=== PATIENT | male | born 1935 | race Caucasian/White ===

== ENCOUNTER → 2016-07-25 | Outpatient (CLI) | payer BC ==
[~2016-07-25] MED LIST: AMOX500C3 PO; ATOR-24 PO; CALC1TAB27 PO; CARV25TA2 PO; CLOP1TAB15 PO; COLE625T PO; DIGO0.122 PO; DILT180C9 PO; DOXA2TAB PO; ERGO50002 PO; FAMO20TA11 PO; FRS/40 PO; HYDR-4717 PO; IBUP600T44 PO; INSDGI SC; INSDGIPEN SC; ISOS60TA2 PO; LISI40TA PO; LORA-741 PO; NVLGI SC; NVLGI/PEN SC; OMEG10007 PO; POTA-327 PO; POTA10TA33 PO; SNG10 PO; TRAM-10 PO; WARF5TAB7 PO; XLTOPS OP
[2016-07-25 14:45] LABS: BASO % 0.3 %; BASO ABS # 0.02 K/uL (0-0.2); COMPLETE YES; EOS % 1.7 %; HEMATOCRIT 35.2 % (42-52); IG% 0.3 %; LYMPH % 21.9 %; MEAN CELL VOLUME 87.3 fL (80-100); MEAN CORPUSCULAR HEMOGLOBIN 29.3 pg (25-34); MEAN CORPUSCULAR HGB CONC 33.5 g/dl (32-36); MEAN PLATELET VOLUME 10.4 fL (7.4-10.4); MONO % 6.3 %; NEUT % 69.5 %; PLATELET COUNT 199 K/uL (130-400); RED BLOOD COUNT 4.03 M/uL (4.7-6.1); WHITE BLOOD COUNT 7.75 K/uL (4.8-10.8)
[2016-07-25 15:09] LABS: ESTIMATED AVERAGE GLUCOSE 243 mg/dl; HA1C FLAG Normal (Normal)
[2016-07-25 17:32] LABS: ALKALINE PHOSPHATASE 90 U/L (45-117); ALT/SGPT 25 U/L (12-78); BLOOD UREA NITROGEN 15 mg/dl (7-18); BUN/CREATININE RATIO 12.7 (10-20); CALCIUM 9.6 mg/dl (8.5-10.1); CARBON DIOXIDE 26 mmol/L (21-32); CHLORIDE 105 mmol/L (98-107); GLUCOSE 283 mg/dl (70-99); POTASSIUM 4.1 mmol/L (3.5-5.1); SODIUM 140 mmol/L (136-145)
[2016-07-25 17:38] LABS: AST/SGOT 9 U/L (15-37)
--- NOTE | 2016-07-29 11:34 | CODING QUERY MEDICAL NECESSITY ---
SUPPORTING DIAGNOSIS NEEDED A supporting diagnosis is required for the test/procedure performed on this patient in order for us to be reimbursed by the patient's insurance. Please provide a supporting diagnosis for the following test/procedure listed below next to the test name along with your signature. *If there is no additional diagnosis for this patient that would support the following test/procedure please document that below next to the test/procedure. Test(s)/Procedure(s) that require a supporting diagnosis: DOS 07/25 * Hba1c DIAGNOSIS: Provider Signature: Date: Thank you Felipa Barron Health Information Management Once completed, please kindly fax back to [phone] For questions please call [phone]
== END | disposition home or self-care (01) ==
LOC: C.LAB1850 13:44
PROVIDERS: ATTEND Internal Medicine
DX: D64.9 Anemia, unspecified (principal); L29.9 Pruritus, unspecified; E11.8 Type 2 diabetes mellitus with unspecified complications

== ENCOUNTER → 2016-08-10 | Outpatient (CLI) | payer BC ==
--- NOTE | 2016-08-10 15:04 | DIAGNOSTIC IMAGING REPORT ---
CHEST 2 VIEWS ROUTINE HISTORY: Chest pain. 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 FINDINGS: Lungs are clear. No pleural effusions. No pneumothorax. Left-sided pacemaker/defibrillator. The heart remains top normal in size. IMPRESSION: No significant change compared to the prior study. No acute process. Electronically signed by: Go Hall M.D. 08/10/2016 3:02 PM Dictated Date/Time: 08/10/2016 3:01 PM
[2016-08-16 12:19] LABS: ALBUMIN 3.6 G/DL (3.8-4.8); BEEF CLASS 0; BEEF IGE <0.10 KU/L; CASHEW CLASS 0; CASHEW IGE <0.10 KU/L; CHOCOLATE CLASS 0; CHOCOLATE IGE <0.10 KU/L; CLAM CLASS 0; CLAM IGE <0.10 KU/L; CORN CLASS 0; CORN IGE <0.10 KU/L; CRAB CLASS 0; CRAB IGE <0.10 KU/L; EGG MIX CLASS 0; EGG MIX IGE <0.10 KU/L; GAMMA GLOBULIN 0.7 G/DL (0.8-1.7); HAZELNUT CLASS 0; IMMUNOGLOBULIN E TC 24620E 46 KU/L (<115); LOBSTER CLASS 0; LOBSTER IGE <0.10 KU/L; PEANUT IGE <0.10 KU/L; PECAN NUT CLASS 0; PECAN NUT IGE <0.10 KU/L; PISTACHIO CLASS 0; PISTACHIO IGE <0.10 KU/L; PORK CLASS 0; PORK IGE <0.10 KU/L; RAST ALMOND CLASS 0; RAST ALMOND IGE <0.10 KU/L; RAST BRAZIL NUT CLASS 0; RAST BRAZIL NUT IGE <0.10 KU/L; RAST HAZELNUT IGE <0.10 KU/L; SHRIMP CLASS 0; SOY CLASS 0; SOY IGE <0.10 KU/L; TOTAL PROTEIN 6.2 G/DL (6.2-8.3); WALNUT CLASS 0; WHEAT CLASS 0; WHEAT IGE <0.10 KU/L
--- NOTE | 2016-08-17 10:53 | CODING QUERY MEDICAL NECESSITY ---
SUPPORTING DIAGNOSIS NEEDED Dr. Lamb, A supporting diagnosis is required for the test/procedure performed on this patient in order for us to be reimbursed by the patient's insurance. Please provide a supporting diagnosis for the following test/procedure listed below next to the test name along with your signature. *If there is no additional diagnosis for this patient that would support the following test/procedure please document that below next to the test/procedure. Test(s)/Procedure(s) that require a supporting diagnosis: * ([id number]) ALLERGY TESTING-IMMUNOGLOBULIN E DIAGNOSIS: DATE OF SERVICE: 08/10/16 Provider Signature: Date: Thank you Dimitri Ng [facility] Information Management Once completed, please kindly fax back to [phone] For questions please call [phone]
== END | disposition home or self-care (01) ==
LOC: C.RAD1850 14:34
PROVIDERS: ATTEND Internal Medicine
DX: I25.10 Atherosclerotic heart disease of native coronary artery without angina pectoris (principal); R05 Cough; L29.9 Pruritus, unspecified; D64.9 Anemia, unspecified

== ENCOUNTER → 2016-09-13 | Outpatient (CLI) | payer BC ==
--- NOTE | 2016-09-13 15:44 | DIAGNOSTIC IMAGING REPORT ---
LEFT FOOT MIN 3 VIEWS ROUTINE CLINICAL HISTORY: Left foot pain status post trauma COMPARISON: 03/16/2016 DISCUSSION: The bones are osteopenic. There is an acute fracture involving the base the proximal phalanx the great toe. There is no definite intra-articular extension. IMPRESSION: Acute nondisplaced fracture involving the proximal phalanx of the great toe. Electronically signed by: Jose Luis Grijalva M.D. 09/13/2016 3:42 PM Dictated Date/Time: 09/13/2016 3:41 PM
== END | disposition home or self-care (01) ==
LOC: C.RAD1850 15:18
PROVIDERS: ATTEND Internal Medicine
DX: S92.415A Nondisplaced fracture of proximal phalanx of left great toe, initial encounter for closed fracture (principal); X58.XXXA Exposure to other specified factors, initial encounter

== ENCOUNTER → 2016-12-22 | Outpatient (CLI) | payer BC ==
--- NOTE | 2016-12-22 16:34 | DIAGNOSTIC IMAGING REPORT ---
CHEST 2 VIEWS ROUTINE HISTORY: R06.02 SOBOE (shortness of breath on exertion)[id number] COMPARISON: Chest 08/10/2016. FINDINGS: Left-sided pacemaker/defibrillator. The heart remains top normal in size. The lungs are clear. No pleural effusions. No pneumothorax. IMPRESSION: No acute process. Electronically signed by: Go Hall M.D. 12/22/2016 4:33 PM Dictated Date/Time: 12/22/2016 4:31 PM
== END | disposition home or self-care (01) ==
LOC: C.RAD1850 16:21
PROVIDERS: ATTEND Internal Medicine
DX: R06.02 Shortness of breath (principal)

== ENCOUNTER → 2016-12-22 | Outpatient (CLI) | payer BC ==
[2016-12-22 17:19] LABS: BASO % 0.5 %; BASO ABS # 0.04 K/uL (0-0.2); COMPLETE YES; EOS % 2.8 %; HEMATOCRIT 39.4 % (42-52); LYMPH % 26.7 %; LYMPH ABS # 2.11 K/uL (1.2-3.4); MEAN CELL VOLUME 86.4 fL (80-100); MEAN CORPUSCULAR HEMOGLOBIN 26.5 pg (25-34); MEAN CORPUSCULAR HGB CONC 30.7 g/dl (32-36); MEAN PLATELET VOLUME 10.1 fL (7.4-10.4); PLATELET COUNT 284 K/uL (130-400); RED BLOOD COUNT 4.56 M/uL (4.7-6.1)
[2016-12-22 18:47] LABS: BLOOD UREA NITROGEN 20 mg/dl (7-18); BUN/CREATININE RATIO 18.1 (10-20); CALCIUM 9.8 mg/dl (8.5-10.1); CARBON DIOXIDE 25 mmol/L (21-32); CHLORIDE 108 mmol/L (98-107); CHOLESTEROL 115 mg/dl (0-200); GLUCOSE 158 mg/dl (70-99); POTASSIUM 4.1 mmol/L (3.5-5.1); SODIUM 140 mmol/L (136-145); TRIGLYCERIDES 142 mg/dl (0-150); VERY LOW DENSITY LIPOPROT CALC 28 mg/dl
[2016-12-22 18:51] LABS: FERRITIN 11.2 ng/ml (8.0-388.0); HDL CHOLESTEROL 38 mg/dl; LDL CHOLESTEROL CALCULATED 49 mg/dl
[2016-12-23 07:33] LABS: ESTIMATED AVERAGE GLUCOSE 209 mg/dl; HA1C FLAG Normal (Normal)
== END | disposition home or self-care (01) ==
LOC: C.LAB1850 16:06
PROVIDERS: ATTEND Internal Medicine
DX: E11.21 Type 2 diabetes mellitus with diabetic nephropathy (principal); D64.9 Anemia, unspecified; I25.10 Atherosclerotic heart disease of native coronary artery without angina pectoris; I48.92 Unspecified atrial flutter; R06.02 Shortness of breath; Z51.81 Encounter for therapeutic drug level monitoring; Z79.899 Other long term (current) drug therapy

== ENCOUNTER 2017-01-06 10:22 | Emergency (ER) | payer BC ==
[~2017-01-06] VITALS: Ht 167.6 cm; Wt 83.5 kg
[~2017-01-06 10:22] MED LIST changes: -INSDGIPEN SC; -NVLGI/PEN SC; -POTA10TA33 PO; -SNG10 PO
[2017-01-06 10:30] VITALS: Ht 167.6 cm; Wt 83.5 kg
--- NOTE | 2017-01-06 10:59 | EMERGENCY ROOM VISIT NOTE ---
History Report prepared by Josee: Gideon Cevallos Under the Supervision of: Dr. Joel Sheth M.D. First contact with patient: 10:39 Chief Complaint: SHORTNESS OF BREATH Stated Complaint: LOW BLOOD PRESSURE, VISUAL CHANGES, FAINT Nursing Triage Summary: Pt states he was having an nuclear stress test for SOB x 6 mos. Pt was given dye and everything got blurry, bp was 76/40. Pt reports visual disturbance since getting dye, increased sob. Denies swelling in throat. Isotope dye used, people use gloves when touching IV site. History of Present Illness The patient is a 81 year old male who presents to the Emergency Room with complaints of constant shortness of breath this morning and some blurry vision this morning after given Cardiolite during a nuclear stress test, though he states that this has resolved. He states that the shortness of breath has been there for 6 months, though today it got worse. The patient denies any speech change or weakness. The patient denies any abdominal pain. He states that he has a history of stroke. Source of History: patient Onset: this morning Position: other (global) Quality: other (shortness of breath and blurred vision) Timing: constant Associated Symptoms: No abdominal pain, No weakness Note: Associated vision: Blurred vision Review of Systems All systems have been listed, reviewed, and are negative other than those previously mentioned. Please see Additional Medical History Sheet. Past Medical & Surgical Medical Problems: (1) Atrial fibrillation (2) Diabetes (3) Heart disease (4) Hypercholesteremia (5) Hypertension (6) Intraabdominal mass (7) Ischemic cardiomyopathy Family History Diabetes mellitus FH: cancer FH: heart disease Hypertension Social History Smoking Status: Former Smoker Alcohol Use: none Drug Use: none Marital Status: Housing Status: lives with family Occupation Status: retired Current/Historical Medications Scheduled Amoxicillin (Amoxil), 20,000 MG PO PRN/UD Atorvastatin (Lipitor), 40 MG PO DAILY Flnoicw-Dycsflirv-Hvnk (Calcium Magnesium & Zinc), 1 TAB PO DAILY Carvedilol (Coreg), 25 MG PO BID Clopidogrel (Plavix), 75 MG PO DAILY Diltiazem Hcl (Tiazac), 180 MG PO BID Doxazosin Mesylate (Cardura), 1 MG PO HS Ergocalciferol (Drisdol), 50,000 UNITS PO WK Famotidine (Pepcid), 20 MG PO BID Fish Oil (Smoot-3), 1 CAP PO DAILY Furosemide (Lasix), 40 MG PO DAILY Hydralazine Hcl (Apresoline), 50 MG PO TID Insulin Aspart (Novolog Flexpen), 1 DOSE SC AC/UD Insulin Glargine (Lantus Solostar), 22 UNITS SC HS Isosorbide Mononitrate (Imdur Ext Rel), 60 MG PO QPM Isosorbide Mononitrate (Imdur Ext Rel), 90 MG PO QAM Latanoprost (Latanoprost), 1 DROP OP HS Lisinopril (Zestril), 40 MG PO DAILY Montelukast Sod (Montelukast Sodium), 1 TAB PO DAILY Potassium Chloride (Potassium Chloride Sr), 1 TAB PO BID Warfarin Sod (Jantoven), 7.5 MG PO DAILY Scheduled PRN Ibuprofen (Motrin), 600 MG PO TID PRN for Pain Lorazepam (Ativan), 0.5 MG PO Q6H PRN for Anxiety/Agitation Tramadol (Ultram), 50 MG PO Q8H PRN for Pain Allergies Coded Allergies: No Known Allergies (Verified , 01/06/17) Physical Exam Vital Signs Date Time Temp Pulse Resp B/P (MAP) Pulse Ox O2 Delivery O2 Flow Rate FiO2 01/06/17 14:33 36.5 62 14 142/71 96 01/06/17 14:11 60 14 144/75 97 01/06/17 13:52 62 01/06/17 12:45 71 20 01/06/17 12:15 62 15 01/06/17 11:45 60 13 01/06/17 11:15 17 01/06/17 11:13 131/87 01/06/17 11:12 131/72 01/06/17 11:11 60 134/67 97 60 131/72 62 131/87 01/06/17 11:11 134/67 01/06/17 11:10 60 01/06/17 11:06 97 Room Air 01/06/17 10:49 143/71 01/06/17 10:30 36.5 61 16 131/74 96 Room Air Physical Exam GENERAL: Patient awake, alert, and is in no distress. SKIN: No erythema, pallor, cyanosis or rash HEENT: Normal head, pupils equal, reactive to light and accommodation. Ears normal. Oral cavity and posterior pharynx appear normal. The patient is missing multiple teeth. Neck: Without adenopathy, no neck vein distention. LUNGS: Clear to auscultation. No wheezes, no rales, no rhonchi. HEART: 1/6 systolic murmur. No gallops. No rubs ABDOMEN: No masses, no rebound, no hepatomegaly or splenomegaly. EXTREMITIES: Braces on both lower legs for foot drop. No signs of trauma. No pedal or pretibial edema. No calf or thigh tenderness. NEUROLOGIC: Patient has slight dysarthria most likely old. No new deficits. Foot drop bilaterally which is most likely old. Cranial nerves II-XII within normal limits. Medical Decision & Procedures ER Provider Diagnostic Interpretation: Radiology results as stated below per my review and radiologist interpretation: CHEST ONE VIEW PORTABLE CLINICAL HISTORY: 81 years-old Male presenting with blurred vision. TECHNIQUE: Portable upright AP view of the chest was obtained. COMPARISON: 12/22/2016. FINDINGS: Left-sided implanted cardiac defibrillator with leads to the right atrium, coronary sinus, and right ventricular apex. Mildly enlarged cardiac silhouette as on prior exam. Suggestion of enlargement of the main pulmonary artery. Prominence of pulmonary vasculature slightly increased from prior. Lungs and pleural spaces clear. Osseous structures and upper abdomen normal. IMPRESSION: 1. Cardiomegaly with prominent pulmonary vasculature, which may suggest volume overload. No pulmonary edema or effusions. Electronically signed by: Jostin Arguelles M.D. 01/06/2017 11:13 AM Dictated Date/Time: 01/06/2017 11:11 AM HEAD WITHOUT CONTRAST (CT) CLINICAL HISTORY: 81 years-old Male presenting with blurred vision. TECHNIQUE: Multidetector CT imaging of the head was performed without the use of intravenous contrast. COMPARISON: 11/12/2013. 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 Possible old lacunar infarct in the left basal ganglia. Few vague areas of subcortical white matter hypoattenuation in the frontal lobes, nonspecific but likely chronic small vessel ischemic change. No mass effect or midline shift. No hemorrhage or acute territorial infarct. No hydrocephalus. No extra-axial fluid collection. Paranasal sinuses and mastoid air cells clear. Calvarium intact. IMPRESSION: 1. No acute intracranial pathology. No hemorrhage. 2. Possible old lacunar infarct in the left basal and chronic small vessel ischemic change in the subcortical white matter. Electronically signed by: Jostin Arguelles M.D. 01/06/2017 1:34 PM Dictated Date/Time: 01/06/2017 1:30 PM Laboratory Results 01/06/17 11:10 Red Blood Count 3.95, Mean Corpuscular Volume 87.3, Mean Corpuscular Hemoglobin 28.4, Mean Corpuscular Hemoglobin Concent 32.5, Mean Platelet Volume 10.2, Neutrophils (%) (Auto) 68.9, Lymphocytes (%) (Auto) 21.6, Monocytes (%) (Auto) 6.3, Eosinophils (%) (Auto) 2.4, Basophils (%) (Auto) 0.5, Neutrophils # (Auto) 4.59, Lymphocytes # (Auto) 1.44, Monocytes # (Auto) 0.42, Eosinophils # (Auto) 0.16, Basophils # (Auto) 0.03 01/06/17 11:10 Test 01/06/17 11:10 01/06/17 11:35 White Blood Count 6.66 K/uL (4.8-10.8) Red Blood Count 3.95 M/uL (4.7-6.1) Hemoglobin 11.2 g/dL (14.0-18.0) Hematocrit 34.5 % (42-52) Mean Corpuscular Volume 87.3 fL (80-100) Mean Corpuscular Hemoglobin 28.4 pg (25-34) Mean Corpuscular Hemoglobin Concent 32.5 g/dl (32-36) Platelet Count 226 K/uL (130-400) Mean Platelet Volume 10.2 fL (7.4-10.4) Neutrophils (%) (Auto) 68.9 % Lymphocytes (%) (Auto) 21.6 % Monocytes (%) (Auto) 6.3 % Eosinophils (%) (Auto) 2.4 % Basophils (%) (Auto) 0.5 % Neutrophils # (Auto) 4.59 K/uL (1.4-6.5) Lymphocytes # (Auto) 1.44 K/uL (1.2-3.4) Monocytes # (Auto) 0.42 K/uL (0.11-0.59) Eosinophils # (Auto) 0.16 K/uL (0-0.5) Basophils # (Auto) 0.03 K/uL (0-0.2) RDW Standard Deviation 46.8 fL (36.4-46.3) RDW Coefficient of Variation 14.5 % (11.5-14.5) Immature Granulocyte % (Auto) 0.3 % Immature Granulocyte # (Auto) 0.02 K/uL (0.00-0.02) Prothrombin Time 24.8 SECONDS (9.0-12.0) Prothromb Time International Ratio 2.2 (0.9-1.1) Activated Partial Thromboplast Time 33.1 SECONDS (21.0-31.0) Partial Thromboplastin Ratio 1.3 Anion Gap 9.0 mmol/L (3-11) Est Creatinine Clear Calc Drug Dose 59.7 ml/min Estimated GFR () 82.0 Estimated GFR (Non- 70.8 BUN/Creatinine Ratio 18.9 (10-20) Calcium Level 9.5 mg/dl (8.5-10.1) Total Bilirubin 0.6 mg/dl (0.2-1) Aspartate Amino Transf (AST/SGOT) 9 U/L (15-37) Alanine Aminotransferase (ALT/SGPT) 19 U/L (12-78) Alkaline Phosphatase 96 U/L (45-117) Troponin I < 0.015 ng/ml (0-0.045) Total Protein 6.6 gm/dl (6.4-8.2) Albumin 3.3 gm/dl (3.4-5.0) Globulin 3.3 gm/dl (2.5-4.0) Albumin/Globulin Ratio 1.0 (0.9-2) Urine Color DK YELLOW Urine Appearance CLEAR (CLEAR) Urine pH 5.5 (4.5-7.5) Urine Specific [place] 1.024 (1.000-1.030) Urine Protein 2+ (NEG) Urine Glucose (UA) TRACE (NEG) Urine Ketones TRACE (NEG) Urine Occult Blood NEG (NEG) Urine Nitrite NEG (NEG) Urine Bilirubin NEG (NEG) Urine Urobilinogen NEG (NEG) Urine Leukocyte Esterase NEG (NEG) Urine WBC (Auto) 1-5 /hpf (0-5) Urine RBC (Auto) 0-4 /hpf (0-4) Urine Hyaline Casts (Auto) 1-5 /lpf (0-5) Urine Epithelial Cells (Auto) 10-20 /lpf (0-5) Urine Bacteria (Auto) NEG (NEG) Laboratory results as stated above per my review. ECG Indication: SOB/dyspnea Rate (beats per minute): 60 Rhythm: other (AV dual paced) Findings: no acute ischemic change, no ectopy ED Course 1039: Past medical records reviewed. The patient was evaluated in room C10. A complete history and physical examination was performed. 1243: I reevaluated the patient, and he was doing well 1412: I reevaluated the patient, and he states that he has no more blurred vision. We called nuclear medicine, and it is too late for them to take the final picture today. The patient will be discharged home. Medical Decision Nurses notes reviewed. Medical history sheet reviewed. Differential diagnosis includes but is not limited to: medication reaction, hypotension, CVA, and TIA. Blood Pressure Screening: Patient was found to have a slightly elevated blood pressure due to circumstances. I do not believe that the patient requires hypertension monitoring. Medication Reconciliation: I attest that I have personally reviewed the patient' s current medication list. The patient was sent here from nuclear medicine where he was having a Cardiolite stress test done. He did not actually go through the stress test itself. The patient had blurred vision and low blood pressure. Those symptoms have since resolved. During his stay in the ED he had no blurred vision or hypotension. Multiple labs, EKG and imaging were performed. Please see above. The patient is not orthostatic. Labs were felt to be within normal range. He has no findings to suggest an acute stroke or TIA. I believe the patient is safe to return home. He will continue his current medications. Impression Primary Impression: Blurred vision Scribe Attestation The scribe's documentation has been prepared under my direction and personally reviewed by me in its entirety. I confirm that the note above accurately reflects all work, treatment, procedures, and medical decision making performed by me. Departure Information Dispostion Home / Self-Care Referrals Kyle Lamb M.D. (PCP) Forms HOME CARE DOCUMENTATION FORM, IMPORTANT VISIT INFORMATION Patient Instructions My [facility] Additional Instructions Continue all of your current medications as prescribed. Follow-up with your family physician.
[2017-01-06 11:06] VITALS: O2SAT 97
--- NOTE | 2017-01-06 11:14 | DIAGNOSTIC IMAGING REPORT ---
CHEST ONE VIEW PORTABLE CLINICAL HISTORY: 81 years-old Male presenting with blurred vision. TECHNIQUE: Portable upright AP view of the chest was obtained. COMPARISON: 12/22/2016. FINDINGS: Left-sided implanted cardiac defibrillator with leads to the right atrium, coronary sinus, and right ventricular apex. Mildly enlarged cardiac silhouette as on prior exam. Suggestion of enlargement of the main pulmonary artery. Prominence of pulmonary vasculature slightly increased from prior. Lungs and pleural spaces clear. Osseous structures and upper abdomen normal. IMPRESSION: 1. Cardiomegaly with prominent pulmonary vasculature, which may suggest volume overload. No pulmonary edema or effusions. Electronically signed by: Jostin Arguelles M.D. 01/06/2017 11:13 AM Dictated Date/Time: 01/06/2017 11:11 AM
[2017-01-06 11:35] LABS: BASO % 0.5 %; BASO ABS # 0.03 K/uL (0-0.2); COMPLETE YES; EOS % 2.4 %; HEMATOCRIT 34.5 % (42-52); IG% 0.3 %; LYMPH % 21.6 %; LYMPH ABS # 1.44 K/uL (1.2-3.4); MEAN CELL VOLUME 87.3 fL (80-100); MEAN CORPUSCULAR HEMOGLOBIN 28.4 pg (25-34); MEAN CORPUSCULAR HGB CONC 32.5 g/dl (32-36); MEAN PLATELET VOLUME 10.2 fL (7.4-10.4); MONO % 6.3 %; NEUT % 68.9 %; PLATELET COUNT 226 K/uL (130-400); RED BLOOD COUNT 3.95 M/uL (4.7-6.1); WHITE BLOOD COUNT 6.66 K/uL (4.8-10.8)
[2017-01-06 11:45] LABS: INR 2.2 (0.9-1.1); PARTIAL THROMBOPLASTIN RATIO 1.3; PROTHROMBIN TIME (PATIENT) 24.8 SECONDS (9.0-12.0)
[2017-01-06 11:46] LABS: URINE APPEARANCE CLEAR (CLEAR); URINE BILIRUBIN NEG (NEG); URINE COLOR DK YELLOW; URINE NITRITE NEG (NEG); URINE PH 5.5 (4.5-7.5); URINE SPECIFIC GRAVITY 1.024 (1.000-1.030); UROBILINOGEN NEG (NEG); ZZUR CULT IF INDIC CLEAN CATCH NO
[2017-01-06 11:47] LABS: MANUAL MICROSCOPIC REQUIRED? NO; REVIEW REQ? NO
[2017-01-06 11:53] LABS: ALT/SGPT 19 U/L (12-78); AST/SGOT 9 U/L (15-37); BLOOD UREA NITROGEN 19 mg/dl (7-18); BUN/CREATININE RATIO 18.9 (10-20); CALCIUM 9.5 mg/dl (8.5-10.1); CARBON DIOXIDE 24 mmol/L (21-32); CHLORIDE 108 mmol/L (98-107); GLUCOSE 177 mg/dl (70-99); POTASSIUM 3.9 mmol/L (3.5-5.1); SODIUM 141 mmol/L (136-145)
[2017-01-06 11:58] LABS: ALKALINE PHOSPHATASE 96 U/L (45-117)
--- NOTE | 2017-01-06 13:36 | DIAGNOSTIC IMAGING REPORT ---
HEAD WITHOUT CONTRAST (CT) CLINICAL HISTORY: 81 years-old Male presenting with blurred vision. TECHNIQUE: Multidetector CT imaging of the head was performed without the use of intravenous contrast. COMPARISON: 11/12/2013. 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 Possible old lacunar infarct in the left basal ganglia. Few vague areas of subcortical white matter hypoattenuation in the frontal lobes, nonspecific but likely chronic small vessel ischemic change. No mass effect or midline shift. No hemorrhage or acute territorial infarct. No hydrocephalus. No extra-axial fluid collection. Paranasal sinuses and mastoid air cells clear. Calvarium intact. IMPRESSION: 1. No acute intracranial pathology. No hemorrhage. 2. Possible old lacunar infarct in the left basal and chronic small vessel ischemic change in the subcortical white matter. Electronically signed by: Jostin Arguelles M.D. 01/06/2017 1:34 PM Dictated Date/Time: 01/06/2017 1:30 PM
[2017-01-06] MEDS ORDERED: SNG10 PO (13:45)
[2017-01-06] MEDS ORDERED: NVLGI/PEN SC (13:45)
[2017-01-06] MEDS ORDERED: POTA10TA33 PO (13:45)
[2017-01-06] MEDS ORDERED: INSDGIPEN SC (13:45)
[2017-01-06 14:33] VITALS: BP 142/71; PULSE 62; TEMP 36.5; O2SAT 96
== END 2017-01-06 14:35 | disposition home or self-care (01) ==
LOC: C.EDB 10:24 → C.EDC 14:35
DX: R06.02 Shortness of breath (principal); H53.8 Other visual disturbances; Z86.73 Personal history of transient ischemic attack (TIA), and cerebral infarction without residual deficits; I48.91 Unspecified atrial fibrillation; E11.9 Type 2 diabetes mellitus without complications; E78.00 Pure hypercholesterolemia, unspecified; I10 Essential (primary) hypertension; I25.5 Ischemic cardiomyopathy; Z83.3 Family history of diabetes mellitus; Z80.9 Family history of malignant neoplasm, unspecified; Z82.49 Family history of ischemic heart disease and other diseases of the circulatory system; Z87.891 Personal history of nicotine dependence; Z79.01 Long term (current) use of anticoagulants; Z79.899 Other long term (current) drug therapy; Z79.4 Long term (current) use of insulin

== ENCOUNTER → 2017-01-06 | Outpatient (CLI) | payer BC ==
--- NOTE | 2017-01-06 10:24 | Cardiology Follow-Up ---
Cardiology Follow-Up Date of Service Jan 06, 2017. Cardiology Follow-Up I was called by nuclear Medicine regarding hypotension and blurry vision. Following Cardiolite injection for resting images for outpatient stress test which was ordered by Dr. Hermosillo, Mr. Salgado complained of blurry vision. His heart rate was 60 bpm per nursing. His systolic blood pressure was in the 70s. They laid him flat and his systolic blood pressure was in the mid 100s mmHg. Despite improved blood pressure, blurry vision continued. I presented to the bedside. His systolic blood pressure was in the 120s and his heart rate was 60. He had no other neurologic complaints and no other symptoms that he complained about but still had blurry vision. He admitted that it had improved but was still present. This is not normal for him. Given the fact that his blood pressure has normalized and his symptoms continued, it was recommended that he be sent to the emergency department for prompt evaluation. Dr. Sheth, emergency department physician, was personally contacted via telephone and agreed to further evaluate Mr. Salgado. Resting images have not yet been done and these can be completed if no acute abnormalities found by the emergency department and he is felt to be safe to be discharged. The pharmacologic stress portion of today's study will be postponed.
== END | disposition home or self-care (01) ==
LOC: C.NUCL 08:54 → EDSTATUS 09:30
PROVIDERS: ATTEND Internal Medicine Cardiovascular Disease
DX: I25.10 Atherosclerotic heart disease of native coronary artery without angina pectoris (principal); R53.83 Other fatigue; R06.09 Other forms of dyspnea

== ENCOUNTER → 2017-01-27 | Outpatient (CLI) | payer BC ==
[~2017-01-27] MED LIST changes: -COLE625T PO; -DIGO0.122 PO; -INSDGI SC; +INSDGIPEN SC; -NVLGI SC; +NVLGI/PEN SC; -POTA-327 PO; +POTA10TA33 PO; +REGADENOSON 0.4 MG/5 ML SYR ONE; +SNG10 PO
--- NOTE | 2017-01-30 11:38 | MYOCARDIAL PERFUSION SCAN ---
ONE-DAY NUCLEAR MEDICINE TECHNETIUM-99M CARDIOLITE MYOCARDIAL PERFUSION SCAN CLINICAL HISTORY: The patient has known coronary artery disease and is experiencing exertional dyspnea. The patient also has a paced rhythm. COMPARISON: None. TECHNIQUE: For the stress portion of the study, 22.4 mCi of Technetium 99 m Cardiolite IV was injected at 1:50 pm on 01/27/2017. Thirty minutes following the injection, imaging of the heart was performed in multiple projection. For the rest portion of the study, 11.0 mCi of Technetium 99 m Cardiolite was injected IV at 9:30 am. One hour following the injection, imaging of the heart was performed in the same projections. For the stress portion of the study, 0.4 mg of Lexiscan was injected intravenously as per protocol. The patient did not experience chest discomfort. There were no EKG changes. FINDINGS: The short axis, vertical long axis, horizontal long axis images were reviewed in detail. There is no evidence of a prior myocardial infarction or stress induced myocardial ischemia. Left ventricular systolic function is reduced at 35%. There is global hypokinesis of the left ventricle. IMPRESSION: 1. No scintigraphic evidence of a prior myocardial infarction or stress induced myocardial ischemia. 2. No Lexiscan induced chest pain. 3. No EKG changes. 4. Globally hypokinetic left ventricle with an ejection fraction of 35%.
== END | disposition home or self-care (01) ==
LOC: C.NUCL 12:30
PROVIDERS: ATTEND Internal Medicine Cardiovascular Disease
DX: I25.10 Atherosclerotic heart disease of native coronary artery without angina pectoris (principal)

== ENCOUNTER → 2017-05-12 | Outpatient (CLI) | payer BC ==
[~2017-05-12] MED LIST changes: -REGADENOSON 0.4 MG/5 ML SYR ONE
[2017-05-12 18:10] LABS: THYROID STIMULATING HORMONE 1.75 uIu/ml (0.300-4.500)
== END | disposition home or self-care (01) ==
LOC: C.LAB1850 17:16
PROVIDERS: ATTEND Internal Medicine Cardiovascular Disease
DX: I48.0 Paroxysmal atrial fibrillation (principal); I10 Essential (primary) hypertension; R53.83 Other fatigue; I48.92 Unspecified atrial flutter; I25.5 Ischemic cardiomyopathy; R06.09 Other forms of dyspnea

== ENCOUNTER → 2017-06-05 | Outpatient (CLI) | payer BC ==
[2017-06-05 13:19] LABS: HEMATOCRIT 38.2 % (42-52); MEAN CELL VOLUME 89.5 fL (80-100); MEAN CORPUSCULAR HEMOGLOBIN 28.8 pg (25-34); MEAN CORPUSCULAR HGB CONC 32.2 g/dl (32-36); MEAN PLATELET VOLUME 10.3 fL (7.4-10.4); PLATELET COUNT 261 K/uL (130-400); RED BLOOD COUNT 4.27 M/uL (4.7-6.1)
[2017-06-05 13:46] LABS: ALT/SGPT 19 U/L (12-78); AST/SGOT 12 U/L (15-37); BLOOD UREA NITROGEN 25 mg/dl (7-18); BUN/CREATININE RATIO 20.2 (10-20); CALCIUM 9.7 mg/dl (8.5-10.1); CARBON DIOXIDE 28 mmol/L (21-32); CHLORIDE 104 mmol/L (98-107); CHOLESTEROL 132 mg/dl (0-200); CREATININE 1.26 mg/dl (0.60-1.40); GLUCOSE 208 mg/dl (70-99); POTASSIUM 4.2 mmol/L (3.5-5.1); SODIUM 137 mmol/L (136-145); TRIGLYCERIDES 141 mg/dl (0-150); VERY LOW DENSITY LIPOPROT CALC 28 mg/dl
[2017-06-05 13:48] LABS: CHOLESTEROL/HDL RATIO 3.4; HDL CHOLESTEROL 39 mg/dl; LDL CHOLESTEROL CALCULATED 65 mg/dl
[2017-06-05 14:06] LABS: CREATININE RANDOM URINE 54.2 mg/dl
[2017-06-05 14:17] LABS: RATIO 148.9 mcg/mg (0-30.0)
[2017-06-05 14:18] LABS: ESTIMATED AVERAGE GLUCOSE 212 mg/dl; HA1C FLAG Normal (Normal)
== END | disposition home or self-care (01) ==
LOC: C.LAB1850 12:19
PROVIDERS: ATTEND Internal Medicine
DX: E11.21 Type 2 diabetes mellitus with diabetic nephropathy (principal); I25.10 Atherosclerotic heart disease of native coronary artery without angina pectoris; D64.9 Anemia, unspecified

== ENCOUNTER 2018-01-22 12:42 | Emergency (ER) | payer BC ==
[~2018-01-22] VITALS: Ht 167.6 cm; Wt 91.8 kg
[~2018-01-22 12:42] MED LIST changes: +CHOL100027 PO; +DILT180C PO; -DILT180C9 PO; -DOXA2TAB PO; -ERGO50002 PO; -IBUP600T44 PO; +OXYC-737 PO; -TRAM-10 PO; +WARF-246 PO; -WARF5TAB7 PO; -XLTOPS OP
[2018-01-22 12:44] VITALS: TEMP 36.6; Ht 167.6 cm; Wt 91.8 kg
--- NOTE | 2018-01-22 13:43 | DIAGNOSTIC IMAGING REPORT ---
RIGHT THUMB 3 VIEWS CLINICAL HISTORY: Right thumb pain COMPARISON: None. DISCUSSION: On the AP view, there is a lucency through the base the proximal phalanx and first metacarpal. This is not confirmed on other projections is felt to represent artifact. There are no acute fractures. Degenerative changes are present the level the first carpal metacarpal joint, metacarpal phalangeal joint, and interphalangeal joint. No destructive lesions are visualized. IMPRESSION: 1. Mild osteophytic changes 2. No fractures or dislocations identified. Electronically signed by: Jose Luis Grijalva M.D. 01/22/2018 1:41 PM Dictated Date/Time: 01/22/2018 1:40 PM
--- NOTE | 2018-01-22 14:16 | EMERGENCY ROOM VISIT NOTE ---
ED Visit Note First contact with patient: 13:01 Staff note: I have reviewed the Patients chart and have discussed this case with my PA. I generally agree with the ED note and findings.
[2018-01-22 14:51] VITALS: BP 205/103; PULSE 64; O2SAT 93
--- NOTE | 2018-01-22 17:10 | EMERGENCY ROOM VISIT NOTE ---
History First contact with patient: 13:01 Chief Complaint: FINGER PAIN Stated Complaint: RT HAND THUMB PAIN History of Present Illness The patient is a 82 year old male who presents to the Emergency Room with complaints of an injury to the right thumb around midnight last night. The patient reports that he was twisting off the base of a humAnzubird feeder. He did not have any abrupt onset of pain or swelling at that time. He awoke at 4 AM with swelling, bruising and pain. The patient has not taken any Tylenol for the pain. He did apply some ice. The patient reports that he is on both Plavix and Coumadin. He checks his INR at home. He is due for another repeat this morning, and is refusing any lab work today. He currently rates his discomfort a 7 out of 10. Review of Systems 10 system review was performed and was negative except for pertinent positives and negatives as indicated in history of present illness Past Medical/Surgical History Medical Problems: (1) Atrial fibrillation (2) Diabetes (3) Heart disease (4) Hypercholesteremia (5) Hypertension (6) Intraabdominal mass (7) Ischemic cardiomyopathy Family History Diabetes mellitus FH: cancer FH: heart disease Hypertension Social History Smoking Status: Never Smoker Alcohol Use: none Drug Use: none Marital Status: Housing Status: lives with family Occupation Status: retired Current/Historical Medications Scheduled Amoxicillin (Amoxil), 20,000 MG PO PRN/UD Atorvastatin (Lipitor), 40 MG PO DAILY Cwmpfes-Afwvjkubw-Camo (Calcium Magnesium & Zinc), 1 TAB PO DAILY Carvedilol (Coreg), 25 MG PO BID Cholecalciferol (Vitamin D 1000 Unit), 1,000 INTER.UNIT PO DAILY Clopidogrel (Plavix), 75 MG PO DAILY Diltiazem Hcl Coated Beads (Diltiazem Hcl Er), 180 MG PO BID Famotidine (Pepcid), 20 MG PO BID Fish Oil ([place]itage-3), 1 CAP PO DAILY Furosemide (Lasix), 40 MG PO DAILY Hydralazine Hcl (Apresoline), 50 MG PO TID Insulin Aspart (Novolog Flexpen), 1 DOSE SC AC/UD Insulin Glargine (Lantus Solostar), 25 UNITS SC HS Isosorbide Mononitrate (Imdur Ext Rel), 60 MG PO QPM Isosorbide Mononitrate (Imdur Ext Rel), 90 MG PO QAM Lisinopril (Zestril), 40 MG PO DAILY Montelukast Sod (Montelukast Sodium), 1 TAB PO DAILY Potassium Chloride (Potassium Chloride Sr), 1 TAB PO BID Warfarin Sodium (Warfarin Sodium), 7.5 MG PO DAILY Scheduled PRN Lorazepam (Ativan), 0.5 MG PO Q6H PRN for Anxiety/Agitation Oxycodone Immediate Rel Tab (Roxicodone Ir), 1 TAB PO Q4H PRN for Severe Pain Physical Exam Vital Signs Date Time Temp Pulse Resp B/P (MAP) Pulse Ox O2 Delivery O2 Flow Rate FiO2 01/22/18 14:51 64 16 205/103 93 Room Air 01/22/18 12:44 36.6 66 18 207/117 95 Room Air Physical Exam CONSTITUTIONAL: Healthy and well nourished. Alert and oriented X 3 with positive affect. Patient does not appear in any acute distress. HEENT: Normocephalic, atraumatic. Pupils equal, round and reactive. NECK: Full active range of motion without discomfort. MUSCULOSKELETAL: Examination of the right hand shows edema and mild ecchymosis of the thenar eminence, with associated tenderness to palpation through the muscle. The patient otherwise does not have any focal tenderness of the collateral ligaments of the MCP or IP joints. Negative anatomic snuffbox tenderness. No other tenderness to palpation through the wrist. Capillary refill of the thumb is less than 2 seconds. INTEGUMENTARY: No rash or other significant dermatologic conditions noted. NEUROLOGIC: Right thumb is sensory intact. Medical Decision & Procedures ER Provider Diagnostic Interpretation: My interpretation of right thumb x-rays does not show any obvious fractures or dislocation. Radiologist report is as follows: RIGHT THUMB 3 VIEWS CLINICAL HISTORY: Right thumb pain COMPARISON: None. DISCUSSION: On the AP view, there is a lucency through the base the proximal phalanx and first metacarpal. This is not confirmed on other projections is felt to represent artifact. There are no acute fractures. Degenerative changes are present the level the first carpal metacarpal joint, metacarpal phalangeal joint, and interphalangeal joint. No destructive lesions are visualized. IMPRESSION: 1. Mild osteophytic changes 2. No fractures or dislocations identified. ED Course Patient history and physical exam were performed. Nurse's notes were reviewed. Vital signs were reviewed, showing an elevated blood pressure. Patient reports that he did not take his medicines this morning, including his Plavix and warfarin. The patient reports that he is due for a home INR checked this morning, and will call the Coumadin clinic with results. An Te wrap was applied to the hand. He was encouraged to intermittently apply ice and elevate the hand as needed for additional swelling and pain relief. He may also take Tylenol as needed. I did encourage the patient to follow-up with his PCP for recheck within the next 2-3 days, especially if his symptoms worsen or if he has worsening swelling. He may alternatively follow-up with [facility]. The patient was happy with plan of care, voiced understanding of all discharge instructions, refused any analgesics while in the emergency department, and rated his discomfort a 4 out of 10 at the conclusion of my exam. The patient was also seen and examined by Dr. Saez, ED attending physician, who agrees with workup and plan of care. Medical Decision I suspect a soft tissue injury. There are no acute findings noted on x-ray that would suggest fracture or dislocation. The patient is on Plavix and Coumadin, making him at risk for bleeding with soft tissue injury. Blood pressure is also elevated because he did not take his blood pressure medication this morning. Medication Reconcilliation Current Medication List: was personally reviewed by me Blood Pressure Screening Patient's blood pressure: Elevated blood pressure Blood pressure disposition: Elevated BP felt to be situational Impression Primary Impression: Strain of right thumb Additional Impression: Elevated blood pressure reading with diagnosis of hypertension Departure Information Referrals Pro,Kyle Munroe M.D. (PCP) Patient Instructions My [facility] Problem Qualifiers
== END 2018-01-22 15:17 | disposition home or self-care (01) ==
LOC: C.EDB 12:43 → C.EDD 15:17
DX: S66.911A Strain of unspecified muscle, fascia and tendon at wrist and hand level, right hand, initial encounter (principal); X50.9XXA Other and unspecified overexertion or strenuous movements or postures, initial encounter; E11.9 Type 2 diabetes mellitus without complications; I10 Essential (primary) hypertension; I48.91 Unspecified atrial fibrillation; I25.5 Ischemic cardiomyopathy; Z83.3 Family history of diabetes mellitus; Z82.49 Family history of ischemic heart disease and other diseases of the circulatory system; Z79.01 Long term (current) use of anticoagulants; Z79.4 Long term (current) use of insulin; Z79.899 Other long term (current) drug therapy

== ENCOUNTER 2019-02-06 08:48 | Observation (INO) ==
--- NOTE | 2019-02-06 09:31 | XRay Report ---
XR chest 1V portable CLINICAL HISTORY: Atypical chest pain COMPARISON STUDY: 07/15/2018 FINDINGS: The heart is mildly enlarged. There is a left subclavian pacer/defibrillator. There is subt le elevation of interstitium. An element of mild pulmonary vascular congestion cannot be excluded. Th ere is basilar interstitial thickening. There is no lobar consolidation. There are moderately advance d arthritic changes within the shoulders. No pleural effusions are visualized[ IMPRESSION: Cardiomegaly and equivocal mild pulmonary vascular congestion. Basilar interstitial thick ening. No evidence of lobar consolidation Electronically signed by: Jose Luis Grijalva M.D. 02/06/2019 9:30 AM
[2019-02-06 09:44] LABS: Basophils # (auto) 0.01 K/uL (0-0.2); Basophils % (auto) 0.1 %; Hematocrit (blood only) 32.7 % (42-52); Immature Granulocytes # (auto) 0.02 K/uL (0.00-0.02); Immature Granulocytes % (auto) 0.2 %; Lymphocytes # (auto) 1.25 K/uL (1.2-3.4); Lymphocytes % (auto) 14.6 %; Mean Corpuscular Hgb Conc 33.6 g/dL (32-36); Mean Platelet Volume 10.3 fL (7.4-10.4); Monocytes # (auto) 0.43 K/uL (0.11-0.59); Neutrophils # (auto) 6.86 K/uL (1.4-6.5); Neutrophils % (auto) 80.1 %; Platelet Count 269 K/uL (130-400); RDW Coefficient of Variation 15.4 % (11.5-14.5); RDW Standard Deviation 48.8 fL (36.4-46.3); Red Blood Count 3.76 M/uL (4.7-6.1); White Blood Count 8.57 K/uL (4.8-10.8)
[2019-02-06 09:56] LABS: INR 1.2 (0.9-1.1); Partial Thromboplastin Ratio 0.9; Partial Thromboplastin Time 23.6 Seconds (21.0-31.0); Prothrombin Time 11.7 Seconds (9.0-12.0)
[2019-02-06 09:57] LABS: Alanine Aminotransferase 19 U/L (12-78); Albumin Level 3.1 gm/dl (3.4-5.0); Aspartate Aminotransferase 9 U/L (15-37); BUN Creatinine Ratio 22.1 (10-20); Blood Urea Nitrogen 34 mg/dl (7-18); Calcium 9.6 mg/dl (8.5-10.1); Carbon Dioxide 27 mmol/L (21-32); Chloride 108 mmol/L (98-107); Est GFR (African American) 48.8; Est GFR (Non-African American) 42.1; Glucose 290 mg/dl (70-99); Potassium 4.7 mmol/L (3.5-5.1); Sodium 140 mmol/L (136-145)
[2019-02-06 10:02] LABS: Alkaline Phosphatase 120 U/L (45-117); Bilirubin,Total 0.5 mg/dl (0.2-1); Globulin 3.2 gm/dl (2.5-4.0); Total Protein 6.4 gm/dl (6.4-8.2); Troponin I < 0.015 ng/ml (0-0.045)
--- NOTE | 2019-02-06 12:19 | CT Scan Report ---
CT abd pelvis wo con CT DOSE: 955.88 mGycm HISTORY: Pain. Nausea. upper pain TECHNIQUE: Multiaxial CT images of the abdomen and pelvis were performed without contrast. A dose lo wering technique was utilized adhering to the principles of ALARA. COMPARISON STUDY: 08/07/2015 FINDINGS: Mild dependent basilar atelectasis. There is been interval cholecystectomy. General configu ration of liver spleen and pancreas appear unremarkable. Bilateral renal cysts are unchanged. There are nonobstructing renal calcifications bilaterally. There is a 5 mm nonobstructing calcificati on lower pole right kidney. No evidence for hydronephrosis. Bowel pattern is nonobstructive. There are findings of scattered components of chronic colonic divert iculosis. No evidence for acute diverticulitis. Several small mesenteric, retroperitoneal, and inguin al nodes are stable compared to the prior study There are findings of considerable degenerative and postoperative change of the mid to lower lumbar s pine. Considerable atherosclerotic change of the origin of the celiac axis and superior mesenteric ar santana. IMPRESSION: 1. No acute process in the abdomen or pelvis. 2. Interval cholecystectomy. 3. Stable bilateral renal cysts as well as multiple bilateral nonobstructing calcifications. 4. Scattered components of chronic colonic diverticulosis. 5. No evidence for acute diverticulitis. The above report was generated using voice recognition software. It may contain grammatical, syntax or spelling errors. Electronically signed by: Frank Sims M.D. 02/06/2019 12:18 PM
--- NOTE | 2019-02-06 14:32 | Emergency Department Note ---
Entered by Radha Benjamin acting as a scribe for Ismael Iqbal MD History of Present Illness General Chief complaint: Cardiac Assessment Stated complaint: IRREGULAR HEART BEAT/CHEST PAIN/HYPERTENSION Source: patient History of Present Illness Provider complaint: Chest pain Onset (ago): hour(s) (1 AM) Location: chest Pain Consistency: + constant Maximum Pain Intensity: 7 Quality: + sharp Associated symptoms: + chest pain (left) and + other (Positive: gas with belching. Negative: leg swelling, leg pain, urinary symptoms); no fever/chills and no nausea/vomiting The patient is an 83 year old male with past medical history of diabetes, heart disease who presents to the ED with complaints of constant sharp left chest pain that started at 1 AM. The patient reports gas last night with belching. He notes he felt better after passing gas. The patient reports he has history of heart attack. He notes he has been on Prednisone for his right knee for three weeks. He additionally states he has history of cholecystectomy. The patient denies fever, vomiting, leg swelling, leg pain, or urinary symptoms. He does have a prior history of MN but states he cannot remember what his symptoms are like at that time. Home Medications Home Medications Medication Instructions Recorded Confirmed Type zdubekr-fksygsrzp-mpbi 1 tab PO QAM 02/28/18 02/06/19 History atorvastatin 40 mg PO HS 06/05/18 02/06/19 History carvedilol 25 mg PO BIDM 06/05/18 02/06/19 History clopidogrel 75 mg PO QAM 06/05/18 02/06/19 History diltiazem HCl 180 mg PO BID 06/05/18 02/06/19 History famotidine 20 mg PO BID 06/05/18 02/06/19 History hydralazine 50 mg PO TID 06/05/18 02/06/19 History insulin aspart U-100 [Novolog 0 unit SUBCUT UD 06/05/18 02/06/19 History Flexpen U-100 Insulin] insulin glargine [Lantus Solostar 25 unit SUBCUT HS 06/05/18 02/06/19 History U-100 Insulin] isosorbide mononitrate 60 mg PO HS 06/05/18 02/06/19 History isosorbide mononitrate 90 mg PO QAM 06/05/18 02/06/19 History lorazepam 0.5 mg PO Q6H PRN 06/05/18 02/06/19 History montelukast [Singulair] 10 mg PO PM 06/05/18 02/06/19 History omega 2-wta-zzm-fish oil [Fish Oil] 1,000 mg PO QAM 06/05/18 02/06/19 History potassium chloride 10 meq PO BID 06/05/18 02/06/19 History furosemide 40 mg PO QAM 07/15/18 02/06/19 History lisinopril 40 mg tablet 40 mg PO QAM #90 tab 12/26/18 02/06/19 Rx apixaban [Eliquis] 5 mg PO BID 02/06/19 02/06/19 History duloxetine 30 mg PO DAILY 02/06/19 02/06/19 History hydrocodone-acetaminophen 1 tab PO Q6 PRN 02/06/19 02/06/19 History omeprazole 40 mg PO QAM 02/06/19 02/06/19 History Allergies Allergy/AdvReac Type Severity Reaction Status Date / Time No Known Allergies Allergy Verified 02/06/19 10:00 Past Med/Surg History Medical History Non-ST elevation MN (NSTEMI) (Acute 11/07/13) "PCI on 11/08/13; BMS in RCA" Diabetes (Chronic) Heart disease (Chronic) Hypertension (Chronic) Chest pain (Acute 11/06/13) Unstable angina (Acute) Accidental fall (Acute) Altered mental status (Acute 11/12/13) Altered mental status (Acute) Ataxia (Acute) Closed head injury (Acute) Contusion of left arm (Acute) Elevated blood pressure reading with diagnosis of hypertension (Acute) HTN (hypertension) (Acute) Hypercholesteremia (Chronic) Intraabdominal mass Low back strain (Acute) Subtherapeutic international normalized ratio (INR) (Acute) Cardiac defibrillator in place History of CVA (cerebrovascular accident) Family History Other No significant family history Social History Preferred Language: Tam[place] marital status: Current Living Situation: Spouse current occupational status: retired Feels Safe at Home: Yes Smoking Status: Never smoker Review of Systems See HPI for pertinent positives & negatives. and A total of 10 systems reviewed and were otherwise negative Physical Exam Vital Signs Vital Signs - 24 hr 02/06/19 08:51 02/06/19 09:09 02/06/19 09:46 Temperature 36.7 C Temperature Source Oral Sepsis Recent Fever Within 48 Hours No Sepsis New/Unexplained Change in Mental Status No Sepsis Action Taken by Nursing No Action Required Pulse Rate 92 H 80 Pulse Rate [Right Finger] 88 Pulse Rhythm Irregular Respiratory Rate 22 20 20 Respiratory Effort / Characteristics Non-Labored Respiratory Depth Normal Blood Pressure 131/73 Blood Pressure [Left Arm] 148/86 H Blood Pressure Mean 92 Blood Pressure Mean [Left Arm] 106 Blood Pressure Position Sitting Pulse Oximetry 92 91 92 Oxygen Delivery Method Room Air Room Air Room Air 02/06/19 10:05 02/06/19 10:54 02/06/19 12:31 Temperature Temperature Source Sepsis Recent Fever Within 48 Hours Sepsis New/Unexplained Change in Mental Status Sepsis Action Taken by Nursing Pulse Rate Pulse Rate [Right Finger] 94 H 86 78 Pulse Rhythm Respiratory Rate 16 16 20 Respiratory Effort / Characteristics Non-Labored Non-Labored Non-Labored Respiratory Depth Normal Normal Normal Blood Pressure Blood Pressure [Left Arm] 146/80 H 140/83 154/97 H Blood Pressure Mean Blood Pressure Mean [Left Arm] 102 102 116 Blood Pressure Position Pulse Oximetry 94 94 96 Oxygen Delivery Method Room Air Room Air Room Air 02/06/19 14:03 Temperature Temperature Source Sepsis Recent Fever Within 48 Hours Sepsis New/Unexplained Change in Mental Status Sepsis Action Taken by Nursing Pulse Rate Pulse Rate [Right Finger] 82 Pulse Rhythm Respiratory Rate 20 Respiratory Effort / Characteristics Respiratory Depth Blood Pressure Blood Pressure [Left Arm] 163/105 H Blood Pressure Mean Blood Pressure Mean [Left Arm] 124 Blood Pressure Position Pulse Oximetry 92 Oxygen Delivery Method Room Air Constitutional: Vital signs reviewed. Eyes: Pupils are equal round reactive to light. Conjunctiva are noninjected. ENT: Pharynx is clear without erythema or exudate. Mucous membranes are moist. Neck supple without meningeal signs. Respiratory: Clear to auscultation bilaterally. Breath sounds are equal bilaterally. Cardiovascular: Regular rate and rhythm. No rubs or gallops. GI: Soft, nondistended. Bowel sounds are present. RUQ and LUQ tenderness. No guarding. Musculoskeletal: No peripheral edema. No lower extremity tenderness. Integumentary: No cyanosis. Neurological: The patient is awake and alert. No focal deficits. Psychiatric: Normal affect. Course 0916: The patient was evaluated in room B2. A complete history and physical exam was performed. 1120: I checked on the patient. The patient does not have discomfort anymore. Awaiting for CT scan, 1225: I checked on the patient. 1225: I checked on the patient. Her heart rate now is in the 80's. No chest discomfort. I discussed the pateint's test results with him. 1229: I discussed the patient's case with Dr. Kellogg, [facility] Hospitalist. She will evaluate the patient for further management. Consultations Consultation #1: I discussed the patient's case with Dr. Kellogg, [facility] Hospitalist. She will evaluate the patient for further management. Time: 12:29 Administered Medications Medical Decision Making Differential Diagnosis Differential Diagnosis: GERD, cholecystolithiasis, gas, PUD, MN Medical Records Attestation: I reviewed the patient's medical records. (The patient had subluxation of the right shoulder in June) Home Medications Current Medication List: was personally reviewed by me Laboratory Data Attestation: I reviewed the patient's lab results. Result diagrams: 02/06/19 09:20 02/06/19 09:20 Lab Results 02/06/19 02/06/19 02/06/19 Range/Units 09:20 09:20 09:20 WBC 8.57 (4.8-10.8) K/uL RBC 3.76 L (4.7-6.1) M/uL Hgb 11.0 L (14.0-18.0) g/dL Hct 32.7 L (42-52) % MCV 87.0 (80-100) fL MCH 29.3 (25-34) pg MCHC 33.6 (32-36) g/dL RDW Std Deviation 48.8 H (36.4-46.3) fL RDW Coeff of [place] 15.4 H (11.5-14.5) % Plt Count 269 (130-400) K/uL MPV 10.3 (7.4-10.4) fL Immature Gran % (Auto) 0.2 % Neut % (Auto) 80.1 % Lymph % (Auto) 14.6 % [place] % (Auto) 5.0 % Eos % (Auto) 0.0 % Baso % (Auto) 0.1 % Immature Gran # (Auto) 0.02 (0.00-0.02) K/uL Neut # (Auto) 6.86 H (1.4-6.5) K/uL Lymph # (Auto) 1.25 (1.2-3.4) K/uL [place] # (Auto) 0.43 (0.11-0.59) K/uL Eos # (Auto) 0.00 (0-0.5) K/uL Baso # (Auto) 0.01 (0-0.2) K/uL PT 11.7 (9.0-12.0) Seconds INR 1.2 H (0.9-1.1) APTT 23.6 (21.0-31.0) Seconds PTT Ratio 0.9 Sodium 140 (136-145) mmol/L Potassium 4.7 (3.5-5.1) mmol/L Chloride 108 H (98-107) mmol/L Carbon Dioxide 27 (21-32) mmol/L Anion Gap 5.0 (3-11) BUN 34 H (7-18) mg/dl Creatinine 1.52 H (0.6-1.4) mg/dl Est Cr Clr Drug Dosing Not Reportable Est GFR ( Amer) 48.8 Est GFR (Non-Af Amer) 42.1 BUN/Creatinine Ratio 22.1 H (10-20) Glucose 290 H (70-99) mg/dl Calcium 9.6 (8.5-10.1) mg/dl Total Bilirubin 0.5 (0.2-1) mg/dl AST 9 L (15-37) U/L ALT 19 (12-78) U/L Alkaline Phosphatase 120 H (45-117) U/L Troponin I < 0.015 (0-0.045) ng/ml Total Protein 6.4 (6.4-8.2) gm/dl Albumin 3.1 L (3.4-5.0) gm/dl Globulin 3.2 (2.5-4.0) gm/dl Albumin/Globulin Ratio 1.0 (0.9-2) Lipase 109 (73-393) U/L Imaging Data Radiologist's Impression: Radiology results as stated below per my review and the radiologist's interpretation: XR chest 1V portable CLINICAL HISTORY: Atypical chest pain COMPARISON STUDY: 07/15/2018 FINDINGS: The heart is mildly enlarged. There is a left subclavian pacer/defibrillator. There is subtle elevation of interstitium. An element of mild pulmonary vascular congestion cannot be excluded. There is basilar interstitial thickening. There is no lobar consolidation. There are moderately advanced arthritic changes within the shoulders. No pleural effusions are visualized[ IMPRESSION: Cardiomegaly and equivocal mild pulmonary vascular congestion. Basilar interstitial thickening. No evidence of lobar consolidation Electronically signed by: Jose Luis Grijalva M.D. 02/06/2019 9:[address] abd pelvis wo con CT DOSE: 955.88 mGycm HISTORY: Pain. Nausea. upper pain TECHNIQUE: Multiaxial CT images of the abdomen and pelvis were performed without contrast. A dose lowering technique was utilized adhering to the principles of ALARA. COMPARISON STUDY: 08/07/2015 FINDINGS: Mild dependent basilar atelectasis. There is been interval cholecystectomy. General configuration of liver spleen and pancreas appear unremarkable. Bilateral renal cysts are unchanged. There are nonobstructing renal calcifications bilaterally. There is a 5 mm nonobstructing calcification lower pole right kidney. No evidence for hydronephrosis. Bowel pattern is nonobstructive. There are findings of scattered components of chronic colonic diverticulosis. No evidence for acute diverticulitis. Several small mesenteric, retroperitoneal, and inguinal nodes are stable compared to the prior study There are findings of considerable degenerative and postoperative change of the mid to lower lumbar spine. Considerable atherosclerotic change of the origin of the celiac axis and superior mesenteric artery. IMPRESSION: 1. No acute process in the abdomen or pelvis. 2. Interval cholecystectomy. 3. Stable bilateral renal cysts as well as multiple bilateral nonobstructing calcifications. 4. Scattered components of chronic colonic diverticulosis. 5. No evidence for acute diverticulitis. The above report was generated using voice recognition software. It may contain grammatical, syntax or spelling errors. Electronically signed by: Frank Sims M.D. 02/06/2019 12:18 PM ECG Data Attestation: I personally reviewed and interpreted this ECG as follows: Indication: chest pain Rate (beats per minute): 117 Rhythm: other (Partially paced rhythm) Findings: + other (QRS is 158 ms) and + LBBB Comparison ECG Date: from (06/05/2018) Change: no significant change Blood Pressure Blood Pressure Findings: Elevated blood pressure Blood Pressure Disposition: further management by hospitalist MDM Narrative I did evaluate the patient as noted above. The patient is presenting with left- sided chest pain and upper abdominal pain. It is currently resolved. He has some upper abdominal tenderness on exam. IV access was established. The patient was placed on a continuous ranch helper. I did order and personally review the patient's 12-lead EKG as described above. He does have a partially paced rhythm. He does have a prior history of atrial fibrillation and is on Eliquis. I suspect he has A. fib with RVR with aberrancy. I did order and personally reviewed the images of the patient's chest x-ray as described above. He has ca rdiomegaly and some mild pulmonary vascular congestion. I did order and review the patient's blood work as noted in the electronic medical record. BUN and creatinine are slightly elevated. I did not give him fluids as he has pulmonary vascular congestion on chest x-ray. I did order a CT of the abdomen and pelvis. I did review the images myself as well as the radiology report as described above. There is no evidence of acute intra-abdominal process. I did reassess patient. His heart rate is now to the 80s. He does appear to have flutter waves intermittently with paced beats. I did discuss the test results with the patient. I did recommend hospitalization for further evaluation. I did discuss the case with the hospitalist and bilingual patient support caseworker. Impression & Plan Left-sided chest pain, Atrial flutter with rapid ventricular response, Upper abdominal pain, Anemia, unspecified, Anticoagulated, Acute hyperglycemia Discharge Plan Visit Data Chief Complaint: Cardiac Assessment Stated Complaint: IRREGULAR HEART BEAT/CHEST PAIN/HYPERTENSION ED Provider: Ismael Iqbal Discharge Problem: Left-sided chest pain, Atrial flutter with rapid ventricular response, Upper abdominal pain, Anemia, unspecified, Anticoagulated, Acute hyperglycemia Patient Disposition: Being Evaluated by Hospitalist Forms Stand Alone Forms: My [facility] [employer] Prescriptions Prescriptions: No Action lisinopril 40 mg tablet 40 mg PO QAM Qty: 90 RF: 3 hydrocodone-acetaminophen 5-325 mg tablet 1 tab PO Q6 PRN (Reason: Pain) RF: 0 omeprazole 40 mg capsule,delayed release(DR/EC) 40 mg PO QAM RF: 0 duloxetine 30 mg capsule,delayed release(DR/EC) 30 mg PO DAILY RF: 0 Eliquis 5 mg tablet 5 mg PO BID RF: 0 yctnaha-vftyxrxti-nkbx Tablet 1 tab PO QAM RF: 0 atorvastatin 40 mg tablet 40 mg PO HS RF: 0 carvedilol 25 mg Tablet 25 mg PO BIDM RF: 0 diltiazem HCl 180 mg capsule,extended release 24hr 180 mg PO BID RF: 0 clopidogrel 75 mg tablet 75 mg PO QAM RF: 0 isosorbide mononitrate 60 mg tablet extended release 24 hr 90 mg PO QAM RF: 0 isosorbide mononitrate 60 mg tablet extended release 24 hr 60 mg PO HS RF: 0 famotidine 20 mg tablet 20 mg PO BID RF: 0 lorazepam 0.5 mg tablet 0.5 mg PO Q6H PRN (Reason: Anxiety) RF: 0 montelukast [Singulair] 10 mg Tablet 10 mg PO PM RF: 0 hydralazine 50 mg tablet 50 mg PO TID RF: 0 Novolog Flexpen U-100 Insulin 100 unit/mL insulin pen subcut UD RF: 0 potassium chloride 10 mEq tablet,ER particles/crystals 10 meq PO BID RF: 0 Lantus Solostar U-100 Insulin 100 unit/mL (3 mL) insulin pen 25 unit subcut HS RF: 0 omega 0-mqo-pkl-fish oil [Fish Oil] 1,000 mg (120 mg-180 mg) Capsule 1,000 mg PO QAM RF: 0 furosemide 40 mg Tablet 40 mg PO QAM RF: 0 Referrals Referrals: Kyle Lamb MD [Primary Care Provider] - Discharge Problem: Anemia, unspecified Qualifiers: Anemia type: unspecified type Qualified Code(s): D64.9 - Anemia, unspecified The scribe's documentation has been prepared under my direction and personally reviewed by me in its entirety. I confirm that the note above accurately reflects all work, treatment, procedures, and medical decision making performed by me.
[2019-02-06] MEDS ORDERED: HYDROCODONE/ACETAMOPHEN 5/325MG TAB PO PRN (19:54)
[2019-02-06] MEDS ORDERED: POLYETHYLENE (MIRALAX) 17 GM PACK PO PRN (19:54)
[2019-02-06] MEDS ORDERED: LORazepam 0.5 MG TAB PO PRN (19:54)
[2019-02-06] MEDS ORDERED: GLUCOSE 40% GEL 15 GM TUBE PO PRN (19:54)
[2019-02-06] MEDS ORDERED: ZOLPIDEM TARTRATE 5 MG TAB PO PRN (19:54)
[2019-02-06] MEDS ORDERED: GLUCOSE 10 TABS/TUBE PO PRN (19:54)
[2019-02-06] MEDS ORDERED: ACETAMINOPHEN 325 MG TAB PO PRN (19:54)
[2019-02-06] MEDS ORDERED: DEXTROSE 50% 50 ML SYRINGE IV PRN (19:54)
[2019-02-06] MEDS ORDERED: SODIUM CHLORIDE 0.9% 1000ML 1,000 ML IV SCH (19:54)
[2019-02-06] MEDS ORDERED: CARBOHYDRATES FOR HYPOGLYCEMIA PO PRN (19:54)
[2019-02-06] MEDS ORDERED: DC ALL PREVIOUSLY ORDERED DIABETES MEDS ONE (19:54)
[2019-02-06] MEDS ORDERED: NITROGLYCERIN SL 0.4 MG/TAB TAB SL PRN (19:54)
[2019-02-06] MEDS ORDERED: GLUCAGON FOR INJ 1 MG VIAL SQ PRN (19:54)
[2019-02-06] MEDS ORDERED: PHARMACY GLYCEMIC MGMT CONSULT PRN (20:21)
[2019-02-06] MEDS: APIXABAN 5 MG TABLET PO SCH (20:52)
[2019-02-06] MEDS: HydrALAZINE TAB 50 MG TAB PO SCH (20:53)
[2019-02-06] MEDS: CARVEDILOL 25 MG TAB PO SCH (20:53)
[2019-02-06] MEDS: dilTIAZem HCL 180 MG CAPCR PO SCH (20:54)
[2019-02-06] MEDS: ATORVASTATIN 40 MG TAB PO SCH (20:55)
[2019-02-06] MEDS: FAMOTIDINE 20 MG TAB PO SCH (20:55)
[2019-02-06] MEDS: MONTELUKAST SODIUM 10 MG TABLET PO SCH (20:56)
[2019-02-06] MEDS: POTASSIUM CHLORIDE 10 MEQ TABCR PO SCH (20:56)
[2019-02-06] MEDS ORDERED: INSULIN GLARGINE SOLOSTAR 100 UNITS/ML 3 ML PEN SQ SCH (21:00)
--- NOTE | 2019-02-06 21:10 | Pharmacy Report ---
Pharmacy Glycemic Short Note 2 - Date of Service February 06, 2019 - Glycemic Short BSG Results (Last 24 hours): 02/06/19 02/06/19 09:20 20:15 Glucose 290 H POC Glucose 260 H OUTPATIENT ANTIDIABETIC REGIMEN: * Lantus 25 units qHS/Insulin aspart UD ASSESSMENT: * 83yo presents to ED with complaints of constant sharp left side that started at 1am along with upper abdominal pain. Currently patient symptoms have resolved. Has been on Prednisone for Right knee for last 3 weeks, not currently ordered on admission. PLAN FOR INPATIENT GLYCEMIC CONTROL: * Basal insulin * Lantus 25 units SQ QHS * Even though patient is NPO continuing with home dose of Lantus due to elevated BS this evening. Last dose of Lantus was 02/05/19. * Bolus insulin * NovoLog per scale Q6hrs while NPO * Goal Range: Low 120 mg/dL - High 160 mg/dL * Correction Factor: 25 mg/dL/unit * Nutritional / Prandial insulin per carb ratio of 1 unit per 9 grams CHO consumed * Will do overnight (0200) check and cover as necessary.
[2019-02-06] MEDS: ISOSORBIDE MONO EXTENDED REL 60 MG TABCR PO SCH (21:44)
[2019-02-06] MEDS: INSULIN ASPART 100 UNITS/ML 3 ML PEN SQ SCH (21:44)
--- NOTE | 2019-02-06 22:47 | History & Physical Report ---
Date of Service February 06, 2019 Assessment & Plan (1) Left-sided chest pain: Admit to medicine for observation on telemetry Vital signs every 4 hours Troponin every 6 hours with EKGs Echocardiogram Patient already had aspirin [address] abdomen and pelvis for epigastric pain Monitor electrolytes CBC CMP BNP and replenish as needed strict I/O, daily weight DVT prophylaxis with apixaban [place] and SCDs Full code Present on Admission?: Yes (2) Atrial flutter with rapid ventricular response: Continue apixaban (3) Upper abdominal pain: CT abdomen pelvis w/o contrast pending Present on Admission?: Yes (4) Anemia, unspecified: Anemia of chronic disease with normal MCV MCH and MCHC. Monitor CBC daily Present on Admission?: Yes (5) Acute hyperglycemia: A1c pending Sliding scale insulin Glycemic control per pharmacy Present on Admission?: Yes (6) Sjlfo-bk-lethesv kidney injury: Monitor daily creatinine and GFR Avoid nephrotoxic agents Present on Admission?: Yes History of Present Illness Chief Complaint: Chest pain Primary Care Provider: Kyle Lamb MD Patient is a 84 years old male with past medical history of diabetes, heart disease, atrial flutter with RVR on anticoagulation, diabetes poorly controlled, hypertension, closed head injury, was brought by his to the emergency room with complaint of a constant sharp left chest pain that started last night around 8 PM. Patient thought that it is in digestion and tried to relieve it with 7 out of but his pain continues to be located in the left chest. Patient said that pain did not move anywhere and it was mostly epigastric. Patient said that he had alots of burping but that actually did not help with his pain. Patient said his sugar is poorly controlled and lots of time in 600s. Patient said that he has history of prior DC long time ago and he does not remember when and that he also had a placed stents. Patient also said that he had history of cholecystectomy. And that he has been on prednisone for the pain of his knee for 3 weeks. At this point of time patient said he does not have any pain and he did not take any medication to relieve his pain.'s were reviewed: Viable cell count 8.57, hemoglobin 11 hematocrit 32.7 platelets 269, PT 11.7, INR 1.2 APTT 23.6, sodium 140, potassium 4.7 chloride 108 BUN 34 creatinine 1.52 GFR 48.8 glucose 290 BUN/creatinine 22.1, AST 9 ALT 19 alkaline phosphatase [address] abdomen was done and shows no acute process in the abdomen or pelvis, interval cholecystectomy, bilateral renal cysts as well as multiple bilateral nonobstructive, calcification. Scattered chronic colonic diverticulosis. No evidence of acute diverticulitis. Chest x-ray show cardiomegaly and at we will call mild pulmonary vascular congestion basilar interstitial thickening no evidence of lobar consolidation. Patient was made to admit patient for observation to rule out acute coronary syndrome. Allergies Allergy/AdvReac Type Severity Reaction Status Date / Time No Known Allergies Allergy Verified 02/06/19 10:00 Home Medications Home Medications Medication Instructions Recorded Confirmed Type [id number] 1 tab PO QAM 02/28/18 02/06/19 History atorvastatin 40 mg PO HS 06/05/18 02/06/19 History carvedilol 25 mg PO BIDM 06/05/18 02/06/19 History clopidogrel 75 mg PO QAM 06/05/18 02/06/19 History diltiazem HCl 180 mg PO BID 06/05/18 02/06/19 History famotidine 20 mg PO BID 06/05/18 02/06/19 History hydralazine 50 mg PO TID 06/05/18 02/06/19 History insulin aspart U-100 [Novolog 0 unit SUBCUT UD 06/05/18 02/06/19 History Flexpen U-100 Insulin] insulin glargine [Lantus Solostar 25 unit SUBCUT HS 06/05/18 02/06/19 History U-100 Insulin] isosorbide mononitrate 60 mg PO HS 06/05/18 02/06/19 History isosorbide mononitrate 90 mg PO QAM 06/05/18 02/06/19 History lorazepam 0.5 mg PO Q6H PRN 06/05/18 02/06/19 History montelukast [Singulair] 10 mg PO PM 06/05/18 02/06/19 History omega 5-dvg-sqn-fish oil [Fish Oil] 1,000 mg PO QAM 06/05/18 02/06/19 History potassium chloride 10 meq PO BID 06/05/18 02/06/19 History furosemide 40 mg PO QAM 07/15/18 02/06/19 History lisinopril 40 mg tablet 40 mg PO QAM #90 tab 12/26/18 02/06/19 Rx apixaban [Eliquis] 5 mg PO BID 02/06/19 02/06/19 History duloxetine 30 mg PO DAILY 02/06/19 02/06/19 History hydrocodone-acetaminophen 1 tab PO Q6 PRN 02/06/19 02/06/19 History omeprazole 40 mg PO QAM 02/06/19 02/06/19 History Past Med/Surg History Medical History Non-ST elevation DC (NSTEMI) (Acute 11/07/13) "PCI on 11/08/13; BMS in RCA" Diabetes (Chronic) Heart disease (Chronic) Hypertension (Chronic) Chest pain (Acute 11/06/13) Unstable angina (Acute) Accidental fall (Acute) Altered mental status (Acute 11/12/13) Altered mental status (Acute) Ataxia (Acute) Closed head injury (Acute) Contusion of left arm (Acute) Elevated blood pressure reading with diagnosis of hypertension (Acute) HTN (hypertension) (Acute) Hypercholesteremia (Chronic) Intraabdominal mass Low back strain (Acute) Subtherapeutic international normalized ratio (INR) (Acute) Cardiac defibrillator in place History of CVA (cerebrovascular accident) Family History Other No significant family history Social History Preferred Language: Kiswahili Communication Ability: Effective Beliefs That Will Affect Care: None marital status: Current Living Situation: Spouse Current Living Situation Comment: [employer] [facility] [employer] current occupational status: retired Other Information That Helps Us Care for You: No Feels Safe at Home: Yes Smoking Status: Former smoker Hx Alcohol Use: No Hx Substance Use: No Review of Systems Review of Systems: All systems reviewed & are unremarkable except as noted in HPI & below Physical Exam Constitutional: WD/WN, vitals as above well developed and + obese Eyes: PERRL, conjunctivae normal, anicteric sclerae ENMT: external ear and nose normal, oropharynx normal Neck: trachea midline, no thyromegaly Respiratory: normal respiratory effort and + dullness to percussion Auscultation: lungs clear to auscultation bilaterally Cardiovascular: RRR, no murmur, no edema Rate/Rhythm: + irregularly irregular Chest (Breasts): normal inspection/palpation of breasts Gastrointestinal (Abdomen): Inspection/Auscultation: + hypoactive bowel sounds Percussion/Palpation: abdomen soft and + dullness to percussion Musculoskeletal: no cyanosis or clubbing, extremities motor strength 5/5 Skin: no rashes, warm and dry Neurologic: patellar DTR's 2+ bilat, sensation intact Psychiatric: A+Ox3, euthymic affect Genitourinary: no testicular masses, no penis abnormality Lymphatic: no cervical or axillary lymphadenopathy Results & Data Vital Signs (Past 12 Hours) Vital Signs Temp Pulse Pulse Resp BP BP Pulse Ox 02/06/19 19:50 36.4 C L 85 18 168/93 H 94 02/06/19 19:11 68 20 145/85 H 93 02/06/19 18:00 84 20 140/82 94 02/06/19 16:56 87 22 174/97 H 95 02/06/19 15:00 82 24 159/96 H 94 02/06/19 14:03 82 20 163/105 H 92 02/06/19 12:31 78 20 154/97 H 96 02/06/19 10:54 86 16 140/83 94 Code Status & VTE Plan Code Status Full code VTE Prophylaxis Plan VTE Prophylaxis will be ordered: Yes PG Care Time/CCT Total # of Minutes Spent Total Time Spent with Patient: Total time spent is greater than 50% in coordination of care (as documented) at patient's floor/unit and/or counseling patient: (1) Anemia, unspecified Anemia type: unspecified type Qualified Code(s): D64.9 - Anemia, unspecified
[2019-02-07] MEDS: INSULIN ASPART 100 UNITS/ML 3 ML PEN SQ SCH ×5 (01:43→20:57)
[2019-02-07 02:02] LABS: Basophils # (auto) 0.01 K/uL (0-0.2); Basophils % (auto) 0.1 %; Eosinophils # (auto) 0.02 K/uL (0-0.5); Eosinophils % (auto) 0.2 %; Hematocrit (blood only) 33.3 % (42-52); Hemoglobin 11.3 g/dL (14.0-18.0); Immature Granulocytes # (auto) 0.02 K/uL (0.00-0.02); Immature Granulocytes % (auto) 0.2 %; Lymphocytes # (auto) 2.21 K/uL (1.2-3.4); Lymphocytes % (auto) 25.5 %; Mean Corpuscular Hgb Conc 33.9 g/dL (32-36); Mean Corpuscular Volume 87.2 fL (80-100); Monocytes # (auto) 0.78 K/uL (0.11-0.59); Neutrophils # (auto) 5.63 K/uL (1.4-6.5); Platelet Count 248 K/uL (130-400); RDW Coefficient of Variation 15.6 % (11.5-14.5); RDW Standard Deviation 49.8 fL (36.4-46.3); Red Blood Count 3.82 M/uL (4.7-6.1); White Blood Count 8.67 K/uL (4.8-10.8)
[2019-02-07 02:28] LABS: Albumin Globulin Ratio 1.1 (0.9-2); BUN Creatinine Ratio 27.6 (10-20); Bilirubin,Total 0.6 mg/dl (0.2-1); Creatinine Clr Calc Pharmacy 53.2 ml/min; Est GFR (African American) 71.3; Est GFR (Non-African American) 61.5; Globulin 2.8 gm/dl (2.5-4.0); Potassium 3.8 mmol/L (3.5-5.1); Total Protein 5.8 gm/dl (6.4-8.2); Troponin I 0.04 ng/ml (0-0.045)
[2019-02-07 06:33] LABS: Estimated Average Glucose 275 mg/dl; Hemoglobin A1C 11.2 % (4.5-5.6)
[2019-02-07] MEDS: ISOSORBIDE MONO EXTENDED REL 30 MG TABCR PO SCH (08:24)
[2019-02-07] MEDS: FAMOTIDINE 20 MG TAB PO SCH ×2 (08:25→20:53)
[2019-02-07] MEDS: POTASSIUM CHLORIDE 10 MEQ TABCR PO SCH ×2 (08:25→20:53)
[2019-02-07] MEDS: DULOXETINE HCL 30 MG CAP PO SCH (08:25)
[2019-02-07] MEDS: CLOPIDOGREL BISULFATE 75 MG TAB PO SCH (08:25)
[2019-02-07] MEDS: OMEGA-3 (PURIFIED FISH OIL) 1 GM CAP PO SCH (08:26)
[2019-02-07] MEDS: APIXABAN 5 MG TABLET PO SCH ×2 (08:26→20:54)
[2019-02-07] MEDS: HydrALAZINE TAB 50 MG TAB PO SCH ×3 (08:26→20:55)
[2019-02-07] MEDS: FUROSEMIDE 40 MG TAB PO SCH (08:26)
[2019-02-07] MEDS: CARVEDILOL 25 MG TAB PO SCH ×2 (08:26→17:12)
[2019-02-07] MEDS: LISINOPRIL 40 MG TAB PO SCH (08:26)
[2019-02-07] MEDS: dilTIAZem HCL 180 MG CAPCR PO SCH ×2 (08:27→20:54)
[2019-02-07] MEDS ORDERED: NON-FORMULARY MEDICATION (Calcium-Magnesium-Zinc 1 TAB) PO SCH (09:00)
--- NOTE | 2019-02-07 11:05 | Cardiology Consultation ---
Date of Consultation February 07, 2019 Assessment & Plan (1) Left-sided chest pain: He presented with left upper quadrant abdominal pain which radiated into his left chest wall. The discomfort lasted for several hours and appeared to improve with belching. His cardiac enzymes are not elevated. He has been chest pain free since yesterday around noon. His presentation therefore does not appear consistent with an ACS. There is no indication for cardiac catheterization at this time. Continue to monitor. (2) Atrial flutter with rapid ventricular response: He appears to be in an underlying atrial flutter with RVR, but it is difficult to determine with ECG or with telemetry monitoring. Will interrogate his device in order to get a better idea of his underlying rhythm and decide further management from there. For now, continue beta maria isabel and calcium channel maria isabel at current dosing. Continue Eliquis for thromboembolic prophylaxis. (3) Hypertension: BP has been elevated at times during admission. No changes at this time until device interrogation is performed. (4) Hypercholesteremia: Continue high intensity statin therapy. (5) Biventricular ICD (implantable cardioverter-defibrillator) in place: Device interrogation will be performed today. (6) Cardiomyopathy: Continue PO diuretic therapy. Continue beta maria isabel and JT inhibitor. Low sodium diet, <2,000 mg daily. Monitor I's&O's. Daily weights. (7) CAD (coronary artery disease): His chest discomfort does not appear consistent with an ACS. No further evaluation recommended at this time. Continue to monitor for recurrent chest pain. Continue Plavix, high intensity statin, beta maria isabel, calcium channel maria isabel, and long acting nitrate. Patient discussed with Dr. Alcantara as well as Dr. Hay. Dr. Hay will be in to perform device interrogation today. Supervising Physician Co-Signing Physician Notes I saw and examined the patient and agree with the documentation by Etta Green PA-C. Briefly, the patient presented with symptoms of abdominal and chest discomfort. He also reports feeling not right for several weeks. He had some difficulty characterizing this statement. His symptoms of chest discomfort were prolonged in nature without elevation is cardiac biomarkers. I think this can be discounted as an acute coronary syndrome. His symptoms seem to have resolved this morning and otherwise is feeling well. Interrogation of his device did reveal atrial fibrillation. This episode began yesterday and initially appeared to be atrial flutter. There were some associated high ventricular rates for very brief periods of time. The patient appeared to have been aware of some of these palpitations. Interestingly, he has not had evidence of sustained atrial arrhythmias for some time. Whether his symptoms yesterday were related to the arrhythmia are unclear. I think this is less likely given the fact that is arrhythmia persists but is symptoms appear to have resolved. He has been on systemic anticoagulation. I suggested we performed a cardioversion tomorrow in order to prevent additional episodes of high ventricular rate and reduce his symptoms of palpitation. Given the absence of frequent atrial arrhythmias I think his chance of maintaining sinus rhythm for an extended period are quite good. I did describe the procedure and its risks to the patient today. Will plan on proceeding tomorrow. History of Present Illness Reason for Consultation: Chest pain Requesting Physician: Dr. Noriega History of Present Illness Mr. Salgado is an 83-year-old male with a past medical history significant for coronary artery disease s/p NSTEMI with PCI of RCA using BMS in 2013, cardiomyopathy s/p biventricular ICD implantation in 2006 with replacement in 2011, paroxysmal atrial fibrillation/flutter, hypertension, dyslipidemia, type 2 diabetes mellitus, GERD, vitamin D deficiency, and osteoarthritis who presented to the ED yesterday morning with complaints of chest pain and elevated heart rate. The patient states that Monday evening, he noted discomfort in the left upper quadrant of his abdomen, which he states felt like a "gas pain." He was able to go to sleep that evening, but early Monday morning around 5:30 am, he woke up with the same gas pain, which then radiated up to his left chest wall. He noted some mild shortness of breath with the discomfort, but no nausea, vomiting, or diaphoresis. He states that if he were to belch, it would improve the discomfort. He also noted that his heart rate was elevated up to the 140s at times when he would check his pulse. Given the chest pain and elevated heart rate, he decided to go to the ED for further evaluation. He reports that the chest discomfort resolved on its own around noon in the ED and has not recurred. He believes that he may have had a similar discomfort on one other occasion, but he cannot recall when. He cannot recall what his symptoms were with his prior NM. He denies orthopnea, PND, or edema. He denies palpitations, lightheadedness, syncope, or presyncope. He denies abnormal bleeding such as melena, hematochezia, or hematuria. He denies cerebrovascular symptoms. Allergies Allergy/AdvReac Type Severity Reaction Status Date / Time No Known Allergies Allergy Verified 02/06/19 10:00 Home Medications Home Medications Medication Instructions Recorded Confirmed Type [id number] 1 tab PO QAM 02/28/18 02/06/19 History atorvastatin 40 mg PO HS 06/05/18 02/06/19 History carvedilol 25 mg PO BIDM 06/05/18 02/06/19 History clopidogrel 75 mg PO QAM 06/05/18 02/06/19 History diltiazem HCl 180 mg PO BID 06/05/18 02/06/19 History famotidine 20 mg PO BID 06/05/18 02/06/19 History hydralazine 50 mg PO TID 06/05/18 02/06/19 History insulin aspart U-100 [Novolog 0 unit SUBCUT UD 06/05/18 02/06/19 History Flexpen U-100 Insulin] insulin glargine [Lantus Solostar 25 unit SUBCUT HS 06/05/18 02/06/19 History U-100 Insulin] isosorbide mononitrate 60 mg PO HS 06/05/18 02/06/19 History isosorbide mononitrate 90 mg PO QAM 06/05/18 02/06/19 History lorazepam 0.5 mg PO Q6H PRN 06/05/18 02/06/19 History montelukast [Singulair] 10 mg PO PM 06/05/18 02/06/19 History omega 7-lys-idg-fish oil [Fish Oil] 1,000 mg PO QAM 06/05/18 02/06/19 History potassium chloride 10 meq PO BID 06/05/18 02/06/19 History furosemide 40 mg PO QAM 07/15/18 02/06/19 History lisinopril 40 mg tablet 40 mg PO QAM #90 tab 12/26/18 02/06/19 Rx apixaban [Eliquis] 5 mg PO BID 02/06/19 02/06/19 History duloxetine 30 mg PO DAILY 02/06/19 02/06/19 History hydrocodone-acetaminophen 1 tab PO Q6 PRN 02/06/19 02/06/19 History omeprazole 40 mg PO QAM 02/06/19 02/06/19 History Patient History Medical History Non-ST elevation NM (NSTEMI) (Acute 11/07/13) "PCI on 11/08/13; BMS in RCA" Diabetes (Chronic) Heart disease (Chronic) Hypertension (Chronic) Chest pain (Acute 11/06/13) Unstable angina (Acute) Accidental fall (Acute) Altered mental status (Acute 11/12/13) Altered mental status (Acute) Ataxia (Acute) Closed head injury (Acute) Contusion of left arm (Acute) Elevated blood pressure reading with diagnosis of hypertension (Acute) HTN (hypertension) (Acute) Hypercholesteremia (Chronic) Intraabdominal mass Low back strain (Acute) Subtherapeutic international normalized ratio (INR) (Acute) Cardiac defibrillator in place History of CVA (cerebrovascular accident) Family History Other No significant family history Social History Preferred Language: Haitian Communication Ability: Effective Beliefs That Will Affect Care: None marital status: Current Living Situation: Spouse Current Living Situation Comment: [employer] [place] current occupational status: retired Other Information That Helps Us Care for You: No Feels Safe at Home: Yes Smoking Status: Former smoker Hx Alcohol Use: No Hx Substance Use: No Review of Systems Review of Systems: As noted in HPI. All other ROS are reviewed and otherwise negative at this time. Physical Exam Physical Exam: Constitutional: Alert, oriented, in no acute distress HEENT: Head is atraumatic and normocephalic. EOMs intact. Sclera non-icteric. Face is symmetric. No perioral cyanosis. Mucous membranes moist Neck: Supple, no JVD, no carotid bruits Pulmonary: Normal respiratory effort, faint bibasilar crackles but otherwise clear to auscultation throughout Cardiac: Regular rate and rhythm, normal S1 and S2, no gallops, no rubs, 2/6 basal systolic murmur Extremities: No edema. No clubbing or cyanosis. Pulses 2+ and symmetric Abdomen: Normal bowel sounds, soft, non-tender, no abdominal masses palpated Skin: Normal skin color, turgor, and pigmentation. No rash or skin lesions Neurological: Oriented to person, place, and time Results & Data Vital Signs (Past 12 Hours) Vital Signs Temp Pulse Pulse Resp BP Pulse Ox 02/07/19 07:00 98.2 F 99 H 18 165/89 H 92 02/07/19 04:05 98.2 F 93 H 19 153/90 H 91 02/07/19 00:17 91 H 02/06/19 23:24 98.1 F 88 19 157/79 H 93 Laboratory Results Laboratory Results WBC 8.67 K/uL (4.8-10.8) 02/07/19 01:52 RBC 3.82 M/uL (4.7-6.1) L 02/07/19 01:52 Hgb 11.3 g/dL (14.0-18.0) L 02/07/19 01:52 Hct 33.3 % (42-52) L 02/07/19 01:52 MCV 87.2 fL (80-100) 02/07/19 01:52 MCH 29.6 pg (25-34) 02/07/19 01:52 MCHC 33.9 g/dL (32-36) 02/07/19 01:52 RDW Std Deviation 49.8 fL (36.4-46.3) H 02/07/19 01:52 RDW Coeff of [place] 15.6 % (11.5-14.5) H 02/07/19 01:52 Plt Count 248 K/uL (130-400) 02/07/19 01:52 MPV 10.0 fL (7.4-10.4) 02/07/19 01:52 Immature Gran % (Auto) 0.2 % 02/07/19 01:52 Neut % (Auto) 65.0 % 02/07/19 01:52 Lymph % (Auto) 25.5 % 02/07/19 01:52 [place] % (Auto) 9.0 % 02/07/19 01:52 Eos % (Auto) 0.2 % 02/07/19 01:52 Baso % (Auto) 0.1 % 02/07/19 01:52 Immature Gran # (Auto) 0.02 K/uL (0.00-0.02) 02/07/19 01:52 Neut # (Auto) 5.63 K/uL (1.4-6.5) 02/07/19 01:52 Lymph # (Auto) 2.21 K/uL (1.2-3.4) 02/07/19 01:52 Pacific # (Auto) 0.78 K/uL (0.11-0.59) H 02/07/19 01:52 Eos # (Auto) 0.02 K/uL (0-0.5) 02/07/19 01:52 Baso # (Auto) 0.01 K/uL (0-0.2) 02/07/19 01:52 PT 11.7 Seconds (9.0-12.0) 02/06/19 09:20 INR 1.2 (0.9-1.1) H 02/06/19 09:20 APTT 23.6 Seconds (21.0-31.0) 02/06/19 09:20 PTT Ratio 0.9 02/06/19 09:20 Sodium 142 mmol/L (136-145) 02/07/19 01:52 Potassium 3.8 mmol/L (3.5-5.1) D 02/07/19 01:52 Chloride 110 mmol/L (98-107) H 02/07/19 01:52 Carbon Dioxide 27 mmol/L (21-32) 02/07/19 01:52 Anion Gap 5.0 (3-11) 02/07/19 01:52 BUN 31 mg/dl (7-18) H 02/07/19 01:52 Creatinine 1.11 mg/dl (0.6-1.4) D 02/07/19 01:52 Est Cr Clr Drug Dosing 53.2 ml/min 02/07/19 01:52 Est GFR ( Amer) 71.3 02/07/19 01:52 Est GFR (Non-Af Amer) 61.5 02/07/19 01:52 BUN/Creatinine Ratio 27.6 (10-20) H 02/07/19 01:52 Glucose 181 mg/dl (70-99) H 02/07/19 01:52 POC Glucose 212 (70-99) H 02/07/19 11:52 Estimat Average Glucose 275 mg/dl 08/14/19 09:20 Hemoglobin A1c 11.2 % (4.5-5.6) H 02/06/19 09:20 Calcium 9.0 mg/dl (8.5-10.1) 02/07/19 01:52 Total Bilirubin 0.6 mg/dl (0.2-1) 02/07/19 01:52 AST 6 U/L (15-37) L 02/07/19 01:52 ALT 18 U/L (12-78) 02/07/19 01:52 Alkaline Phosphatase 105 U/L (45-117) 02/07/19 01:52 Troponin I 0.040 ng/ml (0-0.045) 02/07/19 01:52 NT-Pro-B Natriuret Pep 9670 pg/ml (0-1800) H 02/07/19 01:52 Total Protein 5.8 gm/dl (6.4-8.2) L 02/07/19 01:52 Albumin 3.0 gm/dl (3.4-5.0) L 02/07/19 01:52 Globulin 2.8 gm/dl (2.5-4.0) 02/07/19 01:52 Albumin/Globulin Ratio 1.1 (0.9-2) 02/07/19 01:52 Triglycerides 131 mg/dl (0-150) 02/07/19 01:52 Cholesterol 112 mg/dl (0-200) 02/07/19 01:52 LDL Cholesterol, Calc 48 mg/dl 02/07/19 01:52 VLDL Cholesterol, Calc 26 mg/dl 02/07/19 01:52 HDL Cholesterol 38 mg/dl 02/07/19 01:52 Cholesterol/HDL Ratio 3 02/07/19 01:52 Lipase 109 U/L (73-393) 02/06/19 09:20 Diagnostic Findings CXR: Cardiomegaly and equivocal mild pulmonary vascular congestion. Basilar interstitial thickening. No evidence of lobar consolidation. ECG 02/06/19: Suspect atrial flutter with paced beats at times. LBBB. ECG 02/07/19: Ventricular paced rhythm. Telemetry: Suspect underlying atrial flutter with ventricular paced beats. PG Care Time/CCT Total # of Minutes Spent Total Time Spent with Patient: Total time spent is greater than 50% in coordination of care (as documented) at patient's floor/unit and/or counseling patient:
--- NOTE | 2019-02-07 15:32 | Pharmacy Report ---
Pharmacy Glycemic Short Note 2 - Date of Service February 07, 2019 - Glycemic Short BSG Results (Last 24 hours): 02/06/19 02/07/19 02/07/19 20:15 01:42 01:52 Glucose 181 H POC Glucose 260 H 190 H 02/07/19 02/07/19 02/07/19 06:10 11:52 12:38 Glucose POC Glucose 188 H 212 H 236 H OUTPATIENT ANTIDIABETIC REGIMEN: * Lantus 25 units qHS/Insulin aspart with meals (25-35 units/day) * Total daily dose = 50-60 units/day ASSESSMENT: * Pt has received 36 units of insulin over the past ~24hrs * 25 units of basal * 11 units of correctional * 0 units of prandial (NPO) * BSGs remain elevated despite current ordered and NPO status * A1c is 11.2% today indicating poor outpatient glycemic control - current outpatient insulin dosing is like insufficient * Will continue to titrate insulin dosing to maintain BSGs 140-180 mg/dl range PLAN FOR INPATIENT GLYCEMIC CONTROL: * Basal insulin * Increase slightly Lantus 30 units SQ QHS * OK to continue despite NPO, this is basal insulin needs * Bolus insulin * NovoLog per scale --> increase to Q4hrs * Goal Range: Low 120 mg/dL - High 160 mg/dL * Correction Factor: 20 mg/dL/unit * Nutritional / Prandial insulin per carb ratio of 1 unit per 7 grams CHO consumed
[2019-02-07] MEDS ORDERED: INSULIN GLARGINE SOLOSTAR 100 UNITS/ML 3 ML PEN SQ SCH ×2 (18:00→21:00)
[2019-02-07] MEDS: ATORVASTATIN 40 MG TAB PO SCH (20:53)
[2019-02-07] MEDS: MONTELUKAST SODIUM 10 MG TABLET PO SCH (20:54)
[2019-02-07] MEDS: ISOSORBIDE MONO EXTENDED REL 60 MG TABCR PO SCH (20:55)
--- NOTE | 2019-02-07 21:55 | Hospitalist Progress Note ---
Date of Service February 07, 2019 Assessment & Plan (1) Left-sided chest pain: Presented with atypical left-sided abdominal pain radiating to the left side of the chest that is now completely resolved. Serial troponins negative x3. ECG with abnormal rhythm as below but no definite ischemic changes. Echocardiogram without wall motion abnormalities CT of the abdomen and pelvis is negative Chest x-ray is negative -Appreciate cardiology consultation-no further ischemic evaluation is necessary (2) Atrial flutter with rapid ventricular response: With a history of atrial flutter/fibrillation Interrogation pacer by cardiology today reveals when he was having the onset of symptoms yesterday, he was in a rapid atrial flutter and is now in atrial fibrillation with rapid rates at times. He does seem to be symptomatic with this although not clear if it contributed to the chest pain he had yesterday. -Appreciate cardiology consultation-plan for cardioversion in the morning N.p.o. after midnight Is anticoagulated with Eliquis -Continue carvedilol 25 mg p.o. twice daily, diltiazem 180 mg p.o. twice daily for rate control -Continue monitoring on telemetry (3) Upper abdominal pain: CT abdomen pelvis w/o contrast negative Now resolved (4) Anemia, unspecified: Anemia of chronic disease with normal MCV MCH and MCHC. Monitor CBC daily, hemoglobin fairly stable and mildly decreased at 11.3 (5) Wlbgf-[id number] kidney injury: With CKD stage III Baseline creatinine around 1.2 Creatinine was 1.5 upon admission may be related to rapid atrial flutter and fibrillation he has been in -Improved today to 1.1 with gentle IV fluids which are now discontinued Avoid nephrotoxic agents -Follow BMP in the morning -Okay to continue lisinopril 40 mg p.o. daily and furosemide 40 mg p.o. daily (6) CAD (coronary artery disease): Status post bare-metal stent to the RCA in 2014 after NSTEMI Troponin serially negative as above -Continue Plavix, beta-maria isabel, statin, hydralazine and isosorbide (7) Biventricular ICD (implantable cardioverter-defibrillator) in place: Pacer interrogation as per cardiology as above (8) Hypertension: Blood pressures controlled -Continue carvedilol, diltiazem, hydralazine, isosorbide, lisinopril, Lasix (9) Diabetes: Severely uncontrolled. Hemoglobin A1c here is up significantly from previous at 11.2% -Continue basal bolus insulin regimen here -Pharmacy glycemic control consult was placed upon admission (10) Mitral regurgitation: Mild to moderate, seen on echocardiogram (11) Pericardial effusion: Small, noted on echocardiogram -To be followed by cardiology (12) DVT prophylaxis: Eliquis Disposition-remain on PCU, cardioversion tomorrow and likely discharge home after that Subjective Patient denies any further chest or abdominal pain since admission. He continues to feel some heart palpitations at times but not a rapid heartbeat like yesterday. He denies nausea or vomiting, denies lightheadedness. Denies leg swelling but his notes that he does get some in the evenings. He is very anxious to see the attending digital media designer today. Telemetry with paced rhythm and atrial fibrillation with rates in the 80s to 100s. I discussed the case with the digital media designer Review of Systems Review of Systems: All systems reviewed & are unremarkable except as noted in HPI & below Physical Exam Constitutional: WD/WN, vitals as above Eyes: + anicteric sclerae Neck: trachea midline, no thyromegaly Respiratory: normal respiratory effort, lungs clear to auscultation Cardiovascular: Rate/Rhythm: regular rate and + irregularly irregular Extremities: no calf tenderness and no edema Gastrointestinal (Abdomen): normal bowel sounds, soft, nontender, no hepatosplenomegaly Musculoskeletal: Extremities: extremities normal to inspection; no cyanosis and no clubbing Skin: no rashes, warm and dry Neurologic: moves all extremities and awake; no focal motor deficits Psychiatric: Orientation: alert and oriented x 3 Results & Data Vital Signs (Past 12 Hours) Vital Signs Temp Pulse Resp BP Pulse Ox 02/07/19 19:23 36.6 C 88 18 135/75 93 02/07/19 15:28 36.4 C L 88 18 152/77 H 94 02/07/19 11:48 36.4 C L 96 H 16 123/81 93 Laboratory Results 02/07/19 02/07/19 02/07/19 Range/Units 19:59 16:23 12:38 WBC (4.8-10.8) K/uL RBC (4.7-6.1) M/uL Hgb (14.0-18.0) g/dL Hct (42-52) % MCV (80-100) fL MCH (25-34) pg MCHC (32-36) g/dL RDW Std Deviation (36.4-46.3) fL RDW Coeff of [place] (11.5-14.5) % Plt Count (130-400) K/uL MPV (7.4-10.4) fL Immature Gran % (Auto) % Neut % (Auto) % Lymph % (Auto) % Anderson % (Auto) % Eos % (Auto) % Baso % (Auto) % Immature Gran # (Auto) (0.00-0.02) K/uL Neut # (Auto) (1.4-6.5) K/uL Lymph # (Auto) (1.2-3.4) K/uL Anderson # (Auto) (0.11-0.59) K/uL Eos # (Auto) (0-0.5) K/uL Baso # (Auto) (0-0.2) K/uL Sodium (136-145) mmol/L Potassium (3.5-5.1) mmol/L Chloride (98-107) mmol/L Carbon Dioxide (21-32) mmol/L Anion Gap (3-11) BUN (7-18) mg/dl Creatinine (0.6-1.4) mg/dl Est Cr Clr Drug Dosing ml/min Est GFR ( Amer) Est GFR (Non-Af Amer) BUN/Creatinine Ratio (10-20) Glucose (70-99) mg/dl POC Glucose 290 H 273 H 236 H (70-99) Estimat Average Glucose mg/dl Hemoglobin A1c (4.5-5.6) % Calcium (8.5-10.1) mg/dl Total Bilirubin (0.2-1) mg/dl AST (15-37) U/L ALT (12-78) U/L Alkaline Phosphatase (45-117) U/L Troponin I (0-0.045) ng/ml NT-Pro-B Natriuret Pep (0-1800) pg/ml Total Protein (6.4-8.2) gm/dl Albumin (3.4-5.0) gm/dl Globulin (2.5-4.0) gm/dl Albumin/Globulin Ratio (0.9-2) Triglycerides (0-150) mg/dl Cholesterol (0-200) mg/dl LDL Cholesterol, Calc mg/dl VLDL Cholesterol, Calc mg/dl HDL Cholesterol mg/dl Cholesterol/HDL Ratio 02/07/19 02/07/19 02/07/19 Range/Units 11:52 06:10 01:52 WBC 8.67 (4.8-10.8) K/uL RBC 3.82 L (4.7-6.1) M/uL Hgb 11.3 L (14.0-18.0) g/dL Hct 33.3 L (42-52) % MCV 87.2 (80-100) fL MCH 29.6 (25-34) pg MCHC 33.9 (32-36) g/dL RDW Std Deviation 49.8 H (36.4-46.3) fL RDW Coeff of [place] 15.6 H (11.5-14.5) % Plt Count 248 (130-400) K/uL MPV 10.0 (7.4-10.4) fL Immature Gran % (Auto) 0.2 % Neut % (Auto) 65.0 % Lymph % (Auto) 25.5 % Anderson % (Auto) 9.0 % Eos % (Auto) 0.2 % Baso % (Auto) 0.1 % Immature Gran # (Auto) 0.02 (0.00-0.02) K/uL Neut # (Auto) 5.63 (1.4-6.5) K/uL Lymph # (Auto) 2.21 (1.2-3.4) K/uL Anderson # (Auto) 0.78 H (0.11-0.59) K/uL Eos # (Auto) 0.02 (0-0.5) K/uL Baso # (Auto) 0.01 (0-0.2) K/uL Sodium (136-145) mmol/L Potassium (3.5-5.1) mmol/L Chloride (98-107) mmol/L Carbon Dioxide (21-32) mmol/L Anion Gap (3-11) BUN (7-18) mg/dl Creatinine (0.6-1.4) mg/dl Est Cr Clr Drug Dosing ml/min Est GFR ( Amer) Est GFR (Non-Af Amer) BUN/Creatinine Ratio (10-20) Glucose (70-99) mg/dl POC Glucose 212 H 188 H (70-99) Estimat Average Glucose mg/dl Hemoglobin A1c (4.5-5.6) % Calcium (8.5-10.1) mg/dl Total Bilirubin (0.2-1) mg/dl AST (15-37) U/L ALT (12-78) U/L Alkaline Phosphatase (45-117) U/L Troponin I (0-0.045) ng/ml NT-Pro-B Natriuret Pep (0-1800) pg/ml Total Protein (6.4-8.2) gm/dl Albumin (3.4-5.0) gm/dl Globulin (2.5-4.0) gm/dl Albumin/Globulin Ratio (0.9-2) Triglycerides (0-150) mg/dl Cholesterol (0-200) mg/dl LDL Cholesterol, Calc mg/dl VLDL Cholesterol, Calc mg/dl HDL Cholesterol mg/dl Cholesterol/HDL Ratio 02/07/19 02/07/19 02/06/19 Range/Units 01:52 01:42 09:20 WBC (4.8-10.8) K/uL RBC (4.7-6.1) M/uL Hgb (14.0-18.0) g/dL Hct (42-52) % MCV (80-100) fL MCH (25-34) pg MCHC (32-36) g/dL RDW Std Deviation (36.4-46.3) fL RDW Coeff of [place] (11.5-14.5) % Plt Count (130-400) K/uL MPV (7.4-10.4) fL Immature Gran % (Auto) % Neut % (Auto) % Lymph % (Auto) % Anderson % (Auto) % Eos % (Auto) % Baso % (Auto) % Immature Gran # (Auto) (0.00-0.02) K/uL Neut # (Auto) (1.4-6.5) K/uL Lymph # (Auto) (1.2-3.4) K/uL Anderson # (Auto) (0.11-0.59) K/uL Eos # (Auto) (0-0.5) K/uL Baso # (Auto) (0-0.2) K/uL Sodium 142 (136-145) mmol/L Potassium 3.8 D (3.5-5.1) mmol/L Chloride 110 H (98-107) mmol/L Carbon Dioxide 27 (21-32) mmol/L Anion Gap 5.0 (3-11) BUN 31 H (7-18) mg/dl Creatinine 1.11 D (0.6-1.4) mg/dl Est Cr Clr Drug Dosing 53.2 ml/min Est GFR ( Amer) 71.3 Est GFR (Non-Af Amer) 61.5 BUN/Creatinine Ratio 27.6 H (10-20) Glucose 181 H (70-99) mg/dl POC Glucose 190 H (70-99) Estimat Average Glucose 275 mg/dl Hemoglobin A1c 11.2 H (4.5-5.6) % Calcium 9.0 (8.5-10.1) mg/dl Total Bilirubin 0.6 (0.2-1) mg/dl AST 6 L (15-37) U/L ALT 18 (12-78) U/L Alkaline Phosphatase 105 (45-117) U/L Troponin I 0.040 (0-0.045) ng/ml NT-Pro-B Natriuret Pep 9670 H (0-1800) pg/ml Total Protein 5.8 L (6.4-8.2) gm/dl Albumin 3.0 L (3.4-5.0) gm/dl Globulin 2.8 (2.5-4.0) gm/dl Albumin/Globulin Ratio 1.1 (0.9-2) Triglycerides 131 (0-150) mg/dl Cholesterol 112 (0-200) mg/dl LDL Cholesterol, Calc 48 mg/dl VLDL Cholesterol, Calc 26 mg/dl HDL Cholesterol 38 mg/dl Cholesterol/HDL Ratio 3 Diagnostic Findings Echocardiogram with severe concentric LVH, preserved EF 60-65%, septal motion abnormality consistent with conduction delay, mild to moderate mitral regurgitation, small pericardial effusion PG Care Time/CCT Total # of Minutes Spent Total Time Spent with Patient: Total time spent is greater than 50% in coordination of care (as documented) at patient's floor/unit and/or counseling patient: (1) Anemia, unspecified Anemia type: unspecified type Qualified Code(s): D64.9 - Anemia, unspecified
[2019-02-08] MEDS: INSULIN ASPART 100 UNITS/ML 3 ML PEN SQ SCH ×3 (00:16→09:11)
[2019-02-08 05:46] LABS: Basophils # (auto) 0.01 K/uL (0-0.2); Basophils % (auto) 0.1 %; Eosinophils # (auto) 0.07 K/uL (0-0.5); Eosinophils % (auto) 0.9 %; Hematocrit (blood only) 35.8 % (42-52); Hemoglobin 11.9 g/dL (14.0-18.0); Immature Granulocytes # (auto) 0.02 K/uL (0.00-0.02); Immature Granulocytes % (auto) 0.3 %; Lymphocytes # (auto) 2.24 K/uL (1.2-3.4); Lymphocytes % (auto) 30.2 %; Mean Corpuscular Hgb Conc 33.2 g/dL (32-36); Mean Corpuscular Volume 87.3 fL (80-100); Mean Platelet Volume 10.6 fL (7.4-10.4); Monocytes # (auto) 0.73 K/uL (0.11-0.59); Monocytes % (auto) 9.9 %; Neutrophils # (auto) 4.34 K/uL (1.4-6.5); Neutrophils % (auto) 58.6 %; Platelet Count 255 K/uL (130-400); RDW Coefficient of Variation 15.4 % (11.5-14.5); RDW Standard Deviation 49.2 fL (36.4-46.3); White Blood Count 7.41 K/uL (4.8-10.8)
[2019-02-08 06:15] LABS: Albumin Level 2.9 gm/dl (3.4-5.0); Creatinine Clr Calc Pharmacy 64.1 ml/min; Est GFR (African American) 90.6; Est GFR (Non-African American) 78.2; Potassium 3.5 mmol/L (3.5-5.1)
[2019-02-08 06:18] LABS: Albumin Globulin Ratio 1.1 (0.9-2); Bilirubin,Total 0.7 mg/dl (0.2-1); Globulin 2.7 gm/dl (2.5-4.0); Total Protein 5.6 gm/dl (6.4-8.2)
[2019-02-08] MEDS ORDERED: PROPOFOL IV EMULSION 10 MG/ML 20 ML VIAL IV ONE (07:14)
[2019-02-08] MEDS ORDERED: ePHEDrine sulfate 50 MG/ML AMP ONE (07:14)
[2019-02-08] MEDS ORDERED: PHENYLEPHRINE HCL 10 MG/ML VIAL ONE (07:14)
[2019-02-08] MEDS ORDERED: LIDOCAINE HCL 2% 2 ML VIAL/AMP(20MG/ML) INFIL ONE (07:14)
--- NOTE | 2019-02-08 07:24 | Anesthesiology Consultation ---
Date of Service February 08, 2019 Assessment & Plan (1) Encounter for pre-operative examination: History Surgery Operation Date: 02/08/19 07:30 Proposed Procedures p Cardioversion Family Practice Medical Doctor w/Anesthesia - Arvind Hay MD Height/Weight Height: 5 ft 6 in Weight: 85.3 kg Allergies Allergy/AdvReac Type Severity Reaction Status Date / Time No Known Allergies Allergy Verified 02/06/19 10:00 Medications Home Medications Medication Instructions Recorded Confirmed Last Taken [id number] 1 tab PO QAM 02/28/18 02/06/19 02/05/19 atorvastatin 40 mg PO HS 06/05/18 02/06/19 02/05/19 carvedilol 25 mg PO BIDM 06/05/18 02/06/19 02/05/19 clopidogrel 75 mg PO QAM 06/05/18 02/06/19 02/05/19 diltiazem HCl 180 mg PO BID 06/05/18 02/06/19 02/05/19 famotidine 20 mg PO BID 06/05/18 02/06/19 02/05/19 hydralazine 50 mg PO TID 06/05/18 02/06/19 02/05/19 insulin aspart U-100 [Novolog 0 unit SUBCUT UD 06/05/18 02/06/19 02/05/19 Flexpen U-100 Insulin] insulin glargine [Lantus Solostar 25 unit SUBCUT 06/05/18 02/06/19 02/05/19 U-100 Insulin] isosorbide mononitrate 60 mg PO HS 06/05/18 02/06/19 02/05/19 isosorbide mononitrate 90 mg PO QAM 06/05/18 02/06/19 02/05/19 lorazepam 0.5 mg PO Q6H PRN 06/05/18 02/06/19 02/05/19 montelukast [Singulair] 10 mg PO PM 06/05/18 02/06/19 02/05/19 omega 8-[id number]-[id number]-fish oil [Fish Oil] 1,000 mg PO QAM 06/05/18 02/06/19 02/05/19 potassium chloride 10 meq PO BID 06/05/18 02/06/19 02/05/19 furosemide 40 mg PO QAM 07/15/18 02/06/19 02/05/19 lisinopril 40 mg tablet 40 mg PO QAM #90 tab 12/26/18 02/06/19 02/05/19 apixaban [Eliquis] 5 mg PO BID 02/06/19 02/06/19 02/05/19 duloxetine 30 mg PO DAILY 02/06/19 02/06/19 02/05/19 hydrocodone-acetaminophen 1 tab PO Q6 PRN 02/06/19 02/06/19 02/05/19 omeprazole 40 mg PO QAM 02/06/19 02/06/19 02/05/19 Active Medications Generic Name Dose Route Start Last Admin Trade Name Freq PRN Reason Stop Dose Admin Apixaban 5 mg 02/06/19 21:00 02/07/19 20:54 Eliquis PO 03/08/19 20:59 5 mg BID KEVIN Administration Atorvastatin Calcium 40 mg 02/06/19 21:00 02/07/19 20:53 Lipitor PO 03/08/19 20:59 40 mg HS KEVIN Administration Carvedilol 25 mg 02/06/19 19:54 02/07/19 17:12 Coreg PO 03/08/19 19:53 25 mg BIDM KEVIN Administration Clopidogrel Bisulfate 75 mg 02/07/19 09:00 02/07/19 08:25 Plavix PO 03/09/19 08:59 75 mg QAM KEVIN Administration Diltiazem HCl 180 mg 02/06/19 21:00 02/07/19 20:54 Cardizem Cd PO 03/08/19 20:59 180 mg BID KEVIN Administration Duloxetine HCl 30 mg 02/07/19 09:00 02/07/19 08:25 Cymbalta PO 03/09/19 08:59 30 mg DAILY KEVIN Administration Famotidine 20 mg 02/06/19 21:00 02/07/19 20:53 Pepcid PO 03/08/19 20:59 20 mg BID KEVIN Administration Fish Oil 1 gm 02/07/19 09:00 02/07/19 08:26 [place]-3 (Purified Fish Oil) PO 03/09/19 08:59 1 gm QAM KEVIN Administration Furosemide 40 mg 02/07/19 09:00 02/07/19 08:26 Lasix PO 03/09/19 08:59 40 mg QAM KEVIN Administration Hydralazine HCl 50 mg 02/06/19 21:00 02/07/19 20:55 Apresoline PO 03/08/19 20:59 50 mg TID KEVIN Administration Insulin Aspart 0 units 02/07/19 16:00 02/08/19 04:17 Novolog Flexpen SQ 03/09/19 15:59 Not Given Q4 KEVIN Insulin Glargine 30 units 02/07/19 18:00 02/07/19 17:14 Lantus Solostar Pen SQ 03/09/19 17:59 30 units HS KEVIN Administration Protocol Isosorbide Mononitrate 60 mg 02/06/19 21:00 02/07/19 20:55 Imdur Extended Rel PO 03/08/19 20:59 60 mg HS KEVIN Administration Isosorbide Mononitrate 90 mg 02/07/19 09:00 02/07/19 08:24 Imdur Extended Rel PO 03/09/19 08:59 90 mg QAM KEVIN Administration Lisinopril 40 mg 02/07/19 09:00 02/07/19 08:26 Zestril PO 03/09/19 08:59 40 mg QAM KEVIN Administration Montelukast Sodium 10 mg 02/06/19 21:00 02/07/19 20:54 Singulair PO 03/08/19 20:59 10 mg PM KEVIN Administration Potassium Chloride 10 meq 02/06/19 21:00 02/07/19 20:53 Klor-Con M10 PO 03/08/19 20:59 10 meq BID KEVIN Administration Past Medical History Medical History Non-ST elevation GA (NSTEMI) (Acute 11/07/13) "PCI on 11/08/13; BMS in RCA" Diabetes (Chronic) Heart disease (Chronic) Hypertension (Chronic) Chest pain (Acute 11/06/13) Unstable angina (Acute) Accidental fall (Acute) Altered mental status (Acute 11/12/13) Altered mental status (Acute) Ataxia (Acute) Closed head injury (Acute) Contusion of left arm (Acute) Elevated blood pressure reading with diagnosis of hypertension (Acute) HTN (hypertension) (Acute) Hypercholesteremia (Chronic) Intraabdominal mass Low back strain (Acute) Subtherapeutic international normalized ratio (INR) (Acute) Cardiac defibrillator in place History of CVA (cerebrovascular accident) Past Family History Family History Other No significant family history Social History Smoking Status: Former smoker Hx Alcohol Use: No Hx Substance Use: No Physical Exam Vital Signs Last Vital Signs Temp 36.7 C 02/08/19 03:47 Pulse 83 02/08/19 03:47 Resp 19 02/08/19 03:47 BP 129/71 02/08/19 03:47 Pulse Ox 93 02/08/19 03:47 Testing Laboratory Results 02/08/19 05:15 02/08/19 05:15 PT 11.7 Seconds (9.0-12.0) 02/06/19 09:20 INR 1.2 (0.9-1.1) H 02/06/19 09:20 APTT 23.6 Seconds (21.0-31.0) 02/06/19 09:20 Hemoglobin A1c 11.2 % (4.5-5.6) H 02/06/19 09:20 02/08/19 02/08/19 02/07/19 03:50 00:14 19:59 POC Glucose 79 103 H 290 H
--- NOTE | 2019-02-08 07:41 | Procedure Note ---
Procedure Note Date of Service February 08, 2019 Note Procedure performed: Cardioversion Indication: Atrial fibrillation Staff agency director: Kuldip Hay MD Procedure in detail: The patient was informed of the risks benefits and alternatives to the intended procedure. He understood such which proceed. He was taken to the cardiac catheterization suite holding area. A general anesthetic was administered by the Anesthesiology Service. Once appropriately anesthetized, the patient was cardioverted using 200 joules delivered in a biphasic fashion. This returned the patient to sinus rhythm. The patient tolerated procedure well, there were no immediate complications. Patient was neurologically intact subsequent to the procedure. Impression: Successful cardioversion from atrial fibrillation to normal sinus rhythm Coding
--- NOTE | 2019-02-08 07:51 | Anesthesiology Progress Note ---
Date of Service February 08, 2019 Anesthesia Post Procedure Vital Signs Vital Signs: Temp Pulse Resp BP Pulse Ox 02/08/19 03:47 36.7 C 83 19 129/71 93 02/07/19 22:36 36.7 C 83 18 124/85 96 02/07/19 19:23 36.6 C 88 18 135/75 93 02/07/19 15:28 36.4 C L 88 18 152/77 H 94 02/07/19 11:48 36.4 C L 96 H 16 123/81 93 Transfer of Care Handoff Completed per policy Notes Mental Status: alert / awake / arousable and participated in evaluation Patient Amnestic to Procedure: Yes Nausea / Vomiting: adequately controlled Pain: adequately controlled Airway Patency, RR, SpO2: stable & adequate BP & HR: stable & adequate Hydration State: stable & adequate Anesthetic Complications: no major complications apparent and Pt Satisfied with anesthetic care
[2019-02-08] MEDS: ISOSORBIDE MONO EXTENDED REL 30 MG TABCR PO SCH (09:09)
[2019-02-08] MEDS: HydrALAZINE TAB 50 MG TAB PO SCH (09:09)
[2019-02-08] MEDS: FUROSEMIDE 40 MG TAB PO SCH (09:09)
[2019-02-08] MEDS: CARVEDILOL 25 MG TAB PO SCH (09:09)
[2019-02-08] MEDS: LISINOPRIL 40 MG TAB PO SCH (09:10)
[2019-02-08] MEDS: FAMOTIDINE 20 MG TAB PO SCH (09:10)
[2019-02-08] MEDS: dilTIAZem HCL 180 MG CAPCR PO SCH (09:10)
[2019-02-08] MEDS: OMEGA-3 (PURIFIED FISH OIL) 1 GM CAP PO SCH (09:10)
[2019-02-08] MEDS: CLOPIDOGREL BISULFATE 75 MG TAB PO SCH (09:10)
[2019-02-08] MEDS: DULOXETINE HCL 30 MG CAP PO SCH (09:10)
[2019-02-08] MEDS: APIXABAN 5 MG TABLET PO SCH (09:10)
[2019-02-08] MEDS: POTASSIUM CHLORIDE 10 MEQ TABCR PO SCH (09:11)
--- NOTE | 2019-02-08 10:43 | Pharmacy Report ---
Pharmacy Glycemic Short Note 2 - Date of Service February 08, 2019 - Glycemic Short BSG Results (Last 24 hours): 02/07/19 02/07/19 02/07/19 11:52 12:38 16:23 Glucose POC Glucose 212 H 236 H 273 H 02/07/19 02/08/19 02/08/19 19:59 00:14 03:50 Glucose POC Glucose 290 H 103 H 79 02/08/19 02/08/19 05:15 07:24 Glucose 81 POC Glucose 87 OUTPATIENT ANTIDIABETIC REGIMEN: * Lantus 25 units qHS/Insulin aspart with meals (25-35 units/day) * Total daily dose = 50-60 units/day ASSESSMENT: 02/08 * Patient received total of 55 units of insulin yesterday, of which 30 were basal insulin. BSGs elevated despite being NPO for part of the day * Fasting BSG this AM 81 mg/dL, slightly lower than goal - patient NPO briefly this AM for cardioversion * Patient resumed diet this morning, however not eating at lunch due to dyspepsia - will provide a scale for Lantus dosing for tonight * Will continue same CF/CR 02/07 * Pt has received 36 units of insulin over the past ~24hrs * 25 units of basal * 11 units of correctional * 0 units of prandial (NPO) * BSGs remain elevated despite current ordered and NPO status * A1c is 11.2% today indicating poor outpatient glycemic control - current ou tpatient insulin dosing is like insufficient * Will continue to titrate insulin dosing to maintain BSGs 140-180 mg/dl range PLAN FOR INPATIENT GLYCEMIC CONTROL: * Basal insulin * Lantus HS per scale * for BSG < 140 - give 20 units * for BSG 140 or greater - give 25 units * Bolus insulin * NovoLog per scale * Goal Range: Low 120 mg/dL - High 160 mg/dL * Correction Factor: 20 mg/dL/unit * Nutritional / Prandial insulin per carb ratio of 1 unit per 7 grams CHO consumed
--- NOTE | 2019-02-08 11:17 | Discharge Summary ---
Date of Service February 08, 2019 Admission HPI Per Admitting Provider Patient is a 84 years old male with past medical history of diabetes, heart disease, atrial flutter with RVR on anticoagulation, diabetes poorly controlled, hypertension, closed head injury, was brought by his to the emergency room with complaint of a constant sharp left chest pain that started last night around 8 PM. Patient thought that it is in digestion and tried to relieve it with 7 out of but his pain continues to be located in the left chest. Patient said that pain did not move anywhere and it was mostly epigastric. Patient said that he had alots of burping but that actually did not help with his pain. Patient said his sugar is poorly controlled and lots of time in 600s. Patient said that he has history of prior AL long time ago and he does not remember when and that he also had a placed stents. Patient also said that he had history of cholecystectomy. And that he has been on prednisone for the pain of his knee for 3 weeks. At this point of time patient said he does not have any pain and he did not take any medication to relieve his pain.'s were reviewed: Viable cell count 8.57, hemoglobin 11 hematocrit 32.7 platelets 269, PT 11.7, INR 1.2 APTT 23.6, sodium 140, potassium 4.7 chloride 108 BUN 34 creatinine 1.52 GFR 48.8 glucose 290 BUN/creatinine 22.1, AST 9 ALT 19 alkaline phosphatase [address] abdomen was done and shows no acute process in the abdomen or pel vis, interval cholecystectomy, bilateral renal cysts as well as multiple bilateral nonobstructive, calcification. Scattered chronic colonic diverticulosis. No evidence of acute diverticulitis. Chest x-ray show cardiomegaly and at we will call mild pulmonary vascular congestion basilar interstitial thickening no evidence of lobar consolidation. Patient was made to admit patient for observation to rule out acute coronary syndrome. Principal Diagnosis Atypical Chest pain, rapid atrial fibrillation/flutter Discharge Exam Constitutional WD/WN, vitals as above Eyes + anicteric sclerae Neck trachea midline, no thyromegaly Respiratory normal respiratory effort, lungs clear to auscultation Cardiovascular RRR, no murmur, no edema Extremities: no calf tenderness and no edema Gastrointestinal (Abdomen) normal bowel sounds, soft, nontender, no hepatosplenomegaly Musculoskeletal Extremities: extremities normal to inspection; no cyanosis and no clubbing Skin no rashes, warm and dry Neurologic moves all extremities and awake; no focal motor deficits Psychiatric Orientation: alert and oriented x 3 Discharge Data Allergies Allergy/AdvReac Type Severity Reaction Status Date / Time No Known Allergies Allergy Verified 02/14/19 13:00 Consultations 02/06/19 12:36 ED Decision to Admit Stat 02/07/19 09:22 Consult Cardiology Routine Procedures Performed Operation Date: 02/08/19 07:30 Actual Procedures p Cardioversion - Arvind Hay MD Ordered Studies 02/06/19 11:02 CT abd pelvis wo con Stat CXR Hospital Course (1) Left-sided chest pain: Presented with atypical left-sided abdominal pain radiating to the left side of the chest that is now completely resolved. Serial troponins negative x3. ECG with abnormal rhythm as below but no definite ischemic changes. Echocardiogram without wall motion abnormalities CT of the abdomen and pelvis is negative Chest x-ray is negative -Appreciate cardiology consultation-no further ischemic evaluation is necessary Could be secondary to rapid atrial fib/flutter (2) Atrial flutter with rapid ventricular response: With a history of atrial flutter/fibrillation Interrogation pacer by cardiology today reveals when he was having the onset of symptoms on the day of admission, he was in a rapid atrial flutter and is now in atrial fibrillation with rapid rates at times. He does seem to be symptomatic with this although not clear if it contributed to the chest pain he had upon admission -Appreciate cardiology consultation-completed cardioversion on day of discharge and is stable for dc to home Is anticoagulated with Eliquis -Continue carvedilol 25 mg p.o. twice daily, diltiazem 180 mg p.o. twice daily for rate control -f/u as outpt with Cardiology (3) Upper abdominal pain: CT abdomen pelvis w/o contrast negative Now resolved (4) Anemia, unspecified: Anemia of chronic disease with normal MCV MCH and MCHC. Monitor CBC as outpt, hemoglobin fairly stable and mildly decreased at 11.9 (5) Mwzvf-zx-ullsrie kidney injury: With CKD stage III Baseline creatinine around 1.2 Creatinine was 1.5 upon admission may be related to rapid atrial flutter and fibrillation he has been in -Improved today to 0.9 with gentle IV fluids which are now discontinued Avoid nephrotoxic agents -Follow BMP in the morning -Okay to continue lisinopril 40 mg p.o. daily and furosemide 40 mg p.o. daily (6) CAD (coronary artery disease): Status post bare-metal stent to the RCA in 2014 after NSTEMI Troponin serially negative as above -Continue Plavix, beta-maria isabel, statin, hydralazine and isosorbide (7) Biventricular ICD (implantable cardioverter-defibrillator) in place: Pacer interrogation as per cardiology as above (8) Hypertension: Blood pressures controlled -Continue carvedilol, diltiazem, hydralazine, isosorbide, lisinopril, Lasix (9) Diabetes: Severely uncontrolled. Hemoglobin A1c here is up significantly from previous at 11.2% -Received basal bolus insulin regimen here -Pharmacy glycemic control consult was placed upon admission -continue insulin regimen from home upon discharge but increased to Lantus 27 units qhs -needs close f/u with PCP (10) Mitral regurgitation: Mild to moderate, seen on echocardiogram (11) Pericardial effusion: Small, noted on echocardiogram -To be followed by cardiology (12) DVT prophylaxis: Eliquis Disposition-stable for dc to home now s/p DCCV Total Time Total Time Spent Total Time Spent (In Minutes): >30 min Total Time Includes: Examination of the Patient, Discharge Planning, Medication Reconciliation and Communication With Other Providers (Cardiology) Discharge Plan Discharge Items Patient Disposition: Home - Self-Care Reason For Visit: CHEST PAIN Discharge Diagnosis: Chest pain, rapid atrial flutter/fibrillation Condition: Good Discharge Goals: Decrease discomfort, Diagnostic testing, Improve disease control, Learn about illness and Therapeutic intervention Activity: Resume your previous activity Bathing: No limitations Non-emergency contact: Primary Care Provider and Hair Worker Call non-emergency contact if: you have any medication questions and your symptoms worsen Follow-up/Referrals: Kyle Lamb MD [Primary Care Provider] - 02/14/19 1:00 pm (An appt. has been made for you with CARLA Francis on 02/14 at 1:00pm) Arvind Hay MD [Physician] - 02/15/19 3:00 pm (An appt. has been made for you with Etta Green PA-C on at 3pm.) Diet: Carb Consistent or DM2 and Heart Healthy Addtl Provider Instructions: You were admitted with chest pain and it was determined that you did not have a heart attack, however you did have a rapid irregular heartbeat called atrial flutter and fibrillation. The outsole caser saw you and performed a cardioversion to shock your heart back to a normal rhythm. Please discontinue the prednisone that you are previously prescribed. Your omeprazole will be switched to pantoprazole/Protonix as this is a better drug when used with your Plavix. Please follow-up with your PCP and outsole caser as scheduled for you. Prescriptions: New pantoprazole [Protonix] 40 mg tablet,delayed release (DR/EC) 40 mg PO DAILY Qty: 30 RF: 0 Continued lisinopril 40 mg tablet 40 mg PO QAM Qty: 90 RF: 3 hydrocodone-acetaminophen 5-325 mg tablet 1 tab PO Q6 PRN (Reason: Pain) RF: 0 duloxetine 30 mg capsule,delayed release(DR/EC) 30 mg PO DAILY RF: 0 Eliquis 5 mg tablet 5 mg PO BID RF: 0 [id number]-[id number]-[id number] Tablet 1 tab PO QAM RF: 0 atorvastatin 40 mg tablet 40 mg PO HS RF: 0 carvedilol 25 mg Tablet 25 mg PO BIDM RF: 0 diltiazem HCl 180 mg capsule,extended release 24hr 180 mg PO BID RF: 0 clopidogrel 75 mg tablet 75 mg PO QAM RF: 0 isosorbide mononitrate 60 mg tablet extended release 24 hr 90 mg PO QAM RF: 0 isosorbide mononitrate 60 mg tablet extended release 24 hr 60 mg PO HS RF: 0 famotidine 20 mg tablet 20 mg PO BID RF: 0 lorazepam 0.5 mg tablet 0.5 mg PO Q6H PRN (Reason: Anxiety) RF: 0 montelukast [Singulair] 10 mg Tablet 10 mg PO PM RF: 0 hydralazine 50 mg tablet 50 mg PO TID RF: 0 potassium chloride 10 mEq tablet,ER particles/crystals 10 meq PO BID RF: 0 omega [id number] oil [Fish Oil] 1,000 mg (120 mg-180 mg) Capsule 1,000 mg PO QAM RF: 0 furosemide 40 mg Tablet 40 mg PO QAM RF: 0 Changed insulin glargine 100 unit/mL (3 mL) insulin pen 27 unit subcut HS Qty: 0 RF: 0 Discontinued omeprazole 40 mg capsule,delayed release(DR/EC) 40 mg PO QAM RF: 0 No Action levocetirizine 5 mg tablet 5 mg PO QPM PRN (Reason: allergy symptoms) RF: 0 sucralfate [Carafate] 100 mg/mL suspension 10 ml PO UD RF: 0 OneTouch Ultra Blue Test Strip strip .ROUTE .MEDSUPPLY Qty: 10 RF: 0 pen needle, diabetic [BD Ultra-Fine Short Pen Needle] 31 gauge x 5/16" needle .ROUTE .MEDSUPPLY Qty: 30 RF: 0 insulin syringe-needle U-100 [BD Insulin Syringe Ultra-Fine] 0.5 mL 31 gauge x 5/16" syringe .ROUTE .MEDSUPPLY Qty: 10 RF: 0 diclofenac sodium [Voltaren] 1 % gel 4 gm TOP QID Qty: 100 RF: 0 insulin aspart U-100 100 unit/mL (3 mL) insulin pen See Patient Comments subcut .COMPLEX RF: 0 Stand-Alone Forms: [facility] Discharge Orders: Discharge Order (Routine); Ordered 02/08/19 Ordered By: Anastasiya Noriega Admission Data Admit Date/Time: 02/06/19 17:06 Attending Provider: Anastasiya Noriega Admit Provider: Marilee Kellogg Primary Care Provider: Kyle Lamb Other Providers: Sekou Palma ; Hoa Maravilla Service: Telemetry Other Interventions: Discharge Summary Assessment (RN) Last Done: 02/08/19 11:49 Pending Studies at Discharge: No DC Date/Time DO NOT enter until pt leaves facility: 02/08/19 15:00
[2019-02-08] MEDS ORDERED: INSULIN ASPART 100 UNITS/ML 3 ML PEN SQ SCH (11:30)
[2019-02-08] MEDS ORDERED: ONDANSETRON INJ 2 MG/ML 2 ML VIAL IV PRN (12:41)
[2019-02-08] MEDS ORDERED: ALUMINUM/MAGNESIUM SUSP 18 ML, LIDOCAINE HCL VISCOUS 2% 6 ML, BARCODE IDENTIFIER 1 EA PO ONE (13:00)
[2019-02-08] MEDS ORDERED: INSULIN GLARGINE SOLOSTAR 100 UNITS/ML 3 ML PEN SQ SCH ×2 (21:00)
== END 2019-02-08 15:00 | disposition home or self-care (01) ==
LOC: ED 08:48 → 2S 08:48 → SUATTDRO 17:06 → 2S 19:11
DX: N18.3 Chronic kidney disease, stage 3 (moderate); Z86.73 Personal history of transient ischemic attack (TIA), and cerebral infarction without residual deficits; R07.89 Other chest pain; Z79.899 Other long term (current) drug therapy; Z87.891 Personal history of nicotine dependence; I31.3 Pericardial effusion (noninflammatory); I25.2 Old myocardial infarction; I48.92 Unspecified atrial flutter; Z79.4 Long term (current) use of insulin; Z79.01 Long term (current) use of anticoagulants; N17.9 Acute kidney failure, unspecified; I34.0 Nonrheumatic mitral (valve) insufficiency; E78.00 Pure hypercholesterolemia, unspecified; I13.10 Hypertensive heart and chronic kidney disease without heart failure, with stage 1 through stage 4 chronic kidney disease, or unspecified chronic kidney disease; I25.10 Atherosclerotic heart disease of native coronary artery without angina pectoris; E11.65 Type 2 diabetes mellitus with hyperglycemia; Z95.810 Presence of automatic (implantable) cardiac defibrillator

== ENCOUNTER 2019-04-09 21:42 | Inpatient (IN) ==
[2019-04-09] MEDS ORDERED: dilTIAZem HCl 5 MG/ML 5 ML VIAL IV STA ×2 (22:04→22:37)
[2019-04-09 22:12] LABS: Basophils # (auto) 0.01 K/uL (0-0.2); Basophils % (auto) 0.1 %; Eosinophils # (auto) 0.01 K/uL (0-0.5); Eosinophils % (auto) 0.1 %; Hematocrit (blood only) 39.2 % (42-52); Hemoglobin 12.9 g/dL (14.0-18.0); Lymphocytes # (auto) 1.06 K/uL (1.2-3.4); Lymphocytes % (auto) 15.8 %; Mean Corpuscular Hemoglobin 29.9 pg (25-34); Mean Corpuscular Hgb Conc 32.9 g/dL (32-36); Mean Platelet Volume 10.7 fL (7.4-10.4); Monocytes # (auto) 0.07 K/uL (0.11-0.59); Neutrophils # (auto) 5.58 K/uL (1.4-6.5); Platelet Count 275 K/uL (130-400); RDW Coefficient of Variation 14.5 % (11.5-14.5); Red Blood Count 4.31 M/uL (4.7-6.1); White Blood Count 6.73 K/uL (4.8-10.8)
--- NOTE | 2019-04-09 22:15 | XRay Report ---
XR chest 1V portable HISTORY: 83 years-old Male Chest Pain acute atypical chest pain COMPARISON: Chest radiograph and CT abdomen and pelvis 02/06/2019 TECHNIQUE: Portable AP view the chest FINDINGS: Cardiac silhouette is enlarged, unchanged. Calcified plaque the thoracic aortic arch. Unchanged left subclavian pacer/AICD. Mild linear subsegmental bibasilar atelectasis. There is no pneumothorax, pleu ral effusion or overt pulmonary edema. Degenerative changes of the shoulders and spine. Left shoulder rotator cuff calcific tendinosis. IMPRESSION: 1. Cardiomegaly without acute process. 2. Subsegmental bibasilar atelectasis. The above report was generated using voice recognition software. It may contain grammatical, syntax o r spelling errors. Electronically signed by: Abraham Meraz M.D. 04/09/2019 10:14 PM
[2019-04-09] MEDS ORDERED: NovoLIN-R INSULIN PER UNIT CHARGE IV STA (22:19)
[2019-04-09 22:26] LABS: iSTAT Creatinine 1.1 mg/dl (0.6-1.3); iSTAT Hemoglobin 13.3 g/dl (14.0-18.0); iSTAT Ionized Calcium 1.29 mmol/l (1.12-1.32); iSTAT Potassium 4.1 mEq/L (3.3-5.0)
[2019-04-09] MEDS: MAGNESIUM SULFATE / D5W 1 GM/100 ML BAG IV SCH ×2 (22:29→23:35)
[2019-04-09 22:33] LABS: Alanine Aminotransferase 32 U/L (12-78); Albumin Level 3.8 gm/dl (3.4-5.0); Alkaline Phosphatase 152 U/L (45-117); Aspartate Aminotransferase 19 U/L (15-37); BUN Creatinine Ratio 18.8 (10-20); Bilirubin,Total 0.5 mg/dl (0.2-1); Blood Urea Nitrogen 23 mg/dl (7-18); Calcium 10.1 mg/dl (8.5-10.1); Carbon Dioxide 27 mmol/L (21-32); Chloride 101 mmol/L (98-107); Creatine Kinase 67 U/L (39-308); Creatine Kinase MB 1.8 ng/ml (0.5-3.6); Creatinine Clr Calc Pharmacy 47.7 ml/min; Est GFR (African American) 62.4; Est GFR (Non-African American) 53.8; Globulin 3.7 gm/dl (2.5-4.0); Glucose 470 mg/dl (70-99); Lipase 100 U/L (73-393); Potassium 4.1 mmol/L (3.5-5.1); Sodium 135 mmol/L (136-145); Total Protein 7.5 gm/dl (6.4-8.2); Troponin I < 0.015 ng/ml (0-0.045)
[2019-04-09] MEDS ORDERED: SODIUM CHLORIDE 0.9% 1000ML 500 ML IV ONE (22:37)
[2019-04-09 22:50] LABS: Beta-Hydroxybutyrate 1.86 mg/dl (0.2-2.81)
--- NOTE | 2019-04-09 23:57 | History & Physical Report ---
Date of Service April 09, 2019 Assessment & Plan (1) Atrial fibrillation with RVR: Atrial fibrillation with RVR/CAD/cardiomyopathy/biventricular ICD/chronic anticoagulation/hypertension- Patient was given Cardizem 31.9 mg IV and then 22.7 mg IV by the ED, along with magnesium sulfate IV and normal saline volume bolus of 500 cc. The patient will be admitted to telemetry for serial cardiac enzymes, serial EKG's, cardiac rhythm monitoring and a 2-D echocardiogram with Dopplers. He will be continued on carvedilol 25 mg p.o. twice daily, clopidogrel 75 mg p.o. every morning, diltiazem 180 mg p.o. twice daily, Eliquis 5 mg p.o. twice daily, hydralazine 50 mg p.o. 3 times daily, isosorbide mononitrate 60 mg p.o. twice daily, lisinopril 40 mg p.o. every morning, and potassium chloride 10 mEq p.o. twice daily. He follows with cardiology Dr. Hermosillo and Dr. Palma. We will optimize control of blood sugar, which should help his general cardiac status well. Present on Admission?: Yes (2) Mitral regurgitation: See above Present on Admission?: Yes (3) CAD (coronary artery disease): See above Present on Admission?: Yes (4) Cardiomyopathy: See above Present on Admission?: Yes (5) Biventricular ICD (implantable cardioverter-defibrillator) in place: See above Present on Admission?: Yes (6) Anticoagulated: See above Present on Admission?: Yes (7) Hypertension: See above Present on Admission?: Yes (8) Diabetes: Blood sugar upon arrival was 470. His blood sugar upon awakening this morning was 280, for which he gave himself 6 units of NovoLog. He did receive bilateral shoulder injections with steroids by orthopedics at around 3:30 this afternoon, and then had a nice piece of his 's pie for supper. He did receive 10 units of regular insulin IV x2 while in the ED. He will be slowly rehydrated with IV fluids, and will continue regular insulin IV pushes and continue his Lantus insulin at 27 units subcu at bedtime, with dosing tonight. Present on Admission?: Yes (9) Hypercholesteremia: Continue atorvastatin 40 mg at bedtime Present on Admission?: Yes (10) Depression: Continue duloxetine 30 mg p.o. daily Present on Admission?: Yes (11) GERD (gastroesophageal reflux disease): Continue famotidine 20 mg p.o. twice daily and change omeprazole to pantoprazole 40 mg p.o. daily Present on Admission?: Yes (12) Allergic rhinitis: Continue Xyzal 5 mg p.o. every evening and montelukast 10 mg p.o. every evening Present on Admission?: Yes (13) Anxiety: Continue Lorazepam 0.5 mg p.o. every 6 hours as needed Present on Admission?: Yes History of Present Illness Chief Complaint: The patient presents to the emergency department with complaint of a sudden increase in heart rate that began about 3 hours prior to arrival while he was walking home. Primary Care Provider: Kyle Lamb MD the patient was found to be inThe patient is an 83-year-old male with a past medical history including CAD, cardiomyopathy, history of CVA, history of NSTEMI, mitral regurgitation, pericardial effusion, hypertension, biventricular ICD on chronic anticoagulation who presents to the emergency department with acute onset of rapid heart rate while walking. He reports that his blood sugar was 281 this morning when he woke up, gave himself 6 units of NovoLog, had steroid injections into both shoulders at around 3:30 PM this afternoon. He reports that he was feeling somewhat lethargic and did not have much of an appetite around suppertime, but was able to eat homemade pie from his . Upon arrival in the emergency department, the patient was found to be in atrial fibrillation with RVR with a peak heart rate of 136-140. He was also found to have an elevated blood sugar of 474 which he received 10 units of regular insulin IV x2 by the ED. Allergies Allergy/AdvReac Type Severity Reaction Status Date / Time pravastatin [From Pravachol] AdvReac Unknown Verified 04/09/19 23:15 rosuvastatin [From Crestor] AdvReac Unknown Verified 04/09/19 23:15 Home Medications Home Medications Medication Instructions Recorded Confirmed Type [id number] 1 tab PO QAM 02/28/18 04/09/19 History atorvastatin 40 mg PO HS 06/05/18 04/09/19 History carvedilol 25 mg PO BIDM 06/05/18 04/09/19 History diltiazem HCl 180 mg PO BID 06/05/18 04/09/19 History famotidine 20 mg PO BID 06/05/18 04/09/19 History hydralazine 50 mg PO TID 06/05/18 04/09/19 History lorazepam 0.5 mg PO Q6H PRN 06/05/18 04/09/19 History furosemide 40 mg PO QAM 07/15/18 04/09/19 History lisinopril 40 mg tablet 40 mg PO QAM #90 tab 12/26/18 04/09/19 Rx Eliquis 5 mg PO BID 02/06/19 04/09/19 History duloxetine 30 mg PO DAILY 02/06/19 04/09/19 History insulin glargine 27 unit SUBCUT HS #0 ml 02/08/19 04/09/19 Rx levocetirizine 5 mg tablet 5 mg PO QPM 02/09/19 04/09/19 History omeprazole 40 mg capsule,delayed 40 mg PO DAILY #30 cap 02/18/19 04/09/19 Rx release potassium chloride ER 10 mEq 10 meq PO BID #180 tab 02/18/19 04/09/19 History tablet,extended release clopidogrel 75 mg tablet 75 mg PO QAM #90 tab 02/27/19 04/09/19 Rx insulin aspart (U-100) 100 unit/mL See Rx Instructions SUBCUT UD ml 03/13/19 04/09/19 History (3 mL) subcutaneous pen isosorbide mononitrate ER 60 mg See Rx Instructions PO BID tab 03/13/19 04/09/19 History tablet,extended release 24 hr lidocaine 4 % topical patch 1 patch TOPICAL DAILY PRN ea 03/13/19 04/09/19 History montelukast 10 mg tablet 10 mg PO QPM tab 03/13/19 04/09/19 History omega 1-grw-uxm-fish oil 1,000 mg 1 cap PO QAM cap 03/13/19 04/09/19 History (120 mg-180 mg) capsule diclofenac sodium [Voltaren] 4 gm TOP QID PRN 04/09/19 04/09/19 History Past Med/Surg History Medical History Diabetes (Chronic) Heart disease (Chronic) Hypertension (Chronic) HTN (hypertension) (Acute) Hypercholesteremia (Chronic) Accidental fall Ataxia Cardiac defibrillator in place Closed head injury History of CVA (cerebrovascular accident) Intraabdominal mass Low back strain Non-ST elevation [place] (NSTEMI) (11/07/13) "PCI on 11/08/13; BMS in RCA" Surgical History S/P appendectomy S/P cholecystectomy S/P hernia repair Family History Mother Breast cancer Other No significant family history Social History Preferred Language: Belarusian Communication Ability: Effective Systems Lead Required: No Beliefs That Will Affect Care: None marital status: Current Living Situation: Spouse Current Living Situation Comment: [facility] [place] current occupational status: retired Other Information That Helps Us Care for You: No Feels Safe at Home: Yes Safety Concerns: Feels Safe At This Time Smoking Status: Former smoker Do You Dip or Chew Tobacco: No ; Second Hand Exposure: No ; Tobacco Cessation Education Requested by Patient: No Hx Alcohol Use: No Hx Substance Use: No Seatbelt Use: always Review of Systems Review of Systems: The patient at this time denies chest pain, palpitations, shortness of breath, dyspnea on exertion, cough, lower extremity swelling, sore throat, fevers, chills, sweats, weight change, fatigue, nausea, vomiting, diarrhea , constipation, abdominal pain, pelvic pain, blood in urine or stool, dysuria, urinary frequency or urgency, lightheadedness, dizziness, headache, loss of consciousness, imbalance, focal or generalized weakness, numbness or tingling in arms, or night sweats. The review of systems is otherwise negative other than for that already noted above, and at least 10 systems have been reviewed. Physical Exam Physical Exam: The patient is awake, alert and oriented 3, normocephalic and atraumatic, lying in bed and in no acute distress. HEENT--PERRL, EOMI, mucous membranes and oropharynx dry. Neck--supple. No JVD. No bruits. Thyroid normal, trachea midline, no adenopathy . Heart--normal S1 and S2. No murmurs, rubs or gallops. Lungs--clear bilaterally, no respiratory distress, no accessory muscle use. Abdomen--normal bowel sounds and soft. Nontender. Nondistended. Mildly obese Extremities--no cyanosis or clubbing. No edema. There are good distal pulses b/l. Dermatologic--a few scattered ecchymoses and healing skin tears secondary to accidental dog scratches. Neurologic--cranial nerves II through XII grossly intact. Rheumatologic--normal range of motion. Psychiatric--normal affect. Results & Data Vital Signs (Past 12 Hours) Vital Signs Temp Pulse Resp BP Pulse Ox 04/09/19 23:45 68 20 149/93 H 95 04/09/19 23:30 71 26 H 157/92 H 94 04/09/19 23:15 77 21 140/82 94 04/09/19 23:10 93 H 20 91 04/09/19 23:00 90 20 116/87 92 04/09/19 22:50 111 H 20 90 04/09/19 22:45 105 H 12 136/88 92 04/09/19 22:41 120 H 21 92 04/09/19 22:39 117 H 21 132/99 92 04/09/19 22:31 92 04/09/19 22:30 135 H 20 93 04/09/19 22:20 136 H 21 92 04/09/19 22:18 122 H 27 H 93 04/09/19 22:07 136 H 18 156/105 H 93 04/09/19 21:46 97.9 F 126 H 21 150/114 H 94 Laboratory Results Laboratory Results WBC 6.73 K/uL (4.8-10.8) 04/09/19 21:50 RBC 4.31 M/uL (4.7-6.1) L 04/09/19 21:50 Hgb 12.9 g/dL (14.0-18.0) L 04/09/19 21:50 POC Hgb 13.3 g/dl (14.0-18.0) L 04/09/19 22:12 Hct 39.2 % (42-52) L 04/09/19 21:50 POC Hct 39 % (42-52) L 04/09/19 22:12 MCV 91.0 fL (80-100) 04/09/19 21:50 MCH 29.9 pg (25-34) 04/09/19 21:50 MCHC 32.9 g/dL (32-36) 04/09/19 21:50 RDW Std Deviation 49.0 fL (36.4-46.3) H 04/09/19 21:50 RDW Coeff of [place] 14.5 % (11.5-14.5) 04/09/19 21:50 Plt Count 275 K/uL (130-400) 04/09/19 21:50 MPV 10.7 fL (7.4-10.4) H 04/09/19 21:50 Immature Gran % (Auto) 0.0 % 04/09/19 21:50 Neut % (Auto) 83.0 % 04/09/19 21:50 Lymph % (Auto) 15.8 % 04/09/19 21:50 [place] % (Auto) 1.0 % 04/09/19 21:50 Eos % (Auto) 0.1 % 04/09/19 21:50 Baso % (Auto) 0.1 % 04/09/19 21:50 Immature Gran # (Auto) 0.00 K/uL (0.00-0.02) 04/09/19 21:50 Neut # (Auto) 5.58 K/uL (1.4-6.5) 04/09/19 21:50 Lymph # (Auto) 1.06 K/uL (1.2-3.4) L 04/09/19 21:50 [place] # (Auto) 0.07 K/uL (0.11-0.59) L 04/09/19 21:50 Eos # (Auto) 0.01 K/uL (0-0.5) 04/09/19 21:50 Baso # (Auto) 0.01 K/uL (0-0.2) 04/09/19 21:50 POC Sodium 137 mEq/L (135-144) 04/09/19 22:12 Sodium 135 mmol/L (136-145) L 04/09/19 21:50 POC Potassium 4.1 mEq/L (3.3-5.0) 04/09/19 22:12 Potassium 4.1 mmol/L (3.5-5.1) 04/09/19 21:50 POC Chloride 99 mEq/L (101-112) L 10/15/19 22:12 Chloride 101 mmol/L (98-107) 04/09/19 21:50 Carbon Dioxide 27 mmol/L (21-32) 04/09/19 21:50 POC Total CO2 27 mEq/l (24-31) 04/09/19 22:12 Anion Gap 7.0 (3-11) 04/09/19 21:50 POC Anion Gap 15.0 mmol/L (16-25) L 04/09/19 22:12 POC BUN 23 mg/dl (7-18) H 04/09/19 22:12 BUN 23 mg/dl (7-18) H 04/09/19 21:50 Creatinine 1.24 mg/dl (0.6-1.4) 04/09/19 21:50 POC Creatinine 1.1 mg/dl (0.6-1.3) 04/09/19 22:12 Est Cr Clr Drug Dosing 47.7 ml/min 04/09/19 21:50 Est GFR ( Amer) 62.4 04/09/19 21:50 Est GFR (Non-Af Amer) 53.8 04/09/19 21:50 BUN/Creatinine Ratio 18.8 (10-20) 04/09/19 21:50 Glucose 470 mg/dl (70-99) H* 04/09/19 21:50 POC Glucose 364 (70-99) H* 04/10/19 04:21 POC Glucose (other) 479 mg/dl (70-99) H* 04/09/19 22:12 Calcium 10.1 mg/dl (8.5-10.1) 04/09/19 21:50 POC Ioniz Calcium Frank 1.29 mmol/l (1.12-1.32) 04/09/19 22:12 Magnesium 2.0 mg/dl (1.8-2.4) 04/09/19 21:50 Total Bilirubin 0.5 mg/dl (0.2-1) 04/09/19 21:50 AST 19 U/L (15-37) 04/09/19 21:50 ALT 32 U/L (12-78) 04/09/19 21:50 Alkaline Phosphatase 152 U/L (45-117) H 04/09/19 21:50 Total Creatine Kinase 67 U/L (39-308) 04/09/19 21:50 CK-MB (CK-2) 1.8 ng/ml (0.5-3.6) 04/09/19 21:50 CK/CKMB % Calc 2.7 (0-3.0) 04/09/19 21:50 Troponin I < 0.015 ng/ml (0-0.045) 04/09/19 21:50 Total Protein 7.5 gm/dl (6.4-8.2) 04/09/19 21:50 Albumin 3.8 gm/dl (3.4-5.0) 04/09/19 21:50 Globulin 3.7 gm/dl (2.5-4.0) 04/09/19 21:50 Albumin/Globulin Ratio 1.0 (0.9-2) 04/09/19 21:50 Lipase 100 U/L (73-393) 04/09/19 21:50 Beta-Hydroxybutyric Acd 1.86 mg/dl (0.2-2.81) 04/09/19 21:50 Diagnostic Findings [place], [place] [phone] XRay Report Patient: MARTELL LOPEZ JRAdmit Date: 04/09/19 MR#: [id number]: 140 [facility] Acct ID:[id number]: Date: 1935[facility] Zip: [place] [address] Age: 83Location: ED Sex: M Room/Bed: Att Phy:Diagnosis: TACHYCARDIA Marlee Phy: Kyle Lamb MDService Date: 04/09/19 Fam Phy:Interpreting Phy: Kevon Meraz Admit Phy: Ordering Phy: Ronald Soliman MD cc: ~ XR chest 1V portable HISTORY: 83 years-old Male Chest Pain acute atypical chest pain COMPARISON: Chest radiograph and CT abdomen and pelvis 02/06/2019 TECHNIQUE: Portable AP view the chest FINDINGS: Cardiac silhouette is enlarged, unchanged. Calcified plaque the thoracic aortic arch. Unchanged left subclavian pacer/AICD. Mild linear subsegmental bibasilar atelectasis. There is no pneumothorax, pleural effusion or overt pulmonary edema. Degenerative changes of the shoulders and spine. Left shoulder rotator cuff calcific tendinosis. IMPRESSION: 1. Cardiomegaly without acute process. 2. Subsegmental bibasilar atelectasis. The above report was generated using voice recognition software. It may contain grammatical, syntax or spelling errors. Electronically signed by: Abraham Meraz M.D. 04/09/2019 10:14 PM Dictated: 04/09/19 221 Transcribed: 04/09/192212 Code Status & VTE Plan Code Status Full code VTE Prophylaxis Plan VTE Prophylaxis will be ordered: Yes PG Care Time/CCT Total # of Minutes Spent Total Time Spent with Patient: Total time spent is greater than 50% in coordination of care (as documented) at patient's floor/unit and/or counseling patient:
--- NOTE | 2019-04-10 00:17 | Emergency Department Note ---
Entered by Monica Banks acting as a scribe for Ronald Soliman MD History of Present Illness General Chief complaint: Tachycardia Stated complaint: TACHYCARDIA Time Seen by Provider: 04/09/19 21:58 Source: patient History of Present Illness Location: head (Tachycardia) Severity: similar to prior episodes Pain Consistency: + other (sudden) Quality: + other (tachycardia) Associated symptoms: + other (Feeling sluggish, heart racing, shoulder pain); no shortness of breath Treatments prior to arrival: none The patient is a 83 year old male presenting to the Emergency Department complaining of sudden tachycardia starting 3 hours ago. The patient reports that he was walking in his home and felt his heart begin to race. He explains that he had been feeling sluggish before this event. He states that he experienced these same symptoms 4 weeks ago and ended up having to go to the OR for a pacemaker malfunction. He notes that he follows with Dr. [facility] Techn[facility]. He adds that he sometimes experiences pain between his shoulder blades. The patient denies being short of breath. Home Medications Home Medications Medication Instructions Recorded Confirmed Type [id number] 1 tab PO QAM 02/28/18 04/12/19 History atorvastatin 40 mg PO HS 06/05/18 04/12/19 History carvedilol 25 mg PO BIDM 06/05/18 04/12/19 History diltiazem HCl 180 mg PO BID 06/05/18 04/12/19 History famotidine 20 mg PO BID 06/05/18 04/12/19 History hydralazine 50 mg PO TID 06/05/18 04/12/19 History lorazepam 0.5 mg PO Q6H PRN 06/05/18 04/12/19 History furosemide 40 mg PO QAM 07/15/18 04/12/19 History lisinopril 40 mg tablet 40 mg PO QAM #90 tab 12/26/18 04/12/19 Rx Eliquis 5 mg PO BID 02/06/19 04/12/19 History duloxetine 30 mg PO DAILY 02/06/19 04/12/19 History insulin glargine 27 unit SUBCUT HS #0 ml 02/08/19 04/12/19 Rx levocetirizine 5 mg tablet 5 mg PO QPM 02/09/19 04/12/19 History omeprazole 40 mg capsule,delayed 40 mg PO DAILY #30 cap 02/18/19 04/12/19 Rx release potassium chloride ER 10 mEq 10 meq PO BID #180 tab 02/18/19 04/12/19 History tablet,extended release clopidogrel 75 mg tablet 75 mg PO QAM #90 tab 02/27/19 04/12/19 Rx insulin aspart (U-100) 100 unit/mL See Rx Instructions SUBCUT UD ml 03/13/19 History (3 mL) subcutaneous pen isosorbide mononitrate ER 60 mg See Rx Instructions PO BID tab 03/13/19 04/12/19 History tablet,extended release 24 hr lidocaine 4 % topical patch 1 patch TOPICAL DAILY PRN ea 03/13/19 04/12/19 History montelukast 10 mg tablet 10 mg PO QPM tab 03/13/19 04/12/19 History omega 3-yji-xcl-fish oil 1,000 mg 1 cap PO QAM cap 03/13/19 04/12/19 History (120 mg-180 mg) capsule diclofenac sodium [Voltaren] 4 gm TOP QID PRN 04/09/19 04/12/19 History amiodarone 200 mg PO QAM 30 Days #30 tab 04/11/19 04/12/19 Rx cyanocobalamin (vitamin B-12) 1,000 mcg PO QAM 30 Days #60 tab 04/11/19 04/12/19 Rx Allergies Allergy/AdvReac Type Severity Reaction Status Date / Time pravastatin [From Pravachol] AdvReac Unknown Verified 04/09/19 23:15 rosuvastatin [From Crestor] AdvReac Unknown Verified 04/09/19 23:15 Past Med/Surg History Medical History Diabetes (Chronic) Heart disease (Chronic) Hypertension (Chronic) HTN (hypertension) (Acute) Hypercholesteremia (Chronic) Accidental fall Ataxia Cardiac defibrillator in place Closed head injury History of CVA (cerebrovascular accident) Intraabdominal mass Low back strain Non-ST elevation [place] (NSTEMI) (11/07/13) "PCI on 11/08/13; BMS in RCA" Surgical History S/P appendectomy S/P cholecystectomy S/P hernia repair Family History Mother Breast cancer Other No significant family history Social History Preferred Language: Zambian Communication Ability: Effective Deckhand Engineer Required: No Beliefs That Will Affect Care: None marital status: Current Living Situation: Spouse Current Living Situation Comment: [facility] current occupational status: retired Feels Safe at Home: Yes Smoking Status: Former smoker Second Hand Exposure: No ; Hx Alcohol Use: No Hx Substance Use: No Seatbelt Use: always Review of Systems See HPI for pertinent positives & negatives. and A total of 10 systems reviewed and were otherwise negative Physical Exam Vital Signs Vital Signs - 24 hr 04/09/19 21:46 04/09/19 22:07 04/09/19 22:18 Temperature 36.6 C Temperature Source Oral Sepsis Recent Fever Within 48 Hours No Sepsis New/Unexplained Change in Mental Status No Sepsis Action Taken by Nursing No Action Required Pulse Rate 126 H 136 H 122 H Pulse Rate from SpO2 Sensor 135 H 124 H Respiratory Rate 21 18 27 H Respiratory Effort / Characteristics Non-Labored Spontaneous Respiratory Depth Normal Respiratory Pattern Regular Blood Pressure 150/114 H 156/105 H Blood Pressure Mean 126 122 Blood Pressure Position Lying Pulse Oximetry 94 93 93 Oxygen Delivery Method Room Air 04/09/19 22:20 04/09/19 22:30 04/09/19 22:31 Temperature Temperature Source Sepsis Recent Fever Within 48 Hours Sepsis New/Unexplained Change in Mental Status Sepsis Action Taken by Nursing Pulse Rate 136 H 135 H Pulse Rate from SpO2 Sensor 134 H 136 H Respiratory Rate 21 20 Respiratory Effort / Characteristics Respiratory Depth Respiratory Pattern Blood Pressure Blood Pressure Mean Blood Pressure Position Pulse Oximetry 92 93 92 Oxygen Delivery Method Room Air 04/09/19 22:39 04/09/19 22:41 04/09/19 22:45 Temperature Temperature Source Sepsis Recent Fever Within 48 Hours Sepsis New/Unexplained Change in Mental Status Sepsis Action Taken by Nursing Pulse Rate 117 H 120 H 105 H Pulse Rate from SpO2 Sensor 107 H 111 H 113 H Respiratory Rate 21 21 12 Respiratory Effort / Characteristics Respiratory Depth Respiratory Pattern Blood Pressure 132/99 136/88 Blood Pressure Mean 110 104 Blood Pressure Position Pulse Oximetry 92 92 92 Oxygen Delivery Method 04/09/19 22:50 04/09/19 23:00 04/09/19 23:10 Temperature Temperature Source Sepsis Recent Fever Within 48 Hours Sepsis New/Unexplained Change in Mental Status Sepsis Action Taken by Nursing Pulse Rate 111 H 90 93 H Pulse Rate from SpO2 Sensor 105 H 104 H 98 H Respiratory Rate 20 20 20 Respiratory Effort / Characteristics Respiratory Depth Respiratory Pattern Blood Pressure 116/87 Blood Pressure Mean 96 Blood Pressure Position Pulse Oximetry 90 92 91 Oxygen Delivery Method 04/09/19 23:15 04/09/19 23:30 04/09/19 23:45 Temperature Temperature Source Sepsis Recent Fever Within 48 Hours Sepsis New/Unexplained Change in Mental Status Sepsis Action Taken by Nursing Pulse Rate 77 71 68 Pulse Rate from SpO2 Sensor 83 79 87 Respiratory Rate 21 26 H 20 Respiratory Effort / Characteristics Respiratory Depth Respiratory Pattern Blood Pressure 140/82 157/92 H 149/93 H Blood Pressure Mean 101 113 111 Blood Pressure Position Pulse Oximetry 94 94 95 Oxygen Delivery Method Room Air Room Air GENERAL: Awake, alert, well-appearing, in no acute distress HENT: Normocephalic, atraumatic. Oropharynx unremarkable. EYES: Normal conjunctiva. Sclera non-icteric. NECK: Supple. No nuchal rigidity. FROM. No JVD. RESPIRATORY: Clear to auscultation. CARDIAC: Regular rate, normal rhythm. Extremities warm and well perfused. Pulses equal. ABDOMEN: Soft, non-distended. No tenderness to palpation. No rebound or guarding. No masses. RECTAL: Deferred. MUSCULOSKELETAL: Chest examination reveals no tenderness. The back is symmetrical on inspection without obvious abnormality. There is no CVA tenderness to palpation. No joint edema. LOWER EXTREMITIES: Calves are equal size bilaterally and non-tender. No edema. No discoloration. NEURO: Normal sensorium. No sensory or motor deficits noted. SKIN: No rash or jaundice noted. Course 2200: The patient was evaluated in room C10, and a complete history and physical examination were performed. 2247: I discussed the patient's case with Dr. Hugo Bustamante [facility] hospitalist. He will evaluate the patient for further management. 2300: I updated the patient at this time. Administered Medications Discontinued Medications Amiodarone HCl (Cordarone) 200 mg PO QAM [facility] Stop: 05/10/19 09:29 Last Admin: 04/11/19 08:50 Dose: 200 mg Documented by: [id number] Admin: 04/10/19 11:12 Dose: 200 mg Documented by: [id number] Apixaban (Eliquis) 5 mg PO BID [facility] Stop: 05/10/19 00:56 Last Admin: 04/11/19 08:52 Dose: 5 mg Documented by: [id number] Admin: 04/10/19 20:19 Dose: 5 mg Documented by: [id number] Admin: 04/10/19 08:31 Dose: 5 mg Documented by: [id number] Admin: 04/10/19 02:19 Dose: 5 mg Documented by: [id number] Atorvastatin Calcium (Lipitor) 40 mg PO HS [facility] Stop: 05/10/19 20:59 Last Admin: 04/10/19 20:20 Dose: 40 mg Documented by: [id number] Carvedilol (Coreg) 25 mg PO BIDM [facility] Stop: 05/10/19 07:59 Last Admin: 04/11/19 08:52 Dose: 25 mg Documented by: [id number] Admin: 04/10/19 17:21 Dose: 25 mg Documented by: [id number] Admin: 04/10/19 08:29 Dose: 25 mg Documented by: [id number] Cl[facility]idogrel [facility] ([facility]avix) [facility] [place] [facility] [place]: 05/10/19 08:59 Last Admin: 04/11/19 08:52 Dose: 75 mg Documented by: [id number] Admin: 04/10/19 08:30 Dose: 75 mg Documented by: [id number] Cyanocobalamin (Vitamin B-12) 1,000 mcg [facility] [place] [facility] [place] Stop: 05/10/19 08:59 Last Admin: 04/11/19 08:52 Dose: 1,000 mcg Documented by: [id number] Admin: 04/10/19 09:14 Dose: 1,000 mcg Documented by: [id number] Diltiazem HCl (Cardizem) 22.75 mg IV NOW STA Stop: 04/09/19 22:05 Last Admin: 04/09/19 22:28 Dose: 22.75 mg Documented by: [id number] Cosigned by: [id number] Diltiazem HCl (Cardizem) 31.9 mg IV NOW STA Stop: 04/09/19 22:38 Last Admin: 04/09/19 23:05 Dose: 31.9 mg Documented by: [id number] Cosigned by: [id number] Diltiazem HCl (Cardizem Cd) 180 mg PO BID [facility] Stop: 05/10/19 00:56 Last Admin: 04/11/19 08:51 Dose: 180 mg Documented by: [id number] Admin: 04/10/19 20:20 Dose: 180 mg Documented by: [id number] Admin: 04/10/19 08:30 Dose: 180 mg Documented by: [id number] Admin: 04/10/19 02:12 Dose: Not Given Documented by: [id number] Duloxetine HCl (Cymbalta) 30 mg PO DAILY [facility] Stop: 05/10/19 08:59 Last Admin: 04/11/19 08:52 Dose: 30 mg Documented by: [id number] Admin: 04/10/19 08:30 Dose: 30 mg Documented by: [id number] Famotidine (Pepcid) 20 mg PO BID [facility] Stop: 05/10/19 00:56 Last Admin: 04/11/19 08:50 Dose: 20 mg Documented by: [id number] Admin: 04/10/19 20:20 Dose: 20 mg Documented by: [id number] Admin: 04/10/19 08:30 Dose: 20 mg Documented by: [id number] Admin: 04/10/19 02:20 Dose: 20 mg Documented by: [id number] Fish Oil (Smilax-3 (Purified Fish Oil)) 1 gm PO QAM [facility] Stop: 05/10/19 08:59 Last Admin: 04/11/19 08:50 Dose: 1 gm Documented by: [id number] Admin: 04/10/19 08:31 Dose: 1 gm Documented by: [id number] Furosemide (Lasix) 40 mg PO QAM [facility] Stop: 05/10/19 08:59 Last Admin: 04/11/19 08:51 Dose: 40 mg Documented by: [id number] Admin: 04/10/19 08:29 Dose: 40 mg Documented by: [id number] Hydralazine HCl (Apresoline) 50 mg PO TID [facility] Stop: 05/10/19 08:59 Last Admin: 04/11/19 08:51 Dose: 50 mg Documented by: [id number] Admin: 04/10/19 20:20 Dose: 50 mg Documented by: [id number] Admin: 04/10/19 13:33 Dose: 50 mg Documented by: [id number] Admin: 04/10/19 08:31 Dose: 50 mg Documented by: [id number] Hydralazine HCl (Apresoline) 50 mg PO ONCE ONE Stop: 04/10/19 02:01 Last Admin: 04/10/19 02:22 Dose: 50 mg Documented by: [id number] Magnesium Sulfate/Dextrose (Magnesium Sulfate / D5w) 1 gm in 100 mls @ 100 mls/hr IV Q1H [facility] Stop: 04/10/19 02:14 Last Admin: 04/10/19 02:12 Dose: Not Given Documented by: [id number] Infusion: 04/10/19 01:28 Dose: 100 mls/hr Documented by: [id number] Infusion: 04/10/19 01:08 Dose: 100 mls/hr Documented by: [id number] Admin: 04/10/19 00:28 Dose: 100 mls/hr Documented by: [id number] Infusion: 04/10/19 00:27 Dose: 0 mls/hr Documented by: [id number] Admin: 04/09/19 23:35 Dose: 100 mls/hr Documented by: [id number] Infusion: 04/09/19 23:35 Dose: 0 mls/hr Documented by: [id number] Admin: 04/09/19 22:29 Dose: 100 mls/hr Documented by: [id number] Sodium Chloride (Nss 1000ml) 500 mls @ 999 mls/hr IV .Q31M ONE Stop: 04/09/19 23:07 Last Infusion: 04/09/19 23:36 Dose: 0 mls/hr Documented by: [id number] Admin: 04/09/19 23:06 Dose: 999 mls/hr Documented by: [id number] Insulin Human Regular 10 units (/ Syringe) 10 mls @ 30 mls/min IV NOW ONE Stop: 04/10/19 02:01 Last Admin: 04/10/19 02:22 Dose: 30 mls/min Documented by: [id number] Cosigned by: [id number] Insulin Aspart (Novolog Flexpen) 10 units SC ONE ONE Stop: 04/10/19 04:46 Last Admin: 04/10/19 04:52 Dose: 10 units Documented by: [id number] Cosigned by: [id number] Insulin Aspart (Novolog Flexpen) 0 units SC ACHS [facility] Stop: 05/10/19 07:29 Last Admin: 04/11/19 08:49 Dose: 5 units Documented by: [id number] Cosigned by: [id number] Admin: 04/10/19 20:28 Dose: 17 units Documented by: [id number] Cosigned by: [id number] Admin: 04/10/19 17:19 Dose: 23 units Documented by: [id number] Cosigned by: [id number] Admin: 04/10/19 11:57 Dose: 9 units Documented by: [id number] Cosigned by: [id number] Admin: 04/10/19 08:28 Dose: 10 units Documented by: [id number] Cosigned by: [id number] Insulin Aspart (Novolog Flexpen) 0 units SC ONE ONE; Protocol Stop: 04/10/19 11:49 Last Admin: 04/10/19 11:55 Dose: Not Given Documented by: [id number] Insulin Aspart (Novolog Flexpen) 10 units SC ONE ONE; Protocol Stop: 04/10/19 11:49 Last Admin: 04/10/19 11:56 Dose: 10 units Documented by: [id number] Cosigned by: [id number] Insulin Aspart (Novolog Flexpen) 0 units SC 0000 ONE Stop: 04/11/19 00:01 Last Admin: 04/10/19 23:54 Dose: 8 units Documented by: [id number] Cosigned by: [id number] Insulin Glargine (Lantus Solostar Pen) 27 units SQ HS [facility] Stop: 05/10/19 01:29 Last Admin: 04/10/19 02:21 Dose: 27 units Documented by: [id number] Cosigned by: [id number] Insulin Glargine (Lantus Solostar Pen) 10 units SC ONE ONE Stop: 04/10/19 11:50 Last Admin: 04/10/19 11:56 Dose: 10 units Documented by: [id number] Cosigned by: [id number] Insulin Glargine (Lantus Solostar Pen) 35 units SQ HS [facility] Stop: 05/10/19 20:59 Last Admin: 04/10/19 20:27 Dose: 35 units Documented by: [id number] Cosigned by: [id number] Insulin Human Regular (Novolin R U-100 Per Unit) 10 units IV NOW STA Stop: 04/09/19 22:20 Last Admin: 04/09/19 22:27 Dose: 10 units Documented by: [id number] Cosigned by: [id number] Isosorbide Mononitrate (Imdur Extended Rel) 60 mg PO QPM [facility] Stop: 05/10/19 00:56 Last Admin: 04/10/19 20:20 Dose: 60 mg Documented by: [id number] Admin: 04/10/19 02:19 Dose: 60 mg Documented by: [id number] Isosorbide Mononitrate (Imdur Extended Rel) 90 mg PO QAM [facility] Stop: 05/10/19 08:59 Last Admin: 04/11/19 08:51 Dose: 90 mg Documented by: [id number] Admin: 04/10/19 08:30 Dose: 90 mg Documented by: [id number] Lisinopril (Zestril) 40 mg PO QAM [facility] Stop: 05/10/19 08:59 Last Admin: 04/11/19 08:50 Dose: 40 mg Documented by: [id number] Admin: 04/10/19 08:31 Dose: 40 mg Documented by: [id number] Miscellaneous (Order Awaiting Action) 1 ea N/A QS [facility] Stop: 05/10/19 07:59 Last Admin: 04/11/19 08:53 Dose: Not Given Documented by: [id number] Admin: 04/10/19 21:18 Dose: Not Given Documented by: [id number] Admin: 04/10/19 15:36 Dose: Not Given Documented by: [id number] Admin: 04/10/19 08:29 Dose: Not Given Documented by: [id number] Montelukast Sodium (Singulair) 10 mg PO QPM [facility] Stop: 05/10/19 20:59 Last Admin: 04/10/19 20:20 Dose: 10 mg Documented by: [id number] Multivitamins/Minerals (Caltrate Plus) 1 [facility] [place] [facility] [place]: 05/10/19 08:59 Last Admin: 04/11/19 08:52 Dose: 1 tab Documented by: [id number] Admin: 04/10/19 08:31 Dose: 1 tab Documented by: [id number] Pantoprazole Sodium (Protonix) 40 mg PO DAILY [facility] Stop: 05/10/19 08:59 Last Admin: 04/11/19 08:52 Dose: 40 mg Documented by: [id number] Admin: 04/10/19 08:31 Dose: 40 mg Documented by: [id number] Potassium Chloride (Klor-Con M10) 10 meq PO BID [facility] Stop: 05/10/19 00:56 Last Admin: 04/11/19 08:50 Dose: 10 meq Documented by: [id number] Admin: 04/10/19 20:20 Dose: 10 meq Documented by: [id number] Admin: 04/10/19 08:30 Dose: 10 meq Documented by: [id number] Admin: 04/10/19 02:20 Dose: 10 meq Documented by: [id number] Medical Decision Making Differential Diagnosis Differential diagnosis: Etiologies such as cardiac ischemia, aortic dissection, pulmonary embolism, pneumonia, pneumothorax, musculoskeletal, infections, pericarditis, myocarditis, esophageal rupture, gastrointestinal, as well as others were entertained. Medical Records Attestation: I reviewed the patient's medical records. Home Medications Current Medication List: was personally reviewed by me Laboratory Data Attestation: I reviewed the patient's lab results. Result diagrams: 04/09/19 21:50 04/11/19 05:41 Lab Results 04/09/19 04/09/19 04/09/19 Range/Units 21:50 21:50 22:12 WBC 6.73 (4.8-10.8) K/uL RBC 4.31 L (4.7-6.1) M/uL Hgb 12.9 L (14.0-18.0) g/dL POC Hgb 13.3 L (14.0-18.0) g/dl Hct 39.2 L (42-52) % POC Hct 39 L (42-52) % MCV 91.0 (80-100) fL MCH 29.9 (25-34) pg MCHC 32.9 (32-36) g/dL RDW Std Deviation 49.0 H (36.4-46.3) fL RDW Coeff of [place] 14.5 (11.5-14.5) % Plt Count 275 (130-400) K/uL MPV 10.7 H (7.4-10.4) fL Immature Gran % (Auto) 0.0 % Neut % (Auto) 83.0 % Lymph % (Auto) 15.8 % [place] % (Auto) 1.0 % Eos % (Auto) 0.1 % Baso % (Auto) 0.1 % Immature Gran # (Auto) 0.00 (0.00-0.02) K/uL Neut # (Auto) 5.58 (1.4-6.5) K/uL Lymph # (Auto) 1.06 L (1.2-3.4) K/uL [place] # (Auto) 0.07 L (0.11-0.59) K/uL Eos # (Auto) 0.01 (0-0.5) K/uL Baso # (Auto) 0.01 (0-0.2) K/uL POC Sodium 137 (135-144) mEq/L Sodium 135 L (136-145) mmol/L POC Potassium 4.1 (3.3-5.0) mEq/L Potassium 4.1 (3.5-5.1) mmol/L POC Chloride 99 L (101-112) mEq/L Chloride 101 (98-107) mmol/L Carbon Dioxide 27 (21-32) mmol/L POC Total CO2 27 (24-31) mEq/l Anion Gap 7.0 (3-11) POC Anion Gap 15.0 L (16-25) mmol/L POC BUN 23 H (7-18) mg/dl BUN 23 H (7-18) mg/dl Creatinine 1.24 (0.6-1.4) mg/dl POC Creatinine 1.1 (0.6-1.3) mg/dl Est Cr Clr Drug Dosing 47.7 ml/min Est GFR ( Amer) 62.4 Est GFR (Non-Af Amer) 53.8 BUN/Creatinine Ratio 18.8 (10-20) Glucose 470 H* (70-99) mg/dl POC Glucose (70-99) POC Glucose (other) 479 H* (70-99) mg/dl Calcium 10.1 (8.5-10.1) mg/dl POC Ioniz Calcium Frank 1.29 (1.12-1.32) mmol/l Magnesium 2.0 (1.8-2.4) mg/dl Total Bilirubin 0.5 (0.2-1) mg/dl AST 19 (15-37) U/L ALT 32 (12-78) U/L Alkaline Phosphatase 152 H (45-117) U/L Total Creatine Kinase 67 (39-308) U/L CK-MB (CK-2) 1.8 (0.5-3.6) ng/ml CK/CKMB % Calc 2.7 (0-3.0) Troponin I < 0.015 (0-0.045) ng/ml Total Protein 7.5 (6.4-8.2) gm/dl Albumin 3.8 (3.4-5.0) gm/dl Globulin 3.7 (2.5-4.0) gm/dl Albumin/Globulin Ratio 1.0 (0.9-2) Lipase 100 (73-393) U/L Beta-Hydroxybutyric Acd 1.86 (0.2-2.81) mg/dl 04/09/19 Range/Units 23:08 WBC (4.8-10.8) K/uL RBC (4.7-6.1) M/uL Hgb (14.0-18.0) g/dL POC Hgb (14.0-18.0) g/dl Hct (42-52) % POC Hct (42-52) % MCV (80-100) fL MCH (25-34) pg MCHC (32-36) g/dL RDW Std Deviation (36.4-46.3) fL RDW Coeff of [place] (11.5-14.5) % Plt Count (130-400) K/uL MPV (7.4-10.4) fL Immature Gran % (Auto) % Neut % (Auto) % Lymph % (Auto) % [place] % (Auto) % Eos % (Auto) % Baso % (Auto) % Immature Gran # (Auto) (0.00-0.02) K/uL Neut # (Auto) (1.4-6.5) K/uL Lymph # (Auto) (1.2-3.4) K/uL [place] # (Auto) (0.11-0.59) K/uL Eos # (Auto) (0-0.5) K/uL Baso # (Auto) (0-0.2) K/uL POC Sodium (135-144) mEq/L Sodium (136-145) mmol/L POC Potassium (3.3-5.0) mEq/L Potassium (3.5-5.1) mmol/L POC Chloride (101-112) mEq/L Chloride (98-107) mmol/L Carbon Dioxide (21-32) mmol/L POC Total CO2 (24-31) mEq/l Anion Gap (3-11) POC Anion Gap (16-25) mmol/L POC BUN (7-18) mg/dl BUN (7-18) mg/dl Creatinine (0.6-1.4) mg/dl POC Creatinine (0.6-1.3) mg/dl Est Cr Clr Drug Dosing ml/min Est GFR ( Amer) Est GFR (Non-Af Amer) BUN/Creatinine Ratio (10-20) Glucose (70-99) mg/dl POC Glucose 440 H* (70-99) POC Glucose (other) (70-99) mg/dl Calcium (8.5-10.1) mg/dl POC Ioniz Calcium Frank (1.12-1.32) mmol/l Magnesium (1.8-2.4) mg/dl Total Bilirubin (0.2-1) mg/dl AST (15-37) U/L ALT (12-78) U/L Alkaline Phosphatase (45-117) U/L Total Creatine Kinase (39-308) U/L CK-MB (CK-2) (0.5-3.6) ng/ml CK/CKMB % Calc (0-3.0) Troponin I (0-0.045) ng/ml Total Protein (6.4-8.2) gm/dl Albumin (3.4-5.0) gm/dl Globulin (2.5-4.0) gm/dl Albumin/Globulin Ratio (0.9-2) Lipase (73-393) U/L Beta-Hydroxybutyric Acd (0.2-2.81) mg/dl Imaging Data Radiologist's Impression: Radiology results as stated below per my review and the radiologist's interpretation: XR chest 1V portable HISTORY: 83 years-old Male Chest Pain acute atypical chest pain COMPARISON: Chest radiograph and CT abdomen and pelvis 02/06/2019 TECHNIQUE: Portable AP view the chest FINDINGS: Cardiac silhouette is enlarged, unchanged. Calcified plaque the thoracic aortic arch. Unchanged left subclavian pacer/AICD. Mild linear subsegmental bibasilar atelectasis. There is no pneumothorax, pleural effusion or overt pulmonary edema. Degenerative changes of the shoulders and spine. Left shoulder rotator cuff calcific tendinosis. IMPRESSION: 1. Cardiomegaly without acute process. 2. Subsegmental bibasilar atelectasis. The above report was generated using voice recognition software. It may contain grammatical, syntax or spelling errors. Electronically signed by: Abraham Meraz M.D. 04/09/2019 10:14 PM ECG Data Attestation: I personally reviewed and interpreted this ECG as follows: Indication: tachycardia Rate (beats per minute): 127 Rhythm: atrial fibrillation (ith RVR) Findings: + other (QTc 598.) and + left axis deviation; no ST depression and no ST elevation Blood Pressure Blood Pressure Findings: Elevated blood pressure Blood Pressure Disposition: further management by hospitalist MDM Narrative This is an 83-year-old male who presents to the emergency department with A. fib with RVR. Patient was given 4 g of magnesium here in the emergency department and given multiple doses of Cardizem. He is feeling better and his heart rate has come down significantly. I did discuss his case with the hospitalist service who agreed to admit the patient. His troponin is not elevated the patient does not have an elevation in his white blood cell count however his sugar was found to be elevated. Patient was in agreement with the treatment plan. Impression & Plan Atrial fibrillation with RVR, Diabetes, HTN (hypertension), Biventricular ICD (implantable cardioverter-defibrillator) in place Critical Care Time I have personally spent greater than 30 minutes of critical care time in the direct management of this patient. This includes bedside care, interpretation of diagnostic studies, and testing, discussion with consultants, patient, and family members, and other required patient management activities. This 30 minutes is in excess of all separately billable procedures. Discharge Plan Visit Data *Final* Discharge Date/Time: 04/10/19 00:39 Chief Complaint: Tachycardia Stated Complaint: TACHYCARDIA ED Provider: Ronald Soliman Discharge Problem: Atrial fibrillation with RVR, Diabetes, HTN (hypertension), Biventricular ICD (implantable cardioverter-defibrillator) in place Patient Disposition: Admitted As Inpatient Discharge Instructions Interventions: ED Discharge Assessment Last Done: 04/10/19 00:39 The scribe's documentation has been prepared under my direction and personally reviewed by me in its entirety. I confirm that the note above accurately reflects all work, treatment, procedures, and medical decision making performed by me.
[2019-04-10] MEDS: MAGNESIUM SULFATE / D5W 1 GM/100 ML BAG IV SCH ×2 (00:28→02:12)
[2019-04-10] MEDS ORDERED: MAGNESIUM HYDROXIDE SUSP 30 ML UDC PO PRN (00:57)
[2019-04-10] MEDS ORDERED: ONDANSETRON INJ 2 MG/ML 2 ML VIAL IV PRN (00:57)
[2019-04-10] MEDS ORDERED: ACETAMINOPHEN 325 MG TAB PO PRN (00:57)
[2019-04-10] MEDS ORDERED: LORazepam 0.5 MG TAB PO PRN (00:57)
[2019-04-10] MEDS ORDERED: ALUMINUM/MAGNESIUM SUSP 30 ML UDC PO PRN (00:57)
[2019-04-10] MEDS ORDERED: INSULIN GLARGINE SOLOSTAR 100 UNITS/ML 3 ML PEN SQ SCH ×2 (01:30→21:00)
[2019-04-10] MEDS ORDERED: CARBOHYDRATES FOR HYPOGLYCEMIA PO PRN (01:45)
[2019-04-10] MEDS ORDERED: DEXTROSE 50% 50 ML SYRINGE IV PRN (01:45)
[2019-04-10] MEDS ORDERED: GLUCOSE 10 TABS/TUBE PO PRN (01:45)
[2019-04-10] MEDS ORDERED: GLUCOSE 40% GEL 15 GM TUBE PO PRN (01:45)
[2019-04-10] MEDS ORDERED: GLUCAGON FOR INJ 1 MG VIAL SQ PRN (01:45)
[2019-04-10] MEDS ORDERED: NovoLIN-R INSULIN PER UNIT CHARGE IV STA (01:51)
[2019-04-10] MEDS ORDERED: INSULIN GLARGINE SOLOSTAR 100 UNITS/ML 3 ML PEN SC SCH (02:00)
[2019-04-10] MEDS ORDERED: INSULIN HUMAN REGULAR PER UNIT 10 UNITS in SYRINGE 9.9 ML IV ONE (02:00)
[2019-04-10] MEDS ORDERED: HydrALAZINE TAB 50 MG TAB PO ONE (02:00)
[2019-04-10] MEDS: dilTIAZem HCL 180 MG CAPCR PO SCH ×3 (02:12→20:20)
[2019-04-10] MEDS: ISOSORBIDE MONO EXTENDED REL 60 MG TABCR PO SCH ×2 (02:19→20:20)
[2019-04-10] MEDS: APIXABAN 5 MG TABLET PO SCH ×3 (02:19→20:19)
[2019-04-10] MEDS: FAMOTIDINE 20 MG TAB PO SCH ×3 (02:20→20:20)
[2019-04-10] MEDS: POTASSIUM CHLORIDE 10 MEQ TABCR PO SCH ×3 (02:20→20:20)
[2019-04-10] MEDS ORDERED: INSULIN ASPART 100 UNITS/ML 3 ML PEN SC ONE ×3 (04:45→11:48)
[2019-04-10] MEDS ORDERED: INSULIN ASPART 100 UNITS/ML 3 ML PEN SQ SCH (07:30)
[2019-04-10] MEDS: INSULIN ASPART 100 UNITS/ML 3 ML PEN SC SCH ×4 (08:28→20:28)
[2019-04-10] MEDS: FUROSEMIDE 40 MG TAB PO SCH (08:29)
[2019-04-10] MEDS: carvediloL 25 MG TAB PO SCH ×2 (08:29→17:21)
[2019-04-10] MEDS: CLOPIDOGREL BISULFATE 75 MG TAB PO SCH (08:30)
[2019-04-10] MEDS: DULOXETINE HCL 30 MG CAP PO SCH (08:30)
[2019-04-10] MEDS: ISOSORBIDE MONO EXTENDED REL 30 MG TABCR PO SCH (08:30)
[2019-04-10] MEDS: PANTOprazole 40 MG TAB PO SCH (08:31)
[2019-04-10] MEDS: HydrALAZINE TAB 50 MG TAB PO SCH ×3 (08:31→20:20)
[2019-04-10] MEDS: OMEGA-3 (PURIFIED FISH OIL) 1 GM CAP PO SCH (08:31)
[2019-04-10] MEDS: CALCIUM 600MG + VIT D 400 IU TAB PO SCH (08:31)
[2019-04-10] MEDS: lisinopriL 40 MG TAB PO SCH (08:31)
[2019-04-10] MEDS: CYANOCOBALAMIN 500 MCG TABLET (VITAMIN B-12) PO SCH (09:14)
[2019-04-10 09:48] LABS: BUN Creatinine Ratio 20.6 (10-20); Calcium 9.9 mg/dl (8.5-10.1); Creatinine Clr Calc Pharmacy 47.6 ml/min; Est GFR (African American) 62.4; Est GFR (Non-African American) 53.8; Potassium 3.9 mmol/L (3.5-5.1)
--- NOTE | 2019-04-10 09:54 | Cardiology Consultation ---
Date of Consultation April 10, 2019 Assessment & Plan (1) Atrial fibrillation with RVR: 2. Coronary artery disease-- post RCA BMS 3. History of cardiomyopathy--normal LVEF on recent echo 4. Biventricular ICD 5. Hypertension 6. Dyslipidemia 7. Type 2 DM Patient with history of paroxysmal atrial fibrillation admitted yesterday with symptomatic afib with RVR. He also had an admission in January with afib with RVR requiring cardioversion. Episode yesterday appears to have lasted about 6 hours with rates up to 130s. Recent echo with normal LV function. Currently in sinus rhythm and feeling well. Discussed options of attempted further rate control, initiation of antiarrhythmic therapy or AV ivet ablation given the presence of his biventricular ICD. At this point feel antiarrhythmic therapy is the best option. Recommend starting amiodarone 200 mg daily. Possible toxicities discussed, monitor thyroid function and liver enzymes. Continue current doses of diltiazem and carvedilol. Continue anticoagulation for stroke risk reduction. No further cardiac testing/intervention necessary at this time. From cardiac standpoint patient is OK to discharge with followup in our office. He is already scheduled to see Dr. Hermosillo in April. Supervising Physician Co-Signing Physician Notes Agree with above. Patient seen and examined with Anastasiia and reviewed with her. History of Present Illness Reason for Consultation: Atrial fibrillation Attending Physician: Oc Hayward MD History of Present Illness Mr. Salgado is an 83 year old male with a history significant for coronary artery disease status post NSTEMI with PCI of RCA with BMS in 2013, history of cardiomyopathy, paroxysmal atrial fibrillation/flutter, biventricular ICD, hypertension, dyslipidemia and type 2 diabetes. He was admitted yesterday with atrial fibrillation with RVR. Yesterday he went to Dr. Stoddard's office and received injections in his shoulders. Throughout the day his legs felt somewhat weak. In the evening around 6 pm he was walking back from the restroom and suddenly his heart started racing. He checked his pulse and it was near 140. His called 911 and he was taken to [facility] ED. His initial EKG showed atrial fibrillation with RVR at 127 bpm. He was given IV cardizem. Eventually he converted to sinus rhythm, afib lasted for a total of around 6 hours. No recurrence since. Troponin is negative. He is currently feeling well. No palpitations, chest pain, shortness of breath, lightheadedness, near syncope or syncope. Remains anticoagulated with Eliquis without abnormal bleeding. Glucose has been elevated during admission. Of note he had a recent admission in January 2019 with afib with RVR requiring cardioversion. Echo at that time showed normal LV function. Rate control medications include carvedilol 25 mg bid and diltiazem 180 mg bid. Allergies Allergy/AdvReac Type Severity Reaction Status Date / Time pravastatin [From Pravachol] AdvReac Unknown Verified 04/22/19 11:14 rosuvastatin [From Crestor] AdvReac Unknown Verified 04/22/19 11:14 Home Medications Home Medications Medication Instructions Recorded Confirmed Type rzfitly-ewdfqpbme-lokc 1 tab PO QAM 02/28/18 04/22/19 History atorvastatin 40 mg PO HS 06/05/18 04/22/19 History diltiazem HCl 180 mg PO BID 06/05/18 04/22/19 History famotidine 20 mg PO BID 06/05/18 04/22/19 History hydralazine 50 mg PO TID 06/05/18 04/22/19 History lorazepam 0.5 mg PO Q6H PRN 06/05/18 04/22/19 History furosemide 40 mg PO QAM 07/15/18 04/22/19 History lisinopril 40 mg tablet 40 mg PO QAM #90 tab 12/26/18 04/22/19 Rx Eliquis 5 mg PO BID 02/06/19 04/22/19 History duloxetine 30 mg PO DAILY 02/06/19 04/22/19 History insulin glargine 27 unit SUBCUT HS #0 ml 02/08/19 04/22/19 Rx levocetirizine 5 mg tablet 5 mg PO QPM 02/09/19 04/22/19 History omeprazole 40 mg capsule,delayed 40 mg PO DAILY #30 cap 02/18/19 04/22/19 Rx release clopidogrel 75 mg tablet 75 mg PO QAM #90 tab 02/27/19 04/22/19 Rx insulin aspart (U-100) 100 unit/mL See Rx Instructions SUBCUT UD ml 03/13/19 04/22/19 History (3 mL) subcutaneous pen isosorbide mononitrate ER 60 mg See Rx Instructions PO BID tab 03/13/19 04/22/19 History tablet,extended release 24 hr lidocaine 4 % topical patch 1 patch TOPICAL DAILY PRN ea 03/13/19 04/22/19 H istory montelukast 10 mg tablet 10 mg PO QPM tab 03/13/19 04/22/19 History omega 9-ahi-jgu-fish oil 1,000 mg 1 cap PO QAM cap 03/13/19 04/22/19 History (120 mg-180 mg) capsule diclofenac sodium [Voltaren] 4 gm TOP QID PRN 04/09/19 04/22/19 History amiodarone 200 mg PO QAM 30 Days #30 tab 04/11/19 04/22/19 Rx cyanocobalamin (vitamin B-12) 1,000 mcg PO QAM 30 Days #60 tab 04/11/19 04/22/19 Rx carvedilol 25 mg tablet 25 mg PO BID #180 tab 04/15/19 04/22/19 Rx potassium chloride ER 10 mEq 10 meq PO BID #180 tab 04/15/19 04/22/19 Rx tablet,extended release Patient History Medical History Diabetes (Chronic) Heart disease (Chronic) Hypertension (Chronic) HTN (hypertension) (Acute) Hypercholesteremia (Chronic) Accidental fall Ataxia Cardiac defibrillator in place Closed head injury History of CVA (cerebrovascular accident) Intraabdominal mass Low back strain Non-ST elevation MD (NSTEMI) (11/07/13) "PCI on 11/08/13; BMS in RCA" Surgical History S/P appendectomy S/P cholecystectomy S/P hernia repair Family History Mother Breast cancer Other No significant family history Social History Preferred Language: Tajik Communication Ability: Effective 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 HEENT: Head is normal. PERRLA. EOMI. Sclerae anicteric. Ears, nose and throat unremarkable. Mucous membranes moist. Neck: Normal carotid upstrokes, no bruits. No appreciable JVD. Lungs: Clear to auscultation bilaterally without rales, rhonchi or wheezes. Cardiac: Regular rate and rhythm. S1-S2 normal. No appreciable murmur, gallop or rub. Abdomen: Soft and nontender. Bowel sounds normal. No mass or organomegaly. No abdominal bruit. Extremities/vascular: Well perfused. No peripheral edema. Radial, DP and PT pulses 2+ bilaterally Skin: No rash or abnormal lesions. Normal turgor. Neurologic: Nonfocal Psychiatric: Affect appropriate. Alert and oriented. Results & Data Vital Signs (Past 12 Hours) Vital Signs Temp Pulse Pulse Resp BP BP BP 04/10/19 07:28 74 04/10/19 07:11 36.3 C L 71 20 144/69 H 04/10/19 04:00 36.7 C 81 20 125/63 04/10/19 00:45 36.6 C 76 20 181/84 H 04/10/19 00:15 79 19 130/86 04/10/19 00:00 79 19 153/81 H 04/09/19 23:45 68 20 149/93 H 04/09/19 23:30 71 26 H 157/92 H 04/09/19 23:15 77 21 140/82 04/09/19 23:10 93 H 20 04/09/19 23:00 90 20 116/87 04/09/19 22:50 111 H 20 04/09/19 22:45 105 H 12 136/88 04/09/19 22:41 120 H 21 04/09/19 22:39 117 H 21 132/99 04/09/19 22:31 04/09/19 22:30 135 H 20 04/09/19 22:20 136 H 21 04/09/19 22:18 122 H 27 H 04/09/19 22:07 136 H 18 156/105 H 04/09/19 21:46 36.6 C 126 H 21 150/114 H Pulse Ox 04/10/19 07:28 04/10/19 07:11 91 04/10/19 04:00 91 04/10/19 00:45 94 04/10/19 00:15 92 04/10/19 00:00 93 04/09/19 23:45 95 04/09/19 23:30 94 04/09/19 23:15 94 04/09/19 23:10 91 04/09/19 23:00 92 04/09/19 22:50 90 04/09/19 22:45 92 04/09/19 22:41 92 04/09/19 22:39 92 04/09/19 22:31 92 04/09/19 22:30 93 04/09/19 22:20 92 04/09/19 22:18 93 04/09/19 22:07 93 04/09/19 21:46 94 Laboratory Results Laboratory Results - last 24 hr 04/09/19 04/09/19 04/09/19 21:50 21:50 22:12 WBC 6.73 RBC 4.31 L Hgb 12.9 L POC Hgb 13.3 L Hct 39.2 L POC Hct 39 L MCV 91.0 MCH 29.9 MCHC 32.9 RDW Std Deviation 49.0 H RDW Coeff of [place] 14.5 Plt Count 275 MPV 10.7 H Immature Gran % (Auto) 0.0 Neut % (Auto) 83.0 Lymph % (Auto) 15.8 [place] % (Auto) 1.0 Eos % (Auto) 0.1 Baso % (Auto) 0.1 Immature Gran # (Auto) 0.00 Neut # (Auto) 5.58 Lymph # (Auto) 1.06 L [place] # (Auto) 0.07 L Eos # (Auto) 0.01 Baso # (Auto) 0.01 POC Sodium 137 Sodium 135 L POC Potassium 4.1 Potassium 4.1 POC Chloride 99 L Chloride 101 Carbon Dioxide 27 POC Total CO2 27 Anion Gap 7.0 POC Anion Gap 15.0 L POC BUN 23 H BUN 23 H Creatinine 1.24 POC Creatinine 1.1 Est Cr Clr Drug Dosing 47.7 Est GFR ( Amer) 62.4 Est GFR (Non-Af Amer) 53.8 BUN/Creatinine Ratio 18.8 Glucose 470 H* POC Glucose POC Glucose (other) 479 H* Estimat Average Glucose Hemoglobin A1c Calcium 10.1 POC Ioniz Calcium Frank 1.29 Magnesium 2.0 Total Bilirubin 0.5 AST 19 ALT 32 Alkaline Phosphatase 152 H Total Creatine Kinase 67 CK-MB (CK-2) 1.8 CK/CKMB % Calc 2.7 Troponin I < 0.015 Total Protein 7.5 Albumin 3.8 Globulin 3.7 Albumin/Globulin Ratio 1.0 Lipase 100 Beta-Hydroxybutyric Acd 1.86 TSH 04/09/19 04/10/19 04/10/19 23:08 00:49 04:21 WBC RBC Hgb POC Hgb Hct POC Hct MCV MCH MCHC RDW Std Deviation RDW Coeff of [place] Plt Count MPV Immature Gran % (Auto) Neut % (Auto) Lymph % (Auto) [place] % (Auto) Eos % (Auto) Baso % (Auto) Immature Gran # (Auto) Neut # (Auto) Lymph # (Auto) [place] # (Auto) Eos # (Auto) Baso # (Auto) POC Sodium Sodium POC Potassium Potassium POC Chloride Chloride Carbon Dioxide POC Total CO2 Anion Gap POC Anion Gap POC BUN BUN Creatinine POC Creatinine Est Cr Clr Drug Dosing Est GFR ( Amer) Est GFR (Non-Af Amer) BUN/Creatinine Ratio Glucose POC Glucose 440 H* 500 H* 364 H* POC Glucose (other) Estimat Average Glucose Hemoglobin A1c Calcium POC Ioniz Calcium Frank Magnesium Total Bilirubin AST ALT Alkaline Phosphatase Total Creatine Kinase CK-MB (CK-2) CK/CKMB % Calc Troponin I Total Protein Albumin Globulin Albumin/Globulin Ratio Lipase Beta-Hydroxybutyric Acd TSH 04/10/19 04/10/19 04/10/19 06:38 07:35 08:39 WBC RBC Hgb POC Hgb Hct POC Hct MCV MCH MCHC RDW Std Deviation RDW Coeff of [place] Plt Count MPV Immature Gran % (Auto) Neut % (Auto) Lymph % (Auto) [place] % (Auto) Eos % (Auto) Baso % (Auto) Immature Gran # (Auto) Neut # (Auto) Lymph # (Auto) [place] # (Auto) Eos # (Auto) Baso # (Auto) POC Sodium Sodium 136 POC Potassium Potassium 3.9 POC Chloride Chloride 103 Carbon Dioxide 24 POC Total CO2 Anion Gap 9.0 POC Anion Gap POC BUN BUN 26 H Creatinine 1.24 POC Creatinine Est Cr Clr Drug Dosing 47.6 Est GFR ( Amer) 62.4 Est GFR (Non-Af Amer) 53.8 BUN/Creatinine Ratio 20.6 H Glucose 318 H* POC Glucose 312 H* 319 H* POC Glucose (other) Estimat Average Glucose Hemoglobin A1c Calcium 9.9 POC Ioniz Calcium Frank Magnesium Total Bilirubin AST ALT Alkaline Phosphatase Total Creatine Kinase CK-MB (CK-2) CK/CKMB % Calc Troponin I Total Protein Albumin Globulin Albumin/Globulin Ratio Lipase Beta-Hydroxybutyric Acd 1.05 TSH 0.875 04/10/19 04/10/19 08:39 08:39 WBC RBC Hgb POC Hgb Hct POC Hct MCV MCH MCHC RDW Std Deviation RDW Coeff of [place] Plt Count MPV Immature Gran % (Auto) Neut % (Auto) Lymph % (Auto) [place] % (Auto) Eos % (Auto) Baso % (Auto) Immature Gran # (Auto) Neut # (Auto) Lymph # (Auto) [place] # (Auto) Eos # (Auto) Baso # (Auto) POC Sodium Sodium POC Potassium Potassium POC Chloride Chloride Carbon Dioxide POC Total CO2 Anion Gap POC Anion Gap POC BUN BUN Creatinine POC Creatinine Est Cr Clr Drug Dosing Est GFR ( Amer) Est GFR (Non-Af Amer) BUN/Creatinine Ratio Glucose POC Glucose POC Glucose (other) Estimat Average Glucose Pending Hemoglobin A1c Pending Calcium POC Ioniz Calcium Frank Magnesium Total Bilirubin AST ALT Alkaline Phosphatase Total Creatine Kinase CK-MB (CK-2) CK/CKMB % Calc Troponin I Total Protein Albumin Globulin Albumin/Globulin Ratio Lipase Beta-Hydroxybutyric Acd TSH Cancelled ECG Additional Comments: EKGs reviewed-- initial EKG atrial fibrillation with RVR. Subsequent EKG ventricularlly paced Tele reviewed--patient converted from afib around 12:30 am PG Care Time/CCT Total # of Minutes Spent Total Time Spent with Patient: Total time spent is greater than 50% in coordination of care (as documented) at patient's floor/unit and/or counseling patient:
[2019-04-10 10:06] LABS: Beta-Hydroxybutyrate 1.05 mg/dl (0.2-2.81); Thyroid Stimulating Hormone 0.875 uIu/ml (0.300-4.500)
[2019-04-10 10:13] LABS: Estimated Average Glucose 217 mg/dl; Hemoglobin A1C 9.2 % (4.5-5.6)
[2019-04-10] MEDS: AMIODARONE 200 MG TAB PO SCH (11:12)
[2019-04-10] MEDS ORDERED: INSULIN GLARGINE SOLOSTAR 100 UNITS/ML 3 ML PEN SC ONE (11:49)
--- NOTE | 2019-04-10 20:13 | Hospitalist Progress Note ---
Date of Service April 10, 2019 Assessment & Plan (1) Atrial fibrillation with RVR: Atrial fibrillation with RVR/CAD/cardiomyopathy/biventricular ICD/chronic anticoagulation/hypertension Now back in atrial paced rhythm. Amiodarone started by cardiology. Will observe overnight for stability or rhythm on this and plan for discharge tomorrow. TSH 0.875, no alcohol use. Suspect exacerbation from steroid injection and subsequent hyperglycemia. Anticoagulation with Eliquis as previously prescribed. (2) Mitral regurgitation: See above (3) CAD (coronary artery disease): See above (4) Cardiomyopathy: See above (5) Biventricular ICD (implantable cardioverter-defibrillator) in place: See above (6) Anticoagulated: due to paroxysmal atrial fibrillation (7) Hypertension: Continue routine home meds (8) Diabetes: Blood sugar upon arrival was 470. Suspect exacerbation due to steroid injection and late lantus use (given at 2am this morning). Will tighten novolog control with extra correction dose at midnight and increase give extra lantus 10 units today. Suspect he can go back to his usual insulin regimen after discharge. (9) Hypercholesteremia: Continue atorvastatin 40 mg at bedtime (10) Depression: Continue duloxetine 30 mg p.o. daily (11) GERD (gastroesophageal reflux disease): Continue famotidine 20 mg p.o. twice daily and change omeprazole to pantoprazole 40 mg p.o. daily due to formulary (12) Allergic rhinitis: Continue Xyzal 5 mg p.o. every evening and montelukast 10 mg p.o. every evening (13) Anxiety: Continue Lorazepam 0.5 mg p.o. every 6 hours as needed (14) DVT prophylaxis: Continue apixaban Suspect can be discharged home tomorrow once glucose and rhythm control established. Subjective Patient feels much improved and back to his baseline after converting to atrial sensed, ventricular paced rhythm. Started on amiodarone by cardiology. This is not a new diagnosis and required cardioversion previously. He lives with his who does not drive in the dark. He denies any current shortness of breath, chest pain, orthopnea, PND or palpitations. Reports hyperglycemia previously with shoulder steroid injections. Review of Systems Review of Systems: All systems reviewed & are unremarkable except as noted in HPI & below Physical Exam Constitutional: well developed and + obese Eyes: + anicteric sclerae; normal pupil size ENMT: external ear and nose normal, oropharynx normal Neck: trachea midline Respiratory: normal respiratory effort, lungs clear to auscultation Cardiovascular: Rate/Rhythm: regular rate and regular rhythm Heart Sounds: normal S1 and normal S2; no murmur Vessels: no JVD Extremities: normal capillary refill; no edema Results & Data Vital Signs (Past 12 Hours) Vital Signs Temp Pulse Pulse Resp BP Pulse Ox 04/10/19 19:23 97.7 F 64 20 148/70 H 91 04/10/19 16:00 74 04/10/19 15:30 97.7 F 62 18 139/65 90 04/10/19 11:00 97.3 F L 80 20 147/73 H 92 PG Care Time/CCT Total # of Minutes Spent Total Time Spent with Patient: Total time spent is greater than 50% in co ordination of care (as documented) at patient's floor/unit and/or counseling patient: (1) Diabetes Diabetes mellitus mcfp insulin use: with termite control service representative use Diabetes mellitus type: type 2 (2) CAD (coronary artery disease) Associated angina: without angina Coronary Disease-Associated Artery/Lesion type: unspecified vessel or lesion type [place] vs. transplanted heart: [place] heart Qualified Code(s): I25.10 - Atherosclerotic heart disease of [place] coronary artery without angina pectoris (3) Mitral regurgitation Cardiac valve disease etiology: nonrheumatic Qualified Code(s): I34.0 - Nonrheumatic mitral (valve) insufficiency (4) Hypertension Hypertension type: essential hypertension Qualified Code(s): I10 - Essential (primary) hypertension (5) Cardiomyopathy Cardiomyopathy type: unspecified Qualified Code(s): I42.9 - Cardiomyopathy, unspecified
[2019-04-10] MEDS ORDERED: MONTELUKAST SODIUM 10 MG TABLET PO SCH (21:00)
[2019-04-10] MEDS ORDERED: ATORVASTATIN 40 MG TAB PO SCH (21:00)
[2019-04-10] MEDS ORDERED: ISOSORBIDE MONO EXTENDED REL 30 MG TABCR PO SCH (21:00)
[2019-04-11] MEDS ORDERED: INSULIN ASPART 100 UNITS/ML 3 ML PEN SC ONE
[2019-04-11 06:57] LABS: BUN Creatinine Ratio 30.5 (10-20); Blood Urea Nitrogen 37 mg/dl (7-18); Calcium 9.2 mg/dl (8.5-10.1); Carbon Dioxide 26 mmol/L (21-32); Chloride 105 mmol/L (98-107); Creatinine Clr Calc Pharmacy 48.1 ml/min; Est GFR (Non-African American) 54.3; Glucose 145 mg/dl (70-99); Magnesium 2.6 mg/dl (1.8-2.4); Potassium 3.9 mmol/L (3.5-5.1); Sodium 137 mmol/L (136-145)
[2019-04-11 07:03] LABS: Troponin I < 0.015 ng/ml (0-0.045)
[2019-04-11] MEDS: INSULIN ASPART 100 UNITS/ML 3 ML PEN SC SCH (08:49)
[2019-04-11] MEDS: OMEGA-3 (PURIFIED FISH OIL) 1 GM CAP PO SCH (08:50)
[2019-04-11] MEDS: FAMOTIDINE 20 MG TAB PO SCH (08:50)
[2019-04-11] MEDS: AMIODARONE 200 MG TAB PO SCH (08:50)
[2019-04-11] MEDS: POTASSIUM CHLORIDE 10 MEQ TABCR PO SCH (08:50)
[2019-04-11] MEDS: lisinopriL 40 MG TAB PO SCH (08:50)
[2019-04-11] MEDS: HydrALAZINE TAB 50 MG TAB PO SCH (08:51)
[2019-04-11] MEDS: ISOSORBIDE MONO EXTENDED REL 30 MG TABCR PO SCH (08:51)
[2019-04-11] MEDS: dilTIAZem HCL 180 MG CAPCR PO SCH (08:51)
[2019-04-11] MEDS: FUROSEMIDE 40 MG TAB PO SCH (08:51)
[2019-04-11] MEDS: CLOPIDOGREL BISULFATE 75 MG TAB PO SCH (08:52)
[2019-04-11] MEDS: CALCIUM 600MG + VIT D 400 IU TAB PO SCH (08:52)
[2019-04-11] MEDS: APIXABAN 5 MG TABLET PO SCH (08:52)
[2019-04-11] MEDS: DULOXETINE HCL 30 MG CAP PO SCH (08:52)
[2019-04-11] MEDS: PANTOprazole 40 MG TAB PO SCH (08:52)
[2019-04-11] MEDS: carvediloL 25 MG TAB PO SCH (08:52)
[2019-04-11] MEDS: CYANOCOBALAMIN 500 MCG TABLET (VITAMIN B-12) PO SCH (08:52)
--- NOTE | 2019-04-11 10:15 | Discharge Summary ---
Date of Service April 11, 2019 Admission HPI Per Admitting Provider the patient was found to be inThe patient is an 83-year-old male with a past medical history including CAD, cardiomyopathy, history of CVA, history of NSTEMI, mitral regurgitation, pericardial effusion, hypertension, biventricular ICD on chronic anticoagulation who presents to the emergency department with acute onset of rapid heart rate while walking. He reports that his blood sugar was 281 this morning when he woke up, gave himself 6 units of NovoLog, had steroid injections into both shoulders at around 3:30 PM this afternoon. He reports that he was feeling somewhat lethargic and did not have much of an a ppetite around suppertime, but was able to eat homemade pie from his . Upon arrival in the emergency department, the patient was found to be in atrial fibrillation with RVR with a peak heart rate of 136-140. He was also found to have an elevated blood sugar of 474 which he received 10 units of regular insulin IV x2 by the ED. Principal Diagnosis Atrial fibrillation with rapid ventricular rate Hyperglycemia secondary to steroid injection Discharge Exam Constitutional well developed and + obese Eyes + anicteric sclerae; normal pupil size ENMT external ear and nose normal, oropharynx normal Neck trachea midline Respiratory normal respiratory effort, lungs clear to auscultation Cardiovascular Rate/Rhythm: regular rate and regular rhythm Heart Sounds: normal S1 and normal S2; no murmur Vessels: no JVD Extremities: no edema Psychiatric A+Ox3, euthymic affect Discharge Data Allergies Allergy/AdvReac Type Severity Reaction Status Date / Time pravastatin [From Pravachol] AdvReac Unknown Verified 04/22/19 11:14 rosuvastatin [From Crestor] AdvReac Unknown Verified 04/22/19 11:14 Consultations 04/09/19 22:39 ED Decision to Admit Stat 04/10/19 00:57 Consult Cardiology Routine Consult Case Management - Discharge Planning Routine Hospital Course (1) Atrial fibrillation with RVR: 83-year-old male admission with known paroxysmal atrial fibrillation. Presents with shortness of breath and palpitations. Diagnosed with atrial for ablation with RVR. Converted to atrial sensed ventricular paced rhythm overnight. Cardiology were consulted and recommended starting amiodarone for rhythm control. No recurrence of atrial fibrillation after starting this medication while admitted. He is already anticoagulated with Eliquis. (2) Diabetes: Hyperglycemia on admission 470. Required increased insulin coverage due to steroid injection. Will be discharged on same dose of insulin. (3) Hyperglycemia: see above (4) Biventricular ICD (implantable cardioverter-defibrillator) in place: Total Time Total Time Spent Total Time Spent (In Minutes): 35 Total Time Includes: Examination of the Patient, Discharge Planning, Medication Reconciliation and Communication With Other Providers Discharge Plan Discharge Items Patient Disposition: Home - Self-Care Reason For Visit: ATRIAL FIB WITH RVR Discharge Diagnosis: Atrial fibrillation with rapid ventricular rate Hyperglycemia Vitamin B12 deficiency Activity: Resume your previous activity Non-emergency contact: Primary Care Provider Call non-emergency contact if: you have any medication questions and your symptoms worsen Follow-up/Referrals: Kyle Lamb MD [Primary Care Provider] - 04/16/19 11:00 am (Please, follow up at Dr. Lamb's office with his associate, Lynn AGUIRRE, on MondayApril 16 at 11:00 am. *If you need to change this appointment, call the office at [phone].) Vinod Hermosillo Jr, MD, [facility] [Physician] - 05/15/19 2:15 pm (Please, follow up at [facility] Office with Dr. Hermosillo on MondayApril 14 at 2:15 pm. *If you need to change this appointment, call the office at [phone].) Diet: Carb Consistent or DM2 and Heart Healthy Addtl Attending Provider Instructions: You were diagnosed with atrial fibrillation with a rapid rate. This was treated with rate controlling and switched to rhythm controlling medication called amiodarone - please continue to take this as prescribed. You will follow up with cardiology as above. With regards to your hyperglycemia (high blood glucose level), this was likely due to your steroid injection and now appears much better controlled. Recommend resuming your usual dosing on discharge and following up with your primary care provider. Suggest discussing extra coverage if you are to have steroid injections in the future. Pending Studies at Discharge: No Stand-Alone Forms: [facility] Medications and DC Order Prescriptions: New cyanocobalamin (vitamin B-12) 500 mcg Tablet 1,000 mcg PO QAM 30 Days Qty: 60 RF: 0 amiodarone 200 mg tablet 200 mg PO QAM 30 Days Qty: 30 RF: 0 Continued lisinopril 40 mg tablet 40 mg PO QAM Qty: 90 RF: 3 omeprazole 40 mg capsule,delayed release(DR/EC) 40 mg PO DAILY Qty: 30 RF: 2 clopidogrel 75 mg tablet 75 mg PO QAM Qty: 90 RF: 3 lidocaine 4 % adhesive patch,medicated 1 patch topical DAILY PRN (Reason: Pain) RF: 0 levocetirizine 5 mg tablet 5 mg PO QPM RF: 0 duloxetine 30 mg capsule,delayed release(DR/EC) 30 mg PO DAILY RF: 0 Eliquis 5 mg tablet 5 mg PO BID RF: 0 insulin glargine 100 unit/mL (3 mL) insulin pen 27 unit subcut HS Qty: 0 RF: 0 diclofenac sodium [Voltaren] 1 % gel 4 gm TOP QID PRN (Reason: Pain) RF: 0 auaxogq-juhycmsnw-eoyo Tablet 1 tab PO QAM RF: 0 atorvastatin 40 mg tablet 40 mg PO HS RF: 0 diltiazem HCl 180 mg capsule,extended release 24hr 180 mg PO BID RF: 0 famotidine 20 mg tablet 20 mg PO BID RF: 0 lorazepam 0.5 mg tablet 0.5 mg PO Q6H PRN (Reason: Anxiety) RF: 0 hydralazine 50 mg tablet 50 mg PO TID RF: 0 isosorbide mononitrate 60 mg tablet extended release 24 hr See Patient Comments PO BID RF: 0 montelukast [Singulair] 10 mg tablet 10 mg PO QPM RF: 0 insulin aspart U-100 100 unit/mL (3 mL) insulin pen See Patient Comments subcut UD RF: 0 omega 2-xuq-lbo-fish oil [Fish Oil] 1,000 mg (120 mg-180 mg) capsule 1 cap PO QAM RF: 0 furosemide 40 mg Tablet 40 mg PO QAM RF: 0 No Action carvedilol 25 mg tablet 25 mg PO BID Qty: 180 RF: 1 potassium chloride 10 mEq tablet extended release 10 meq PO BID Qty: 180 RF: 1 Discharge Orders: Discharge Order (Routine); Ordered 04/11/19 Ordered By: Oc Barbosa/Other Patient Handouts: Amiodarone Hydrochloride Oral tablet, Hyperglycemia Admission Data Admit Date/Time: 04/09/19 23:56 Attending Provider: Oc Hayward Admit Provider: John Arias Primary Care Provider: Kyle Lamb Other Providers: Sekou Palma Other Interventions: Discharge Summary Assessment (RN) Last Done: 04/11/19 10:54 DC Date/Time DO NOT enter until pt leaves facility: 04/11/19 13:07
== END 2019-04-11 13:07 | disposition home or self-care (01) | DRG 310 ==
LOC: ED 21:42 → 2S 23:56 → SUATTDRO 23:56 → 2S 04-10 00:39

== ENCOUNTER 2020-02-01 19:33 | Inpatient (IN) ==
[2020-02-01] MEDS ORDERED: ONDANSETRON INJ 2 MG/ML 2 ML VIAL IV STA (19:40)
[2020-02-01] MEDS ORDERED: fentaNYL citrate 100 MCG/2 ML VIAL IV PRN ×2 (19:40→20:43)
--- NOTE | 2020-02-01 19:46 | Emergency Department Note ---
Impression & Plan Fracture of tibia and fibula, shaft, Fall ED Provider Note NAME: MARTELL LOPEZ JR AGE: 84 SEX: M : 1935 ARRIVES VIA: Ambulance INFORMANT: Patient, ED PROVIDER(S): Kyle Stephen DO CHIEF COMPLAINT: Fall HPI: The patient is an 84-year-old male who presented to the emergency department by ambulance via BLS for an evaluation of right ankle pain. The patient was getting into a vehicle when he slipped landing on his right lower extremity. He was unable to bear weight. He did not strike his head. He has no loss of consciousness or headache. He has no other injury. He states the pain is moderate to severe and worsens with any movement of his right leg. He was unable to bear weight so his family members called 911 and the patient arrived at the emergency department via BLS. He denies having any chest pain or difficulty breathing. He has no numbness or tingling in the foot. He does take blood thinners for chronic cardiac conditions. ROS: See above HPI for pertinent positives & negatives. A total of 10 systems reviewed and were otherwise negative. PAST MEDICAL HISTORY: See Below PAST SURGICAL HISTORY: See Below FAMILY HISTORY: See Below SOCIAL HISTORY: See Below HOME MEDICATIONS: See Below ALLERGIES: See Below VITALS: See Below PHYSICAL EXAMINATION: GENERAL: The patient is awake and alert. He is in significant pain and appears be uncomfortable. EYES: The conjunctivae are clear. The pupils are round and reactive. EARS, NOSE, MOUTH AND THROAT: The nose is without any evidence of any deformity. Mucous membranes are moist. Tongue is midline. NECK: The neck is nontender and supple. RESPIRATORY: Normal respiratory effort is noted there is no evidence of wheezing rhonchi or rales CARDIOVASCULAR: Regular rate and rhythm noted there no murmurs rubs or gallops normal S1 normal S2. GASTROINTESTINAL: The abdomen is soft. Abdomen is nontender. BACK: No midline tenderness or or step-off noted range of motion in flexion extension as well as rotation no signs of muscle spasm noted MUSCULOSKELETAL/EXTREMITIES: There is significant swelling and deformity of the right ankle. There is no tenderness over the right knee. The proximal fibular head is nontender. The foot is nontender. Pulses are symmetric in both feet. SKIN: There is no obvious evidence of any rash. Pedal edema was noted bilaterally. NEUROLOGIC: Patient is awake alert and oriented x3. MEDICAL DECISION MAKING: The patient is an 84-year-old male who presented to the emergency department for an evaluation of right leg pain. The patient fell while getting in a vehicle. The patient sustained a distal tib-fib fracture with angulation and comminution. This was treated with IV pain medication as well as splinting in the emergency department. Repeat x-ray showed significant improvement in the alignment. I discussed the patient's laboratory and radiographic studies with him. He was feeling somewhat improved on reevaluation but he was having significant hypoxia because of the IV pain medication. Given the patient's living conditions and the fracture and his baseline ambulatory status I did feel it would be prudent to treat this initially as an inpatient until further surgical intervention could be determined. I discussed his case with the on-call orthopedic physician as well as the on-call [facility] hospitalist group. They have agreed to evaluate the patient in the emergency department for further management and disposition. Triage Nursing notes reviewed. Prior medical records reviewed Vital Signs: reviewed and remarkable for hypoxia. Differential diagnosis: Fracture, subluxation, dislocation, contusion, ligamentous injury, neuro vascular, compartment syndrome, rhabdomyolysis, as well as other pathologies. ER treatment provided: See below Diagnostics interpreted by me: ECG: none Cardiac Monitoring: An order was placed for continuous cardiac monitoring. The monitor shows a rate of 88 with atrial fibrillation rhythm. Laboratory studies: As stated above and show below. Imaging studies: See below Consultation(s): 2100: I discussed this case with Dr. Mcguire who is on-call for orthopedics. 2109: I discussed this case with the resident, Jostin. He will evaluate the patient in the emergency department for the [facility] group. 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 Closed head injury Diabetes (Inactive) Diabetes mellitus with diabetic polyneuropathy (Acute) Heart disease (Inactive) Hip pain, bilateral History of CVA (cerebrovascular accident) HTN (hypertension) (Inactive) Hypercholesteremia (Inactive) Hypertension (Chronic) Intraabdominal mass Low back strain Myocardial infarction Non-ST elevation [place] (NSTEMI) (11/07/13) "PCI on 11/08/13; BMS in RCA" Paroxysmal atrial fibrillation Pericardial effusion (Inactive) 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 Shoulder pain, bilateral Surgical History History of back surgery S/P appendectomy S/P cholecystectomy S/P hernia repair Family History Mother Breast cancer Cancer Father Hearing loss Other No significant family history Denies family history of Ovarian cancer Prostate cancer Myocardial infarction Colorectal cancer Social History Smoking Status: Former smoker Tobacco Type: Cigarettes Second Hand Exposure: No; Do You Dip or Chew Tobacco: No; Hx Alcohol Use: No Hx Substance Use: No Preferred Language: Ivorian Communication Ability: Effective Transportation Services Representative Required: No Beliefs That Will Affect Care: None marital status: Current Living Situation: Spouse Current Living Situation Comment: [facility] current occupational status: retired Feels Safe at Home: Yes Safety Concerns: Feels Safe At This Time Seatbelt Use: always Allergies Allergies Allergy/AdvReac Type Severity Reaction Status Date / Time pravastatin [From Pravachol] AdvReac Unknown Unknown Verified 02/01/20 22:24 rosuvastatin [From Crestor] AdvReac Unknown Unknown Verified 02/01/20 22:24 Home Meds Home Medications Medication Instructions Recorded Confirmed omega 0-zcc-hpy-fish oil 1,000 mg 1 cap PO QAM cap 03/13/19 02/01/20 (120 mg-180 mg) capsule hjcozbn-[id number]-oepb 1 tab PO DAILY 12/26/19 02/01/20 carvedilol 25 mg PO BID 12/26/19 02/01/20 insulin aspart U-100 [Novolog 25 - 35 unit SUBCUT DIRECTED 12/26/19 02/01/20 Flexpen U-100 Insulin] MDD 35 UNITS/DAILY lorazepam 0.5 mg PO Q12H PRN 12/26/19 02/01/20 montelukast 10 mg PO QPM 12/26/19 02/01/20 amiodarone 200 mg PO Q2D 02/01/20 02/01/20 insulin glargine [Lantus Solostar 27 unit SUBCUT HS 02/01/20 02/01/20 U-100 Insulin] nortriptyline 20 mg PO HS 02/01/20 02/01/20 Previous Rx's Medication Instructions Recorded clopidogrel 75 mg tablet 75 mg PO QAM #90 tab 02/27/19 atorvastatin 40 mg tablet 40 mg PO HS #90 tab 06/03/19 diltiazem HCl 180 mg 180 mg PO BID #180 cap 07/09/19 capsule,extended release 24 hr hydralazine 50 mg tablet 50 mg PO TID #270 tab 07/09/19 famotidine 40 mg tablet 40 mg PO DAILY #90 tab 07/29/19 levocetirizine 5 mg tablet 5 mg PO QPM #90 tab 09/30/19 furosemide 40 mg tablet 40 mg PO DAILY #90 tab 10/09/19 potassium chloride 10 mEq 10 meq PO BID #180 tab 10/10/19 tablet,extended release sertraline 25 mg tablet 25 mg PO DAILY #90 tab 11/20/19 isosorbide mononitrate 60 mg See Rx Instructions PO BID #225 tab 12/04/19 tablet,extended release 24 hr apixaban 5 mg tablet 5 mg PO BID #180 tab 01/08/20 lisinopril 40 mg tablet 40 mg PO QAM #90 tab 01/16/20 Results & Data (ED) Vital Signs Vital Signs - 24 hr 02/01/20 19:40 02/01/20 19:44 02/01/20 20:24 Temperature 36.7 C Temperature Source Oral Pulse Rate 67 Pulse Rate [Apical] 60 Respiratory Rate 18 18 Blood Pressure 147/66 H Blood Pressure [Right Arm] 143/71 H Blood Pressure Mean 93 Blood Pressure Mean [Right Arm] 95 Pulse Oximetry 92 92 90 Oxygen Delivery Method Room Air Room Air Nasal Cannula Oxygen Flow Rate 3 Sepsis Recent Fever Within 48 Hours No Sepsis New/Unexplained Change in Mental Status No Sepsis Action Taken by Nursing No Action Required 02/01/20 20:36 02/01/20 20:42 02/01/20 21:46 Temperature Temperature Source Pulse Rate Pulse Rate [Apical] 60 60 Respiratory Rate 15 14 Blood Pressure Blood Pressure [Right Arm] 130/83 155/77 H Blood Pressure Mean Blood Pressure Mean [Right Arm] 98 103 Pulse Oximetry 92 91 99 Oxygen Delivery Method Room Air Nasal Cannula Nasal Cannula Oxygen Flow Rate 3 3 Sepsis Recent Fever Within 48 Hours Sepsis New/Unexplained Change in Mental Status Sepsis Action Taken by Residential Medications Current Medication List: was personally reviewed by me Laboratory Data Attestation: I reviewed the patient's lab results. Result diagrams: 02/01/20 20:14 02/01/20 20:14 Lab Results 02/01/20 02/01/20 02/01/20 Range/Units 20:14 20:14 20:14 WBC 10.25 (4.8-10.8) K/uL RBC 3.68 L (4.7-6.1) M/uL Hgb 10.8 L (14.0-18.0) g/dL Hct 33.0 L (42-52) % MCV 89.7 (80-100) fL MCH 29.3 (25-34) pg MCHC 32.7 (32-36) g/dL RDW Std Deviation 47.8 H (36.4-46.3) fL RDW Coeff of Apolonia 14.6 H (11.5-14.5) % Plt Count 319 (130-400) K/uL MPV 9.8 (7.4-10.4) fL Immature Gran % (Auto) 0.4 % Neut % (Auto) 77.9 % Lymph % (Auto) 13.4 % Upton % (Auto) 7.4 % Eos % (Auto) 0.9 % Baso % (Auto) 0.0 % Neut # (Auto) 7.99 H (1.4-6.5) K/uL Lymph # (Auto) 1.37 (1.2-3.4) K/uL Upton # (Auto) 0.76 H (0.11-0.59) K/uL Eos # (Auto) 0.09 (0-0.5) K/uL Baso # (Auto) 0.00 (0-0.2) K/uL Immature Gran # (Auto) 0.04 H (0.00-0.02) K/uL Absolute Nucleated RBC 0.09 H (0-0) K/uL Nucleated RBC % (auto) 0.9 % Acanthocytes (Spur) 1+ PT Cancelled INR Cancelled APTT Cancelled PTT Ratio Cancelled Sodium 137 (136-145) mmol/L Potassium 4.5 (3.5-5.1) mmol/L Chloride 104 (98-107) mmol/L Carbon Dioxide 29 (21-32) mmol/L Anion Gap 4.0 (3-11) BUN 25 H (7-18) mg/dl Creatinine 1.07 (0.6-1.4) mg/dl Est Cr Clr Drug Dosing 47.2 ml/min Est GFR ( Amer) 74.0 Est GFR (Non-Af Amer) 63.9 BUN/Creatinine Ratio 23.0 H (10-20) Glucose 289 H (70-99) mg/dl Calcium 9.2 (8.5-10.1) mg/dl Total Bilirubin 0.4 (0.2-1) mg/dl AST 15 (15-37) U/L ALT 24 (12-78) U/L Alkaline Phosphatase 156 H (45-117) U/L Total Protein 6.8 (6.4-8.2) gm/dl Albumin 3.0 L (3.4-5.0) gm/dl Globulin 3.8 (2.5-4.0) gm/dl Albumin/Globulin Ratio 0.8 L (0.9-2) Lipase 111 (73-393) U/L Specimen Hemolysis 02/01/20 Range/Units 20:50 WBC (4.8-10.8) K/uL RBC (4.7-6.1) M/uL Hgb (14.0-18.0) g/dL Hct (42-52) % MCV (80-100) fL MCH (25-34) pg MCHC (32-36) g/dL RDW Std Deviation (36.4-46.3) fL RDW Coeff of Apolonia (11.5-14.5) % Plt Count (130-400) K/uL MPV (7.4-10.4) fL Immature Gran % (Auto) % Neut % (Auto) % Lymph % (Auto) % Upton % (Auto) % Eos % (Auto) % Baso % (Auto) % Neut # (Auto) (1.4-6.5) K/uL Lymph # (Auto) (1.2-3.4) K/uL Upton # (Auto) (0.11-0.59) K/uL Eos # (Auto) (0-0.5) K/uL Baso # (Auto) (0-0.2) K/uL Immature Gran # (Auto) (0.00-0.02) K/uL Absolute Nucleated RBC (0-0) K/uL Nucleated RBC % (auto) % Acanthocytes (Spur) PT 12.4 H INR 1.2 H APTT 24.1 PTT Ratio 0.9 Sodium (136-145) mmol/L Potassium (3.5-5.1) mmol/L Chloride (98-107) mmol/L Carbon Dioxide (21-32) mmol/L Anion Gap (3-11) BUN (7-18) mg/dl Creatinine (0.6-1.4) mg/dl Est Cr Clr Drug Dosing ml/min Est GFR ( Amer) Est GFR (Non-Af Amer) BUN/Creatinine Ratio (10-20) Glucose (70-99) mg/dl Calcium (8.5-10.1) mg/dl Total Bilirubin (0.2-1) mg/dl AST (15-37) U/L ALT (12-78) U/L Alkaline Phosphatase (45-117) U/L Total Protein (6.4-8.2) gm/dl Albumin (3.4-5.0) gm/dl Globulin (2.5-4.0) gm/dl Albumin/Globulin Ratio (0.9-2) Lipase (73-393) U/L Specimen Hemolysis Administered Medications Discontinued Medications Fentanyl Citrate (Fentanyl Citrate) 50 mcg IV Q15M PRN PRN Reason: Pain Stop: 02/15/20 19:39 Last Admin: 02/01/20 20:19 Dose: 50 mcg Documented by: [id number] Fentanyl Citrate (Fentanyl Citrate) 25 mcg IV Q15M PRN PRN Reason: Pain Stop: 02/15/20 20:42 Last Admin: 02/01/20 20:53 Dose: 25 mcg Documented by: [id number] Ondansetron HCl (Zofran) 4 mg IV NOW STA Stop: 02/01/20 19:41 Last Admin: 02/01/20 20:19 Dose: 4 mg Documented by: [id number] Imaging Data Attestation: I personally reviewed and interpreted this imaging study as follows: My Impression: AP and lateral x-ray of the right ankle were obtained in the emergency department. AP and lateral x-ray of the right tib-fib were obtained in the emergency department. My interpretation is comminuted distal tib-fib fracture. The ankle mortise is spared. There is lateral angulation noted. AP and lateral of the tib-fib x-ray was obtained after application of splint. There was significant improvement of the previously described distal tib-fib fracture. Prescription Drug Monitoring [place] Drug Monitoring Program reviewed and no issues identified Prescription Drug Findings: The patient does receive outpatient chronic pain medication. These were reviewed. Blood Pressure Blood Pressure Findings: Normal blood pressure Discharge Plan Visit Data *Final* Discharge Date/Time: 02/01/20 22:33 Chief Complaint: Fall Stated Complaint: FALL, R LEG & ANKLE INJURY ED Provider: Kyle Stephen Discharge Problem: Fracture of tibia and fibula, shaft, Fall Patient Disposition: Admitted As Inpatient Condition: Good Discharge Instructions Interventions: ED Discharge Assessment Last Done: 02/01/20 22:33 Discharge Problem: Fracture of tibia and fibula, shaft Qualifiers: Encounter type: initial encounter Fracture type: closed Laterality: right Qualified Code(s): S82.201A - Unspecified fracture of shaft of right tibia, initial encounter for closed fracture Fall Qualifiers: Encounter type: initial encounter Qualified Code(s): W19.XXXA - Unspecified fall, initial encounter
[2020-02-01 20:22] LABS: Mean Corpuscular Hgb Conc 32.7 g/dL (32-36); Mean Platelet Volume 9.8 fL (7.4-10.4); Nucleated RBC # (auto) 0.09 K/uL (0-0); Nucleated RBC % (auto) 0.9 %; Platelet Count 319 K/uL (130-400)
[2020-02-01 20:40] LABS: Calcium 9.2 mg/dl (8.5-10.1); Creatinine Clr Calc Pharmacy 47.2 ml/min; Est GFR (Non-African American) 63.9; Potassium 4.5 mmol/L (3.5-5.1)
[2020-02-01 20:43] LABS: Albumin Globulin Ratio 0.8 (0.9-2); Bilirubin,Total 0.4 mg/dl (0.2-1); Globulin 3.8 gm/dl (2.5-4.0); Total Protein 6.8 gm/dl (6.4-8.2)
[2020-02-01 20:45] LABS: Acanthocytes 1+; Eosinophils # (auto) 0.09 K/uL (0-0.5); Eosinophils % (auto) 0.9 %; Hemoglobin 10.8 g/dL (14.0-18.0); Immature Granulocytes # (auto) 0.04 K/uL (0.00-0.02); Immature Granulocytes % (auto) 0.4 %; Lymphocytes # (auto) 1.37 K/uL (1.2-3.4); Lymphocytes % (auto) 13.4 %; Mean Corpuscular Hemoglobin 29.3 pg (25-34); Mean Corpuscular Volume 89.7 fL (80-100); Monocytes # (auto) 0.76 K/uL (0.11-0.59); Monocytes % (auto) 7.4 %; Neutrophils # (auto) 7.99 K/uL (1.4-6.5); Neutrophils % (auto) 77.9 %; RDW Coefficient of Variation 14.6 % (11.5-14.5); RDW Standard Deviation 47.8 fL (36.4-46.3); Red Blood Count 3.68 M/uL (4.7-6.1); White Blood Count 10.25 K/uL (4.8-10.8)
--- NOTE | 2020-02-01 21:27 | History & Physical Report ---
Date of Service February 01, 2020 Assessment & Plan (1) Fracture of tibia and fibula, shaft: Marquis Salgado is an 84-year-old male with a past medical history of atrial fibrillation, biventricular cardiac pacer, type 2 diabetes with neuropathy, ischemic CAD with history of SD,GERD, depression, mitral regurg, and hypertension who presented by ambulance following a mechanical fall to his right lower extremity with severe right ankle pain and inability to bear weight. Comminuted and angulated right distal tib/fib fracture 2/2 mechanical fall Orthopedics consulted, case discussed with Dr. Mcguire by emergency provider Received fentanyl 25 mcg / 50 mcg in ED with improvement of pain, but concern for narcotization with hypoxia requiring nasal cannula O2 Splinted in ED, AP x-ray shows alignment improvement Continue calcium plus vitamin D daily - Hydromorphone 0.25mg IV Q4H PRN, hold for hypoxia Atrial fibrillation Hold apixaban in anticipation of surgery Continue amiodarone 200 mg daily Continue diltiazem 180 mg p.o. twice daily Ischemic CAD with history of SD and biventricular cardiac pacer Calcium channel maria isabel as above Continue atorvastatin 40 mg nightly Continue carvedilol 25 mg p.o. twice daily Hold Lasix 40 mg Continue isosorbide mononitrate 90 mg twice daily Hypertension Continue home hydralazine 50 mg 3 times daily Lisinopril 40 mg held in anticipation of surgery Type 2 diabetes mellitus with neuropathy Home dose of glargine 27 units nightly, 25-35 units sliding scale aspart Glargine 15units BID, SSI CF 30, Ratio 10 GERD Famotidine 20 mg twice daily as needed Depression NOT on Duloxetine 30 mg daily per chart review and pt med list. He simply stopped, and do not continue. 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 Voltaren gel 4 g topically 4 times daily as needed DVT prophylaxis: Held pending surgical intervention Diet: NPO at 0000, NSS 80cc/hr at 0000 Disposition: CODE STATUS: (2) Fall: (3) Effusion, right knee: (4) Asymmetrical hearing loss of right ear: (5) Pacemaker: (6) Sensorineural hearing loss (SNHL) of right ear with restricted hearing of left ear: (7) Abnormal gait: (8) Arteriosclerotic cardiovascular disease: (9) Atrial fibrillation: (10) Chronic anticoagulation: (11) Diabetic hypoglycemia: (12) Diabetic nephropathy: (13) Diabetic peripheral neuropathy: (14) Type 2 diabetes mellitus: (15) PRITCHARD (dyspnea on exertion): (16) Paroxysmal atrial fibrillation: (17) Atrial fibrillation with RVR: (18) CAD (coronary artery disease): (19) Anemia, unspecified: History of Present Illness Chief Complaint: Right ankle pain Primary Care Provider: Kyle Lamb MD Marquis Salgado is an 84-year-old male with a past medical history of atrial fibrillation, biventricular cardiac pacer, type 2 diabetes with neuropathy, ischemic CAD with history of SD,GERD, depression, mitral regurg, and hypertension who presented by ambulance following a mechanical fall to his right lower extremity with severe right ankle pain and inability to bear weight. Mr. Salgado reports that his fall was mechanical, he was attempting to get into the car when his foot hit the door and he rolled to the side causing his foot to become trapped as he fell. He had immediate pain in his right ankle and was unable to bear weight. He was not having any chest pain or shortness of breath, and did not have any lightheadedness or dizziness that led to his fall. He does endorse multiple falls in the previous 6 months, at least 4 or 5. He has foot drop at baseline and wears braces on both feet which make it difficult for him to ambulate. At time of assessment he reports his pain is tolerable, but still a 7-8. Improved with fentanyl, but is aware his oxygen levels dropped and the goal is to make his pain tolerable but not go away as any treatment with narcotics will have an effect on his breathing. He understands this and reports he is doing "okay "at time of assessment. Feels better since his fracture was reduced and wrapped in a splint. Medical History: Reviewed. Medications: Reviewed. Last took his medications at about 1:00 in the afternoon, has not taken any evening medications. Surgical History: Reviewed Allergies: Reviewed Social History: Lives at home with his who is currently in a back brace due to a fractured vertebrae. Denies alcohol use. Remote sporadic cigar use, denies consistent tobacco use. No recreational drug use. Code Status: Full code, would not want to intubation for more than 10 days Allergies Allergy/AdvReac Type Severity Reaction Status Date / Time pravastatin [From Pravachol] AdvReac Unknown Unknown Verified 02/01/20 22:24 rosuvastatin [From Crestor] AdvReac Unknown Unknown Verified 02/01/20 22:24 Home Medications Home Medications Medication Instructions Recorded Confirmed Type clopidogrel 75 mg tablet 75 mg PO QAM #90 tab 02/27/19 02/01/20 Rx omega 4-cee-wzg-fish oil 1,000 mg 1 cap PO QAM cap 03/13/19 02/01/20 History (120 mg-180 mg) capsule atorvastatin 40 mg tablet 40 mg PO HS #90 tab 06/03/19 02/01/20 Rx diltiazem HCl 180 mg 180 mg PO BID #180 cap 07/09/19 02/01/20 Rx capsule,extended release 24 hr hydralazine 50 mg tablet 50 mg PO TID #270 tab 07/09/19 02/01/20 Rx famotidine 40 mg tablet 40 mg PO DAILY #90 tab 07/29/19 02/01/20 Rx levocetirizine 5 mg tablet 5 mg PO QPM #90 tab 09/30/19 02/01/20 Rx furosemide 40 mg tablet 40 mg PO DAILY #90 tab 10/09/19 02/01/20 Rx potassium chloride 10 mEq 10 meq PO BID #180 tab 10/10/19 02/01/20 Rx tablet,extended release sertraline 25 mg tablet 25 mg PO DAILY #90 tab 11/20/19 02/01/20 Rx isosorbide mononitrate 60 mg See Rx Instructions PO BID #225 tab 12/04/19 02/01/20 Rx tablet,extended release 24 hr nljmtha-hhooplanv-rfsi 1 tab PO DAILY 12/26/19 02/01/20 History carvedilol 25 mg PO BID 12/26/19 02/01/20 History insulin aspart U-100 [Novolog 25 - 35 unit SUBCUT DIRECTED 12/26/19 02/01/20 History Flexpen U-100 Insulin] MDD 35 UNITS/DAILY lorazepam 0.5 mg PO Q12H PRN 12/26/19 02/01/20 History montelukast 10 mg PO QPM 12/26/19 02/01/20 History apixaban 5 mg tablet 5 mg PO BID #180 tab 01/08/20 02/01/20 Rx lisinopril 40 mg tablet 40 mg PO QAM #90 tab 01/16/20 02/01/20 Rx amiodarone 200 mg PO Q2D 02/01/20 02/01/20 History insulin glargine [Lantus Solostar 27 unit SUBCUT HS 02/01/20 02/01/20 History U-100 Insulin] nortriptyline 20 mg PO HS 02/01/20 02/01/20 History Past Med/Surg History Medical History Accidental fall Acquired bilateral foot drop (Acute) Ataxia Cardiac defibrillator in place Closed head injury Diabetes (Inactive) Diabetes mellitus with diabetic polyneuropathy (Acute) Heart disease (Inactive) Hip pain, bilateral History of CVA (cerebrovascular accident) HTN (hypertension) (Inactive) Hypercholesteremia (Inactive) Hypertension (Chronic) Intraabdominal mass Low back strain Myocardial infarction Non-ST elevation SD (NSTEMI) (11/07/13) "PCI on 11/08/13; BMS in RCA" Paroxysmal atrial fibrillation Pericardial effusion (Inactive) 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 Shoulder pain, bilateral Surgical History History of back surgery S/P appendectomy S/P cholecystectomy S/P hernia repair Family History Mother Breast cancer Cancer Father Hearing loss Other No significant family history Denies family history of Ovarian cancer Prostate cancer Myocardial infarction Colorectal cancer Social History Smoking Status: Former smoker Tobacco Type: Cigarettes Second Hand Exposure: No; Do You Dip or Chew Tobacco: No; Hx Alcohol Use: No Hx Substance Use: No Preferred Language: [place]rugu[place] Communication Ability: Effective 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 Beliefs That Will Affect Care: None marital status: Current Living Situation: Spouse Current Living Situation Comment: Cottage at [facility] current occupational status: retired Feels Safe at Home: Yes Safety Concerns: Feels Safe At This Time Seatbelt Use: always Review of Systems Review of Systems: Constitutional: Denies fever, chills, malaise, Eyes: Denies double vision, vision change, eye pain ENT: Denies ear pain, sore throat, sinus pain Cardiovascular: Denies Chest pain, chest pressure, palpitations Respiratory: See HPI Gastrointestinal: Denies abdominal pain, nausea, vomiting, constipation, diarrhea Genitourinary: Denies pain with urination Musculoskeletal: See HPI Integumentary:Denies rash, lesions, bruising Neurological: Denies headache. Endorses foot drop chronically. Physical Exam Physical Exam: General: A&Ox3. NAD. Cooperative. HEENT: Atraumatic, normocephalic. Pulm: CTAB A&P. -wheezes, -rales, -rhonchi. Symmetrical chest rise. No increased work of breathing. No respiratory distress. On nasal cannula 3 L O2. Cardiac: RRR, systolic murmur present. Radial pulses intact and symmetrical. Abdominal: Nontender, nondistended, soft. BS present. Extremities: Right lower extremity wrapped in splint. Cap refill less than 2 seconds in right hallux, sensation to soft touch and pinprick intact in right hallux and symmetrical with left. Left lower extremity with mild pitting edema to the ankle. Results & Data Results & Data ([facility]) Vital Signs (Past 12 Hours) Vital Signs Temp Pulse Pulse Resp BP BP Pulse Ox 02/01/20 20:42 91 02/01/20 20:36 60 15 130/83 92 02/01/20 20:24 60 18 143/71 H 90 02/01/20 19:44 92 02/01/20 19:40 36.7 C 67 18 147/66 H 92 Supervising Physician Co-Signing Physician Notes Attending addendum: I have physically seen this patient, have supervised the medical residents activities, and agree with the H&P unless as otherwise noted. Assessment and Plan: Comminuted and angulated right distal left tib-fib fracture- Status post splint in ED Dilaudid 0.25 mg IV every 4 hours as needed severe pain N.p.o. after midnight Consulting orthopedic surgery Dr. Mcguire, contacted by emergency department. Atrial fibrillation/ischemic CAD/history of SD/biventricular pacer/hypertension- Hold apixaban. Continue amiodarone, diltiazem CD, carvedilol, hydralazine and isosorbide mononitrate. Hold furosemide and lisinopril Diabetes mellitus- Reduce glargine dosing as noted. Placed on Accu-Cheks before meals and at bedtime/every 4 hours, with NovoLog coverage for scale Remaining orders and notations as noted Resident Activity Tracking Resident Involvement: Resident Care Provided Care Provided: Adult [facility] Medicine (1) CAD (coronary artery disease) Associated angina: without angina Coronary Disease-Associated Artery/Lesion type: unspecified vessel or lesion type [place] vs. transplanted heart: [place] heart Qualified Code(s): I25.10 - Atherosclerotic heart disease of [place] coronary artery without angina pectoris (2) Anemia, unspecified Anemia type: unspecified type Qualified Code(s): D64.9 - Anemia, unspecified (3) Fracture of tibia and fibula, shaft Encounter type: initial encounter Fracture type: closed Laterality: right Qualified Code(s): S82.201A - Unspecified fracture of shaft of right tibia, initial encounter for closed fracture; S82.401A - Unspecified fracture of shaft of right fibula, initial encounter for closed fracture (4) Fall Encounter type: initial encounter Qualified Code(s): W19.XXXA - Unspecified fall, initial encounter
[2020-02-01 21:44] LABS: INR 1.2 (0.9-1.1); Partial Thromboplastin Ratio 0.9; Partial Thromboplastin Time 24.1 Seconds (21.0-31.0); Prothrombin Time 12.4 Seconds (9.0-12.0)
[2020-02-01] MEDS ORDERED: GLUCAGON FOR INJ 1 MG VIAL SQ PRN (23:16)
[2020-02-01] MEDS ORDERED: ACETAMINOPHEN 325 MG TAB PO PRN (23:16)
[2020-02-01] MEDS ORDERED: GLUCOSE 10 TABS/TUBE PO PRN (23:16)
[2020-02-01] MEDS ORDERED: DEXTROSE 50% 50 ML SYRINGE IV PRN (23:16)
[2020-02-01] MEDS ORDERED: CARBOHYDRATES FOR HYPOGLYCEMIA PO PRN (23:16)
[2020-02-01] MEDS ORDERED: GLUCOSE 40% GEL 15 GM TUBE PO PRN (23:16)
[2020-02-02] MEDS: SODIUM CHLORIDE 0.9% 1000ML 1,000 ML IV SCH ×2 (00:14→15:55)
[2020-02-02] MEDS: HYDROmorphone INJ 0.5 MG/0.5 ML SYR IV PRN ×4 (00:15→20:37)
[2020-02-02] MEDS ORDERED: HYDROmorphone INJ 0.5 MG/0.5 ML SYR IV STA (01:37)
[2020-02-02] MEDS: INSULIN ASPART 100 UNITS/ML 3 ML PEN SC SCH ×5 (01:40→20:34)
[2020-02-02] MEDS ORDERED: METOPROLOL TARTRATE 1 MG/ML VIAL IV STA (01:50)
--- NOTE | 2020-02-02 06:03 | XRay Report ---
XR ankle RT 2V CLINICAL HISTORY: fall trauma. Pain. COMPARISON: None. DISCUSSION: Oblique fracture distal tibia. Oblique fracture distal fibula. Ankle mortise does not emelina ear to be disrupted. Generalized soft tissue edema. Fracture is comminuted. IMPRESSION: Comminuted oblique fracture distal tibia as well as fibula shafts. ACT 112: Negative or not required by law. The above report was generated using voice recognition software. It may contain grammatical, syntax or spelling errors. Electronically signed by: Frank Sims M.D. 02/02/2020 6:02 AM
--- NOTE | 2020-02-02 06:04 | XRay Report ---
XR tibia fibula RT 2V CLINICAL HISTORY: fall trauma. Pain. COMPARISON: None. DISCUSSION: Oblique comminuted fractures of the mid to distal tibial as well as fibular shafts. Angul ation of the ankle mortise is aligned anatomically. Soft tissue vascular calcifications. There is no evidence for soft tissue swelling. IMPRESSION: 1. Oblique angled fracture distal fibular shaft. 2. Oblique displaced fracture distal fibula. 3. Moderate angulation. ACT 112: Negative or not required by law. The above report was generated using voice recognition software. It may contain grammatical, syntax or spelling errors. Electronically signed by: Frank Sims M.D. 02/02/2020 6:03 AM
--- NOTE | 2020-02-02 06:12 | XRay Report ---
XR tibia fibula RT 2V CLINICAL HISTORY: post splint postreduction COMPARISON: None. DISCUSSION: Improved alignment post closed reduction and casting. It continues be mild distraction of the oblique fractures the distal tibia as well as fibula. Ankle mortise remains aligned anatomically . There is no evidence for soft tissue swelling. IMPRESSION: Improved alignment post closed reduction. ACT 112: Negative or not required by law. The above report was generated using voice recognition software. It may contain grammatical, syntax or spelling errors. Electronically signed by: Frank Sims M.D. 02/02/2020 6:10 AM
--- NOTE | 2020-02-02 06:29 | CT Scan Report ---
CT tib/fib RT wo con CT DOSE: 384.18 mGy.cm HISTORY: Trauma. Pain. fall TECHNIQUE: Multiaxial CT images of the right lower leg were performed and reformatted in the sagittal and coronal plane without the use of contrast. A dose lowering technique was utilized adhering to t he principles of ALARA. COMPARISON: None. FINDINGS: Slightly depressed fracture posterior aspect lateral right tibial plateau. Comminuted obliq ue fracture distal tibial shaft. This extends to the articular surface. The ankle mortise does not ap pear disrupted. Comminuted fracture distal fibula. IMPRESSION: 1. Slightly depressed fracture posterior aspect lateral tibial plateau 2. Comminuted oblique fractures of the distal tibia as well as fibula 3. The distal tibial fracture extends to the articular surface of the ankle. ACT 112: Negative or not required by law. The above report was generated using voice recognition software. It may contain grammatical, syntax or spelling errors. Electronically signed by: Frank Sims M.D. 02/02/2020 6:27 AM
[2020-02-02 08:15] LABS: Basophils # (auto) 0.01 K/uL (0-0.2); Basophils % (auto) 0.1 %; Eosinophils # (auto) 0.09 K/uL (0-0.5); Eosinophils % (auto) 0.9 %; Hematocrit (blood only) 32.8 % (42-52); Hemoglobin 10.4 g/dL (14.0-18.0); Immature Granulocytes # (auto) 0.03 K/uL (0.00-0.02); Immature Granulocytes % (auto) 0.3 %; Lymphocytes # (auto) 1.71 K/uL (1.2-3.4); Lymphocytes % (auto) 17.3 %; Mean Corpuscular Hgb Conc 31.7 g/dL (32-36); Mean Corpuscular Volume 91.4 fL (80-100); Mean Platelet Volume 9.4 fL (7.4-10.4); Monocytes # (auto) 1.02 K/uL (0.11-0.59); Monocytes % (auto) 10.3 %; Neutrophils # (auto) 7.03 K/uL (1.4-6.5); Neutrophils % (auto) 71.1 %; Platelet Count 293 K/uL (130-400); RDW Coefficient of Variation 14.7 % (11.5-14.5); RDW Standard Deviation 49.7 fL (36.4-46.3); Red Blood Count 3.59 M/uL (4.7-6.1); White Blood Count 9.89 K/uL (4.8-10.8)
--- NOTE | 2020-02-02 08:32 | History & Physical Bridge Note ---
Date of Service February 02, 2020 History & Physical Bridge Note I have examined the patient, reviewed the History & Physical and in the interval since the performance of the History & Physical I have noted the following changes of clinical significance: no changes noted
--- NOTE | 2020-02-02 08:32 | Orthopedic Consultation ---
Date of Consultation February 02, 2020 Assessment & Plan (1) Fracture of tibia and fibula, shaft: We will proceed with an open reduction internal fixation of the right fibula and tibia. He understands the risks, benefits, and alternatives procedure is elected to proceed. Questions were answered at bedside and consents were signed. He does have a history of a foot drop on the right side due to a stroke he had several years ago. He also has diabetic neuropathy in his right lower extremity and is hyperglycemic upon admission. He says his hyperglycemia is due to a recent cortisone injection he had in the shoulder. He understands his increased risk for the procedure, however, it is necessary that this fracture is better aligned or it will likely fall into valgus. He understands that he will be nonweightbearing for close to 3 months after the procedure. Present on Admission?: Yes History of Present Illness Reason for Consultation: Right distal tibia and fibular fracture Attending Physician: Vince Guevara, DO History of Present Illness Marquis is a pleasant 84-year-old male who lives at the [place]. He was getting into his car yesterday when he twisted his right leg. He felt a snap. He came to the emergency room and radiographs demonstrated a comminuted, displaced, left distal tibia and fibula fracture. He was placed in a splint and admitted to the hospitalist service. Orthopedics was consulted to evaluate and treat. Allergies Allergy/AdvReac Type Severity Reaction Status Date / Time pravastatin [From Pravachol] AdvReac Unknown Unknown Verified 02/01/20 22:24 rosuvastatin [From Crestor] AdvReac Unknown Unknown Verified 02/01/20 22:24 Home Medications Home Medications Medication Instructions Recorded Confirmed Type clopidogrel 75 mg tablet 75 mg PO QAM #90 tab 02/27/19 02/01/20 Rx omega 1-wgf-zad-fish oil 1,000 mg 1 cap PO QAM cap 03/13/19 02/01/20 History (120 mg-180 mg) capsule atorvastatin 40 mg tablet 40 mg PO HS #90 tab 06/03/19 02/01/20 Rx diltiazem HCl 180 mg 180 mg PO BID #180 cap 07/09/19 02/01/20 Rx capsule,extended release 24 hr hydralazine 50 mg tablet 50 mg PO TID #270 tab 07/09/19 02/01/20 Rx famotidine 40 mg tablet 40 mg PO DAILY #90 tab 07/29/19 02/01/20 Rx levocetirizine 5 mg tablet 5 mg PO QPM #90 tab 09/30/19 02/01/20 Rx furosemide 40 mg tablet 40 mg PO DAILY #90 tab 10/09/19 02/01/20 Rx potassium chloride 10 mEq 10 meq PO BID #180 tab 10/10/19 02/01/20 Rx tablet,extended release sertraline 25 mg tablet 25 mg PO DAILY #90 tab 11/20/19 02/01/20 Rx isosorbide mononitrate 60 mg See Rx Instructions PO BID #225 tab 12/04/19 02/01/20 Rx tablet,extended release 24 hr tylwwtl-zgqelpzif-clue 1 tab PO DAILY 12/26/19 02/01/20 History carvedilol 25 mg PO BID 12/26/19 02/01/20 History insulin aspart U-100 [Novolog 25 - 35 unit SUBCUT DIRECTED 12/26/19 02/01/20 History Flexpen U-100 Insulin] MDD 35 UNITS/DAILY lorazepam 0.5 mg PO Q12H PRN 12/26/19 02/01/20 History montelukast 10 mg PO QPM 12/26/19 02/01/20 History apixaban 5 mg tablet 5 mg PO BID #180 tab 01/08/20 02/01/20 Rx lisinopril 40 mg tablet 40 mg PO QAM #90 tab 01/16/20 02/01/20 Rx amiodarone 200 mg PO Q2D 02/01/20 02/01/20 History insulin glargine [Lantus Solostar 27 unit SUBCUT HS 02/01/20 02/01/20 History U-100 Insulin] nortriptyline 20 mg PO HS 02/01/20 02/01/20 History Patient History Medical History Accidental fall Acquired bilateral foot drop (Acute) Ataxia Cardiac defibrillator in place Closed head injury Diabetes (Inactive) Diabetes mellitus with diabetic polyneuropathy (Acute) Heart disease (Inactive) Hip pain, bilateral History of CVA (cerebrovascular accident) HTN (hypertension) (Inactive) Hypercholesteremia (Inactive) Hypertension (Chronic) Intraabdominal mass Low back strain Myocardial infarction Non-ST elevation IN (NSTEMI) (11/07/13) "PCI on 11/08/13; BMS in RCA" Paroxysmal atrial fibrillation Pericardial effusion (Inactive) 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 Shoulder pain, bilateral Surgical History History of back surgery S/P appendectomy S/P cholecystectomy S/P hernia repair Family History Mother Breast cancer Cancer Father Hearing loss Other No significant family history Denies family history of Ovarian cancer Prostate cancer Myocardial infarction Colorectal cancer Social History Smoking Status: Former smoker Tobacco Type: Cigarettes Second Hand Exposure: No; Do You Dip or Chew Tobacco: No; Hx Alcohol Use: No Hx Substance Use: No Preferred Language: Chinese Communication Ability: 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 Beliefs That Will Affect Care: None marital status: Current Living Situation: Spouse Current Living Situation Comment: [place] [facility] current occupational status: retired Feels Safe at Home: Yes Safety Concerns: Feels Safe At This Time Seatbelt Use: always Review of Systems Review of Systems: All systems reviewed & are unremarkable except as noted in HPI & below Physical Exam Constitutional: WD/WN, vitals as above Eyes: PERRL, conjunctivae normal, anicteric sclerae ENMT: external ear and nose normal, oropharynx normal Neck: trachea midline, no thyromegaly Respiratory: normal respiratory effort Cardiovascular: RRR, no murmur, no edema Gastrointestinal (Abdomen): normal bowel sounds, soft, nontender, no hepatosplenomegaly Musculoskeletal: On physical examination of the right ankle, a trauma splint is in place. His right ankle is elevated with a pillow. He has active motion of all of his toes. He does have an acquired foot drop from a stroke he had several years ago. He also has diabetic neuropathy of his lower extremity. Psychiatric: A+Ox3, euthymic affect Results & Data ([facility]) Vital Signs (Past 12 Hours) Vital Signs Temp Pulse Pulse Pulse Resp BP BP 02/02/20 07:29 65 02/02/20 07:15 36.6 C 60 18 150/81 H 02/02/20 03:05 36.5 C 60 20 131/74 02/02/20 01:35 36.6 C 60 18 150/73 H 02/02/20 00:30 60 02/01/20 23:20 36.7 C 61 18 177/87 H 02/01/20 22:26 60 17 134/80 02/01/20 21:46 60 14 155/77 H 02/01/20 20:42 02/01/20 20:36 60 15 130/83 Pulse Ox 02/02/20 07:29 02/02/20 07:15 90 02/02/20 03:05 95 02/02/20 01:35 90 02/02/20 00:30 02/01/20 23:20 100 02/01/20 22:26 99 02/01/20 21:46 99 02/01/20 20:42 91 02/01/20 20:36 92 Diagnostic Findings X-rays and CT scan of the right ankle do show a comminuted displaced right distal tibia and fibular fracture. There is very minimal intra-articular comminution on the anterior lateral aspect. There is a very large posterior medial butterfly fragment. There is a comminuted fracture of the distal fibula. PG Care Time/CCT Total # of Minutes Spent Total Time Spent with Patient: Total time spent is greater than 50% in coordination of care (as documented) at patient's floor/unit and/or counseling patient: Coding Level of Care Code 37589 Initial Inpt Care Lvl 3 Diagnoses Fracture of tibia and fibula, shaft S82.201A; S82.401A Encounter type: initial encounter Fracture type: closed Laterality: right (1) Fracture of tibia and fibula, shaft Encounter type: initial encounter Fracture type: closed Laterality: right Qualified Code(s): S82.201A - Unspecified fracture of shaft of right tibia, initial encounter for closed fracture; S82.401A - Unspecified fracture of shaft of right fibula, initial encounter for closed fracture
[2020-02-02 08:34] LABS: BUN Creatinine Ratio 20.2 (10-20); Calcium 9.3 mg/dl (8.5-10.1); Creatinine Clr Calc Pharmacy 59.9 ml/min; Est GFR (African American) 77.5; Est GFR (Non-African American) 66.9; Potassium 3.9 mmol/L (3.5-5.1)
[2020-02-02] MEDS ORDERED: INSULIN GLARGINE SOLOSTAR 100 UNITS/ML 3 ML PEN SC SCH ×2 (09:00→21:00)
[2020-02-02] MEDS ORDERED: LIDOCAINE HCL 2% 2 ML VIAL/AMP(20MG/ML) INFIL ONE (09:48)
[2020-02-02] MEDS ORDERED: ONDANSETRON INJ 2 MG/ML 2 ML VIAL ONE (09:48)
[2020-02-02] MEDS ORDERED: ROCURONIUM BROMIDE 10 MG/ML 5 ML VIAL IV ONE (09:48)
[2020-02-02] MEDS ORDERED: PROPOFOL IV EMULSION 10 MG/ML 20 ML VIAL IV ONE (09:48)
[2020-02-02] MEDS ORDERED: fentaNYL citrate 100 MCG/2 ML VIAL ONE ×2 (09:49→12:37)
[2020-02-02] MEDS ORDERED: BACITRACIN INJ 50,000 UNIT VIAL ONE (11:08)
[2020-02-02] MEDS ORDERED: EPINEPHrine INJ 1 MG/ML AMP ONE (11:08)
[2020-02-02] MEDS ORDERED: BUPIVACAINE 0.5 % 5 MG/1 ML MPF 30ML VIAL ONE (11:08)
--- NOTE | 2020-02-02 11:34 | Anesthesiology Consultation ---
Date of Service February 02, 2020 Assessment & Plan Chart Review Chart Review: Acceptable Risk for Surgery Consults Requested none History Surgery Operation Date: 02/01/20 09:00 Proposed Procedures p Open Reduction Internal Fixation Audelia - Benjamín Mcguire DO Operation Date: 02/02/20 09:00 Proposed Procedures p Open Reduction Internal Fixation Ankle Robby Mcguire DO Height/Weight Height: 5 ft 6 in Weight: 99.1 kg Allergies Allergy/AdvReac Type Severity Reaction Status Date / Time pravastatin [From Pravachol] AdvReac Unknown Unknown Verified 02/01/20 22:24 rosuvastatin [From Crestor] AdvReac Unknown Unknown Verified 02/01/20 22:24 Medications Home Medications Medication Instructions Recorded Confirmed Last Taken clopidogrel 75 mg tablet 75 mg PO QAM #90 tab 02/27/19 02/01/20 12/26/19 omega 5-rpa-hkn-fish oil 1,000 mg 1 cap PO QAM cap 03/13/19 02/01/20 12/26/19 (120 mg-180 mg) capsule atorvastatin 40 mg tablet 40 mg PO HS #90 tab 06/03/19 02/01/20 12/25/19 diltiazem HCl 180 mg 180 mg PO BID #180 cap 07/09/19 02/01/20 12/26/19 08:00 capsule,extended release 24 hr hydralazine 50 mg tablet 50 mg PO TID #270 tab 07/09/19 02/01/20 12/26/19 08:00 famotidine 40 mg tablet 40 mg PO DAILY #90 tab 07/29/19 02/01/20 12/26/19 levocetirizine 5 mg tablet 5 mg PO QPM #90 tab 09/30/19 02/01/20 12/25/19 furosemide 40 mg tablet 40 mg PO DAILY #90 tab 10/09/19 02/01/20 12/26/19 potassium chloride 10 mEq 10 meq PO BID #180 tab 10/10/19 02/01/20 12/26/19 08:00 tablet,extended release sertraline 25 mg tablet 25 mg PO DAILY #90 tab 11/20/19 02/01/20 12/26/19 isosorbide mononitrate 60 mg See Rx Instructions PO BID #225 tab 12/04/19 02/01/20 12/25/19 08:00 tablet,extended release 24 hr zcdyfar-[id number] 1 tab PO DAILY 12/26/19 02/01/20 12/26/19 carvedilol 25 mg PO BID 12/26/19 02/01/20 12/26/19 08:00 insulin aspart U-100 [Novolog 25 - 35 unit SUBCUT DIRECTED 12/26/19 02/01/20 12/26/19 Flexpen U-100 Insulin] MDD 35 UNITS/DAILY lorazepam 0.5 mg PO Q12H PRN 12/26/19 02/01/20 Unknown montelukast 10 mg PO QPM 12/26/19 02/01/20 12/25/19 apixaban 5 mg tablet 5 mg PO BID #180 tab 01/08/20 02/01/20 Unknown lisinopril 40 mg tablet 40 mg PO QAM #90 tab 01/16/20 02/01/20 Unknown amiodarone 200 mg PO Q2D 02/01/20 02/01/20 Unknown insulin glargine [Lantus Solostar 27 unit SUBCUT HS 02/01/20 02/01/20 Unknown U-100 Insulin] nortriptyline 20 mg PO HS 02/01/20 02/01/20 Unknown Active Medications Generic Name Dose Route Start Last Admin Trade Name Freq PRN Reason Stop Dose Admin Hydromorphone HCl 0.25 mg 02/01/20 23:16 02/02/20 09:46 Dilaudid IV 02/15/20 23:15 0.25 mg Q4H PRN Administration Pain Sodium Chloride 1,000 mls @ 80 mls/hr 02/01/20 23:16 02/02/20 00:14 Nss 1000ml IV 03/02/20 23:15 80 mls/hr .[id number] KEVIN Administration Insulin Aspart 0 units 02/02/20 00:00 02/02/20 05:55 Novolog Flexpen SC 03/03/20 00:00 2 units Q6 KEVIN Administration Insulin Glargine 15 units 02/02/20 09:00 02/02/20 08:28 Lantus Solostar Pen SC 03/03/20 08:59 15 units BID KEVIN Administration Past Medical History Medical History Accidental fall Acquired bilateral foot drop (Acute) Ataxia Cardiac defibrillator in place Closed head injury Diabetes (Inactive) Diabetes mellitus with diabetic polyneuropathy (Acute) Heart disease (Inactive) Hip pain, bilateral History of CVA (cerebrovascular accident) HTN (hypertension) (Inactive) Hypercholesteremia (Inactive) Hypertension (Chronic) Intraabdominal mass Low back strain Myocardial infarction Non-ST elevation [place] (NSTEMI) (11/07/13) "PCI on 11/08/13; BMS in RCA" Paroxysmal atrial fibrillation Pericardial effusion (Inactive) 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 Shoulder pain, bilateral Past Family History Family History Mother Breast cancer Cancer Father Hearing loss Other No significant family history Denies family history of Ovarian cancer Prostate cancer Myocardial infarction Colorectal cancer Past Surgical History Surgical History History of back surgery S/P appendectomy S/P cholecystectomy S/P hernia repair Social History Smoking Status: Former smoker Do You Dip or Chew Tobacco: No Hx Alcohol Use: No Hx Substance Use: No Physical Exam Vital Signs Last Vital Signs Temp 37 C 02/02/20 11:20 Pulse 61 02/02/20 11:20 Resp 18 02/02/20 11:20 BP 158/69 H 02/02/20 11:20 Pulse Ox 91 02/02/20 11:20 Testing Laboratory Results 02/02/20 08:03 02/02/20 08:03 PT 12.4 Seconds (9.0-12.0) H 02/01/20 20:50 INR 1.2 (0.9-1.1) H 02/01/20 20:50 APTT 24.1 Seconds (21.0-31.0) 02/01/20 20:50 02/02/20 02/02/20 02/02/20 07:22 05:53 01:32 POC Glucose 164 H 196 H 297 H
[2020-02-02] MEDS ORDERED: PROMETHAZINE HCL 12.5 MG in SODIUM CHLORIDE 0.9% 50 ML IV PRN (11:36)
[2020-02-02] MEDS ORDERED: ATROPINE SULFATE 0.1 MG/ML 10ML SYR IV PRN (11:36)
[2020-02-02] MEDS ORDERED: fentaNYL citrate 100 MCG/2 ML VIAL IV PRN (11:36)
[2020-02-02] MEDS ORDERED: ONDANSETRON INJ 2 MG/ML 2 ML VIAL IV PRN (11:36)
[2020-02-02] MEDS ORDERED: ePHEDrine sulfate 50 MG/ML AMP IV PRN (11:36)
[2020-02-02] MEDS ORDERED: METOCLOPRAMIDE HCL INJ 5 MG/ML 2 ML VIAL IV PRN (11:36)
[2020-02-02] MEDS ORDERED: HYDROmorphone INJ 2 MG/ML SYR/VIAL IV PRN (11:36)
[2020-02-02] MEDS ORDERED: BUPIVACAINE/EPINEPHRINE 0.25% 1:200,000 30 ML VIAL ONE (11:44)
[2020-02-02] MEDS ORDERED: NEOSTIGMINE METHYLSULFATE 5 MG/5 ML SYR ONE (13:40)
[2020-02-02] MEDS ORDERED: GLYCOPYRROLATE 0.2 MG/ML VIAL ONE (13:40)
[2020-02-02] MEDS ORDERED: CEFAZOLIN 2000MG 2,000 MG/15 ML SYR IV ONE (13:50)
--- NOTE | 2020-02-02 14:32 | Operative Report ---
[facility] Post Operative Report Pre & Post Diagnosis Operation Date: 02/01/20 09:00 <No data on this case meets the specified criteria> Operation Date: 02/02/20 09:00 Pre-Op Diagnosis: comminuted displaced right distal tibia and fibular fractures Post-Op Diagnosis: comminuted displaced right distal tibia and fibular fractures I identified the patient and participated in the time-out.: Yes Procedure Operation Date: 02/01/20 09:00 <No data on this case meets the specified criteria> Operation Date: 02/02/20 09:00 Actual Procedures p Open Reduction Internal Fixation Right Tibia and open reduction internal fixation of the right fibula as a distinct and separate procedure (modifier 59) (Right) - Benjamín Mcguire DO Surgeon Benjamín Mcguire DO Head Esthetician Jona Lipscomb PA-C Estimated Blood Loss 30 Findings Consistent with Post-Op Diagnosis Specimens None Complications none Disposition Disposition: Recovery Room Indications Marquis is a pleasant 84-year-old male who twisted his leg yesterday while gettin g into a car. He felt a crack. He came to the [facility] emergency room where radiographs demonstrated a displaced distal tib-fib fracture. He was admitted to the hospital. After discussions at bedside, he elected to proceed with an open reduction internal fixation of the right tib-fib. Description of Procedure Implants used: I used a Synthes medial distal tibial locking plate and a MIPO technique on the tibial side. I used a Synthes one third tubular plate on the fibula. On February 02, 2020 Marquis was brought down from his hospital room to the preoperative holding area. The operative extremity identified and signed. He was given a preoperative antibiotic. He was taken back to the operating room and laid on the table in the supine position. He was put under general anesthesia. The right leg was prepped and draped in sterile fashion. A timeout was done. The patient and the operative extremity was properly identified. Decision was made to fix the fibula first. A longitudinal incision was made directly over the fibular fracture. Dissection was taken down to the bone with care not to disrupt the intermediate branch of the peroneal nerve. The fracture was exposed. It was a comminuted fracture. Multiple clamps were used to align the fracture anatomically. A Synthes 10 hole one third tubular plate was then contoured and applied to the lateral fibula. Fluoroscopy was used to ensure anatomic alignment of the fracture and appropriate placement of the plate. Locking screws were placed both proximally and distally. This gave nice fixation of the fibular fragment. Attention was then turned to the tibia. A curvilinear incision was made over the distal anterior medial aspect of the tibia. Dissection was taken down to the tibia. A 12 hole Synthes medial contoured distal tibial locking plate was then slid up subperiosteally directly onto the anterior medial tibia. Fluoroscopy was used to ensure anatomic al ignment of the plate and the fracture. 4 locking screws were placed proximally through percutaneous technique and 5 locking screws were placed distally. I was able to get good overall fixation with minimal disruption of the fracture fragments. Multiple fluoroscopic pictures were taken and I was happy with the overall alignment. The wounds were then irrigated. The lateral side was closed with #0 Vicryl suture, 2-0 Vicryl suture and jamilah. The medial side was closed with 2-0 Vicryl suture and jamilah. He was then placed in a trauma splint. He was then extubated and transferred to a [facility]. He was taken to the postanesthesia care unit in stable condition. He tolerated the procedure well. Jona Lipscomb PA-C, was present for the entire procedure. He was critical for patient positioning, prepping, draping, retraction exposure, wound closure and application of sterile dressing. I attest to the content of the Intraoperative Record and any orders documented therein. Any exceptions are noted below.
--- NOTE | 2020-02-02 15:21 | Anesthesiology Progress Note ---
Date of Service February 02, 2020 Anesthesia Post Procedure Vital Signs Vital Signs: Temp Pulse Pulse Pulse Resp BP BP 02/02/20 15:15 37.0 C 61 18 02/02/20 15:05 61 12 02/02/20 14:55 61 14 02/02/20 14:45 36.5 C 62 15 02/02/20 11:20 37 C 61 18 158/69 H 02/02/20 07:29 65 02/02/20 07:15 36.6 C 60 18 02/02/20 03:05 36.5 C 60 20 02/02/20 01:35 36.6 C 60 18 150/73 H 02/02/20 00:30 60 02/01/20 23:20 36.7 C 61 18 177/87 H 02/01/20 22:26 60 17 02/01/20 21:46 60 14 02/01/20 20:42 02/01/20 20:36 60 15 02/01/20 20:24 60 18 02/01/20 19:44 02/01/20 19:40 36.7 C 67 18 147/66 H BP Pulse Ox 02/02/20 15:15 132/90 94 02/02/20 15:05 132/90 96 02/02/20 14:55 146/70 H 96 02/02/20 14:45 146/58 H 93 02/02/20 11:20 91 02/02/20 07:29 02/02/20 07:15 150/81 H 90 02/02/20 03:05 131/74 95 02/02/20 01:35 90 02/02/20 00:30 02/01/20 23:20 100 02/01/20 22:26 134/80 99 02/01/20 21:46 155/77 H 99 02/01/20 20:42 91 02/01/20 20:36 130/83 92 02/01/20 20:24 143/71 H 90 02/01/20 19:44 92 02/01/20 19:40 92 Pain Intensity Right Ankle: Pain Intensity: 9 Transfer of Care Handoff Completed per policy Notes Mental Status: alert / awake / arousable and participated in evaluation Patient Amnestic to Procedure: Yes Nausea / Vomiting: adequately controlled Pain: adequately controlled Airway Patency, RR, SpO2: stable & adequate BP & HR: stable & adequate Hydration State: stable & adequate Anesthetic Complications: no major complications apparent
[2020-02-02] MEDS ORDERED: MAGNESIUM HYDROXIDE SUSP 30 ML UDC PO PRN (15:47)
[2020-02-02] MEDS ORDERED: INSULIN ASPART 100 UNITS/ML 3 ML PEN SQ SCH (15:47)
[2020-02-02] MEDS ORDERED: TRAMADOL HCL 50 MG TABLET PO PRN (15:47)
[2020-02-02] MEDS ORDERED: NALOXONE HCL 0.4 MG/1 ML VIAL/CARP IV PRN (15:47)
[2020-02-02] MEDS ORDERED: bisacodyL 10 MG SUPP PR PRN (15:47)
[2020-02-02] MEDS ORDERED: LORazepam 0.5 MG TAB PO PRN (15:47)
[2020-02-02] MEDS ORDERED: Nursing to Pharmacy Communication SCH (16:30)
--- NOTE | 2020-02-02 16:33 | XRay Report ---
RIGHT TIBIA AND FIBULA 2 VIEWS CLINICAL HISTORY: Postoperative examination. FINDINGS: AP and crosstable lateral views of the right tibia and fibula are compared to radiographs a nd CT dated 02/01/2020. The examination is performed through a splint, obscuring fine bony detail. The skeletal structures are osteopenic. There is postoperative change from buttress plate fixation of com minuted distal tibial and fibular fractures with significantly improved alignment. The orthopedic elvia dware appears intact. There is approximately 5 mm of persistent dorsal displacement of the largest di stal tibial fragment. Near-anatomic alignment is restored the ankle joint. Soft tissue edema is prese nt in the right leg. Subcutaneous gas is an expected postoperative finding. Advanced atherosclerotic calcification is noted in the regional arteries. IMPRESSION: Postoperative images from open reduction and internal fixation of distal tibial and fibul ar fractures as above. Electronically signed by: Andrade Moralez M.D. 02/02/2020 4:32 PM
--- NOTE | 2020-02-02 16:37 | Fluoroscopy Report ---
INTRAOPERATIVE RADIOGRAPHS CLINICAL HISTORY: Open reduction and internal fixation of the right ankle. Fluoroscopy time: 75 seconds. FINDINGS: 9 spot fluoroscopic views of the right ankle are correlated with radiographs performed 2019. Again seen are comminuted fractures of the distal tibia and fibula. Buttress plates are placed along the distal tibial and fibular shafts with significant improvement in alignment. Numerous cortic al lag screws transfix the buttress plates. The orthopedic hardware appears intact. Soft tissue edema is noted in the right lower extremity. IMPRESSION: Intraoperative images from open reduction and internal fixation of distal tibial and fibu lar fractures as above. Electronically signed by: Andrade Moralez M.D. 02/02/2020 4:36 PM
[2020-02-02] MEDS: carvediloL 25 MG TAB PO SCH (16:47)
[2020-02-02] MEDS: dilTIAZem HCL 180 MG CAPCR PO SCH (16:48)
[2020-02-02] MEDS: CEFAZOLIN 2000MG 2,000 MG/15 ML SYR IV SCH (20:26)
[2020-02-02] MEDS: HydrALAZINE TAB 50 MG TAB PO SCH (20:27)
[2020-02-02] MEDS: DOCUSATE SODIUM 100 MG CAP PO SCH (20:29)
[2020-02-02] MEDS: ISOSORBIDE MONO EXTENDED REL 60 MG TABCR PO SCH (20:32)
[2020-02-02] MEDS: POTASSIUM CHLORIDE 10 MEQ TABCR PO SCH (20:32)
[2020-02-02] MEDS: ATORVASTATIN 40 MG TAB PO SCH (20:34)
[2020-02-02] MEDS: NORTRIPTYLINE HCL 10 MG CAP PO SCH (20:36)
[2020-02-02] MEDS: SENNA 8.6 MG TAB PO SCH (20:36)
[2020-02-02] MEDS: MONTELUKAST SODIUM 10 MG TABLET PO SCH (20:36)
[2020-02-02] MEDS ORDERED: INSULIN GLARGINE SOLOSTAR 100 UNITS/ML 3 ML PEN SQ SCH (21:00)
[2020-02-02] MEDS ORDERED: dilTIAZem HCL 180 MG CAPCR PO SCH (21:00)
[2020-02-02] MEDS: APIXABAN 5 MG TABLET PO SCH (21:35)
[2020-02-02] MEDS: CETIRIZINE HCL 10 MG TABLET PO SCH (21:36)
[2020-02-02] MEDS: ACETAMINOPHEN 500 MG TAB PO SCH (21:36)
--- NOTE | 2020-02-02 21:46 | Hospitalist Progress Note ---
Date of Service February 02, 2020 Assessment & Plan (1) Fracture of tibia and fibula, shaft: Comminuted and angulated right distal tib/fib fracture 2/2 mechanical fall s/p ORIF of the tibia and fibula with Dr. Mcguire on 02/02/20 tolerated well, minimal pain, vitals stable some mild hypoxia post up due to atelectasis, encourage HOB 30 degrees and incentive spirometer several times an hour while awake check BMP and CBC in the morning activity per ortho, PT/OT consults Atrial fibrillation Hold apixaban in anticipation of surgery, resume when okay with ortho Continue amiodarone 200 mg daily Continue diltiazem 180 mg p.o. twice daily and Coreg 25mg BID currently paced at 60 Ischemic CAD with history of ID and biventricular cardiac pacer Calcium channel maria isabel as above Continue atorvastatin 40 mg nightly Continue carvedilol 25 mg p.o. twice daily Hold Lasix 40 mg today, monitor daily for need to resume Continue isosorbide mononitrate 90 mg twice daily Hypertension Continue home hydralazine 50 mg 3 times daily Lisinopril 40 mg held in anticipation of surgery Coreg and Diltiazem ordered Type 2 diabetes mellitus with neuropathy patient received 15 units this morning, now he will be eating give Lantus 10 units this evening, can then resume Lantus 27 units HS on 02/02 which is normal dosing Novolog SS monitor for hypoglycemia GERD Famotidine 20 mg twice daily as needed Depression NOT on Duloxetine 30 mg daily per chart review and pt med list. He simply st opped, and do not continue. 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 Voltaren gel 4 g topically 4 times daily as needed (2) Fall: (3) Effusion, right knee: (4) Pacemaker: (5) Arteriosclerotic cardiovascular disease: (6) Atrial fibrillation: (7) Chronic anticoagulation: (8) Diabetes mellitus with complication: (9) Diabetic nephropathy: (10) Dyslipidemia: (11) Ischemic cardiomyopathy: (12) GERD (gastroesophageal reflux disease): (13) Anxiety: (14) Depression: (15) Anemia, unspecified: (16) Hypertension: Admission and Anticipated Discharge Date Admission Date: February 01, 2020 Subjective patient seen in his room after coming back from the OR he had ORIF of both the fibula and tibia on the right breathing stable, no distress, requiring supplemental oxygen but titrating down no chest pain or pressure, no fever, no nausea no pain in right distal leg BP elevated, d/w RN, he did not get any of his normal medications this morning for blood pressure, although he did get Lantus 15 units patient requesting food as he is very hungry, no food since 1pm yesterday reviewed chart reviewed labs this morning, WBC 9k, Hb 10.4, plts 293 Cr and electrolytes stable family updated at the bedside Review of Systems Review of Systems: All systems reviewed & are unremarkable except as noted in Subjective Physical Exam Constitutional: WD/WN, vitals as above Eyes: PERRL, conjunctivae normal, anicteric sclerae ENMT: external ear and nose normal, oropharynx normal Neck: trachea midline, no thyromegaly Respiratory: normal respiratory effort; no respiratory distress Auscultation: lungs clear to auscultation bilaterally and + diminished lung sounds (bases); no crackles, no rales and no wheezes Cardiovascular: Rate/Rhythm: regular rate (paced at 60) and regular rhythm Heart Sounds: normal S1 and normal S2; no murmur Vessels: no JVD Extremities: normal capillary refill; no edema Gastrointestinal (Abdomen): normal bowel sounds, soft, nontender, no hepatosplenomegaly Musculoskeletal: Head/Neck/Chest: normocephalic and head atraumatic; + neck not supple Extremities: strength 5/5 throughout and + lower extremity abnormal to inspection (immobilized, cast) Right; no cyanosis, no clubbing and no petechiae Skin: no rashes, warm and dry Neurologic: patellar DTR's 2+ bilat, sensation intact and PERRL, EOMI, accommodation nl, no face palsy, no dysarthria Psychiatric: A+Ox3, euthymic affect Lymphatic: no cervical or axillary lymphadenopathy Results & Data Results & Data ([facility]) Vital Signs (Past 12 Hours) Vital Signs Temp Pulse Pulse Pulse Pulse Resp BP 02/02/20 18:17 36.6 C 67 18 179/75 H 02/02/20 17:39 02/02/20 16:50 02/02/20 16:28 64 02/02/20 16:24 36.5 C 61 18 167/79 H 02/02/20 16:06 36.5 C 63 18 176/68 H 02/02/20 16:05 02/02/20 15:45 02/02/20 15:15 37.0 C 61 18 02/02/20 15:05 61 12 02/02/20 14:55 61 14 02/02/20 14:45 36.5 C 62 15 02/02/20 11:20 37 C 61 18 158/69 H BP Pulse Ox Pulse Ox 02/02/20 18:17 94 02/02/20 17:39 95 02/02/20 16:50 95 02/02/20 16:28 02/02/20 16:24 90 02/02/20 16:06 93 02/02/20 16:05 97 02/02/20 15:45 97 02/02/20 15:15 132/90 94 02/02/20 15:05 132/90 96 02/02/20 14:55 146/70 H 96 02/02/20 14:45 146/58 H 93 02/02/20 11:20 91 Laboratory Results Laboratory Results - last 24 hr 02/01/20 02/02/20 02/02/20 22:50 01:32 05:53 WBC RBC Hgb Hct MCV MCH MCHC RDW Std Deviation RDW Coeff of [place] Plt Count MPV Immature Gran % (Auto) Neut % (Auto) Lymph % (Auto) [place] % (Auto) Eos % (Auto) Baso % (Auto) Neut # (Auto) Lymph # (Auto) [place] # (Auto) Eos # (Auto) Baso # (Auto) Immature Gran # (Auto) Sodium Potassium Chloride Carbon Dioxide Anion Gap BUN Creatinine Est Cr Clr Drug Dosing Est GFR ( Amer) Est GFR (Non-Af Amer) BUN/Creatinine Ratio Glucose POC Glucose 259 H 297 H 196 H Estimat Average Glucose Hemoglobin A1c Calcium COVID-19 Eval Order COVID-19 PCR 02/02/20 02/02/20 02/02/20 07:22 07:50 07:50 WBC RBC Hgb Hct MCV MCH MCHC RDW Std Deviation RDW Coeff of [place] Plt Count MPV Immature Gran % (Auto) Neut % (Auto) Lymph % (Auto) [place] % (Auto) Eos % (Auto) Baso % (Auto) Neut # (Auto) Lymph # (Auto) [place] # (Auto) Eos # (Auto) Baso # (Auto) Immature Gran # (Auto) Sodium Potassium Chloride Carbon Dioxide Anion Gap BUN Creatinine Est Cr Clr Drug Dosing Est GFR ( Amer) Est GFR (Non-Af Amer) BUN/Creatinine Ratio Glucose POC Glucose 164 H Estimat Average Glucose Hemoglobin A1c Calcium COVID-19 Eval Order Covid19 Done at [facility] COVID-19 PCR NEGATIVE 02/02/20 02/02/20 02/02/20 08:03 08:03 08:03 WBC 9.89 RBC 3.59 L Hgb 10.4 L Hct 32.8 L MCV 91.4 MCH 29.0 MCHC 31.7 L RDW Std Deviation 49.7 H RDW Coeff of [place] 14.7 H Plt Count 293 MPV 9.4 Immature Gran % (Auto) 0.3 Neut % (Auto) 71.1 Lymph % (Auto) 17.3 [place] % (Auto) 10.3 Eos % (Auto) 0.9 Baso % (Auto) 0.1 Neut # (Auto) 7.03 H Lymph # (Auto) 1.71 [place] # (Auto) 1.02 H Eos # (Auto) 0.09 Baso # (Auto) 0.01 Immature Gran # (Auto) 0.03 H Sodium 139 Potassium 3.9 Chloride 105 Carbon Dioxide 34 H Anion Gap 0 L BUN 21 H Creatinine 1.03 Est Cr Clr Drug Dosing 59.9 Est GFR ( Amer) 77.5 Est GFR (Non-Af Amer) 66.9 BUN/Creatinine Ratio 20.2 H Glucose 153 H POC Glucose Estimat Average Glucose Pending Hemoglobin A1c Pending Calcium 9.3 COVID-19 Eval Order COVID-19 PCR 02/02/20 02/02/20 02/02/20 14:59 16:45 20:26 WBC RBC Hgb Hct MCV MCH MCHC RDW Std Deviation RDW Coeff of [place] Plt Count MPV Immature Gran % (Auto) Neut % (Auto) Lymph % (Auto) [place] % (Auto) Eos % (Auto) Baso % (Auto) Neut # (Auto) Lymph # (Auto) [place] # (Auto) Eos # (Auto) Baso # (Auto) Immature Gran # (Auto) Sodium Potassium Chloride Carbon Dioxide Anion Gap BUN Creatinine Est Cr Clr Drug Dosing Est GFR ( Amer) Est GFR (Non-Af Amer) BUN/Creatinine Ratio Glucose POC Glucose 144 H 168 H 174 H Estimat Average Glucose Hemoglobin A1c Calcium COVID-19 Eval Order COVID-19 PCR Medications Administered Current Inpatient Medications Acetaminophen (Tylenol) 650 mg PO Q4H PRN PRN Reason: Pain or Fever Stop: 03/02/20 23:15 Acetaminophen (Tylenol) 1,000 mg PO Q8 KEVIN Stop: 03/03/20 21:59 Last Admin: 02/02/20 21:36 Dose: 1,000 mg Documented by: Amiodarone HCl (Cordarone) 200 mg PO Q2D [facility] Stop: 03/04/20 08:59 Apixaban (Eliquis) 5 mg PO BID [facility] Stop: 03/03/20 20:59 Last Admin: 02/02/20 21:35 Dose: 5 mg Documented by: Atorvastatin Calcium (Lipitor) 40 mg PO HS [facility] Stop: 03/03/20 20:59 Last Admin: 02/02/20 20:34 Dose: 40 mg Documented by: Bisacodyl (Dulcolax) 10 mg AK DAILY PRN PRN Reason: Constipation Stop: 03/03/20 15:46 Carvedilol (Coreg) 25 mg PO BIDM [facility] Stop: 03/03/20 16:59 Last Admin: 02/02/20 16:47 Dose: 25 mg Documented by: Cetirizine HCl (Zyrtec) 10 mg PO QPM [facility] Stop: 03/03/20 20:59 Last Admin: 02/02/20 21:36 Dose: 10 mg Documented by: Clopidogrel Bisulfate (Plavix) 75 mg PO QAM [facility] Stop: 03/04/20 08:59 Dextrose (Dextrose 50%) 25 - 50 ml IV UD PRN; Protocol PRN Reason: Hypoglycemia Protocol Stop: 03/02/20 23:15 Diltiazem HCl (Cardizem Cd) 180 mg PO BID [facility] Stop: 03/03/20 16:29 Last Admin: 02/02/20 16:48 Dose: 180 mg Documented by: Docusate Sodium (Colace) 100 mg PO BID [facility] Stop: 03/03/20 20:59 Last Admin: 02/02/20 20:29 Dose: 100 mg Documented by: Famotidine (Pepcid) 40 mg PO DAILY [facility] Stop: 03/04/20 08:59 Fish Oil (Story-3 (Purified Fish Oil)) 1 gm PO QAM KEVIN Stop: 03/04/20 08:59 Furosemide (Lasix) 40 mg PO DAILY KEVIN Stop: 03/04/20 08:59 Glucagon (Glucagen) 1 mg SQ UD PRN; Protocol PRN Reason: Hypoglycemia Protocol Stop: 03/02/20 23:15 Glucose (Dex4 Glucose) 4 - 8 tabs PO UD PRN; Protocol PRN Reason: Hypoglycemia Protocol Stop: 03/02/20 23:15 Glucose (Glucose 40%) 15 - 30 gm PO UD PRN; Protocol PRN Reason: Hypoglycemia Protocol Stop: 03/02/20 23:15 Hydralazine HCl (Apresoline) 50 mg PO TID [facility] Stop: 03/03/20 20:59 Last Admin: 02/02/20 20:27 Dose: 50 mg Documented by: Hydromorphone HCl (Dilaudid) 0.25 mg IV Q4H PRN PRN Reason: Pain Stop: 02/15/20 23:15 Last Admin: 02/02/20 20:37 Dose: 0.25 mg Documented by: Sodium Chloride (Nss 1000ml) 1,000 mls @ 80 mls/hr IV .[id number] [facility] Stop: 03/02/20 23:15 Last Admin: 02/02/20 15:55 Dose: 80 mls/hr Documented by: Cefazolin Sodium (Ancef 2000mg) 2,000 mg in 15 mls @ 3.75 mls/min IV Q8H [facility]; Protocol Stop: 02/03/20 04:03 Last Admin: 02/02/20 20:26 Dose: 3.75 mls/min Documented by: Insulin Aspart (Novolog Flexpen) 0 units SC ACHS [facility] Stop: 03/03/20 16:29 Last Admin: 02/02/20 20:34 Dose: Not Given Documented by: Insulin Glargine (Lantus Solostar Pen) 27 units SC HS [facility] Stop: 03/04/20 20:59 Isosorbide Mononitrate (Imdur Extended Rel) 90 mg PO DAILY [facility] Stop: 03/04/20 08:59 Isosorbide Mononitrate (Imdur Extended Rel) 60 mg PO [facility] Stop: 03/03/20 20:59 Last Admin: 02/02/20 20:32 Dose: 60 mg Documented by: Lisinopril (Zestril) 40 mg PO QAM [facility] Stop: 03/04/20 08:59 Lorazepam (Ativan) 0.5 mg PO Q12H PRN PRN Reason: Anxiety Stop: 03/03/20 15:46 Magnesium Hydroxide (Milk Of Magnesia) 30 ml PO Q6H PRN PRN Reason: Constipation Stop: 03/03/20 15:46 Miscellaneous (Carbohydrates For Hypoglycemia) 15 - 30 gm PO UD PRN PRN Reason: Hypoglycemia Protocol Stop: 03/02/20 23:15 Montelukast Sodium (Singulair) 10 mg PO QPM [facility] Stop: 03/03/20 20:59 Last Admin: 02/02/20 20:36 Dose: 10 mg Documented by: [facility]it[facility]amin Tab) [facility] Stop: 03/04/20 08:59 Naloxone HCl (Narcan) 0.1 mg IV Q5M PRN PRN Reason: Oversedation/Resp Depression Stop: 03/03/20 15:46 Nortriptyline HCl (Pamelor) 20 mg PO [facility] Stop: 03/03/20 20:59 Last Admin: 02/02/20 20:36 Dose: 20 mg Documented by: Potassium Chloride (Klor-Con M10) 10 meq PO BID [facility] Stop: 03/03/20 20:59 Last Admin: 02/02/20 20:32 Dose: 10 meq Documented by: Sennosides (Senokot) 17.2 mg PO [facility] Stop: 03/03/20 20:59 Last Admin: 02/02/20 20:36 Dose: 17.2 mg Documented by: Sertraline HCl (Zoloft) 25 mg PO DAILY [facility] Stop: 03/04/20 08:59 Tramadol HCl (Ultram) 50 - 100 mg PO Q4H PRN PRN Reason: Pain & Pre PT Stop: 03/03/20 15:46 Last Admin: 02/02/20 17:22 Dose: 100 mg Documented by: PG Care Time/CCT Total # of Minutes Spent Total Time Spent with Patient: Total time spent is greater than 50% in coordination of care (as documented) at patient's floor/unit and/or counseling patient: Coding Level of Care Code 91357 Subseq Hosp Care Lvl 3 Diagnoses Fracture of tibia and fibula, shaft S82.201A; S82.401A Encounter type: initial encounter Fracture type: closed Laterality: right Fall W19.XXXA Encounter type: initial encounter Effusion, right knee M25.461 Pacemaker Z95.0 Arteriosclerotic cardiovascular disease I25.10 Atrial fibrillation I48.91 Chronic anticoagulation Z79.01 Diabetes mellitus with complication E11.8 Diabetic nephropathy E11.21 Dyslipidemia E78.5 Ischemic cardiomyopathy I25.5 GERD (gastroesophageal reflux disease) K21.9 Anxiety F41.9 Depression F32.9 Anemia, unspecified D64.9 Anemia type: unspecified type Hypertension I10 Hypertension type: essential hypertension (1) Fracture of tibia and fibula, shaft Encounter type: initial encounter Fracture type: closed Laterality: right Qualified Code(s): S82.201A - Unspecified fracture of shaft of right tibia, initial encounter for closed fracture; S82.401A - Unspecified fracture of shaft of right fibula, initial encounter for closed fracture (2) Fall Encounter type: initial encounter Qualified Code(s): W19.XXXA - Unspecified fall, initial encounter (3) Anemia, unspecified Anemia type: unspecified type Qualified Code(s): D64.9 - Anemia, unspecified (4) Hypertension Hypertension type: essential hypertension Qualified Code(s): I10 - Essential (primary) hypertension
[2020-02-03] MEDS: HYDROmorphone INJ 0.5 MG/0.5 ML SYR IV PRN ×2 (01:03→16:36)
--- NOTE | 2020-02-03 01:36 | Billing Data ---
Date of Service February 03, 2020 Coding Level of Care Code 42171 Initial Inpt Care Lvl 3
[2020-02-03] MEDS: SODIUM CHLORIDE 0.9% 1000ML 1,000 ML IV SCH ×2 (03:55→16:22)
[2020-02-03] MEDS: CEFAZOLIN 2000MG 2,000 MG/15 ML SYR IV SCH (04:04)
[2020-02-03] MEDS: ACETAMINOPHEN 500 MG TAB PO SCH ×3 (05:35→21:00)
[2020-02-03 06:06] LABS: Hematocrit (blood only) 30.3 % (42-52); Hemoglobin 9.7 g/dL (14.0-18.0); Mean Corpuscular Hemoglobin 29.1 pg (25-34); Mean Platelet Volume 9.5 fL (7.4-10.4); Platelet Count 283 K/uL (130-400); RDW Coefficient of Variation 14.8 % (11.5-14.5); RDW Standard Deviation 49.6 fL (36.4-46.3); Red Blood Count 3.33 M/uL (4.7-6.1); White Blood Count 12.33 K/uL (4.8-10.8)
[2020-02-03 06:42] LABS: BUN Creatinine Ratio 15.8 (10-20); Calcium 9.3 mg/dl (8.5-10.1); Creatinine Clr Calc Pharmacy 61.1 ml/min; Est GFR (African American) 79.4; Est GFR (Non-African American) 68.5; Magnesium 2.3 mg/dl (1.8-2.4)
[2020-02-03 07:09] LABS: Estimated Average Glucose 220 mg/dl; Hemoglobin A1C 9.3 % (4.5-5.6)
[2020-02-03] MEDS: FUROSEMIDE 40 MG TAB PO SCH (08:11)
[2020-02-03] MEDS: FAMOTIDINE 40 MG TABLET PO SCH (08:11)
[2020-02-03] MEDS: APIXABAN 5 MG TABLET PO SCH ×2 (08:11→20:57)
[2020-02-03] MEDS: AMIODARONE 200 MG TAB PO SCH (08:12)
[2020-02-03] MEDS: SERTRALINE HCL 50 MG TABLET PO SCH (08:12)
[2020-02-03] MEDS: carvediloL 25 MG TAB PO SCH ×2 (08:13→16:44)
[2020-02-03] MEDS: OMEGA-3 (PURIFIED FISH OIL) 1 GM CAP PO SCH (08:13)
[2020-02-03] MEDS: dilTIAZem HCL 180 MG CAPCR PO SCH (08:13)
[2020-02-03] MEDS: MULTIVITAMIN TAB PO SCH (08:14)
[2020-02-03] MEDS: ISOSORBIDE MONO EXTENDED REL 30 MG TABCR PO SCH (08:14)
[2020-02-03] MEDS: POTASSIUM CHLORIDE 10 MEQ TABCR PO SCH (08:14)
[2020-02-03] MEDS: CLOPIDOGREL BISULFATE 75 MG TAB PO SCH (08:14)
--- NOTE | 2020-02-03 08:14 | Anesthesiology Progress Note ---
Date of Service February 03, 2020 Anesthesia Post Procedure Vital Signs Vital Signs: Temp Pulse Pulse Pulse Pulse Resp BP 02/03/20 06:57 37.1 C 68 20 02/03/20 03:26 37.1 C 64 20 02/02/20 23:50 60 02/02/20 23:37 37.0 C 62 20 02/02/20 18:17 36.6 C 67 18 179/75 H 02/02/20 17:39 02/02/20 16:50 02/02/20 16:28 64 02/02/20 16:24 36.5 C 61 18 167/79 H 02/02/20 16:06 36.5 C 63 18 176/68 H 02/02/20 16:05 02/02/20 15:45 02/02/20 15:15 37.0 C 61 18 02/02/20 15:05 61 12 02/02/20 14:55 61 14 02/02/20 14:45 36.5 C 62 15 02/02/20 11:20 37 C 61 18 158/69 H BP Pulse Ox Pulse Ox 02/03/20 06:57 162/81 H 93 02/03/20 03:26 170/74 H 94 02/02/20 23:50 02/02/20 23:37 161/75 H 93 02/02/20 18:17 94 02/02/20 17:39 95 02/02/20 16:50 95 02/02/20 16:28 02/02/20 16:24 90 02/02/20 16:06 93 02/02/20 16:05 97 02/02/20 15:45 97 02/02/20 15:15 132/90 94 02/02/20 15:05 132/90 96 02/02/20 14:55 146/70 H 96 02/02/20 14:45 146/58 H 93 02/02/20 11:20 91 Pain Intensity Right Ankle: Pain Intensity: 9 Notes Mental Status: alert / awake / arousable and participated in evaluation Patient Amnestic to Procedure: Yes Nausea / Vomiting: adequately controlled Pain: adequately controlled Airway Patency, RR, SpO2: stable & adequate BP & HR: stable & adequate Hydration State: stable & adequate Anesthetic Complications: no major complications apparent and Pt Satisfied with anesthetic care
[2020-02-03] MEDS: DOCUSATE SODIUM 100 MG CAP PO SCH ×2 (08:15→20:59)
[2020-02-03] MEDS: HydrALAZINE TAB 50 MG TAB PO SCH (08:15)
[2020-02-03] MEDS: INSULIN ASPART 100 UNITS/ML 3 ML PEN SC SCH ×5 (08:18→20:53)
[2020-02-03] MEDS ORDERED: NON-FORMULARY MEDICATION (Calcium-Magnesium-Zinc 1 TAB) PO SCH (09:00)
[2020-02-03] MEDS ORDERED: lisinopriL 40 MG TAB PO SCH (09:00)
[2020-02-03] MEDS ORDERED: SODIUM CHLORIDE 0.9% 1000ML 1,000 ML IV SCH (13:15)
--- NOTE | 2020-02-03 13:27 | Hospitalist Progress Note ---
Date of Service February 03, 2020 Assessment & Plan (1) Fracture of tibia and fibula, shaft: Comminuted and angulated right distal tib/fib fracture 2/2 mechanical fall s/p ORIF of the tibia and fibula with Dr. Mcguire on 02/02/20 tolerated well, minimal pain, vitals stable Continues with some mild hypoxia post up due to atelectasis most likely, encourage HOB 30 degrees and incentive spirometer several times an hour while awake-discontinued IV fluids Follow CBC in the morning activity per ortho-recommends nonweightbearing for at least 3 months but stable for discharge from an orthopedic standpoint; PT/OT consults appreciated Atrial fibrillation-in a paced rhythm on telemetry restarted apixaban as per Ortho Continue amiodarone 200 mg daily hold home diltiazem 180 mg p.o. twice daily for hypotension -continue Coreg 25mg BID currently paced at 60 Ischemic CAD with history of [place] and biventricular cardiac pacer Continue atorvastatin 40 mg nightly Continue carvedilol 25 mg p.o. twice daily restarted Lasix 40 mg today but will now hold due to hypotension,dc IVFs Continue isosorbide mononitrate 90/60 mg twice daily Hypertension-with hypotension today with sitting up. COuld be from blood loss, opioid pain meds. Hgb slight drop to 9.7 -repeat BP while I was at bedside was 101/55 while lying down up from 87 systolic earlier. hold home hydralazine 50 mg 3 times daily hold Lisinopril 40 mg daily and hold diltiazem Coreg and Imdur ok to continue for now Type 2 diabetes mellitus with neuropathy-hemoglobin A1c uncontrolled at 9.6% Continue Lantus 27 units HS Novolog SS GERD Famotidine 40 mg p.o. daily Depression NOT on Duloxetine 30 mg daily per chart review and pt med list. He simply stopped, and do not continue. 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 Voltaren gel 4 g topically 4 times daily as needed DVT prophylaxis-Eliquis Disposition-continued stay for hypotension and now awaiting rehab placement (2) Fall: (3) Effusion, right knee: (4) Asymmetrical hearing loss of right ear: (5) Pacemaker: (6) Sensorineural hearing loss (SNHL) of right ear with restricted hearing of left ear: (7) Abnormal gait: (8) Arteriosclerotic cardiovascular disease: (9) Atrial fibrillation: (10) Chronic anticoagulation: (11) Diabetic hypoglycemia: (12) Diabetic nephropathy: (13) Diabetic peripheral neuropathy: (14) Type 2 diabetes mellitus: (15) PRITCHARD (dyspnea on exertion): (16) Paroxysmal atrial fibrillation: (17) Atrial fibrillation with RVR: (18) CAD (coronary artery disease): (19) Anemia, unspecified: (20) Hypotension: Admission and Anticipated Discharge Date Admission Date: February 01, 2020 Subjective Patient reports having some pain in the ankle and foot, but otherwise doing okay. His blood pressure is a little low this afternoon and his blood pressure medications were held. He remains on oxygen but denies shortness of breath. Denies chest pains. No nausea or vomiting. He is tolerating p.o. Telemetry with paced rhythm with rates in the 60s Review of Systems Review of Systems: All systems reviewed & are unremarkable except as noted in HPI & below Physical Exam Constitutional: WD/WN, vitals as above Eyes: + anicteric sclerae Neck: trachea midline, no thyromegaly Respiratory: normal respiratory effort, lungs clear to auscultation Cardiovascular: RRR, no murmur, no edema Chest (Breasts): Chest: normal inspection of chest Gastrointestinal (Abdomen): normal bowel sounds, soft, nontender, no hepatosplenomegaly Musculoskeletal: Extremities: + extremities abnormal to inspection (Right leg and foot in splint with Te wrap, gross sensation intact to the right toes), no cyanosis and no clubbing Skin: no rashes, warm and dry Neurologic: moves all extremities and awake; no focal motor deficits Psychiatric: A+Ox3, euthymic affect Lymphatic: no lymphedema Results & Data Results & Data ([facility]) Vital Signs (Past 12 Hours) Vital Signs Temp Pulse Resp BP BP Pulse Ox 02/03/20 11:00 36.5 C 61 20 86/48 L 87/47 L 95 02/03/20 06:57 37.1 C 68 20 162/81 H 93 02/03/20 03:26 37.1 C 64 20 170/74 H 94 Laboratory Results 0802/03/20 02/03/20 Range/Units 16:46 11:32 07:33 WBC (4.8-10.8) K/uL RBC (4.7-6.1) M/uL Hgb (14.0-18.0) g/dL Hct (42-52) % MCV (80-100) fL MCH (25-34) pg MCHC (32-36) g/dL RDW Std Deviation (36.4-46.3) fL RDW Coeff of [place] (11.5-14.5) % Plt Count (130-400) K/uL MPV (7.4-10.4) fL Sodium (136-145) mmol/L Potassium (3.5-5.1) mmol/L Chloride (98-107) mmol/L Carbon Dioxide (21-32) mmol/L Anion Gap (3-11) BUN (7-18) mg/dl Creatinine (0.6-1.4) mg/dl Est Cr Clr Drug Dosing ml/min Est GFR ( Amer) Est GFR (Non-Af Amer) BUN/Creatinine Ratio (10-20) Glucose (70-99) mg/dl POC Glucose 235 H 192 H 117 H (70-99) mg/dl Estimat Average Glucose mg/dl Hemoglobin A1c (4.5-5.6) % Calcium (8.5-10.1) mg/dl Magnesium (1.8-2.4) mg/dl 02/03/20 02/03/20 02/02/20 Range/Units 05:27 05:27 20:26 WBC 12.33 H (4.8-10.8) K/uL RBC 3.33 L (4.7-6.1) M/uL Hgb 9.7 L (14.0-18.0) g/dL Hct 30.3 L (42-52) % MCV 91.0 (80-100) fL MCH 29.1 (25-34) pg MCHC 32.0 (32-36) g/dL RDW Std Deviation 49.6 H (36.4-46.3) fL RDW Coeff of [place] 14.8 H (11.5-14.5) % Plt Count 283 (130-400) K/uL MPV 9.5 (7.4-10.4) fL Sodium 140 (136-145) mmol/L Potassium 4.0 (3.5-5.1) mmol/L Chloride 105 (98-107) mmol/L Carbon Dioxide 32 (21-32) mmol/L Anion Gap 3.0 (3-11) BUN 16 (7-18) mg/dl Creatinine 1.01 (0.6-1.4) mg/dl Est Cr Clr Drug Dosing 61.1 ml/min Est GFR ( Amer) 79.4 Est GFR (Non-Af Amer) 68.5 BUN/Creatinine Ratio 15.8 (10-20) Glucose 104 H (70-99) mg/dl POC Glucose 174 H (70-99) mg/dl Estimat Average Glucose mg/dl Hemoglobin A1c (4.5-5.6) % Calcium 9.3 (8.5-10.1) mg/dl Magnesium 2.3 (1.8-2.4) mg/dl 02/02/20 Range/Units 08:03 WBC (4.8-10.8) K/uL RBC (4.7-6.1) M/uL Hgb (14.0-18.0) g/dL Hct (42-52) % MCV (80-100) fL MCH (25-34) pg MCHC (32-36) g/dL RDW Std Deviation (36.4-46.3) fL RDW Coeff of [place] (11.5-14.5) % Plt Count (130-400) K/uL MPV (7.4-10.4) fL Sodium (136-145) mmol/L Potassium (3.5-5.1) mmol/L Chloride (98-107) mmol/L Carbon Dioxide (21-32) mmol/L Anion Gap (3-11) BUN (7-18) mg/dl Creatinine (0.6-1.4) mg/dl Est Cr Clr Drug Dosing ml/min Est GFR ( Amer) Est GFR (Non-Af Amer) BUN/Creatinine Ratio (10-20) Glucose (70-99) mg/dl POC Glucose (70-99) mg/dl Estimat Average Glucose 220 mg/dl Hemoglobin A1c 9.3 H (4.5-5.6) % Calcium (8.5-10.1) mg/dl Magnesium (1.8-2.4) mg/dl PG Care Time/CCT Total # of Minutes Spent Total Time Spent with Patient: Total time spent is greater than 50% in coordination of care (as documented) at patient's floor/unit and/or counseling patient: Coding Level of Care Code 65745 Subseq Hosp Care Lvl 3 Diagnoses Fracture of tibia and fibula, shaft S82.201A; S82.401A Encounter type: initial encounter Fracture type: closed Laterality: right Fall W19.XXXA Encounter type: initial encounter Effusion, right knee M25.461 Asymmetrical hearing loss of right ear H91.8X1 Pacemaker Z95.0 Sensorineural hearing loss (SNHL) of right ear with restricted hearing of left ear H90.A21 Abnormal gait R26.9 Arteriosclerotic cardiovascular disease I25.10 Atrial fibrillation I48.91 Chronic anticoagulation Z79.01 Diabetic hypoglycemia E11.649 Diabetic nephropathy E11.21 Diabetic peripheral neuropathy E11.42 Type 2 diabetes mellitus E11.9 PRITCHARD (dyspnea on exertion) R06.09 Paroxysmal atrial fibrillation I48.0 Atrial fibrillation with RVR I48.91 CAD (coronary artery disease) I25.10 Associated angina: without angina Coronary Disease-Associated Artery/Lesion type: unspecified vessel or lesion type [place] vs. transplanted heart: [place] heart Anemia, unspecified D64.9 Anemia type: unspecified type Hypotension I95.9 (1) CAD (coronary artery disease) Associated angina: without angina Coronary Disease-Associated Artery/Lesion type: unspecified vessel or lesion type [place] vs. transplanted heart: [place] heart Qualified Code(s): I25.10 - Atherosclerotic heart disease of [place] coronary artery without angina pectoris (2) Anemia, unspecified Anemia type: unspecified type Qualified Code(s): D64.9 - Anemia, unspecified (3) Fracture of tibia and fibula, shaft Encounter type: initial encounter Fracture type: closed Laterality: right Qualified Code(s): S82.201A - Unspecified fracture of shaft of right tibia, initial encounter for closed fracture; S82.401A - Unspecified fracture of shaft of right fibula, initial encounter for closed fracture (4) Fall Encounter type: initial encounter Qualified Code(s): W19.XXXA - Unspecified fall, initial encounter
--- NOTE | 2020-02-03 15:14 | Orthopedic Progress Note ---
Date of Service February 03, 2020 Assessment & Plan (1) Fracture of tibia and fibula, shaft: Overall he is doing fairly well. I did loosen up the trauma splint form. He will be nonweightbearing on his right leg for close to 3 months. He is on Eliquis for DVT prophylaxis. He will likely need discharge to a rehab facility. He is orthopedically stable for discharge when medically ready. He can follow- up with orthopedics in 2 weeks. Full discharge instructions were placed in the discharge summary. Present on Admission?: Yes Vicente Cho was seen and examined at bedside. Overall he is doing fairly well. He is having a little bit of soreness in his right leg but is not too bad. He complains of his right leg feeling cold. He was able to get some sleep last night. His family is with him at bedside. He has no other complaints. Physical Exam Musculoskeletal: On physical examination of the right ankle, the trauma splint is clean and dry. His right ankle is elevated on a pillow. He has good capillary refill in his toes and his toes feel warm. Results & Data ([facility]) Vital Signs (Past 12 Hours) Vital Signs Temp Pulse Resp BP BP Pulse Ox 02/03/20 13:44 60 101/55 L 02/03/20 11:00 36.5 C 61 20 86/48 L 87/47 L 95 02/03/20 06:57 37.1 C 68 20 162/81 H 93 02/03/20 03:26 37.1 C 64 20 170/74 H 94 Diagnostic Findings Postoperative x-rays of the right ankle show the hardware to be in anatomic alignment without any evidence of complication. PG Care Time/CCT Total # of Minutes Spent Total Time Spent with Patient: Total time spent is greater than 50% in coordination of care (as documented) at patient's floor/unit and/or counseling patient: Coding Level of Care Code None Diagnoses Fracture of tibia and fibula, shaft S82.201A; S82.401A Encounter type: initial encounter Fracture type: closed Laterality: right (1) Fracture of tibia and fibula, shaft Encounter type: initial encounter Fracture type: closed Laterality: right Qualified Code(s): S82.201A - Unspecified fracture of shaft of right tibia, initial encounter for closed fracture; S82.401A - Unspecified fracture of shaft of right fibula, initial encounter for closed fracture
[2020-02-03] MEDS: INSULIN GLARGINE SOLOSTAR 100 UNITS/ML 3 ML PEN SC SCH (20:56)
[2020-02-03] MEDS: NORTRIPTYLINE HCL 10 MG CAP PO SCH (20:56)
[2020-02-03] MEDS: SENNA 8.6 MG TAB PO SCH (20:57)
[2020-02-03] MEDS: MONTELUKAST SODIUM 10 MG TABLET PO SCH (20:57)
[2020-02-03] MEDS: CETIRIZINE HCL 10 MG TABLET PO SCH (20:57)
[2020-02-03] MEDS: ATORVASTATIN 40 MG TAB PO SCH (20:57)
[2020-02-03] MEDS: ISOSORBIDE MONO EXTENDED REL 60 MG TABCR PO SCH (20:59)
[2020-02-03] MEDS ORDERED: ONDANSETRON INJ 2 MG/ML 2 ML VIAL IV PRN (22:30)
[2020-02-04] MEDS: ACETAMINOPHEN 500 MG TAB PO SCH ×3 (05:44→20:37)
--- NOTE | 2020-02-04 06:29 | Orthopedic Progress Note ---
Date of Service February 04, 2020 Assessment & Plan (1) Fracture of tibia and fibula, shaft: Overall he is doing well. He is not having too much pain. He will be nonweightbearing on that right leg for up to 3 months. He is on Eliquis for DVT prophylaxis. He is orthopedically stable for discharge when medically ready. He will follow-up in my office in 2 weeks. Full discharge instructions were placed in the discharge summary. If you have any further questions regarding his care please feel free to contact me personally on my cell phone at [phone] Present on Admission?: Yes Subjective Marquis was seen and examined at bedside this morning. Overall he is doing fairly well. He has less pain in his ankle than when I saw him yesterday. The cold sensation is gone. He has no complaints. Physical Exam Musculoskeletal: On physical examination of the right ankle, the trauma splint is intact. He has good capillary refill of his toes. Results & Data ([facility]) Vital Signs (Past 12 Hours) Vital Signs Temp Pulse Pulse Resp BP BP Pulse Ox 02/04/20 04:00 36.7 C 64 20 110/72 93 02/03/20 23:25 65 02/03/20 23:17 37.2 C 60 20 137/66 95 02/03/20 19:21 36.7 C 78 20 123/55 L 94 PG Care Time/CCT Total # of Minutes Spent Total Time Spent with Patient: Total time spent is greater than 50% in co ordination of care (as documented) at patient's floor/unit and/or counseling patient: Coding Level of Care Code None Diagnoses Fracture of tibia and fibula, shaft S82.201A; S82.401A Encounter type: initial encounter Fracture type: closed Laterality: right (1) Fracture of tibia and fibula, shaft Encounter type: initial encounter Fracture type: closed Laterality: right Qualified Code(s): S82.201A - Unspecified fracture of shaft of right tibia, initial encounter for closed fracture; S82.401A - Unspecified fracture of shaft of right fibula, initial encounter for closed fracture
[2020-02-04 06:54] LABS: Hematocrit (blood only) 26.5 % (42-52); Hemoglobin 8.4 g/dL (14.0-18.0); Mean Corpuscular Hemoglobin 28.8 pg (25-34); Mean Corpuscular Hgb Conc 31.7 g/dL (32-36); Mean Corpuscular Volume 90.8 fL (80-100); Mean Platelet Volume 9.4 fL (7.4-10.4); Platelet Count 237 K/uL (130-400); RDW Coefficient of Variation 14.7 % (11.5-14.5); Red Blood Count 2.92 M/uL (4.7-6.1); White Blood Count 10.39 K/uL (4.8-10.8)
[2020-02-04 07:22] LABS: BUN Creatinine Ratio 17.3 (10-20); Calcium 8.7 mg/dl (8.5-10.1); Creatinine Clr Calc Pharmacy 56.6 ml/min; Est GFR (African American) 72.4; Est GFR (Non-African American) 62.4
[2020-02-04] MEDS: carvediloL 25 MG TAB PO SCH ×2 (08:47→16:50)
[2020-02-04] MEDS: DOCUSATE SODIUM 100 MG CAP PO SCH ×2 (08:47→20:39)
[2020-02-04] MEDS: SERTRALINE HCL 50 MG TABLET PO SCH (08:48)
[2020-02-04] MEDS: OMEGA-3 (PURIFIED FISH OIL) 1 GM CAP PO SCH (08:48)
[2020-02-04] MEDS: FAMOTIDINE 40 MG TABLET PO SCH (08:48)
[2020-02-04] MEDS: MULTIVITAMIN TAB PO SCH (08:48)
[2020-02-04] MEDS: APIXABAN 5 MG TABLET PO SCH ×2 (08:49→20:37)
[2020-02-04] MEDS: CLOPIDOGREL BISULFATE 75 MG TAB PO SCH (08:49)
[2020-02-04] MEDS: INSULIN ASPART 100 UNITS/ML 3 ML PEN SC SCH ×4 (09:27→20:41)
[2020-02-04] MEDS: ISOSORBIDE MONO EXTENDED REL 30 MG TABCR PO SCH (12:14)
[2020-02-04] MEDS ORDERED: FUROSEMIDE 40 MG TAB PO ONE (14:20)
--- NOTE | 2020-02-04 14:21 | Hospitalist Progress Note ---
Date of Service February 04, 2020 Assessment & Plan (1) Fracture of tibia and fibula, shaft: Comminuted and angulated right distal tib/fib fracture 2/2 mechanical fall s/p ORIF of the tibia and fibula with Dr. Mcguire on 02/02/20 tolerated well, minimal pain, vitals stable Continues with some mild hypoxia post up due to atelectasis most likely, but is improving--> encourage HOB 30 degrees and incentive spirometer several times an hour while awake-discontinued IV fluids and will restart lasix today Follow CBC in the morning activity per ortho-recommends nonweightbearing for at least 3 months but stable for discharge from an orthopedic standpoint; PT/OT consults appreciated Atrial fibrillation-in a paced rhythm on telemetry with a 7 beat run of VT overnight continue apixaban Continue amiodarone 200 mg every other day restart home diltiazem 180 mg p.o. twice daily now that BPs are improved -continue Coreg 25mg BID Ischemic CAD with history of [place] and biventricular cardiac pacer. Weight is up, remains on O2. BPs improved today--> restart lasix Continue atorvastatin 40 mg nightly Continue carvedilol 25 mg p.o. twice daily restarted Lasix 40 mg today Continue isosorbide mononitrate 90/60 mg twice daily Hypertension-with hypotension on 02/02 now resolved. COuld be from blood loss, opioid pain meds. 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 Voltaren gel 4 g topically 4 times daily as needed DVT prophylaxis-Eliquis Disposition-medically stable for discharge, awaiting insurance auth (2) Fall: (3) Effusion, right knee: (4) Asymmetrical hearing loss of right ear: (5) Pacemaker: (6) Sensorineural hearing loss (SNHL) of right ear with restricted hearing of left ear: (7) Abnormal gait: (8) Arteriosclerotic cardiovascular disease: (9) Atrial fibrillation: (10) Chronic anticoagulation: (11) Diabetic hypoglycemia: (12) Diabetic nephropathy: (13) Diabetic peripheral neuropathy: (14) Type 2 diabetes mellitus: (15) PRITCHARD (dyspnea on exertion): (16) Paroxysmal atrial fibrillation: (17) Atrial fibrillation with RVR: (18) CAD (coronary artery disease): (19) Anemia, unspecified: (20) Hypotension: Admission and Anticipated Discharge Date Admission Date: February 01, 2020 Subjective Pt feeling better. Has some pain in the right leg/ankle. Denies CP, only has a slight SOB when he takes off the O2. I spot checked him in the room and he was 90-91% on RA. No lightheadedness, no N/V, is eating but appetite lower than usual. Had a small BM today and yesterday. Is making urine Tele with paced rhythm, PVCs, and a 7 beat run of VT Review of Systems Review of Systems: All systems reviewed & are unremarkable except as noted in HPI & below Physical Exam Constitutional: WD/WN, vitals as above Eyes: + anicteric sclerae Neck: trachea midline, no thyromegaly Respiratory: normal respiratory effort, lungs clear to auscultation Cardiovascular: RRR, no murmur, no edema Chest (Breasts): Chest: normal inspection of chest Gastrointestinal (Abdomen): normal bowel sounds, soft, nontender, no hepatosplenomegaly Musculoskeletal: Extremities: + extremities abnormal to inspection (Right leg and foot in splint with Te wrap, gross sensation intact to the right toes), no cyanosis and no clubbing Skin: no rashes, warm and dry Neurologic: moves all extremities and awake; no focal motor deficits Psychiatric: A+Ox3, euthymic affect Lymphatic: no lymphedema Results & Data Results & Data ([facility]) Vital Signs (Past 12 Hours) Vital Signs Temp Pulse Resp BP BP Pulse Ox 02/04/20 11:31 36.8 C 66 20 158/64 H 92 02/04/20 07:32 36.9 C 66 20 147/57 H 94 02/04/20 04:00 36.7 C 64 20 110/72 93 Laboratory Results 02/04/20 02/04/20 02/04/20 Range/Units 11:27 07:11 06:32 WBC (4.8-10.8) K/uL RBC (4.7-6.1) M/uL Hgb (14.0-18.0) g/dL Hct (42-52) % MCV (80-100) fL MCH (25-34) pg MCHC (32-36) g/dL RDW Std Deviation (36.4-46.3) fL RDW Coeff of [place] (11.5-14.5) % Plt Count (130-400) K/uL MPV (7.4-10.4) fL Sodium 139 (136-145) mmol/L Potassium 4.0 (3.5-5.1) mmol/L Chloride 107 (98-107) mmol/L Carbon Dioxide 30 (21-32) mmol/L Anion Gap 2.0 L (3-11) BUN 19 H (7-18) mg/dl Creatinine 1.09 (0.6-1.4) mg/dl Est Cr Clr Drug Dosing 56.6 ml/min Est GFR ( Amer) 72.4 Est GFR (Non-Af Amer) 62.4 BUN/Creatinine Ratio 17.3 (10-20) Glucose 168 H (70-99) mg/dl POC Glucose 183 H 188 H (70-99) mg/dl Calcium 8.7 (8.5-10.1) mg/dl 02/04/20 02/03/20 02/03/20 Range/Units 06:32 20:11 16:46 WBC 10.39 (4.8-10.8) K/uL RBC 2.92 L (4.7-6.1) M/uL Hgb 8.4 L (14.0-18.0) g/dL Hct 26.5 L (42-52) % MCV 90.8 (80-100) fL MCH 28.8 (25-34) pg MCHC 31.7 L (32-36) g/dL RDW Std Deviation 49.0 H (36.4-46.3) fL RDW Coeff of [place] 14.7 H (11.5-14.5) % Plt Count 237 (130-400) K/uL MPV 9.4 (7.4-10.4) fL Sodium (136-145) mmol/L Potassium (3.5-5.1) mmol/L Chloride (98-107) mmol/L Carbon Dioxide (21-32) mmol/L Anion Gap (3-11) BUN (7-18) mg/dl Creatinine (0.6-1.4) mg/dl Est Cr Clr Drug Dosing ml/min Est GFR ( Amer) Est GFR (Non-Af Amer) BUN/Creatinine Ratio (10-20) Glucose (70-99) mg/dl POC Glucose 214 H 235 H (70-99) mg/dl Calcium (8.5-10.1) mg/dl PG Care Time/CCT Total # of Minutes Spent Total Time Spent with Patient: Total time spent is greater than 50% in coordination of care (as documented) at patient's floor/unit and/or counseling patient: Coding Level of Care Code 35828 Subseq Hosp Care Lvl 3 Diagnoses Fracture of tibia and fibula, shaft S82.201A; S82.401A Encounter type: initial encounter Fracture type: closed Laterality: right Fall W19.XXXA Encounter type: initial encounter Effusion, right knee M25.461 Asymmetrical hearing loss of right ear H91.8X1 Pacemaker Z95.0 Sensorineural hearing loss (SNHL) of right ear with restricted hearing of left ear H90.A21 Abnormal gait R26.9 Arteriosclerotic cardiovascular disease I25.10 Atrial fibrillation I48.91 Chronic anticoagulation Z79.01 Diabetic hypoglycemia E11.649 Diabetic nephropathy E11.21 Diabetic peripheral neuropathy E11.42 Type 2 diabetes mellitus E11.9 PRITCHARD (dyspnea on exertion) R06.09 Paroxysmal atrial fibrillation I48.0 Atrial fibrillation with RVR I48.91 CAD (coronary artery disease) I25.10 Associated angina: without angina Coronary Disease-Associated Artery/Lesion type: unspecified vessel or lesion type [place] vs. transplanted heart: [place] heart Anemia, unspecified D64.9 Anemia type: unspecified type Hypotension I95.9 (1) CAD (coronary artery disease) Associated angina: without angina Coronary Disease-Associated Artery/Lesion type: unspecified vessel or lesion type [place] vs. transplanted heart: [place] heart Qualified Code(s): I25.10 - Atherosclerotic heart disease of [place] coronary artery without angina pectoris (2) Anemia, unspecified Anemia type: unspecified type Qualified Code(s): D64.9 - Anemia, unspecified (3) Fracture of tibia and fibula, shaft Encounter type: initial encounter Fracture type: closed Laterality: right Qualified Code(s): S82.201A - Unspecified fracture of shaft of right tibia, initial encounter for closed fracture; S82.401A - Unspecified fracture of shaft of right fibula, initial encounter for closed fracture (4) Fall Encounter type: initial encounter Qualified Code(s): W19.XXXA - Unspecified fall, initial encounter
[2020-02-04] MEDS: NORTRIPTYLINE HCL 10 MG CAP PO SCH (20:36)
[2020-02-04] MEDS: CETIRIZINE HCL 10 MG TABLET PO SCH (20:36)
[2020-02-04] MEDS: ISOSORBIDE MONO EXTENDED REL 60 MG TABCR PO SCH (20:38)
[2020-02-04] MEDS: ATORVASTATIN 40 MG TAB PO SCH (20:38)
[2020-02-04] MEDS: SENNA 8.6 MG TAB PO SCH (20:39)
[2020-02-04] MEDS: MONTELUKAST SODIUM 10 MG TABLET PO SCH (20:39)
[2020-02-04] MEDS: INSULIN GLARGINE SOLOSTAR 100 UNITS/ML 3 ML PEN SC SCH (20:40)
[2020-02-04] MEDS: dilTIAZem HCL 180 MG CAPCR PO SCH (22:04)
[2020-02-05] MEDS: ACETAMINOPHEN 500 MG TAB PO SCH ×2 (05:40→13:14)
[2020-02-05 06:41] LABS: Eosinophils % (auto) 1.1 %; Hematocrit (blood only) 26.4 % (42-52); Hemoglobin 8.6 g/dL (14.0-18.0); Immature Granulocytes # (auto) 0.02 K/uL (0.00-0.02); Immature Granulocytes % (auto) 0.2 %; Lymphocytes # (auto) 1.51 K/uL (1.2-3.4); Lymphocytes % (auto) 16.1 %; Mean Corpuscular Hemoglobin 29.3 pg (25-34); Mean Corpuscular Hgb Conc 32.6 g/dL (32-36); Mean Corpuscular Volume 89.8 fL (80-100); Mean Platelet Volume 9.3 fL (7.4-10.4); Monocytes # (auto) 0.86 K/uL (0.11-0.59); Monocytes % (auto) 9.1 %; Neutrophils # (auto) 6.91 K/uL (1.4-6.5); Neutrophils % (auto) 73.5 %; Platelet Count 254 K/uL (130-400); RDW Coefficient of Variation 14.5 % (11.5-14.5); RDW Standard Deviation 47.5 fL (36.4-46.3); Red Blood Count 2.94 M/uL (4.7-6.1)
[2020-02-05 07:15] LABS: BUN Creatinine Ratio 15.1 (10-20); Calcium 9.3 mg/dl (8.5-10.1); Creatinine Clr Calc Pharmacy 60.5 ml/min; Est GFR (African American) 78.4; Est GFR (Non-African American) 67.7; Magnesium 2.2 mg/dl (1.8-2.4); Potassium 3.4 mmol/L (3.5-5.1)
[2020-02-05] MEDS: OMEGA-3 (PURIFIED FISH OIL) 1 GM CAP PO SCH (09:23)
[2020-02-05] MEDS: SERTRALINE HCL 50 MG TABLET PO SCH (09:23)
[2020-02-05] MEDS: AMIODARONE 200 MG TAB PO SCH (09:23)
[2020-02-05] MEDS: MULTIVITAMIN TAB PO SCH (09:23)
[2020-02-05] MEDS: DOCUSATE SODIUM 100 MG CAP PO SCH (09:24)
[2020-02-05] MEDS: dilTIAZem HCL 180 MG CAPCR PO SCH (09:24)
[2020-02-05] MEDS: carvediloL 25 MG TAB PO SCH (09:25)
[2020-02-05] MEDS: APIXABAN 5 MG TABLET PO SCH (09:25)
[2020-02-05] MEDS: CLOPIDOGREL BISULFATE 75 MG TAB PO SCH (09:25)
[2020-02-05] MEDS: ISOSORBIDE MONO EXTENDED REL 30 MG TABCR PO SCH (09:25)
[2020-02-05] MEDS: FAMOTIDINE 40 MG TABLET PO SCH (09:25)
[2020-02-05] MEDS: INSULIN ASPART 100 UNITS/ML 3 ML PEN SC SCH ×2 (09:29→13:14)
[2020-02-05 11:17] VITALS: TEMP 99.3; O2SAT 91
[2020-02-05] MEDS: FUROSEMIDE 40 MG TAB PO SCH (11:56)
--- NOTE | 2020-02-05 13:38 | Discharge Summary ---
Date of Service February 05, 2020 Admission HPI Per Admitting Provider Marquis Salgado is an 84-year-old male with a past medical history of atrial fibrillation, biventricular cardiac pacer, type 2 diabetes with neuropathy, ischemic CAD with history of MA,GERD, depression, mitral regurg, and hypertension who presented by ambulance following a mechanical fall to his right lower extremity with severe right ankle pain and inability to bear weight. Mr. Salgado reports that his fall was mechanical, he was attempting to get into the car when his foot hit the door and he rolled to the side causing his foot to become trapped as he fell. He had immediate pain in his right ankle and was unable to bear weight. He was not having any chest pain or shortness of breath, and did not have any lightheadedness or dizziness that led to his fall. He does endorse multiple falls in the previous 6 months, at least 4 or 5. He has foot drop at baseline and wears braces on both feet which make it difficult for him to ambulate. At time of assessment he reports his pain is tolerable, but still a 7-8. Improved with fentanyl, but is aware his oxygen levels dropped and the goal is to make his pain tolerable but not go away as any treatment with narcotics will have an effect on his breathing. He understands this and reports he is doing "okay "at time of assessment. Feels better since his fracture was reduced and wrapped in a splint. Medical History: Reviewed. Medications: Reviewed. Last took his medications at about 1:00 in the afternoon, has not taken any evening medications. Surgical History: Reviewed Allergies: Reviewed Social History: Lives at home with his who is currently in a back brace due to a fractured vertebrae. Denies alcohol use. Remote sporadic cigar use, denies consistent tobacco use. No recreational drug use. Code Status: Full code, would not want to intubation for more than 10 days Principal Diagnosis Fall, Right tibia-fibula fracture Discharge Exam Constitutional WD/WN, vitals as above Eyes + anicteric sclerae Neck trachea midline, no thyromegaly Respiratory normal respiratory effort, lungs clear to auscultation Cardiovascular RRR, no murmur, no edema Chest (Breasts) Chest: normal inspection of chest Gastrointestinal (Abdomen) normal bowel sounds, soft, nontender, no hepatosplenomegaly Musculoskeletal Extremities: + extremities abnormal to inspection (Right leg and foot in splint with Te wrap, gross sensation intact to the right toes), no cyanosis and no clubbing Skin no rashes, warm and dry Neurologic moves all extremities and awake; no focal motor deficits Psychiatric A+Ox3, euthymic affect Lymphatic no lymphedema Discharge Data Allergies Allergy/AdvReac Type Severity Reaction Status Date / Time pravastatin [From Pravachol] AdvReac Unknown Unknown Verified 02/01/20 22:24 rosuvastatin [From Crestor] AdvReac Unknown Unknown Verified 02/01/20 22:24 Consultations 02/01/20 21:05 Consult Orthopedic Surgery Stat 02/01/20 21:06 ED Decision to Admit Stat 02/02/20 15:47 Consult Case Management - Discharge Planning Routine Procedures Performed Operation Date: 02/01/20 09:00 <No data on this case meets the specified criteria> Operation Date: 02/02/20 09:00 Actual Procedures p Open Reduction Internal Fixation Right Tibia & Fibula(Right) - Benjamín Mcguire, Ordered Studies 02/01/20 21:59 CT tib/fib RT wo con Stat 02/02/20 07:00 FL ankle RT min 3V RTN Routine FL fluoroscopy <1hr Routine Diabetes Follow up Diabetes Follow-up Needed for HgbA1c >9% Hospital Course (1) Fracture of tibia and fibula, shaft: Comminuted and angulated right distal tib/fib fracture 2/2 mechanical fall s/p ORIF of the tibia and fibula with Dr. Mcguire on 02/02/20 tolerated well, minimal pain, vitals stable Continues with some mild hypoxia post up due to atelectasis most likely, but is now much improved--> encourage HOB 30 degrees and incentive spirometer several times an hour while awake, restarted lasix hgb post-op is stable at 8.6 activity per ortho-recommends nonweightbearing for at least 3 months but stable for discharge from an orthopedic standpoint; PT/OT consults appreciated Atrial fibrillation-in a paced rhythm on telemetry continue apixaban Continue amiodarone 200 mg every other day continue home diltiazem 180 mg p.o. twice daily now that BPs are improved -continue Coreg 25mg BID Ischemic CAD with history of MA and biventricular cardiac pacer. Euvolemic Continue atorvastatin 40 mg nightly Continue carvedilol 25 mg p.o. twice daily continue Lasix 40 mg today Continue isosorbide mononitrate 90/60 mg twice daily Hypertension-with hypotension on 02/02 now resolved. COuld have been from blood loss, opioid pain meds. 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 Voltaren gel 4 g topically 4 times daily as needed Constipation-no substantial BM in many days -add on Bisacodyl suppos PA daily prn -continue senna/docusate and daily Miralax -consider Mag citrate at [facility] DVT prophylaxis-Eliquis Disposition-medically stable for discharge,to [facility] (2) Fall: (3) Effusion, right knee: (4) Asymmetrical hearing loss of right ear: (5) Pacemaker: (6) Sensorineural hearing loss (SNHL) of right ear with restricted hearing of left ear: (7) Abnormal gait: (8) Arteriosclerotic cardiovascular disease: (9) Atrial fibrillation: (10) Chronic anticoagulation: (11) Diabetic hypoglycemia: (12) Diabetic nephropathy: (13) Diabetic peripheral neuropathy: (14) Type 2 diabetes mellitus: (15) PRITCHARD (dyspnea on exertion): (16) Paroxysmal atrial fibrillation: (17) Atrial fibrillation with RVR: (18) CAD (coronary artery disease): (19) Anemia, unspecified: (20) Hypotension: Total Time Total Time Spent Total Time Spent (In Minutes): >30 min Total Time Includes: Examination of the Patient, Discharge Planning and Medication Reconciliation Discharge Plan Discharge Items Patient Disposition: Transfer Senior Living Fac Reason For Visit: FALL, R ANKLE FXR Discharge Diagnosis: Fall, Right tibia-fibula fracture Condition on Discharge: Good Activity: As commented below Non-emergency contact: Primary Care Provider Call non-emergency contact if: you have any medication questions, your symptoms worsen, your pain is not controlled, your pain is worsening, your pain is unusual for you and your pain is concerning for you Follow-up/Referrals: Pro,Kyle Munroe MD [Primary Care Provider] - Benjamín Mcguire DO [Physician] - Diet: Carb Consistent or DM2 and Heart Healthy Addtl Attending Provider Instructions: ORTHOPEDIC INSTRUCTIONS Activity Recommendations: Nonweightbearing on the right leg for up to 3 months. Medications: Continue your Eliquis for DVT prophylaxis. Dressing Care: Leave the trauma splint clean and dry. Do not remove the splint. Showering: Do not get the trauma splint wet. Things To Watch For: 1. Drainage from the incision site that occurs more than one week after your surgery. 2. Increased redness at the incision site. 3. Fever above 102 degrees Fahrenheit. 4. Unusual chest pain or shortness of breath. 5. Call [facility] at with any of the above problems Follow-Up Visit: Follow-up with Dr. Mcguire's PA (Benjamín Padgett) 2-3 weeks after your day of surgery. He will remove your jamilah and answer any questions. If you have any additional questions or concerns, Dr Mcguire is usually in the office at the same time and will be available An appointment was probably scheduled when you signed-up for surgery in the office. If you have any questions call Pending Studies at Discharge: No Stand-Alone Forms: My [facility] Skilled Items Patient informed of condition?: Yes DNR: No Discharge Level of Care: Skilled Communicable Disease: No Discharge Prognosis: Improving Lines: None Urinary Catheter: No Medications and DC Order Prescriptions: New acetaminophen 500 mg Tablet 1,000 mg PO Q8 Qty: 42 RF: 0 bisacodyl 10 mg Suppository 10 mg PA DAILY PRN (Reason: constipation) Qty: 1 RF: 0 multivitamin [Daily-Darryl] Tablet 1 tab PO QAM Qty: 30 RF: 0 sennosides [Senokot] 8.6 mg Tablet 17.2 mg PO HS Qty: 60 RF: 0 docusate sodium 100 mg Capsule 100 mg PO BID Qty: 60 RF: 0 Continued clopidogrel 75 mg tablet 75 mg PO QAM Qty: 90 RF: 3 atorvastatin 40 mg tablet 40 mg PO HS Qty: 90 RF: 3 diltiazem HCl 180 mg capsule,extended release 24hr 180 mg PO BID Qty: 180 RF: 3 hydralazine 50 mg tablet 50 mg PO TID Qty: 270 RF: 3 famotidine 40 mg tablet 40 mg PO DAILY Qty: 90 RF: 3 levocetirizine 5 mg tablet 5 mg PO QPM Qty: 90 RF: 3 furosemide 40 mg tablet 40 mg PO DAILY Qty: 90 RF: 3 potassium chloride 10 mEq tablet extended release 10 meq PO BID Qty: 180 RF: 1 sertraline 25 mg tablet 25 mg PO DAILY Qty: 90 RF: 1 Eliquis 5 mg tablet 5 mg PO BID Qty: 180 RF: 1 lisinopril 40 mg tablet 40 mg PO QAM Qty: 90 RF: 3 isosorbide mononitrate 60 mg tablet extended release 24 hr See Rx Instructions PO BID Qty: 225 RF: 1 omega 0-wpy-lby-fish oil [Fish Oil] 1,000 mg (120 mg-180 mg) capsule 1 cap PO QAM RF: 0 insulin aspart U-100 [Novolog Flexpen U-100 Insulin] 100 unit/mL (3 mL) insulin pen 25 - 35 unit SUBCUT DIRECTED MDD 35 UNITS/DAILY RF: 0 qamfzhm-afwmlcadj-cuoz 333-133-5 mg Tablet 1 tab PO DAILY RF: 0 carvedilol 25 mg tablet 25 mg PO BID RF: 0 montelukast 10 mg tablet 10 mg PO QPM RF: 0 nortriptyline 10 mg capsule 20 mg PO HS RF: 0 Lantus Solostar U-100 Insulin 100 unit/mL (3 mL) insulin pen 27 unit SUBCUT HS RF: 0 amiodarone 200 mg tablet 200 mg PO Q2D RF: 0 lorazepam 0.5 mg tablet 0.5 mg PO Q12H PRN (Reason: Anxiety) Qty: 5 RF: 0 Discharge Orders: Discharge Order (Routine); Ordered 02/05/20 Ordered By: Anastasiya Noriega Admission Data Admit Date/Time: 02/01/20 22:21 Attending Provider: Anastasiya Noriega Admit Provider: Jostin Naqvi Primary Care Provider: Kyle Lamb Other Providers: Benjamín Mcguire ; John Arias ; Maddison Payan [place] Coding Level of Care Code D/C Day Management >30 mins Diagnoses Fracture of tibia and fibula, shaft S82.201A; S82.401A Encounter type: initial encounter Fracture type: closed Laterality: right Fall W19.XXXA Encounter type: initial encounter Effusion, right knee M25.461 Asymmetrical hearing loss of right ear H91.8X1 Pacemaker Z95.0 Sensorineural hearing loss (SNHL) of right ear with restricted hearing of left ear H90.A21 Abnormal gait R26.9 Arteriosclerotic cardiovascular disease I25.10 Atrial fibrillation I48.91 Chronic anticoagulation Z79.01 Diabetic hypoglycemia E11.649 Diabetic nephropathy E11.21 Diabetic peripheral neuropathy E11.42 Type 2 diabetes mellitus E11.9 PRITCHARD (dyspnea on exertion) R06.09 Paroxysmal atrial fibrillation I48.0 Atrial fibrillation with RVR I48.91 CAD (coronary artery disease) I25.10 Coronary Disease-Associated Artery/Lesion type: unspecified vessel or lesion type [place] vs. transplanted heart: [place] heart Associated angina: without angina Anemia, unspecified D64.9 Anemia type: unspecified type Hypotension I95.9
[2020-02-05 13:44] VITALS: BP 160/67; PULSE 83
== END 2020-02-05 14:22 | DRG 493 ==
LOC: ED 19:33 → SUATTDRO 22:21 → 2N 22:21

== ENCOUNTER 2020-11-28 22:26 | Observation (INO) ==
[2020-11-28 22:48] LABS: Basophils # (auto) 0.01 K/uL (0-0.2); Basophils % (auto) 0.2 %; Eosinophils # (auto) 0.05 K/uL (0-0.5); Eosinophils % (auto) 0.8 %; Hematocrit (blood only) 34.4 % (42-52); Hemoglobin 11.3 g/dL (14.0-18.0); Immature Granulocytes # (auto) 0.02 K/uL (0.00-0.02); Immature Granulocytes % (auto) 0.3 %; Lymphocytes # (auto) 1.66 K/uL (1.2-3.4); Mean Corpuscular Hemoglobin 29.8 pg (25-34); Mean Corpuscular Hgb Conc 32.8 g/dL (32-36); Mean Corpuscular Volume 90.8 fL (80-100); Mean Platelet Volume 9.7 fL (7.4-10.4); Neutrophils # (auto) 4.51 K/uL (1.4-6.5); Neutrophils % (auto) 67.7 %; Platelet Count 260 K/uL (130-400); RDW Coefficient of Variation 15.8 % (11.5-14.5); RDW Standard Deviation 52.6 fL (36.4-46.3); Red Blood Count 3.79 M/uL (4.7-6.1); White Blood Count 6.65 K/uL (4.8-10.8)
[2020-11-28 22:58] LABS: Partial Thromboplastin Ratio 0.9; Partial Thromboplastin Time 22.7 Seconds (21.0-31.0); Prothrombin Time 10.5 Seconds (9.0-12.0)
[2020-11-28 23:18] LABS: Alanine Aminotransferase 33 U/L (12-78); Albumin Globulin Ratio 1.1 (0.9-2); Albumin Level 3.4 gm/dl (3.4-5.0); Alkaline Phosphatase 90 U/L (45-117); BUN Creatinine Ratio 19.9 (10-20); Bilirubin,Total 0.4 mg/dl (0.2-1); Blood Urea Nitrogen 29 mg/dl (7-18); Calcium 9.6 mg/dl (8.5-10.1); Carbon Dioxide 32 mmol/L (21-32); Chloride 99 mmol/L (98-107); Est GFR (African American) 50.5 ml/min; Est GFR (Non-African American) 43.5 ml/min; Globulin 3.2 gm/dl (2.5-4.0); Glucose 391 mg/dl (70-99); Sodium 137 mmol/L (136-145); Total Protein 6.6 gm/dl (6.4-8.2)
[2020-11-28] MEDS ORDERED: NovoLIN-R INSULIN PER UNIT CHARGE IV STA (23:23)
[2020-11-28 23:34] LABS: Aspartate Aminotransferase 13 U/L (15-37)
[2020-11-28 23:35] LABS: Potassium 3.8 mmol/L (3.5-5.1)
[2020-11-29] MEDS ORDERED: INSULIN GLARGINE SOLOSTAR 100 UNITS/ML 3 ML PEN SC STA ×2 (00:21→00:50)
[2020-11-29] MEDS ORDERED: ISOSORBIDE MONO EXTENDED REL 60 MG TABCR PO STA (00:21)
[2020-11-29] MEDS ORDERED: APIXABAN 5 MG TABLET PO STA (00:21)
[2020-11-29] MEDS ORDERED: hydrALAZINE TAB 50 MG TAB PO STA (00:21)
[2020-11-29] MEDS ORDERED: ATORVASTATIN 40 MG TAB PO STA (00:21)
--- NOTE | 2020-11-29 00:35 | History & Physical Report ---
Date of Service November 29, 2020 Assessment & Plan (1) Chest pain: 85yo C male with history of CAD s/p ND, ICM with Biventricular AICD in place, HTN, HLP, DM, PAF presenting with acute onset left sided chest pain with radiation down bilateral arms to to back between shoulder pains. Pain relieved with ASA and Nitro x 4 - now with only dull left arm discomfort. EKG is A- sensed, V-paced. Troponin is detectable at 0.02. Concern for ACS Patient has chronic longstanding pain in bilateral shoulders for which he follows with Ortho -Admit to PCU, continuous cardiac monitoring -Trend troponin q 8 hours x 3 sets -Check BNP -Nitro -Morphine PRN -Oxygen PRN -Continue home medications - Atorvastatin, Carvedilol, Plavix, Lisinopril -Cardiology consultation appreciated -Will keep patient NPO for now Present on Admission?: Yes (2) Ischemic cardiomyopathy: Patient appears largely euvolemic - has chronic LE edema, faint bibasilar crackles. He does not endorse dyspnea/orthopnea/weight gain or worsening edema. Patient follows with Heart Failure clinic. Notes chronic LE edema thought to have component of venous insufficiency, stable weight of 190-193# -Continue Bumex 3mg po BID -Continue Carvedilol, Lisinopril, Isosorbide and Hydralazine -Monitor volume status Present on Admission?: Yes (3) Diabetes mellitus with complication: Elevated blood sugar, no anion gap or BHB. Patient administered IV insulin in ER -Lantus 12u now -Resume home regimen -Continue to monitor Present on Admission?: Yes (4) Anemia of chronic disease: Near baseline. No active bleeding -Continue to monitor Present on Admission?: Yes (5) CAD (coronary artery disease): As above, known CAD presenting with chest pain. Concern for ACS -Continue Plavix, Atorvastatin, Carvedilol, Lisinopril Present on Admission?: Yes (6) Dyslipidemia: Chronic -Continue Atorvastatin Present on Admission?: Yes (7) Anxiety: Chronic -Continue Sertraline -Trazodone qHS for insomnia Present on Admission?: Yes (8) GERD (gastroesophageal reflux disease): Chronic. Well controlled -Continue Pepcid 40mg daily Present on Admission?: Yes (9) Hypertension: Hypertensive in ER. Patient has not received his home medications -Continue home medications -Administer PM dose now Present on Admission?: Yes (10) Paroxysmal atrial fibrillation: Rate controlled -Continue Amiodarone -Continue Carvedilol -Continue Diltiazem -Continue Apixaban F/E/N - Continue home diuretics, monitor electrolytes and replete as needed, NPO for now Ppx - On Apixaban Code - Full per discussion with patient Dispo - Observation to PCU Present on Admission?: Yes History of Present Illness Chief Complaint: chest pain Primary Care Provider: Kyle Lamb MD Marquis Salgado is an 85yo C male with complicated past medical history, most notably CAD s/p ND with ischemic cardiomyopathy s/p biventricular AICD in place, PAF on Eliquis anticoagulation, HTN/HLP and DM. Patient was in his usual state of health today until appx 20:00 - he was eating dinner (steak sandwiches and potato salad) when he developed acute onset of left sided chest pain - 810 in severity - radiation across chest, down bilateral arms and to back between shoulder blades. He had some mild shortness of breath associated with the pain but no nausea/diaphoresis/lightheadedness or palpitations. He took Nitro x 2 at home with no improvement so he called EMS. EMS administered ASA x 324mg and Nitro x 2 - pain began to improve. Patient now with some dull aching pain in left shoulder. No additional complaints. Patient was admitted for respiratory failure secondarty to acute exacerbation of CHF requiring intubation from 06/22 - 06/29. He reports ongoing weakness and difficulty with ambulation since this admission. Patient follows with Dr. Hermosillo as well as Dr. Stanton. Recent generator replacement performed on 10/13/20 followed by bleeding at surgical site. Last echo performed on 08/08/20 with normal LV size, EF of 45-50%, global hypokinesis. Seen by Cardiology on 10/19/20 for routine followup. No medication changes. Allergies Allergy/AdvReac Type Severity Reaction Status Date / Time pravastatin [From Pravachol] AdvReac Unknown Unknown Verified 11/29/20 00:04 rosuvastatin [From Crestor] AdvReac Unknown Unknown Verified 11/29/20 00:04 Home Medications Medication Instructions Recorded Confirmed Type omega 6-ysl-obs-fish oil 1,000 mg 1 cap PO QAM cap 03/13/19 11/29/20 History (120 mg-180 mg) capsule [id number] 1 tab PO QAM 12/26/19 11/28/20 History insulin aspart U-100 [Novolog 0 unit SUBCUT DIRECTED MDD 35 12/26/19 11/28/20 History Flexpen U-100 Insulin] UNITS/DAILY multivitamin [Daily-Darryl] 1 tab PO QAM #30 tab 02/05/20 11/29/20 Rx nitroglycerin 0.4 mg sublingual 0.4 mg SUBLINGUAL Q5M PRN #30 tab 04/06/20 11/29/20 Rx tablet atorvastatin 40 mg tablet 40 mg PO HS #90 tab 04/22/20 11/28/20 Rx trazodone 50 mg tablet 50 mg PO HS #30 tab 08/04/20 11/29/20 Rx famotidine 40 mg PO QAM 08/07/20 11/28/20 History fluticasone propionate [Flonase 1 spray INTRANASAL DAILY PRN 08/07/20 11/28/20 History Allergy Relief] hydralazine 50 mg tablet 50 mg PO QID 30 Days #120 tab 08/24/20 11/28/20 Rx apixaban 5 mg tablet 5 mg PO BID #180 tab 09/02/20 11/28/20 Rx clopidogrel 75 mg tablet 75 mg PO DAILY #90 tab 09/02/20 11/28/20 Rx potassium chloride 10 mEq 20 meq PO BID #180 tab 09/15/20 11/29/20 Rx tablet,extended release bumetanide 2 mg tablet 3 mg PO BID #90 tab 10/12/20 11/28/20 Rx carvedilol 25 mg tablet 37.5 mg PO BID #270 tab 10/23/20 11/28/20 Rx diltiazem HCl 90 mg 90 mg PO BID #180 cap 10/23/20 11/28/20 Rx capsule,extended release 12 hr insulin glargine 100 unit/mL (3 27 unit SUBCUT HS #15 syr 10/23/20 11/29/20 Rx mL) subcutaneous pen isosorbide mononitrate 60 mg 60 mg PO HS #90 tab 10/23/20 11/29/20 Rx tablet,extended release 24 hr lisinopril 40 mg tablet 40 mg PO QAM #90 tab 10/23/20 11/29/20 Rx montelukast 10 mg tablet 10 mg PO HS #90 tab 10/23/20 11/29/20 Rx sertraline 25 mg tablet 25 mg PO QAM #90 tab 10/23/20 11/29/20 Rx amiodarone 200 mg tablet 200 mg PO Q2D #45 tab 10/27/20 11/28/20 Rx levocetirizine 5 mg tablet 5 mg PO HS #90 tab 11/06/20 11/29/20 Rx latanoprost 1 drp OPL HS 11/29/20 11/29/20 History Past Med/Surg History Medical History Accidental fall Acquired bilateral foot drop Ataxia Biventricular ICD (implantable cardioverter-defibrillator) in place CAD (coronary artery disease) Cardiac defibrillator in place Chronic diastolic CHF (congestive heart failure) Closed head injury Diabetes mellitus with diabetic polyneuropathy Heart disease Hip pain, bilateral History of CVA (cerebrovascular accident) Hypercholesteremia Hypertension ICD (implantable cardioverter-defibrillator) battery depletion Intraabdominal mass Ischemic cardiomyopathy Non-ST elevation ND (NSTEMI) (11/07/13) "PCI on 11/08/13; BMS in RCA" Paroxysmal atrial fibrillation Pericardial effusion Sensorineural hearing loss (SNHL) of right ear with restricted hearing of left ear Shoulder pain, bilateral SOB (shortness of breath) Surgical History History of back surgery S/P appendectomy S/P cholecystectomy S/P hernia repair Status post open reduction with internal fixation (ORIF) of fracture of ankle Family History Mother Breast cancer Cancer Father Hearing loss Other No significant family history Denies family history of Ovarian cancer Prostate cancer Myocardial infarction Colorectal cancer Social History Smoking Status: Unknown if ever smoked Tobacco Type: Cigarettes Second Hand Exposure: No; Hx Alcohol Use: No Hx Substance Use: No Preferred Language: Mexican Communication Ability: Effective Visual Impairment: No 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 Required: No Beliefs That Will Affect Care: None marital status: Current Living Situation: Spouse Current Living Situation Comment: [facility] current occupational status: retired Feels Safe at Home: Yes Seatbelt Use: always Assistive Devices: Cane Review of Systems Review of Systems: All systems reviewed & are unremarkable except as noted in HPI & below Physical Exam Physical Exam: General: patient resting comfortably, NAD, non-toxic in appearance, AA&O x 4 Skin: warm, dry, intact, no rashes or lesions HEENT: NC/AT, PERRL, EOMI, anicteric sclera, conjunctiva without injection, external ear normal to inspection and nontender, nares patent, moist mucus membranes, dentition intact, no oropharyngeal lesions, neck supple, trachea midline, no LAD, no thyromegaly, no JVD Heart: +S1/S2, regular, 2/6 NICHOLE murmur LSB, no rubs/gallops, device left chest wall, nontender Lungs: equal air entry bilaterally, faint crackles in bilateral bases Abd: +BS, soft, NT/ND, no masses/organomegaly/ascites Ext: warm, 2+ pulses in UE/LE bilaterally, no clubbing/cyanosis, 1+ pitting edema of bilateral LE equal Neuro: nonfocal, patient AA&O x 4, speech intact, no facial droop, moving all extremities on command with equal strength 5/5 Results & Data Results & Data ([facility]) Vital Signs (Past 12 Hours) Vital Signs Temp Pulse Pulse Resp BP BP Pulse Ox 11/28/20 23:25 82 20 192/99 H 95 11/28/20 22:53 37.2 C 84 19 154/95 H 93 11/28/20 22:45 81 20 92 Laboratory Results Laboratory Results WBC 6.65 K/uL (4.8-10.8) 11/28/20 22:34 RBC 3.79 M/uL (4.7-6.1) L 11/28/20 22:34 Hgb 11.3 g/dL (14.0-18.0) L 11/28/20 22:34 Hct 34.4 % (42-52) L 11/28/20 22:34 MCV 90.8 fL (80-100) 11/28/20 22:34 MCH 29.8 pg (25-34) 11/28/20 22:34 MCHC 32.8 g/dL (32-36) 11/28/20 22:34 RDW Std Deviation 52.6 fL (36.4-46.3) H 11/28/20 22:34 RDW Coeff of [place]ol[place] 15.8 % (11.5-14.5) H 11/28/20 22:34 Plt Count 260 K/uL (130-400) 11/28/20 22:34 MPV 9.7 fL (7.4-10.4) 11/28/20 22:34 Immature Gran % (Auto) 0.3 % 11/28/20 22:34 Neut % (Auto) 67.7 % 11/28/20 22:34 Lymph % (Auto) 25.0 % 11/28/20 22:34 Duc[place]ne % (Auto) 6.0 % 11/28/20 22:34 Eos % (Auto) 0.8 % 11/28/20 22:34 Baso % (Auto) 0.2 % 11/28/20 22:34 Neut # (Auto) 4.51 K/uL (1.4-6.5) 11/28/20 22:34 Lymph # (Auto) 1.66 K/uL (1.2-3.4) 11/28/20 22:34 Duc[place]ne # (Auto) 0.40 K/uL (0.11-0.59) 11/28/20 22:34 Eos # (Auto) 0.05 K/uL (0-0.5) 11/28/20 22:34 Baso # (Auto) 0.01 K/uL (0-0.2) 11/28/20 22:34 Immature Gran # (Auto) 0.02 K/uL (0.00-0.02) 11/28/20 22:34 PT 10.5 Seconds (9.0-12.0) 11/28/20 22:34 INR 1.0 (0.9-1.1) 11/28/20:34 APTT 22.7 Seconds (21.0-31.0) 11/28/20 22:34 PTT Ratio 0.9 11/28/20 22:34 Sodium 137 mmol/L (136-145) 11/28/20 22:34 Potassium 3.8 mmol/L (3.5-5.1) 11/28/20 22:34 Chloride 99 mmol/L (98-107) 11/28/20 22:34 Carbon Dioxide 32 mmol/L (21-32) 11/28/20 22:34 Anion Gap 6.0 (3-11) 11/28/20 22:34 BUN 29 mg/dl (7-18) H 11/28/20 22:34 Creatinine 1.46 mg/dl (0.6-1.4) H 11/28/20 22:34 Est Cr Clr Drug Dosing Not Reportable 11/28/20 22:34 Est GFR ( Amer) 50.5 ml/min 11/28/20 22:34 Est GFR (Non-Af Amer) 43.5 ml/min 11/28/20 22:34 BUN/Creatinine Ratio 19.9 (10-20) 11/28/20 22:34 Glucose 391 mg/dl (70-99) H* 11/28/20 22:34 Calcium 9.6 mg/dl (8.5-10.1) 11/28/20 22:34 Total Bilirubin 0.4 mg/dl (0.2-1) 11/28/20 22:34 AST 13 U/L (15-37) L 11/28/20 22:34 ALT 33 U/L (12-78) 11/28/20 22:34 Alkaline Phosphatase 90 U/L (45-117) 11/28/20 22:34 Troponin I 0.020 ng/ml (0-0.045) 11/28/20 22:34 Total Protein 6.6 gm/dl (6.4-8.2) 11/28/20 22:34 Albumin 3.4 gm/dl (3.4-5.0) 11/28/20 22:34 Globulin 3.2 gm/dl (2.5-4.0) 11/28/20 22:34 Albumin/Globulin Ratio 1.1 (0.9-2) 11/28/20 22:34 Beta-Hydroxybutyric Acd 1.10 mg/dl (0.2-2.81) 11/28/20 22:34 COVID-19 Eval Order Covid19 at [facility] 11/29/20 00:17 ECG Additional Comments: Atrial sensed, ventricular paced rhythm at 86 PG Care Time/CCT Total # of Minutes Spent Total Time Spent with Patient: Total time spent is greater than 50% in coordination of care (as documented) at patient's floor/unit and/or counseling patient: Coding Level of Care Code 82488 OBS Care - Level 3 Diagnoses Chest pain R07.9 Chest pain type: unspecified Ischemic cardiomyopathy I25.5 Diabetes mellitus with complication E11.8 Anemia of chronic disease D63.8 CAD (coronary artery disease) I25.10 Coronary Disease-Associated Artery/Lesion type: [place] artery [place] vs. transplanted heart: [place] heart Associated angina: angina presence unspecified Dyslipidemia E78.5 Anxiety F41.9 GERD (gastroesophageal reflux disease) K21.9 Esophagitis presence: esophagitis presence not specified Hypertension I10 Hypertension type: essential hypertension Paroxysmal atrial fibrillation I48.0 (1) CAD (coronary artery disease) Coronary Disease-Associated Artery/Lesion type: [place] artery [place] vs. transplanted heart: [place] heart Associated angina: angina presence unspecified Qualified Code(s): I25.10 - Atherosclerotic heart disease of [place] coronary artery without angina pectoris (2) GERD (gastroesophageal reflux disease) Esophagitis presence: esophagitis presence not specified Qualified Code(s): K21.9 - Gastro-esophageal reflux disease without esophagitis (3) Hypertension Hypertension type: essential hypertension Qualified Code(s): I10 - Essential (primary) hypertension (4) Chest pain Chest pain type: unspecified Qualified Code(s): R07.9 - Chest pain, unspecified
[2020-11-29] MEDS ORDERED: BUMETANIDE 1 MG TAB PO STA (00:43)
[2020-11-29] MEDS ORDERED: carvediloL 12.5 MG TAB PO STA (00:44)
[2020-11-29] MEDS ORDERED: traZODone HCL 50 MG TAB PO STA (00:44)
--- NOTE | 2020-11-29 00:52 | Emergency Department Note ---
History of Present Illness General Chief Complaint: Chest Pain Stated Complaint: chest pain Time Seen by Provider: 11/28/20 22:52 History of Present Illness This 85-year-old presents to the ER complaining of chest pain Location: Chest Quality: Pressure Severity: Moderate Duration: Tonight Timing: Started after dinner Context: Patient was concerned and came in Modifying factors: better with nitroglycerin; worse with nothing Patient started with back pain then moved to his chest and became sweaty and nauseous with it. He said prior heart disease. He falls with cardiology. He has a pacemaker and a defibrillator. Patient feels much better after taking nitroglycerin. EMS gave nitro and aspirin. Patient states he is currently pain- free. Patient denies abdominal pain, dyspnea, flulike illness. He has received his Covid vaccine. Home Medications Medication Instructions Recorded Confirmed Type omega 7-pqu-jxb-fish oil 1,000 mg 1 cap PO QAM cap 03/13/19 11/29/20 History (120 mg-180 mg) capsule dmtozot-[id number] 1 tab PO QAM 12/26/19 11/28/20 History insulin aspart U-100 [Novolog 0 unit SUBCUT DIRECTED MDD 35 12/26/19 11/28/20 History Flexpen U-100 Insulin] UNITS/DAILY multivitamin [Daily-Darryl] 1 tab PO QAM #30 tab 02/05/20 11/29/20 Rx nitroglycerin 0.4 mg sublingual 0.4 mg SUBLINGUAL Q5M PRN #30 tab 04/06/20 11/29/20 Rx tablet atorvastatin 40 mg tablet 40 mg PO HS #90 tab 04/22/20 11/28/20 Rx trazodone 50 mg tablet 50 mg PO HS #30 tab 08/04/20 11/29/20 Rx famotidine 40 mg PO QAM 08/07/20 11/28/20 History fluticasone propionate [Flonase 1 spray INTRANASAL DAILY PRN 08/07/20 11/28/20 History Allergy Relief] hydralazine 50 mg tablet 50 mg PO QID 30 Days #120 tab 08/24/20 11/28/20 Rx apixaban 5 mg tablet 5 mg PO BID #180 tab 09/02/20 11/28/20 Rx clopidogrel 75 mg tablet 75 mg PO DAILY #90 tab 09/02/20 11/28/20 Rx potassium chloride 10 mEq 20 meq PO BID #180 tab 09/15/20 11/29/20 Rx tablet,extended release bumetanide 2 mg tablet 3 mg PO BID #90 tab 10/12/20 11/28/20 Rx carvedilol 25 mg tablet 37.5 mg PO BID #270 tab 10/23/20 11/28/20 Rx diltiazem HCl 90 mg 90 mg PO BID #180 cap 10/23/20 11/28/20 Rx capsule,extended release 12 hr insulin glargine 100 unit/mL (3 27 unit SUBCUT HS #15 syr 10/23/20 11/29/20 Rx mL) subcutaneous pen isosorbide mononitrate 60 mg 60 mg PO HS #90 tab 10/23/20 11/29/20 Rx tablet,extended release 24 hr lisinopril 40 mg tablet 40 mg PO QAM #90 tab 10/23/20 11/29/20 Rx montelukast 10 mg tablet 10 mg PO HS #90 tab 10/23/20 11/29/20 Rx sertraline 25 mg tablet 25 mg PO QAM #90 tab 10/23/20 11/29/20 Rx amiodarone 200 mg tablet 200 mg PO Q2D #45 tab 10/27/20 11/28/20 Rx levocetirizine 5 mg tablet 5 mg PO HS #90 tab 11/06/20 11/29/20 Rx latanoprost 1 drp OPL HS 11/29/20 11/29/20 History Allergies Allergy/AdvReac Type Severity Reaction Status Date / Time pravastatin [From Pravachol] AdvReac Unknown Unknown Verified 11/29/20 00:04 rosuvastatin [From Crestor] AdvReac Unknown Unknown Verified 11/29/20 00:04 Past Med/Surg History Medical History Accidental fall Acquired bilateral foot drop Ataxia Biventricular ICD (implantable cardioverter-defibrillator) in place CAD (coronary artery disease) Cardiac defibrillator in place Chronic diastolic CHF (congestive heart failure) Closed head injury Diabetes mellitus with diabetic polyneuropathy Heart disease Hip pain, bilateral History of CVA (cerebrovascular accident) Hypercholesteremia Hypertension ICD (implantable cardioverter-defibrillator) battery depletion Intraabdominal mass Ischemic cardiomyopathy Non-ST elevation UT (NSTEMI) (11/07/13) "PCI on 11/08/13; BMS in RCA" Paroxysmal atrial fibrillation Pericardial effusion Sensorineural hearing loss (SNHL) of right ear with restricted hearing of left ear Shoulder pain, bilateral SOB (shortness of breath) Surgical History History of back surgery S/P appendectomy S/P cholecystectomy S/P hernia repair Status post open reduction with internal fixation (ORIF) of fracture of ankle Family History Mother Breast cancer Cancer Father Hearing loss Other No significant family history Denies family history of Ovarian cancer Prostate cancer Myocardial infarction Colorectal cancer Social History Smoking Status: Former smoker Tobacco Type: Cigarettes Second Hand Exposure: No; Hx Alcohol Use: No Hx Substance Use: No Preferred Language: Tamazight Communication Ability: Effective Visual Impairment: No Limitations Resistor Coater Required: No Beliefs That Will Affect Care: None marital status: Current Living Situation: Spouse Current Living Situation Comment: lives at [facility] current occupational status: retired How many Children do You have: 2 Feels Safe at Home: Yes Seatbelt Use: always Assistive Devices: Denture - Upper, Glasses and Walker Review of Systems A total of 10 systems reviewed and were otherwise negative Physical Exam Vital Signs Vital Signs - 24 hr 11/28/20 22:45 11/28/20 22:53 11/28/20 23:25 Temperature 37.2 C Temperature Source Oral Pulse Rate 81 84 Pulse Rate [Bilateral Apical] 82 Pulse Rate from SpO2 Sensor 81 Respiratory Rate 20 19 20 Respiratory Effort / Characteristics Non-Labored Spontaneous Respiratory Depth Normal Blood Pressure 154/95 H Blood Pressure [Left Arm] 192/99 H Blood Pressure Mean 114 Blood Pressure Mean [Left Arm] 130 Pulse Oximetry 92 93 95 Oxygen Delivery Method Room Air Room Air Room Air Sepsis New/Unexplained Change in Mental Status N/A Sepsis Action Taken by Nursing No Action Required 11/29/20 00:53 11/29/20 01:19 Temperature Temperature Source Pulse Rate Pulse Rate [Bilateral Apical] 85 83 Pulse Rate from SpO2 Sensor Respiratory Rate 20 20 Respiratory Effort / Characteristics Respiratory Depth Blood Pressure Blood Pressure [Left Arm] 141/95 H 190/97 H Blood Pressure Mean Blood Pressure Mean [Left Arm] 110 128 Pulse Oximetry 95 98 Oxygen Delivery Method Sepsis New/Unexplained Change in Mental Status Sepsis Action Taken by Nursing VITALS: Vitals are noted on the nurse's note and reviewed by myself. Vital signs stable. GENERAL: Pleasant male, in no acute distress, nondiaphoretic, well-developed well-nourished. SKIN: Capillary reflex less than 2 seconds. HEENT: Normocephalic. PERRLA. EOMI. Nares patent. Mucous membranes moist. Neck is supple without nuchal rigidity. HEART: Regular rate and rhythm LUNGS: Clear to auscultation bilaterally without wheezes, rales or rhonchi. No retractions or accessory muscle use. ABDOMEN: Positive bowel sounds x 4. Normal tympanic percussion. Soft, nontender, without masses or organomegaly. Fisher sign negative. No guarding or rebound tenderness. MUSCULOSKELETAL: No gross musculoskeletal defects. NEURO: Patient was alert and oriented to person place and time. No focal neurological deficits. Course Administered Medications Amiodarone HCl (Amiodarone 200 Mg Tab) 200 mg PO Q2D KEVIN Stop: 12/29/20 08:59 Last Admin: 11/29/20 08:20 Dose: 200 mg Documented by: [id number] Apixaban (Apixaban 5 Mg Tablet) 5 mg PO BID KEVIN Stop: 12/29/20 08:59 Last Admin: 11/29/20 20:35 Dose: 5 mg Documented by: [id number] Admin: 11/29/20 08:21 Dose: 5 mg Documented by: [id number] Atorvastatin Calcium (Atorvastatin 40 Mg Tab) 40 mg PO HS KEVIN Stop: 12/29/20 20:59 Last Admin: 11/29/20 20:35 Dose: 40 mg Documented by: [id number] Bumetanide (Bumetanide 1 Mg Tab) 3 mg PO BID KEVIN Stop: 12/29/20 08:59 Last Admin: 11/29/20 20:36 Dose: 3 mg Documented by: [id number] Admin: 11/29/20 08:21 Dose: 3 mg Documented by: [id number] Carvedilol (Carvedilol 12.5 Mg Tab) 37.5 mg PO BID KEVIN Stop: 12/29/20 08:59 Last Admin: 11/29/20 20:36 Dose: 37.5 mg Documented by: [id number] Admin: 11/29/20 08:23 Dose: 37.5 mg Documented by: [id number] Clopidogrel Bisulfate (Clopidogrel Bisulfate 75 Mg Tab) 75 mg PO DAILY [facility] Stop: 12/29/20 08:59 Last Admin: 11/29/20 08:21 Dose: 75 mg Documented by: [id number] Diltiazem HCl (Diltiazem Hcl 60 Mg Tab) 60 mg PO TID [facility] Stop: 12/29/20 20:59 Last Admin: 11/29/20 20:36 Dose: 60 mg Documented by: [id number] Famotidine (Famotidine 40 Mg Tablet) 40 mg PO QAM [facility] Stop: 12/29/20 08:59 Last Admin: 11/29/20 08:23 Dose: 40 mg Documented by: [id number] Hydralazine HCl (Hydralazine Tab 50 Mg Tab) 50 mg PO QID [facility] Stop: 12/29/20 08:59 Last Admin: 11/29/20 20:35 Dose: 50 mg Documented by: [id number] Admin: 11/29/20 17:07 Dose: 50 mg Documented by: [id number] Admin: 11/29/20 12:10 Dose: 50 mg Documented by: [id number] Admin: 11/29/20 09:54 Dose: 50 mg Documented by: [id number] Insulin Aspart (Insulin Aspart 100 Units/Ml 3 Ml Pen) 0 units SC Q6 [facility] Stop: 12/29/20 05:59 Last Admin: 11/29/20 17:06 Dose: 4 units Documented by: [id number] Cosigned by: [id number] Admin: 11/29/20 12:09 Dose: 3 units Documented by: [id number] Cosigned by: [id number] Admin: 11/29/20 05:59 Dose: 3 units Documented by: [id number] Cosigned by: [id number] Insulin Glargine (Insulin Glargine Solostar 100 Units/Ml 3 Ml Pen) 27 units SQ HS [facility] Stop: 12/29/20 20:59 Last Admin: 11/29/20 21:29 Dose: 12 units Documented by: [id number] Cosigned by: [id number] Isosorbide Mononitrate (Isosorbide [place] Extended Rel 60 Mg Tabcr) 60 mg PO HS [facility] Stop: 12/29/20 20:59 Last Admin: 11/29/20 20:35 Dose: 60 mg Documented by: [id number] Latanoprost (Latanoprost 0.005% Op Soln 2.5 Ml Btl) 1 drops OPL [facility] Stop: 12/29/20 20:59 Last Admin: 11/29/20 21:55 Dose: 1 drops Documented by: [id number] Lisinopril (L[facility]opril 40 Mg Tab) [facility] [place] Stop: 12/29/20 08:59 Last Admin: 11/29/20 08:21 Dose: 40 mg Documented by: [id number] Miscellaneous (Cardizem~Order Awaiting Action) 1 ea N/A QS [facility] Stop: 12/29/20 07:59 Last Admin: 11/29/20 23:29 Dose: Not Given Documented by: [id number] Admin: 11/29/20 17:08 Dose: Not Given Documented by: [id number] Admin: 11/29/20 09:22 Dose: Not Given Documented by: [id number] Montelukast Sodium (Montelukast Sodium 10 Mg Tablet) 10 mg PO [facility] Stop: 12/29/20 20:59 Last Admin: 11/29/20 20:35 Dose: 10 mg Documented by: [id number] Sertraline HCl (Sertraline Hcl 50 Mg Tablet) 25 mg PO QAM [facility] Stop: 12/29/20 08:59 Last Admin: 11/29/20 08:22 Dose: 25 mg Documented by: [id number] Trazodone HCl (Trazodone Hcl 50 Mg Tab) 50 mg PO [facility] Stop: 12/29/20 20:59 Last Admin: 11/29/20 20:36 Dose: 50 mg Documented by: [id number] Discontinued Medications Amiodarone HCl (Amiodarone 200 Mg Tab) 200 mg PO Q2D KEVIN Stop: 12/29/20 02:21 Last Admin: 11/29/20 03:50 Dose: Not Given Documented by: [id number] Apixaban (Apixaban 5 Mg Tablet) 5 mg PO NOW STA Stop: 11/29/20 00:22 Last Admin: 11/29/20 01:11 Dose: 5 mg Documented by: [id number] Atorvastatin Calcium (Atorvastatin 40 Mg Tab) 40 mg PO NOW STA Stop: 11/29/20 00:22 Last Admin: 11/29/20 01:10 Dose: 40 mg Documented by: [id number] Bumetanide (Bumetanide 1 Mg Tab) 3 mg PO NOW STA Stop: 11/29/20 00:44 Last Admin: 11/29/20 01:10 Dose: 3 mg Documented by: [id number] Carvedilol (Carvedilol 12.5 Mg Tab) 37.5 mg PO NOW STA Stop: 11/29/20 00:45 Last Admin: 11/29/20 01:10 Dose: 37.5 mg Documented by: [id number] Diltiazem HCl (Diltiazem Sr 60 Mg Cap) 60 mg PO NOW STA Stop: 11/29/20 00:51 Last Admin: 11/29/20 01:11 Dose: 60 mg Documented by: [id number] Diltiazem HCl (Diltiazem Sr 60 Mg Cap) 60 mg PO BID KEVIN Stop: 11/29/20 09:01 Last Admin: 11/29/20 08:24 Dose: 60 mg Documented by: [id number] Hydralazine HCl (Hydralazine Tab 50 Mg Tab) 50 mg PO NOW STA Stop: 11/29/20 00:22 Last Admin: 11/29/20 01:11 Dose: 50 mg Documented by: [id number] Insulin Glargine (Insulin Glargine Solostar 100 Units/Ml 3 Ml Pen) 12 units SC NOW STA Stop: 11/29/20 00:51 Last Admin: 11/29/20 01:12 Dose: 12 units Documented by: [id number] Cosigned by: [id number] Insulin Human Regular (Novolin-R Insulin Per Unit Charge) 10 units IV NOW STA Stop: 11/28/20 23:24 Last Admin: 11/28/20 23:31 Dose: 10 units Documented by: [id number] Cosigned by: [id number] Isosorbide Mononitrate (Isosorbide [place] Extended Rel 60 Mg Tabcr) 60 mg PO NOW STA Stop: 11/29/20 00:22 Last Admin: 11/29/20 01:11 Dose: 60 mg Documented by: [id number] Nitroglycerin (Nitroglycerin 2% Ointment 30gm Tube) 1 inch EXT Q6 KEVIN Stop: 12/29/20 05:59 Last Admin: 11/29/20 12:27 Dose: Not Given Documented by: [id number] Admin: 11/29/20 05:49 Dose: 1 inch Documented by: [id number] Trazodone HCl (Trazodone Hcl 50 Mg Tab) 50 mg PO NOW STA Stop: 11/29/20 00:45 Last Admin: 11/29/20 01:11 Dose: 50 mg Documented by: [id number] Medical Decision Making Medical Records Attestation: I reviewed the patient's medical records. Home Medications Current Medication List: was personally reviewed by me Laboratory Data Attestation: I reviewed the patient's lab results. Result diagrams: 11/28/20 22:34 11/28/20 22:34 Labs: Lab Results 11/28/20 11/28/20 11/28/20 Range/Units 22:34 22:34 22:34 WBC 6.65 (4.8-10.8) K/uL RBC 3.79 L (4.7-6.1) M/uL Hgb 11.3 L (14.0-18.0) g/dL Hct 34.4 L (42-52) % MCV 90.8 (80-100) fL MCH 29.8 (25-34) pg MCHC 32.8 (32-36) g/dL RDW Std Deviation 52.6 H (36.4-46.3) fL RDW Coeff of [place] 15.8 H (11.5-14.5) % Plt Count 260 (130-400) K/uL MPV 9.7 (7.4-10.4) fL Immature Gran % (Auto) 0.3 % Neut % (Auto) 67.7 % Lymph % (Auto) 25.0 % [place] % (Auto) 6.0 % Eos % (Auto) 0.8 % Baso % (Auto) 0.2 % Neut # (Auto) 4.51 (1.4-6.5) K/uL Lymph # (Auto) 1.66 (1.2-3.4) K/uL [place] # (Auto) 0.40 (0.11-0.59) K/uL Eos # (Auto) 0.05 (0-0.5) K/uL Baso # (Auto) 0.01 (0-0.2) K/uL Immature Gran # (Auto) 0.02 (0.00-0.02) K/uL PT 10.5 (9.0-12.0) Seconds INR 1.0 (0.9-1.1) APTT 22.7 (21.0-31.0) Seconds PTT Ratio 0.9 Sodium 137 (136-145) mmol/L Potassium 3.8 (3.5-5.1) mmol/L Chloride 99 (98-107) mmol/L Carbon Dioxide 32 (21-32) mmol/L Anion Gap 6.0 (3-11) BUN 29 H (7-18) mg/dl Creatinine 1.46 H (0.6-1.4) mg/dl Est Cr Clr Drug Dosing Not Reportable Est GFR ( Amer) 50.5 ml/min Est GFR (Non-Af Amer) 43.5 ml/min BUN/Creatinine Ratio 19.9 (10-20) Glucose 391 H* (70-99) mg/dl Calcium 9.6 (8.5-10.1) mg/dl Magnesium 2.0 (1.8-2.4) mg/dl Total Bilirubin 0.4 (0.2-1) mg/dl AST 13 L (15-37) U/L ALT 33 (12-78) U/L Alkaline Phosphatase 90 (45-117) U/L Troponin I 0.020 (0-0.045) ng/ml NT-Pro-B Natriuret Pep 2061 H (0-1800) pg/ml Total Protein 6.6 (6.4-8.2) gm/dl Albumin 3.4 (3.4-5.0) gm/dl Globulin 3.2 (2.5-4.0) gm/dl Albumin/Globulin Ratio 1.1 (0.9-2) Beta-Hydroxybutyric Acd 1.10 (0.2-2.81) mg/dl COVID-19 Eval Order SARS-CoV-2 (PCR) (Negative) 11/29/20 11/29/20 Range/Units 00:17 00:17 WBC (4.8-10.8) K/uL RBC (4.7-6.1) M/uL Hgb (14.0-18.0) g/dL Hct (42-52) % MCV (80-100) fL MCH (25-34) pg MCHC (32-36) g/dL RDW Std Deviation (36.4-46.3) fL RDW Coeff of [place] (11.5-14.5) % Plt Count (130-400) K/uL MPV (7.4-10.4) fL Immature Gran % (Auto) % Neut % (Auto) % Lymph % (Auto) % [place] % (Auto) % Eos % (Auto) % Baso % (Auto) % Neut # (Auto) (1.4-6.5) K/uL Lymph # (Auto) (1.2-3.4) K/uL [place] # (Auto) (0.11-0.59) K/uL Eos # (Auto) (0-0.5) K/uL Baso # (Auto) (0-0.2) K/uL Immature Gran # (Auto) (0.00-0.02) K/uL PT (9.0-12.0) Seconds INR (0.9-1.1) APTT (21.0-31.0) Seconds PTT Ratio Sodium (136-145) mmol/L Potassium (3.5-5.1) mmol/L Chloride (98-107) mmol/L Carbon Dioxide (21-32) mmol/L Anion Gap (3-11) BUN (7-18) mg/dl Creatinine (0.6-1.4) mg/dl Est Cr Clr Drug Dosing Est GFR ( Amer) ml/min Est GFR (Non-Af Amer) ml/min BUN/Creatinine Ratio (10-20) Glucose (70-99) mg/dl Calcium (8.5-10.1) mg/dl Magnesium (1.8-2.4) mg/dl Total Bilirubin (0.2-1) mg/dl AST (15-37) U/L ALT (12-78) U/L Alkaline Phosphatase (45-117) U/L Troponin I (0-0.045) ng/ml NT-Pro-B Natriuret Pep (0-1800) pg/ml Total Protein (6.4-8.2) gm/dl Albumin (3.4-5.0) gm/dl Globulin (2.5-4.0) gm/dl Albumin/Globulin Ratio (0.9-2) Beta-Hydroxybutyric Acd (0.2-2.81) mg/dl COVID-19 Eval Order Covid19 at [facility] SARS-CoV-2 (PCR) NEGATIVE (Negative) MDM Narrative Prior records/ancillary studies reviewed. Triage Nursing notes reviewed. Additional history obtained from nursing. The patient's history was concerning for chest pain. Differential diagnosis: Etiologies such as cardiac ischemia, aortic dissection, pulmonary embolism, pneumonia, pneumothorax, musculoskeletal, infections, pericarditis, myocarditis, esophageal rupture, gastrointestinal, as well as others were entertained. Physical examination: As above. ER treatment provided: An order was placed for continuous cardiac monitoring. The monitor shows a rate of 60-100 with a sinus rhythm. Patient was observed On reassessment the patient felt better. Diagnostic interpretation by me: The electrocardiogram was paced ventricular rhythm with no acute ST or T wave changes. Impression paced ventricular rhythm interpreted by myself EKG ordered for chest pain I think arrhythmia is unlikely. EKG shows no interval abnormalities such as QT prolongation or WPW. There are no findings to suggest Brugada syndrome. Cardiac monitoring in the emergency department reveals no tachycardic or bradycardic dysrhythmia. Hypertrophic cardiomyopathy was considered but there are no clear historical elements pointing toward this. EKG is not suggestive. The labs revealed hyperglycemia, negative troponin Imaging studies: Chest x-ray with no acute consolidation, pneumothorax or free air per my interpretation HEART SCORE: Hx: high/mod/low suspicion: 1 ECG: ST depression/nonspecific changes/normal: 0 Age: Greater than 65/45-64/less than 45: 2 Risk factors: (Hypertension, hyperlipidemia, diabetes, coronary disease, tobacco use, cocaine use): 2 Troponin: Greater than 2 times normal limits/1-2 times normal limits/normal: 0 Total: 5 Consultation: A consultation was placed with the hospitalist. The case was discussed and diagnostics were reviewed. The patient was evaluated in the ER for further treatment. Exam and history seem consistent with chest pain with concerns for cardiac in etiology. Patient has extensive heart disease. He was pain-free after nitroglycerin. Heart score is moderate. Medicine was consulted. He will be evaluated for possible admission. By the evaluation outlined above emergent etiologies such as aortic dissection, pulmonary embolism, pneumonia, pneumothorax, infections, pericarditis, radha carditis, gastrointestinal, as well as others were deemed relatively unlikely. The pt informed about the findings as listed above. All questions were answered and pleased with the treatment. The chart was completed utilizing [employer] Speech voice recognition software. Grammatical errors, random word insertions, pronoun errors, and incomplete sentences are an occassional consequence of this system due to software limitations, ambient noise, and hardware issues. Any formal questions or con cerns about the content, text, or information contained within the body of this dictation should be directly addressed to the physician assistant department manager for clarification. Impression & Plan Chest pain, Acute hyperglycemia Discharge Plan Visit Data Chief Complaint: Chest Pain Stated Complaint: chest pain ED Provider: Ronald Soliman ED Midlevel Provider: Jessica Julio Discharge Problem: Chest pain, Acute hyperglycemia Patient Disposition: Admitted As Inpatient Condition: Fair Discharge Instructions Interventions: ED Discharge Assessment Last Done: 11/29/20 02:11
[2020-11-29] MEDS ORDERED: GLUCAGON FOR INJ 1 MG VIAL SQ PRN (02:22)
[2020-11-29] MEDS ORDERED: DEXTROSE 50% 50 ML SYRINGE IV PRN (02:22)
[2020-11-29] MEDS ORDERED: ONDANSETRON INJ 2 MG/ML 2 ML VIAL IV PRN (02:22)
[2020-11-29] MEDS ORDERED: MoRPHine SULFATE 2 MG/ML CARP IV PRN (02:22)
[2020-11-29] MEDS ORDERED: GLUCOSE 40% GEL 15 GM TUBE PO PRN (02:22)
[2020-11-29] MEDS ORDERED: ACETAMINOPHEN 325 MG TAB PO PRN (02:22)
[2020-11-29] MEDS ORDERED: CARBOHYDRATES FOR HYPOGLYCEMIA PO PRN (02:22)
[2020-11-29] MEDS ORDERED: AMIODARONE 200 MG TAB PO SCH ×2 (02:22→09:00)
[2020-11-29] MEDS ORDERED: GLUCOSE 10 TABS/TUBE PO PRN (02:22)
[2020-11-29 03:54] LABS: NT Pro B Type Natriuretic Pept 2061 pg/ml (0-1800)
[2020-11-29] MEDS: NITROGLYCERIN 2% OINTMENT 30GM TUBE EXT SCH ×2 (05:49→12:27)
[2020-11-29] MEDS: INSULIN ASPART 100 UNITS/ML 3 ML PEN SC SCH ×3 (05:59→17:06)
--- NOTE | 2020-11-29 07:07 | XRay Report ---
XR chest 1V portable CLINICAL HISTORY: Chest Pain COMPARISON STUDY: August 08, 2020 FINDINGS: No pneumothorax. Minimal blunting of the left costophrenic angle could represent small left pleural effusion. Atelectasis is seen in bilateral basis. Cardiomediastinal silhouette is within upper limits of normal. Aorta is calcified. Right hilum remain s prominent. No significant pulmonary vascular congestion.. Osseous structures: Degenerative changes of bilateral shoulders and spine. Stable position of left-sided triple lead AICD with battery pack partially obscuring left lung parenc hyma. IMPRESSION: 1. Atelectasis at bilateral bases. 2. Small left pleural effusion. 3. Prominent cardiac silhouette. ACT 112: Negative or not required by law. The above report was generated using voice recognition software. It may contain grammatical, syntax o r spelling errors. Electronically signed by: Adriana Riuz DO 11/29/2020 7:05 AM
--- NOTE | 2020-11-29 08:03 | Electrocardiogram Report ---
Test Reason : Blood Pressure : / mmHG Vent. Rate : 086 BPM Atrial Rate : 086 BPM P-R Int : 120 ms QRS Dur : 186 ms QT Int : 484 ms P-R-T Axes : 098 -83 089 degrees QTc Int : 579 ms Atrial-sensed ventricular-paced rhythm Biventricular pacemaker detected Abnormal ECG When compared with ECG of 08-AUG-2020 21:53, No significant change Confirmed by Vicente Moran ([id number] on 11/29/2020 8:03:34 AM Referred By: REFERRED SELF Confirmed By:Vicente Moran
[2020-11-29] MEDS: CLOPIDOGREL BISULFATE 75 MG TAB PO SCH (08:21)
[2020-11-29] MEDS: APIXABAN 5 MG TABLET PO SCH ×2 (08:21→20:35)
[2020-11-29] MEDS: lisinopril 40 MG TAB PO SCH (08:21)
[2020-11-29] MEDS: BUMETANIDE 1 MG TAB PO SCH ×2 (08:21→20:36)
[2020-11-29] MEDS: SERTRALINE HCL 50 MG TABLET PO SCH (08:22)
[2020-11-29] MEDS: FAMOTIDINE 40 MG TABLET PO SCH (08:23)
[2020-11-29] MEDS: carvediloL 12.5 MG TAB PO SCH ×2 (08:23→20:36)
[2020-11-29] MEDS: hydrALAZINE TAB 50 MG TAB PO SCH ×5 (08:26→20:35)
--- NOTE | 2020-11-29 10:14 | Hospitalist Progress Note ---
Date of Service November 29, 2020 Assessment & Plan (1) Chest pain: Marquis Salgado is an 85 yo male with PMHx significant for CAD (s/p bare metal stent in mid-RCA in 2013), ischemic cardiomyopathy with HFrEF (EF 45-50% in 07/2020, ICD in place), paroxysmal atrial-fibrillation, HTN, hyperlipidemia, and T2DM, who was admitted to [facility] on 11/29 for likely NSTEMI. Cardiac catheterization planned for 11/30. NSTEMI Exertional chest pain not initially relieved by Nitro, Troponin up-trending to 0.428 this morning. - Cardiology consulted - appreciate recs - trend Troponin to peak - Nitro and EKG PRN for chest pain - Morphine/supplemental oxygen PRN - if chest pain recurs today, plan for emergent catheterization; otherwise plan for tomorrow AM - NPO at midnight for cath Paroxysmal Atrial Fibrillation Rate controlled (paced) in the 70s. - continue home meds: Amiodarone 200mg PO Q2D, Diltiazem 90mg PO BID, Eliquis 5mg PO BID HFrEF 2/2 Ischemic Cardiomyopathy Last TTE in 07/2020 showed EF 45-50% (largely unchanged from previous), appears euvolemic on exam. - Continue home medications - Atorvastatin 40mg PO QHS, Carvedilol 25mg PO BID, Plavix 75mg PO daily, Lisinopril 40mg PO QAM, Imdur 60mg PO QHS, Bumetanide 3mg PO BID Hypertension - continue home Hydralazine 50mg PO QID in addition to above home regimen T2DM Last A1c 10.0 on 09/18/2020. - continue SSI + Lantus 27 units QHS Anxiety - Continue Sertraline 25mg PO QAM + Trazodone 50mg PO QHS FEN/GI: DM2/heart-healthy diet, NPO at midnight for cath tomorrow DVT Prophylaxis: Eliquis Code Status: Full code Disposition: PCU with tele (2) Ischemic cardiomyopathy: (3) Diabetes mellitus with complication: (4) Anemia of chronic disease: (5) CAD (coronary artery disease): (6) Dyslipidemia: (7) Anxiety: (8) GERD (gastroesophageal reflux disease): (9) Hypertension: (10) Paroxysmal atrial fibrillation: Admission and Anticipated Discharge Date Admission Date: November 29, 2020 Supervising Physician Co-Signing Physician Notes Resident Physician Supervision Note: I independently interviewed and examined the patient and verified the darby history and physical, reviewed labs and image studies and agree with resident Dr. Smyth findings and care plan. Subjective See H&P from today for HPI Review of Systems Review of Systems: See H&P from today for ROS Physical Exam Physical Exam: See H&P from today for PE Results & Data Results & Data ([facility]) Vital Signs (Past 12 Hours) Vital Signs Temp Pulse Pulse Resp BP BP Pulse Ox 11/29/20 07:48 36.6 C 78 19 111/62 91 11/29/20 07:12 78 11/29/20 04:54 80 11/29/20 02:24 36.7 C 84 16 165/92 H 94 11/29/20 02:10 83 20 167/98 H 93 11/29/20 01:19 83 20 190/97 H 98 11/29/20 00:53 85 20 141/95 H 95 11/28/20 23:25 82 20 192/99 H 95 11/28/20 22:53 37.2 C 84 19 154/95 H 93 11/28/20 22:45 81 20 92 Resident Activity Tracking Resident Involvement: Resident Care Provided Care Provided: Adult Hospital Medicine (1) CAD (coronary artery disease) Associated angina: angina presence unspecified Coronary Disease-Associated Artery/Lesion type: [place] artery [place] vs. transplanted heart: [place] heart Qualified Code(s): I25.10 - Atherosclerotic heart disease of [place] coronary artery without angina pectoris (2) GERD (gastroesophageal reflux disease) Esophagitis presence: esophagitis presence not specified Qualified Code(s): K21.9 - Gastro-esophageal reflux disease without esophagitis (3) Chest pain Chest pain type: unspecified Qualified Code(s): R07.9 - Chest pain, unspecified (4) Hypertension Hypertension type: essential hypertension Qualified Code(s): I10 - Essential (primary) hypertension
[2020-11-29] MEDS ORDERED: NITROGLYCERIN 2% OINTMENT 30GM TUBE EXT PRN (12:21)
--- NOTE | 2020-11-29 12:24 | Cardiology Consultation ---
Date of Consultation November 29, 2020 Assessment & Plan (1) Non-ST elevation (NSTEMI) myocardial infarction: (2) Ischemic cardiomyopathy: (3) Biventricular ICD (implantable cardioverter-defibrillator) in place: (4) CAD (coronary artery disease): (5) Paroxysmal atrial fibrillation: Complex cardiac patient with known CAD/ischemic cardiomyopathy admitted after chest pain episode yesterday with subsequent troponin elevation. ECG uninterpretable due to paced rhythm. No evidence of heart failure or atrial dysrhythmia with rapid rate, therefore would treat as a non-STEMI. Agree with holding apixaban and continuing on heparin. Agree with usual vasoactive meds with IV hydralazine for acute hypertension. Continue clopidogrel. He is clinically stable today, would make n.p.o. after midnight for cardiac catheterization in the morning. Should he have recurrent chest pain today which is refractory to prompt medical management would proceed to emergent catheterization (since his ECG is uninterpretable and STEMI cannot be excluded). Patient follows with Dr. Hermosillo as an outpatient. History of Present Illness Reason for Consultation: Chest pain and CAD patient Requesting Physician: Lindsay Joya MD Attending Physician: Lindsay Joya MD History of Present Illness 85-year-old man with CAD (remote [place]), ischemic cardiomyopathy (biventricular pacemaker/ICD), PAF (amiodarone/apixaban), diabetes mellitus (insulin) and other medical problems who was admitted 11/28/2020 after experiencing a prolonged episode of chest pain radiating to both arms requiring 4 sublingual nitroglycerin for relief after about 1/2 to 1-hour. He denied palpitations or heart failure symptoms. He has had no further symptoms overnight. ECG is atrial sensed/ventricular paced and therefore not interpretable regarding ischemia. His troponin did increase from 0.02 up to 0.428 overnight. At the time of my evaluation this morning, he felt well and had chest pain or other complaints. He was lying flat and noted no orthopnea, PND, or change in his mild leg edema. Past cardiac history: Cath 2009 with 50% RCA, minimal left system disease. Echo 2010 EF 35-40% with global hypokinesis Biventricular pacemaker/ICD PAF 2013 Non-STEMI 2014. Cath with 50 to 70% OM 2 ostial stenosis, otherwise nonocclusive left system disease. RCA with severe stenosis underwent PCI of drug-eluting stent. Lexiscan 2017 - negative for myocardial ischemia. EF 35-40% 2019 admitted for A. fib with RVR, started on amiodarone June 2020 admitted for pneumonia/CHF, readmitted July 2020 Echo July 2020, EF 45 to 50%, global hypokinesis, septal motion consistent with pacemaker, moderate LVH. Moderate MR, small pericardial effusion, mild pulmonary hypertension. Biventricular pacemaker/ICD generator replacement September 2020 Allergies Allergy/AdvReac Type Severity Reaction Status Date / Time pravastatin [From Pravachol] AdvReac Unknown Unknown Verified 11/29/20 00:04 rosuvastatin [From Crestor] AdvReac Unknown Unknown Verified 11/29/20 00:04 Home Medications Medication Instructions Recorded Confirmed Type omega 3-oyg-ykn-fish oil 1,000 mg 1 cap PO QAM cap 03/13/19 11/29/20 History (120 mg-180 mg) capsule [id number] 1 tab PO QAM 12/26/19 11/28/20 History insulin aspart U-100 [Novolog 0 unit SUBCUT DIRECTED MDD 35 12/26/19 11/28/20 History Flexpen U-100 Insulin] UNITS/DAILY multivitamin [Daily-Darryl] 1 tab PO QAM #30 tab 02/05/20 11/29/20 Rx nitroglycerin 0.4 mg sublingual 0.4 mg SUBLINGUAL Q5M PRN #30 tab 04/06/20 11/29/20 Rx tablet atorvastatin 40 mg tablet 40 mg PO HS #90 tab 04/22/20 11/28/20 Rx trazodone 50 mg tablet 50 mg PO HS #30 tab 08/04/20 11/29/20 Rx famotidine 40 mg PO QAM 08/07/20 11/28/20 History fluticasone propionate [Flonase 1 spray INTRANASAL DAILY PRN 08/07/20 11/28/20 History Allergy Relief] hydralazine 50 mg tablet 50 mg PO QID 30 Days #120 tab 08/24/20 11/28/20 Rx apixaban 5 mg tablet 5 mg PO BID #180 tab 09/02/20 11/28/20 Rx clopidogrel 75 mg tablet 75 mg PO DAILY #90 tab 09/02/20 11/28/20 Rx potassium chloride 10 mEq 20 meq PO BID #180 tab 09/15/20 11/29/20 Rx tablet,extended release bumetanide 2 mg tablet 3 mg PO BID #90 tab 10/12/20 11/28/20 Rx carvedilol 25 mg tablet 37.5 mg PO BID #270 tab 10/23/20 11/28/20 Rx diltiazem HCl 90 mg 90 mg PO BID #180 cap 10/23/20 11/28/20 Rx capsule,extended release 12 hr insulin glargine 100 unit/mL (3 27 unit SUBCUT HS #15 syr 10/23/20 11/29/20 Rx mL) subcutaneous pen isosorbide mononitrate 60 mg 60 mg PO HS #90 tab 10/23/20 11/29/20 Rx tablet,extended release 24 hr lisinopril 40 mg tablet 40 mg PO QAM #90 tab 10/23/20 11/29/20 Rx montelukast 10 mg tablet 10 mg PO HS #90 tab 10/23/20 11/29/20 Rx sertraline 25 mg tablet 25 mg PO QAM #90 tab 10/23/20 11/29/20 Rx amiodarone 200 mg tablet 200 mg PO Q2D #45 tab 10/27/20 11/28/20 Rx levocetirizine 5 mg tablet 5 mg PO HS #90 tab 11/06/20 11/29/20 Rx latanoprost 1 drp OPL HS 11/29/20 11/29/20 History Patient History Medical History Accidental fall Acquired bilateral foot drop Ataxia Biventricular ICD (implantable cardioverter-defibrillator) in place CAD (coronary artery disease) Cardiac defibrillator in place Chronic diastolic CHF (congestive heart failure) Closed head injury Diabetes mellitus with diabetic polyneuropathy Heart disease Hip pain, bilateral History of CVA (cerebrovascular accident) Hypercholesteremia Hypertension ICD (implantable cardioverter-defibrillator) battery depletion Intraabdominal mass Ischemic cardiomyopathy Non-ST elevation [place] (NSTEMI) (11/07/13) "PCI on 11/08/13; BMS in RCA" Paroxysmal atrial fibrillation Pericardial effusion Sensorineural hearing loss (SNHL) of right ear with restricted hearing of left ear Shoulder pain, bilateral SOB (shortness of breath) Surgical History History of back surgery S/P appendectomy S/P cholecystectomy S/P hernia repair Status post open reduction with internal fixation (ORIF) of fracture of ankle Family History No significant family history Hearing loss Father Breast cancer Mother Cancer Mother Denies family history of Ovarian cancer Prostate cancer Myocardial infarction Colorectal cancer Social History Smoking Status: Former smoker Tobacco Type: Cigarettes Second Hand Exposure: No; Hx Alcohol Use: No Hx Substance Use: No Preferred Language: Norwegian Communication Ability: Effective Visual Impairment: No Limitations Bump Grader Operator Required: No Beliefs That Will Affect Care: None marital status: Current Living Situation: Spouse Current Living Situation Comment: lives at [facility] current occupational status: retired How many Children do You have: 2 Feels Safe at Home: Yes Seatbelt Use: always Assistive Devices: Denture - Upper, Glasses and Walker Physical Exam Physical Exam: Elderly white male appears comfortable. Afebrile. BP hypertensive overnight, currently normotensive (111/62 mmHg). Pulse 70s and 80s and regular. Skin: no ecchymoses or generalized lesions. HEENT: unremarkable. Neck: no JVD or carotid bruits. Lungs: clear. Cardiac: regular rhythm, normal S1 and S2, no obvious murmur or gallop. Abdomen: benign. Extremities: Trace pretibial edema, pulses intact. Neurologic: normal affect and conversation, nonfocal. Results & Data ([facility]) Vital Signs (Past 12 Hours) Vital Signs Temp Pulse Pulse Resp BP Pulse Ox 11/29/20 07:48 97.9 F 78 19 111/62 91 11/29/20 07:12 78 11/29/20 04:54 80 11/29/20 02:24 98.1 F 84 16 165/92 H 94 11/29/20 02:10 83 20 167/98 H 93 11/29/20 01:19 83 20 190/97 H 98 11/29/20 00:53 85 20 141/95 H 95 Laboratory Results Hemoglobin 11.3 with normal white count and platelet count. Normal coagulation studies. Normal electrolytes, BUN 29, creatinine 1.46. Troponin 0 0.02 rising to 0.428. proBNP 2060 (past range for him [id number]) Diagnostic Findings ECG showed atrial sensed ventricular paced rhythm at 86 bpm. Compared with July 2020 study, no significant change. Chest x-ray showed atelectasis at the bases with a small left pleural effusion. PG Care Time/CCT Total # of Minutes Spent Total Time Spent with Patient: Total time spent is greater than 50% in coordination of care (as documented) at patient's floor/unit and/or counseling patient: Coding Level of Care Code 07018 Initial Inpt Care Lvl 3 Diagnoses Non-ST elevation (NSTEMI) myocardial infarction I21.4 Ischemic cardiomyopathy I25.5 Biventricular ICD (implantable cardioverter-defibrillator) in place Z95.810 CAD (coronary artery disease) I25.10 Coronary Disease-Associated Artery/Lesion type: [place] artery [place] vs. transplanted heart: [place] heart Associated angina: angina presence unspecified Paroxysmal atrial fibrillation I48.0 (1) CAD (coronary artery disease) Coronary Disease-Associated Artery/Lesion type: [place] artery [place] vs. transplanted heart: [place] heart Associated angina: angina presence unspecified Qualified Code(s): I25.10 - Atherosclerotic heart disease of [place] coronary artery without angina pectoris
[2020-11-29] MEDS: MONTELUKAST SODIUM 10 MG TABLET PO SCH (20:35)
[2020-11-29] MEDS: ISOSORBIDE MONO EXTENDED REL 60 MG TABCR PO SCH (20:35)
[2020-11-29] MEDS: ATORVASTATIN 40 MG TAB PO SCH (20:35)
[2020-11-29] MEDS: traZODone HCL 50 MG TAB PO SCH (20:36)
[2020-11-29] MEDS: dilTIAZem HCl 60 MG TAB PO SCH (20:36)
[2020-11-29] MEDS: INSULIN GLARGINE SOLOSTAR 100 UNITS/ML 3 ML PEN SQ SCH (21:29)
[2020-11-29] MEDS: LATANOPROST 0.005% OP SOLN 2.5 ML BTL OPL SCH (21:55)
--- NOTE | 2020-11-29 23:52 | Emergency Department Note ---
ED Visit Note I have seen and examined this patient with Jessica Julio and generally agree with the treatment plan as discussed. .
[2020-11-30] MEDS: INSULIN ASPART 100 UNITS/ML 3 ML PEN SC SCH ×5 (00:16→20:54)
[2020-11-30] MEDS ORDERED: diphenhydrAMINE 50 MG/ML VIAL IV STA (02:34)
[2020-11-30 04:53] LABS: Basophils # (auto) 0.01 K/uL (0-0.2); Basophils % (auto) 0.2 %; Eosinophils # (auto) 0.04 K/uL (0-0.5); Eosinophils % (auto) 0.6 %; Hematocrit (blood only) 33.5 % (42-52); Hemoglobin 11.2 g/dL (14.0-18.0); Immature Granulocytes # (auto) 0.01 K/uL (0.00-0.02); Immature Granulocytes % (auto) 0.2 %; Lymphocytes # (auto) 1.84 K/uL (1.2-3.4); Lymphocytes % (auto) 28.9 %; Mean Corpuscular Hemoglobin 29.6 pg (25-34); Mean Corpuscular Hgb Conc 33.4 g/dL (32-36); Mean Corpuscular Volume 88.6 fL (80-100); Mean Platelet Volume 9.3 fL (7.4-10.4); Monocytes # (auto) 0.39 K/uL (0.11-0.59); Monocytes % (auto) 6.1 %; Neutrophils # (auto) 4.08 K/uL (1.4-6.5); Platelet Count 240 K/uL (130-400); RDW Coefficient of Variation 15.8 % (11.5-14.5); Red Blood Count 3.78 M/uL (4.7-6.1); White Blood Count 6.37 K/uL (4.8-10.8)
[2020-11-30 05:12] LABS: BUN Creatinine Ratio 18.8 (10-20); Calcium 8.9 mg/dl (8.5-10.1); Creatinine Clr Calc Pharmacy 43.5 ml/min; Est GFR (Non-African American) 49.2 ml/min; Phosphorus 2.5 mg/dl (2.5-4.9)
[2020-11-30] MEDS: APIXABAN 5 MG TABLET PO SCH ×2 (08:53→20:51)
--- NOTE | 2020-11-30 08:55 | Hospitalist Progress Note ---
Date of Service November 30, 2020 Assessment & Plan (1) Chest pain: 85 yo M PMHx CAD s/p stent, ischemic cardiomyopathy with HFrEF s/p AICD, AFib on AC, HTN, HLD, DM2, who was admitted on 11/29 for NSTEMI. NSTEMI: - Presented with exertional chest pain without EKG un-interpretable due to paced rhythm; elevated troponin has peaked and is downtrending. - Cardiology consulted - for catheterization today. - Nitro and EKG PRN chest pain. - Otherwise continue meds for history ischemic cardiomyopathy. Consider starting aspirin. AFib: - HR 70s on home amiodarone, diltiazem. - AC with Heparin gtt until post-cath, then transition back to Eliquis. HFrEF 2/2 Ischemic Cardiomyopathy: - Last TTE in 07/2020 showed EF 45-50%. - History of CAD s/p bare metal stent to mid-RCA in 2013. - Euvolemic on exam. - Continue home atorvastatin 40mg PO qHS, carvedilol 25mg PO BID, Plavix 75mg PO daily, lisinopril 40mg PO QAM, Imdur 60mg PO QHS, bumetanide 3mg PO BID. Hypertension: - Continue home hydralazine 50mg PO QID, carvedilol 25mg PO BID, lisinopril 40mg PO qAM. T2DM: - Last A1c 10.0 on 09/18/2020. - Continue SSI + Lantus 27 units qHS. Anxiety: - Continue sertraline 25mg PO qAM, trazodone 50mg PO qHS. Code Status: FULL CODE FEN/GI: NPO for heart cath, with DM2 Heart Healthy diet following DVT Prophylaxis: Heparin -> Eliquis post-cath Disposition: PCU with telemetry for now, ICU transfer if stent(s) placed during cath Admission and Anticipated Discharge Date Admission Date: November 29, 2020 Subjective Patient without acute events overnight. Was chest pain free. Telemetry showed paced rhythm 60s-90s. Seen this AM getting ready in bathroom with nurse aid without much difficulty. Used walker well. Does not complain of SOB, dizziness, headaches. Review of Systems Review of Systems: All systems reviewed & are unremarkable except as noted in HPI & below Constitutional: no fever, no chills and no malaise Respiratory: no cough and no dyspnea Cardiovascular: no chest pain, no palpitations and no edema Gastrointestinal: no abdominal pain, no constipation and no diarrhea/loose stools Physical Exam Constitutional: WD/WN, vitals as above Respiratory: normal respiratory effort, lungs clear to auscultation Cardiovascular: Rate/Rhythm: + irregularly irregular Heart Sounds: no murmur Extremities: no edema Gastrointestinal (Abdomen): normal bowel sounds, soft, nontender, no hepatosplenomegaly Skin: no rashes, warm and dry Psychiatric: A+Ox3, euthymic affect Results & Data Results & Data ([facility]) Vital Signs (Past 12 Hours) Vital Signs Temp Pulse Pulse Resp BP Pulse Ox 11/30/20 07:32 36.4 C L 79 18 144/83 H 92 11/30/20 03:47 36.4 C L 60 18 124/64 93 11/29/20 23:31 36.8 C 75 19 131/66 91 11/29/20 23:17 77 Resident Activity Tracking Resident Involvement: Resident Care Provided Care Provided: Adult Hospital Medicine (1) Chest pain Chest pain type: unspecified Qualified Code(s): R07.9 - Chest pain, unspe cified
[2020-11-30] MEDS ORDERED: POTASSIUM CHLORIDE CRTAB 20 MEQ TABCR PO STA (08:57)
[2020-11-30] MEDS ORDERED: SPIRONOLACTONE 25 MG TAB PO SCH (09:00)
[2020-11-30] MEDS: CLOPIDOGREL BISULFATE 75 MG TAB PO SCH (09:05)
[2020-11-30] MEDS: lisinopril 40 MG TAB PO SCH (09:05)
[2020-11-30] MEDS: SERTRALINE HCL 50 MG TABLET PO SCH (09:08)
[2020-11-30] MEDS: FAMOTIDINE 40 MG TABLET PO SCH (09:08)
[2020-11-30] MEDS: BUMETANIDE 1 MG TAB PO SCH ×2 (09:08→20:51)
[2020-11-30] MEDS: carvediloL 12.5 MG TAB PO SCH ×2 (09:08→20:52)
[2020-11-30] MEDS: dilTIAZem HCl 60 MG TAB PO SCH ×3 (09:09→20:51)
[2020-11-30] MEDS: hydrALAZINE TAB 50 MG TAB PO SCH ×4 (09:09→20:51)
[2020-11-30] MEDS ORDERED: HEPARIN (PORCINE) 1000 UNIT/ML 10 ML (CATH LAB USE ONLY) ONE (10:46)
[2020-11-30] MEDS ORDERED: niCARdipine HCL INJ 2.5 MG/ML 10 ML AMP ONE (10:46)
[2020-11-30] MEDS ORDERED: fentaNYL citrate 100 MCG/2 ML VIAL ONE (10:46)
[2020-11-30] MEDS ORDERED: MIDAZOLAM HCL 1 MG/ML 2ML VIAL ONE (10:47)
[2020-11-30] MEDS ORDERED: NITROGLYCERIN/D5W 100MCG/ML 20ML SYR ONE (10:47)
--- NOTE | 2020-11-30 10:50 | Pre Anesthesia Assessment ---
Date of Service November 30, 2020 Pre Sedation Assessment Vital Signs Temp Pulse Pulse Resp BP Pulse Ox 11/30/20 07:32 97.5 F L 79 18 144/83 H 92 11/30/20 03:47 97.5 F L 60 18 124/64 93 11/29/20 23:31 98.2 F 75 19 131/66 91 11/29/20 23:17 77 11/29/20 19:37 98.4 F 69 18 169/77 H 94 11/29/20 15:49 97.9 F 62 18 141/70 H 93 11/29/20 15:32 65 11/29/20 12:01 97.9 F 69 18 131/65 94 Cardiovascular RRR, no murmur, no edema Respiratory normal respiratory effort, lungs clear to auscultation Pre-Sedation Airway Assessment Smoking Status: Former smoker Hx Sleep Apnea: No Hx Difficult Intubation: No Short, Thick Neck: No Thyromental Distance: > or= 3.5 Finger Breadths Mallampati Class: III ASA: ASA3 Procedure Planning Contraindications for Sedation: none Current Medications Reviewed: Yes Notes The planned sedation has been discussed with the patient. Informed Consent was obtained. I have identified the patient, determined the appropriateness of sedation and have assessed the patient immediately prior to the procedure. All medicine(s) and interventions are by my order.
--- NOTE | 2020-11-30 11:33 | Post Anesthesia Assessment ---
Date of Service November 30, 2020 Post Sedation Assessment Vital Signs Temp Pulse Pulse Resp BP Pulse Ox 11/30/20 07:32 97.5 F L 79 18 144/83 H 92 11/30/20 03:47 97.5 F L 60 18 124/64 93 11/29/20 23:31 98.2 F 75 19 131/66 91 11/29/20 23:17 77 11/29/20 19:37 98.4 F 69 18 169/77 H 94 11/29/20 15:49 97.9 F 62 18 141/70 H 93 11/29/20 15:32 65 11/29/20 12:01 97.9 F 69 18 131/65 94 Recovery Score Activity: Moves 4 extremities Respiration: Deep Breath/Cough Circulation: +/-20% PreAnes Value Consciousness: Fully Awake Oxygen Saturation: O2 needed for >90% Discharge Sedation Level of Care: Fast Track Phase II Post Sedation Plan On clinical assessment, the patient appears to have tolerated the sedation without complications. Patient is recovering as anticipated. Patient will continue to be monitored by nursing and may be discharged when sedation discharge criteria are met per below protocol. Upon Completions of procedure up to 15 minutes continue every 5 minute vital signs and the P.A.R. score; then discharge to a Phase I or Fast Track to Phase II per the following guidelines: * Discharge Patient to appropriate Phase II area if PAR is 8 or greater or return to pre- procedure baseline. The post - procedure orders will be as directed. * If PAR score is less than 8 or not return to pre-procedure baseline then patient will follow Phase I monitoring till PAR is reached for Phase II. The Phase I may be done in procedure room or may call to secure a Phase I area. * If naloxone or flumazenil are used for reversal, hold in Phase I for continu ed monitoring from when last reversal dose was given for a minimum of 60 minutes or longer pending the nurse and/or physician discretion of patient condition before discharge to Phase II. Please call the Sedation Physician to re-evaluate and complete post-note for discharge to Phase II area. Do NOT discharge from procedure sedation or Phase 1 until post- sedation evaluation note is complete by procedure /sedation MD Sedation Discharge Instructions to be given to the patient at discharge to home.
--- NOTE | 2020-11-30 11:51 | Cardiac Catheterization ---
[facility] Data: Internist Medical Doctor Md Cardiac Status Clinical evaluation leading to the procedure CAD Presenation: Non STEMI Anginal Classification: CCS IV Heart Failure: No Cardiogenic Shock within 24 Hours: No Cardiac Arrest within 24 Hours: No Imaging Studies Past 6 Months: Yes Stress Studies Past 6 Months: No Diagnostic Physicians Name: Kuldip Barksdale MD Status: Elective Closure Device Percutaneous Entry Location: Radial Closure Device: Radial Band Recommendations: CABG Intraprocedure Events Significant Disection: No Perforation: No Cardiac Cath Procedure Full Procedure Date November 30, 2020 Pre-Procedure Diagnosis Pre-Procedure Diagnosis: Non STEMI AUC Score AUC Score: 8 Post-Procedure Diagnosis Post-Procedure Diagnosis: Severe CAD and Normal Intracardiac Pressures Procedure(s) Performed Procedure(s) Performed: Coronary Angiography and Left Heart Cath Public Finance Specialist Kuldip Barksdale MD Machine Feeder Raw Stock(s) Showers Estimated Blood Loss Estimated Blood Loss: 15 Medication(s) Medication(s): Fentanyl, Heparin, Lidocaine 1%, Nitroglycerin and Versed Summary of Findings Indication: High-risk NSTEMI Access: 6Fr right radial artery Catheters: [place] Findings: LM -calcified, 80% distal stenosis extending into circumflex LAD -medium caliber, diffuse 50-60% mid segment disease, distal vessel without significant disease and wraps around apex. Large D1 without significant disease. Faint omqk-et-uuxwi collaterals to right PDA Circumflex -70% ostial. Mid vessel, medium caliber OM 3, left PLB without significant disease. RCA - Dominant, heavily calcified, mid RCA stent with mild in-stent restenosis, 99% latemid RCA stenosis with RICK I flow in distal segment/PDA. Cqxs-cj-[id number] collaterals to PDA LVEDP -5 Arterial Closure: TR band Summary: 1. Severe multivessel coronary artery disease -80% distal left main extending into circumflex 70% ostial circumflex 99% latemid RCA stenosis with RICK I distal flow and faint baxu-jq-[id number] collaterals. 2. Normal intracardiac filling pressure Recommendations: Refer to [facility] for CABG evaluation Hemodynamics Rest Ao:: 109/51/73 Final Ao: 121/53/79 LV: 126/5 Recommendations Recommendations: CABG Specimens Specimens: None Radiation Exposure (mGy) 1190 Contrast (mls) 50 Fluids (cc crystalloids) Fluids (cc crystalloids): 74 Drains Drains: none Anesthesia moderate 11:00-11:25 Procedural Complication(s) None Disposition PCU I attest to the content of the Intraoperative Record and any orders documented therein. Any exceptions are noted below. [facility] Card Cath Procedure Codes Cardiac Catheterization Procedure 1: Cardiovascular Cath Procedures: 49769 Coronaries and LHC (+/-LV) Moderate Sedation Procedure 1: Sedation/Anesthesia: 24830 Mod Sedation by the same physician;Init15 Min Child Age 5 & Up PG Care Time/CCT Total # of Minutes Spent Total Time Spent with Patient: Total time spent is greater than 50% in coordination of care (as documented) at patient's floor/unit and/or counseling patient:
--- NOTE | 2020-11-30 12:55 | Discharge Summary ---
Date of Service November 30, 2020 Admission HPI Per Admitting Provider Marquis Salgado is an 85 yo male with complicated past medical history, most notably CAD s/p [place] with ischemic cardiomyopathy s/p biventricular AICD in place, PAF on Eliquis anticoagulation, HTN/HLP and DM. Patient was in his usual state of health today until appx 20:00 - he was eating dinner (steak sandwiches and potato salad) when he developed acute onset of left sided chest pain - 8/10 in severity - radiation across chest, down bilateral arms and to back between shoulder blades. He had some mild shortness of breath associated with the pain but no nausea/diaphoresis/lightheadedness or palpitations. He took Nitro x 2 at home with no improvement so he called EMS. EMS administered ASA x 324mg and Nitro x 2 - pain began to improve. Patient now with some dull aching pain in left shoulder. No additional complaints. Patient was admitted for respiratory failure secondary to acute exacerbation of CHF requiring intubation from 06/22 - 06/29. He reports ongoing weakness and difficulty with ambulation since this admission. Patient follows with Dr. Hermosillo as well as Dr. Stanton. Recent generator replacement performed on 10/13/20 followed by bleeding at surgical site. Last echo performed on 08/08/20 with normal LV size, EF of 45-50%, global hypokinesis. Seen by Cardiology on 10/19/20 for routine followup. No medication changes. Admission Exam Per Admitting Provider General: patient resting comfortably, NAD, non-toxic in appearance, AA&O x 4 Skin: warm, dry, intact, no rashes or lesions HEENT: NC/AT, PERRL, EOMI, anicteric sclera, conjunctiva without injection, external ear normal to inspection and nontender, nares patent, moist mucus membranes, dentition intact, no oropharyngeal lesions, neck supple, trachea midline, no LAD, no thyromegaly, no JVD Heart: +S1/S2, regular, 2/6 NICHOLE murmur LSB, no rubs/gallops, device left chest wall, nontender Lungs: equal air entry bilaterally, faint crackles in bilateral bases Abd: +BS, soft, NT/ND, no masses/organomegaly/ascites Ext: warm, 2+ pulses in UE/LE bilaterally, no clubbing/cyanosis, 1+ pitting edema of bilateral LE equal Neuro: nonfocal, patient AA&O x 4, speech intact, no facial droop, moving all extremities on command with equal strength 5/5 Principal Diagnosis NSTEMI, multivessel disease Discharge Exam Constitutional WD/WN, vitals as above Respiratory normal respiratory effort, lungs clear to auscultation no respiratory distress Cardiovascular Rate/Rhythm: regular rate and regular rhythm Heart Sounds: no murmur Extremities: + edema (Trace) Skin no rashes, warm and dry Neurologic awake Psychiatric Orientation: alert, oriented to person and cooperative Discharge Data Allergies Allergy/AdvReac Type Severity Reaction Status Date / Time pravastatin [From Pravachol] AdvReac Unknown Unknown Verified 11/29/20 00:04 rosuvastatin [From Crestor] AdvReac Unknown Unknown Verified 11/29/20 00:04 Consultations 11/28/20 23:29 ED Decision to Admit Stat 11/29/20 02:22 Consult Cardiology Routine 11/30/20 12:46 Burn CD for patient Routine Procedures Performed Operation Date: 11/30/20 11:00 Actual Procedures p Cath, Left with Cors and Vent - Arvind Barksdale MD s Cineradiography w/Routine Exam - Arvind Barksdale MD Ordered Studies 11/30/20 09:53 CL Cath Imgs for PACS use only Routine Hospital Course (1) Chest pain: 85 yo M PMHx CAD s/p stent, ischemic cardiomyopathy with HFrEF s/p AICD, AFib on AC, HTN, HLD, DM2, who was admitted on 11/29 for NSTEMI. NSTEMI: - Presented with exertional chest pain without EKG un-interpretable due to paced rhythm; elevated troponin has peaked and is downtrending. - Cardiology consulted. - Catheterization performed today which showed left main / multivessel disease. - Patient transferred to [facility] for possible CABG. Accepting physicians [facility] and Dr. Rodriguez with Cardiothoracic Surgery. - Continue ischemic cardiomyopathy medication regimen. AFib: - HR 70s on home amiodarone, diltiazem. HFrEF 2/2 Ischemic Cardiomyopathy: - Last TTE in 07/2020 showed EF 45-50%. - History of CAD s/p bare metal stent to mid-RCA in 2013. - Euvolemic on exam. - Continue home atorvastatin 40mg PO qHS, carvedilol 25mg PO BID, Plavix 75mg PO daily, lisinopril 40mg PO QAM, Imdur 60mg PO QHS, bumetanide 3mg PO BID. Hypertension: - Continue home hydralazine 50mg PO QID, carvedilol 25mg PO BID, lisinopril 40mg PO qAM. T2DM: - Last A1c 10.0 on 09/18/2020. - Continue SSI + Lantus 27 units qHS. Anxiety: - Continue sertraline 25mg PO qAM, trazodone 50mg PO qHS. Code Status: FULL CODE DIspo: transfer to [facility] Total Time Total Time Spent Total Time Spent (In Minutes): <30 Discharge Plan Discharge Items Patient Disposition: Transfer Acute Care Hospital Reason For Visit: CHEST PAIN Discharge Diagnosis: NSTEMI Condition on Discharge: Fair Activity: Per Instructions section Non-emergency contact: Primary Care Provider and Choir Leader Call non-emergency contact if: your symptoms worsen Follow-up/Referrals: Vicente Moran MD [Physician] - Pro,Kyle Munroe MD [Primary Care Provider] - Diet: Carb Consistent or DM2 and Heart Healthy Addtl Attending Provider Instructions: 85 yo M PMHx CAD s/p stent, ischemic cardiomyopathy with HFrEF s/p AICD, AFib on AC, HTN, HLD, DM2, who was admitted on 11/29 for NSTEMI. NSTEMI: - Presented with exertional chest pain without EKG un-interpretable due to paced rhythm; elevated troponin has peaked and is downtrending. - Cardiology consulted. - Catheterization performed today which indicated need for CABG. - Patient transferring to [facility] for CABG. Accepting physician Dr. Harper ([facility] transition advisor). - Continue BP control, beta maria isabel, statin, Plavix. AFib: - HR 70s on home amiodarone, diltiazem. - AC with Heparin gtt until post-cath, then transition back to [facility]. HFrEF 2/2 Ischemic Cardiomyopathy: - Last TTE in 07/2020 showed EF 45-50%. - History of CAD s/p bare metal stent to mid-RCA in 2013. - Euvolemic on exam. - Continue home atorvastatin 40mg PO qHS, carvedilol 25mg PO BID, Plavix 75mg PO daily, lisinopril 40mg PO QAM, Imdur 60mg PO QHS, bumetanide 3mg PO BID. Hypertension: - Continue home hydralazine 50mg PO QID, carvedilol 25mg PO BID, lisinopril 40mg PO qAM. T2DM: - Last A1c 10.0 on 09/18/2020. - Continue SSI + Lantus 27 units qHS. Anxiety: - Continue sertraline 25mg PO qAM, trazodone 50mg PO qHS. Pending Studies at Discharge: No Stand-Alone Forms: My [facility] Skilled Items Patient informed of condition?: Yes DNR: No Discharge Level of Care: Other Communicable Disease: No Discharge Prognosis: Stable Lines: Peripheral IV Urinary Catheter: No Medications and DC Order Prescriptions: Continued atorvastatin 40 mg tablet 40 mg PO HS Qty: 90 RF: 3 trazodone 50 mg tablet 50 mg PO HS Qty: 30 RF: 3 hydralazine 50 mg tablet 50 mg PO QID 30 Days Qty: 120 RF: 3 Eliquis 5 mg tablet 5 mg PO BID Qty: 180 RF: 1 clopidogrel 75 mg tablet 75 mg PO DAILY Qty: 90 RF: 3 bumetanide 2 mg tablet 3 mg PO BID Qty: 90 RF: 2 montelukast 10 mg tablet 10 mg PO HS Qty: 90 RF: 2 carvedilol 25 mg tablet 37.5 mg PO BID Qty: 270 RF: 3 diltiazem HCl 90 mg capsule,extended release 12 hr 90 mg PO BID Qty: 180 RF: 3 Lantus Solostar U-100 Insulin 100 unit/mL (3 mL) insulin pen 27 unit SUBCUT HS Qty: 15 RF: 3 isosorbide mononitrate 60 mg tablet extended release 24 hr 60 mg PO HS Qty: 90 RF: 3 lisinopril 40 mg tablet 40 mg PO QAM Qty: 90 RF: 3 sertraline 25 mg tablet 25 mg PO QAM Qty: 90 RF: 3 amiodarone 200 mg tablet 200 mg PO Q2D Qty: 45 RF: 3 potassium chloride 10 mEq tablet extended release 20 meq PO BID Qty: 180 RF: 1 multivitamin [Daily-Darryl] Tablet 1 tab PO QAM Qty: 30 RF: 0 famotidine 40 mg tablet 40 mg PO QAM RF: 0 fluticasone propionate [Flonase Allergy Relief] 50 mcg/actuation spray,suspension 1 spray intranasal DAILY PRN (Reason: Congestion) RF: 0 latanoprost 0.005 % drops 1 drp OPL HS RF: 0 Discontinued nitroglycerin 0.4 mg tablet, sublingual 0.4 mg sublingual Q5M PRN (Reason: chest pain) Qty: 30 RF: 2 levocetirizine 5 mg tablet 5 mg PO HS Qty: 90 RF: 3 omega [id number]-fish oil [Fish Oil] 1,000 mg (120 mg-180 mg) capsule 1 cap PO QAM RF: 0 insulin aspart U-100 [Novolog Flexpen U-100 Insulin] 100 unit/mL (3 mL) insulin pen 0 unit SUBCUT DIRECTED MDD 35 UNITS/DAILY RF: 0 [id number] 333-133-5 mg Tablet 1 tab PO QAM RF: 0 Discharge Orders: Discharge Order (Routine); Ordered 11/30/20 Ordered By: Fern Tariq Admission Data Admit Date/Time: 11/29/20 00:20 Attending Provider: Tony Kerr Admit Provider: Amairani Lucio Primary Care Provider: Kyle Lamb Other Providers: Amairani Lucio ; Vicente Moran ; Lindsay Joya Other Interventions: Discharge Summary Assessment (RN) Last Done: 11/30/20 15:37 Supervising Physician Co-Signing Physician Notes I personally examined the patient and verified all darby points of history and exam, discussed case, and agree with decision making with Dr Tariq. Feeling okay. For transfer. Cardiology input appreciated. Vitals noted, in general he is awake and alert pleasant no distress. HEENT normocephalic atraumatic mucous membranes moist. Breathing unlabored no accessory muscle use good effort. Skin shows no rashes no pallor or icterus. NSTEMIfor transfer for eval for CABG. Stable right now for transfer. Otherwise as above. Resident Activity Tracking Resident Involvement: Resident Care Provided Care Provided: Adult Hospital Medicine
[2020-11-30] MEDS ORDERED: Heparin IV Adult Wt-Based Standard *NO* Bolus Protocol IV SCH (14:12)
[2020-11-30] MEDS ORDERED: SODIUM CHLORIDE 0.9% 1000ML 1,000 ML IV SCH (14:15)
[2020-11-30] MEDS ORDERED: HEPARIN SODIUM/DEXTROSE 25,000 UNITS/500 ML BAG IV SCH (15:00)
--- NOTE | 2020-11-30 15:38 | Cardiology Progress Note ---
Date of Service November 30, 2020 Assessment & Plan (1) Non-ST elevation (NSTEMI) myocardial infarction: Multivessel CAD including distal left main disease, poorly controlled diabetes, moderate mitral regurgitation. Recommend evaluation for CABG. Discussed case with Dr. Rodriguez from [facility] cardiac surgery. He is willing to accept care of patient on transfer. Start heparin infusion. Discontinue clopidogrel and Eliquis. Continue current beta-maria isabel, statin and antihypertensives. Follow-up with Dr. Hermosillo on return. Admission and Anticipated Discharge Date Admission Date: November 29, 2020 Subjective Post cardiac cath today showing severe multivessel disease including distal left main disease. Post procedure feeling well. No chest pain. No significant pain at right radial access site. Review of Systems Review of Systems: All systems reviewed & are unremarkable except as noted in HPI & below Physical Exam Physical Exam: General: Comfortable Lungs: Clear to auscultation bilaterally Cardiac: Regular rate and rhythm, 2/6 holosystolic murmur at the apex Vascular: TR band in place Abdomen: Soft, nontender Extremities: Well perfused, no peripheral edema Neuro: Nonfocal Psych: Alert orient x3, normal affect and mood Results & Data ([facility]) Vital Signs (Past 12 Hours) Vital Signs Temp Pulse Resp BP Pulse Ox 11/30/20 15:00 98.1 F 75 18 129/71 94 11/30/20 13:19 144/80 H 11/30/20 13:00 63 148/83 H 93 11/30/20 12:39 62 159/82 H 93 11/30/20 12:10 98.1 F 61 19 135/82 95 11/30/20 11:45 130/87 11/30/20 11:30 60 18 140/69 96 11/30/20 07:32 97.5 F L 79 18 144/83 H 92 11/30/20 03:47 97.5 F L 60 18 124/64 93 PG Care Time/CCT Total # of Minutes Spent Total Time Spent with Patient: Total time spent is greater than 50% in c oordination of care (as documented) at patient's floor/unit and/or counseling patient: Coding Level of Care Code 70929 Subseq Hosp Care Lvl 3 Diagnoses Non-ST elevation (NSTEMI) myocardial infarction I21.4
--- NOTE | 2020-11-30 16:33 | Billing Data ---
Date of Service November 30, 2020 Coding Level of Care Code 27760 OBS Care - Discharge
[2020-11-30] MEDS: ISOSORBIDE MONO EXTENDED REL 60 MG TABCR PO SCH (20:51)
[2020-11-30] MEDS: MONTELUKAST SODIUM 10 MG TABLET PO SCH (20:51)
[2020-11-30] MEDS: ATORVASTATIN 40 MG TAB PO SCH (20:51)
[2020-11-30] MEDS: LATANOPROST 0.005% OP SOLN 2.5 ML BTL OPL SCH (20:53)
[2020-11-30] MEDS: INSULIN GLARGINE SOLOSTAR 100 UNITS/ML 3 ML PEN SQ SCH (22:07)
[2020-11-30] MEDS: traZODone HCL 50 MG TAB PO SCH (22:07)
== END 2020-11-30 21:37 | disposition short-term general hospital (02) ==
LOC: 2S 22:26 → ED 22:26 → SUATTDRO 11-29 00:20 → 2S 11-29 02:11

== ENCOUNTER 2021-04-29 00:53 | Inpatient (IN) ==
--- NOTE | 2021-04-29 01:13 | Emergency Department Note ---
History of Present Illness General Chief complaint: Chest Pain Stated complaint: CHEST PAIN Time Seen by Provider: 04/29/21 01:00 Source: patient Mode of arrival: EMS Limitations: no limitations History of Present Illness Provider complaint: chest pain Onset (ago): hour(s) Location: chest Radiation: back and extremity Associated symptoms: + chest pain and + shortness of breath; no cough, no fever/chills, no headaches, no nausea/vomiting or no syncope Treatments prior to arrival: other This is an 85-year-old male who presents emergency department via EMS due to complaint of chest pain. Patient states this evening while seated watching TV he began to notice some pain in his left arm that radiated in the left side of his chest. Patient states the pain that began to radiate across to the right side of his chest and into his back. Patient states he was feeling well in his usual state of health earlier in the day. Patient states he asked his to bring him his nitro tablets, as he has had chest pain similar to this previously. Patient states he took a nitro and waited 15 minutes and had no improvement or relief of symptoms. He then took a second nitro and again had no improvement relief of symptoms so he asked his to call 911. Patient states had not take any other medications. EMS on arrival noted that the patient was also hypoxic. Patient did state that he felt shortness of breath accompanying this. He denies sweating, dizziness, or nausea. Patient states he follows with Dr. Bay grayson of cardiology. States he was previously evaluated in [place] and told he had several partial blockages but they were not amenable to any procedure or stenting and that he could only have medication adjustment to help control his symptoms. Patient denies any recent illness. Patient was given additional nitro by EMS, and states his pain is improved although not yet r esolved. Pt seen during a time of high acuity and national emergency pandemic while wearing PPE. Home Medications Medication Instructions Recorded Confirmed Type multivitamin (Daily-Darryl) 1 tab PO QAM #30 tab 02/05/20 04/29/21 Rx trazodone 50 mg tablet 50 mg PO HS #30 tab 08/04/20 04/29/21 Rx famotidine 40 mg tablet 40 mg PO QAM 08/07/20 04/29/21 History fluticasone propionate 50 1 spray INTRANASAL DAILY PRN 08/07/20 04/29/21 History mcg/actuation nasal spray,suspension (Flonase Allergy Relief) clopidogrel 75 mg tablet 75 mg PO DAILY #90 tab 09/02/20 04/29/21 Rx potassium chloride 10 mEq 20 meq PO BID #180 tab 09/15/20 04/29/21 Rx tablet,extended release insulin glargine 100 unit/mL (3 27 unit SUBCUT HS #15 syr 10/23/20 04/29/21 Rx mL) subcutaneous pen (Lantus Solostar U-100 Insulin) lisinopril 40 mg tablet 40 mg PO QAM #90 tab 10/23/20 04/29/21 Rx montelukast 10 mg tablet 10 mg PO HS #90 tab 10/23/20 04/29/21 Rx sertraline 25 mg tablet 25 mg PO QAM #90 tab 10/23/20 04/29/21 Rx latanoprost 0.005 % eye drops 1 drp OPL HS 11/29/20 04/29/21 History insulin aspart U-100 100 unit/mL See Rx Instructions SUBCUT 12/08/20 04/29/21 Rx (3 mL) subcutaneous pen (Novolog .COMPLEX #15 ml Flexpen U-100 Insulin aspart) levocetirizine 5 mg tablet 5 mg PO DAILY #30 tab 12/08/20 04/29/21 Rx melatonin 3 mg capsule 3 mg PO HS PRN #90 cap 12/08/20 04/29/21 Rx omega-3 fatty acids 1,000 mg 1,000 mg PO DAILY #30 cap 12/08/20 04/29/21 Rx capsule (Fish Oil Concentrate) ranolazine 500 mg tablet,extended 500 mg PO BID #60 tab 01/20/21 04/29/21 Rx release,12 hr carvedilol 12.5 mg tablet 12.5 mg PO BID #180 tab 02/19/21 04/29/21 Rx nitroglycerin 0.4 mg sublingual 0.4 mg SUBLINGUAL Q5M PRN #14 tab 02/19/21 04/29/21 Rx tablet amiodarone 200 mg tablet 200 mg PO DAILY #90 tab 03/15/21 04/29/21 Rx isosorbide mononitrate 120 mg 120 mg PO DAILY #90 tab 03/23/21 04/29/21 Rx tablet,extended release 24 hr apixaban 2.5 mg tablet 2.5 mg PO BID #180 tab 04/05/21 04/29/21 Rx oxycodone-acetaminophen 5 mg-325 0.5 tab PO DAILY 04/29/21 04/29/21 History mg tablet prednisone 10 mg tablet 10 mg PO .UD 04/29/21 04/29/21 History tramadol 50 mg tablet 50 mg PO DAILY 04/29/21 04/29/21 History Allergies Allergy/AdvReac Type Severity Reaction Status Date / Time pravastatin [From Pravachol] AdvReac Unknown Unknown Verified 04/29/21 02:45 rosuvastatin [From Crestor] AdvReac Unknown Unknown Verified 04/29/21 02:45 Past Med/Surg History Medical History Accidental fall Acquired bilateral foot drop Acute on chronic diastolic (congestive) heart failure Ataxia Biventricular ICD (implantable cardioverter-defibrillator) in place CAD (coronary artery disease) Cardiac defibrillator in place Chronic diastolic CHF (congestive heart failure) Closed head injury Diabetes mellitus with diabetic polyneuropathy Diarrhea Encounter for post surgical wound check Heart disease Hip pain, bilateral History of CVA (cerebrovascular accident) Hypercholesteremia Hypertension ICD (implantable cardioverter-defibrillator) battery depletion Intraabdominal mass Ischemic cardiomyopathy Non-ST elevation (NSTEMI) myocardial infarction Non-ST elevation VT (NSTEMI) (11/07/13) "PCI on 11/08/13; BMS in RCA" Paroxysmal atrial fibrillation Pericardial effusion Sensorineural hearing loss (SNHL) of right ear with restricted hearing of left ear Shoulder pain, bilateral SOB (shortness of breath) Surgical History History of back surgery S/P appendectomy S/P cholecystectomy S/P hernia repair Status post open reduction with internal fixation (ORIF) of fracture of ankle Family History Mother Breast cancer Cancer Father Hearing loss Other No significant family history Denies family history of Ovarian cancer Prostate cancer Myocardial infarction Colorectal cancer Social History Smoking Status: Never smoker Tobacco Type: Cigarettes Second Hand Exposure: No; Hx Alcohol Use: No Hx Substance Use: No Preferred Language: Kinyarwanda Communication Ability: Effective Visual Impairment: No Limitations 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 Required: No Beliefs That Will Affect Care: None marital status: Current Living Situation: Spouse Current Living Situation Comment: [facility] current occupational status: retired How many Children do You have: 2 Feels Safe at Home: Yes Seatbelt Use: sometimes Assistive Devices: Denture - Upper, Glasses and Walker Review of Systems A total of 10 systems reviewed and were otherwise negative All systems reviewed & are unremarkable except as noted in HPI & below Physical Exam Vital Signs Vital Signs - 24 hr 04/29/21 00:45 04/29/21 01:05 04/29/21 01:30 Temperature Source Oral Pulse Rate 85 88 Pulse Rate from SpO2 Sensor 89 Respiratory Rate 22 20 Respiratory Effort / Characteristics Short of Breath Short of Breath SOB on Exertion Blood Pressure 169/100 H 185/104 H Blood Pressure Mean 123 131 Pulse Oximetry 92 87 L 92 Oxygen Delivery Method Nasal Cannula Room Air Oxygen Flow Rate 4 Sepsis Recent Fever Within 48 Hours No Sepsis New/Unexplained Change in Mental Status No Sepsis Action Taken by Nursing No Action Required 04/29/21 02:00 04/29/21 02:30 04/29/21 03:00 Temperature Source Pulse Rate 75 72 73 Pulse Rate from SpO2 Sensor 76 73 74 Respiratory Rate 17 16 17 Respiratory Effort / Characteristics Blood Pressure 188/107 H 190/105 H 195/103 H Blood Pressure Mean 134 133 133 Pulse Oximetry 93 96 94 Oxygen Delivery Method Oxygen Flow Rate 5 Sepsis Recent Fever Within 48 Hours Sepsis New/Unexplained Change in Mental Status Sepsis Action Taken by Nursing GENERAL: alert, well appearing, well nourished, no distress, non-toxic EYE EXAM: normal conjunctiva, PERRL and EOM's grossly intact OROPHARYNX: no exudate, no erythema, lips, buccal mucosa, and tongue normal and mucous membranes are moist NECK: supple, no nuchal rigidity, no adenopathy, non-tender LUNGS: Clear to auscultation. Normal chest wall mechanics, no w/r/r HEART: no murmurs, S1 normal and S2 normal ABDOMEN: abdomen soft, non-tender, normo-active bowel sounds, no masses, no rebound or guarding. BACK: Back is symmetrical on inspection and there is no deformity, no midline tenderness, no CVA tenderness. SKIN: no rashes and no bruising UPPER EXTREMITIES: upper extremities are grossly normal. FROM, nml pulses b/l. LOWER EXTREMITIES: No pitting edema. FROM, nml pulses b/l. NEURO EXAM: Normal sensorium, cranial nerves II-XII grossly intact, normal speech, no gross weakness of arms, no gross weakness of legs. Gross sensation intact. Course Course 0230: Pt updated on results. States pain almost gone at this time. 0245: Case discussed with Dr. Lucio. Administered Medications Nitroglycerin (Nitroglycerin 2% Ointment 30gm Tube) 0.5 inch EXT Q6H KEVIN Stop: 05/29/21 04:13 Last Admin: 04/29/21 04:22 Dose: Not Given Documented by: [id number] Discontinued Medications Carvedilol (Carvedilol 12.5 Mg Tab) 12.5 mg PO NOW ONE Stop: 04/29/21 03:22 Last Admin: 04/29/21 03:48 Dose: 12.5 mg Documented by: [id number] Furosemide (Furosemide 40 Mg/4 Ml Vial) 40 mg IV ONE ONE Stop: 04/29/21 02:31 Last Admin: 04/29/21 02:59 Dose: 40 mg Documented by: [id number] Insulin Human Regular (Novolin-R Insulin Per Unit Charge) 6 units SC NOW STA Stop: 04/29/21 02:29 Last Admin: 04/29/21 03:34 Dose: 6 units Documented by: [id number] Cosigned by: [id number] Morphine Sulfate (Morphine Sulfate 4 Mg/Ml 1 Ml [place]\\Vial) 4 mg IV NOW STA Stop: 04/29/21 01:15 Last Admin: 04/29/21 01:26 Dose: 4 mg Documented by: [id number] Morphine Sulfate (Morphine Sulfate 2 Mg/Ml Carp) 2 mg IV NOW STA Stop: 04/29/21 02:37 Last Admin: 04/29/21 03:02 Dose: 2 mg Documented by: [id number] Nitroglycerin (Nitroglycerin 2% Ointment 30gm Tube) 1 inch EXT NOW STA Stop: 04/29/21 01:15 Last Admin: 04/29/21 01:27 Dose: 1 inch Documented by: [id number] Nitroglycerin (Nitroglycerin 2% Ointment 30gm Tube) 0.5 inch EXT NOW ONE Stop: 04/29/21 03:22 Last Admin: 04/29/21 03:46 Dose: 0.5 inch Documented by: [id number] Medical Decision Making Differential Diagnosis Differential diagnoses includes but is not limited to acute coronary syndrome, myocardial infarction, pericarditis, pulmonary embolus, aortic dissection, pneumonia, pneumothorax, musculoskeletal, shingles, esophageal. Medical Records Attestation: I reviewed the patient's medical records. Home Medications Current Medication List: was personally reviewed by me Laboratory Data Attestation: I reviewed the patient's lab results. Result diagrams: 04/29/21 01:00 04/29/21 01:00 Lab Results 04/29/21 04/29/21 04/29/21 Range/Units 01:00 01:00 01:44 WBC 9.18 (4.8-10.8) K/uL RBC 3.71 L (4.7-6.1) M/uL Hgb 10.5 L (14.0-18.0) g/dL Hct 33.3 L (42-52) % MCV 89.8 (80-100) fL MCH 28.3 (25-34) pg MCHC 31.5 L (32-36) g/dL RDW Std Deviation 48.4 H (36.4-46.3) fL RDW Coeff of Apol[place] 14.9 H (11.5-14.5) % Plt Count 413 H (130-400) K/uL MPV 10.0 (7.4-10.4) fL Immature Gran % (Auto) 0.2 % Neut % (Auto) 74.4 % Lymph % (Auto) 19.3 % Union % (Auto) 5.8 % Eos % (Auto) 0.1 % Baso % (Auto) 0.2 % Neut # (Auto) 6.83 H (1.4-6.5) K/uL Lymph # (Auto) 1.77 (1.2-3.4) K/uL Union # (Auto) 0.53 (0.11-0.59) K/uL Eos # (Auto) 0.01 (0-0.5) K/uL Baso # (Auto) 0.02 (0-0.2) K/uL Immature Gran # (Auto) 0.02 (0.00-0.02) K/uL Sodium 137 (136-145) mmol/L Potassium 5.2 H (3.5-5.1) mmol/L Chloride 106 (98-107) mmol/L Carbon Dioxide 26 (21-32) mmol/L Anion Gap 5.0 (3-11) BUN 22 H (7-18) mg/dl Creatinine 1.45 H (0.6-1.4) mg/dl Est Cr Clr Drug Dosing 40.6 ml/min Est GFR ( Amer) 50.9 ml/min Est GFR (Non-Af Amer) 43.9 ml/min BUN/Creatinine Ratio 14.9 (10-20) Glucose 381 H* (70-99) mg/dl Calcium 9.8 (8.5-10.1) mg/dl Magnesium 2.4 (1.8-2.4) mg/dl Total Bilirubin 0.3 (0.2-1) mg/dl AST 17 (15-37) U/L ALT 21 (12-78) U/L Alkaline Phosphatase 130 H (45-117) U/L Troponin I < 0.015 (0-0.045) ng/ml NT-Pro-B Natriuret Pep 6900 H (0-1800) pg/ml Total Protein 7.4 (6.4-8.2) gm/dl Albumin 3.2 L (3.4-5.0) gm/dl Globulin 4.2 H (2.5-4.0) gm/dl Albumin/Globulin Ratio 0.8 L (0.9-2) Lipase 113 (73-393) U/L Beta-Hydroxybutyric Acd (0.2-2.81) mg/dl Specimen Hemolysis COVID-19 Eval Order Covid19 at [facility] SARS-CoV-2 (PCR) (Negative) 04/29/21 Range/Units 01:44 WBC (4.8-10.8) K/uL RBC (4.7-6.1) M/uL Hgb (14.0-18.0) g/dL Hct (42-52) % MCV (80-100) fL MCH (25-34) pg MCHC (32-36) g/dL RDW Std Deviation (36.4-46.3) fL RDW Coeff of [place] (11.5-14.5) % Plt Count (130-400) K/uL MPV (7.4-10.4) fL Immature Gran % (Auto) % Neut % (Auto) % Lymph % (Auto) % Union % (Auto) % Eos % (Auto) % Baso % (Auto) % Neut # (Auto) (1.4-6.5) K/uL Lymph # (Auto) (1.2-3.4) K/uL Union # (Auto) (0.11-0.59) K/uL Eos # (Auto) (0-0.5) K/uL Baso # (Auto) (0-0.2) K/uL Immature Gran # (Auto) (0.00-0.02) K/uL Sodium (136-145) mmol/L Potassium (3.5-5.1) mmol/L Chloride (98-107) mmol/L Carbon Dioxide (21-32) mmol/L Anion Gap (3-11) BUN (7-18) mg/dl Creatinine (0.6-1.4) mg/dl Est Cr Clr Drug Dosing ml/min Est GFR ( Amer) ml/min Est GFR (Non-Af Amer) ml/min BUN/Creatinine Ratio (10-20) Glucose (70-99) mg/dl Calcium (8.5-10.1) mg/dl Magnesium (1.8-2.4) mg/dl Total Bilirubin (0.2-1) mg/dl AST (15-37) U/L ALT (12-78) U/L Alkaline Phosphatase (45-117) U/L Troponin I (0-0.045) ng/ml NT-Pro-B Natriuret Pep (0-1800) pg/ml Total Protein (6.4-8.2) gm/dl Albumin (3.4-5.0) gm/dl Globulin (2.5-4.0) gm/dl Albumin/Globulin Ratio (0.9-2) Lipase (73-393) U/L Beta-Hydroxybutyric Acd (0.2-2.81) mg/dl Specimen Hemolysis COVID-19 Eval Order SARS-CoV-2 (PCR) NEGATIVE (Negative) Imaging Data My Impression: X-ray: I interpreted the following studies. Chest: A single view study of the chest was reviewed and was negative for cardiomegaly, focal infiltrate, effusi on, or wide mediastinum. AICD noted. Appearance of increasing pulmonary edema noted. Radiologist's Impression: Chest X-Ray 04/29/21 01:13 XR chest 1V portable CLINICAL HISTORY: Chest pain. COMPARISON STUDY: Chest radiograph November 28, 2020. FINDINGS: Left subclavian biventricular pacer/AICD is in place. There is no pneumothorax or pleural effusion. Cardiomegaly is unchanged. Asymmetric left lung opacity and interstitial thickening is present. Mild right basilar opacity is present. 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 IMPRESSION: 1. Asymmetric left lung airspace opacity and interstitial thickening. This may reflect pneumonia or asymmetric pulmonary edema. Mild right basilar opacity. Radiographic follow-up is recommended to ensure resolution. 2. Stable cardiomegaly. ACT 112: Negative or not required by law. Electronically signed by: Yonis Robles M.D. 04/29/2021 6:25 AM ECG Data Attestation: I personally reviewed and interpreted this ECG as follows: Indication: + chest pain Rate (beats per minute): 89 Rhythm: + other (Paced) ECG Intervals/blocks: + IVCD and + Prolonged QT ECG [place]: + Left axis deviation ECG ST segments: + Nonspecific ST abnormalities MDM Narrative This is an 85-year-old male who presents due to concerning chest pain and shortness of breath. Patient found to be hypoxic by EMS and on recheck here was also hypoxic on room air was more comfortable in 2 to 3 L via nasal cannula. Patient does not typically wear home oxygen. Patient with significant history of CAD, ischemic cardiomyopathy, and AICD in place. Review of EMR with last admission previously this year patient found to have an LVEF of 35% on echo. Patient's chest x-ray with appearance of evolving pulmonary edema, patient found to have an elevated BNP on labs compared to prior. Troponin negative. Patient's EKG paced and no other acute changes noted. Nitropaste was applied and patient given a dose of morphine with improvement of pain. Patient was otherwise hemodynamically stable. Discussed all results with patient at bedside and need for additional evaluation and treatment. Case discussed with hospitalist. Patient does have known CAD and was previously told it would only be amenable to medical management, no other interventions or procedures. Patient was noted to be hyperglycemic, no evidence of DKA. Additional subcu insulin was given. An order was placed for continuous cardiac monitoring. The monitor shows a rate of _66_ with _normal sinus_ rhythm. Impression & Plan Chest pain, Acute dyspnea, Pulmonary edema, Hyperglycemia, Anemia Discharge Plan Visit Data Chief Complaint: Chest Pain Stated Complaint: CHEST PAIN ED Provider: Leela Alba Discharge Problem: Chest pain, Acute dyspnea, Pulmonary edema, Hyperglycemia, Anemia Patient Disposition: Admitted As Inpatient Discharge Instructions Interventions: ED Discharge Assessment Last Done: 04/29/21 04:10 Discharge Problem: Chest pain Qualifiers: Chest pain type: unspecified Qualified Code(s): R07.9 - Chest pain, unspecified Pulmonary edema Qualifiers: Chronicity: acute Qualified Code(s): J81.0 - Acute pulmonary edema Anemia Qualifiers: Anemia type: unspecified type Qualified Code(s): D64.9 - Anemia, unspecified
[2021-04-29] MEDS ORDERED: MoRPHine SULFATE 4 MG/ML 1 ML CARP\\VIAL IV STA (01:14)
[2021-04-29] MEDS ORDERED: NITROGLYCERIN 2% OINTMENT 30GM TUBE EXT STA (01:14)
[2021-04-29 01:40] LABS: Basophils # (auto) 0.02 K/uL (0-0.2); Basophils % (auto) 0.2 %; Eosinophils # (auto) 0.01 K/uL (0-0.5); Eosinophils % (auto) 0.1 %; Hematocrit (blood only) 33.3 % (42-52); Hemoglobin 10.5 g/dL (14.0-18.0); Immature Granulocytes # (auto) 0.02 K/uL (0.00-0.02); Immature Granulocytes % (auto) 0.2 %; Lymphocytes # (auto) 1.77 K/uL (1.2-3.4); Lymphocytes % (auto) 19.3 %; Mean Corpuscular Hemoglobin 28.3 pg (25-34); Mean Corpuscular Hgb Conc 31.5 g/dL (32-36); Mean Corpuscular Volume 89.8 fL (80-100); Monocytes # (auto) 0.53 K/uL (0.11-0.59); Monocytes % (auto) 5.8 %; Neutrophils # (auto) 6.83 K/uL (1.4-6.5); Neutrophils % (auto) 74.4 %; Platelet Count 413 K/uL (130-400); RDW Coefficient of Variation 14.9 % (11.5-14.5); RDW Standard Deviation 48.4 fL (36.4-46.3); Red Blood Count 3.71 M/uL (4.7-6.1); White Blood Count 9.18 K/uL (4.8-10.8)
[2021-04-29 02:16] LABS: Aspartate Aminotransferase 17 U/L (15-37); Magnesium 2.4 mg/dl (1.8-2.4); Potassium 5.2 mmol/L (3.5-5.1)
[2021-04-29 02:17] LABS: Alanine Aminotransferase 21 U/L (12-78); Albumin Globulin Ratio 0.8 (0.9-2); Albumin Level 3.2 gm/dl (3.4-5.0); Alkaline Phosphatase 130 U/L (45-117); BUN Creatinine Ratio 14.9 (10-20); Bilirubin,Total 0.3 mg/dl (0.2-1); Blood Urea Nitrogen 22 mg/dl (7-18); Calcium 9.8 mg/dl (8.5-10.1); Carbon Dioxide 26 mmol/L (21-32); Chloride 106 mmol/L (98-107); Creatinine Clr Calc Pharmacy 40.6 ml/min; Est GFR (African American) 50.9 ml/min; Est GFR (Non-African American) 43.9 ml/min; Globulin 4.2 gm/dl (2.5-4.0); Glucose 381 mg/dl (70-99); Lipase 113 U/L (73-393); NT Pro B Type Natriuretic Pept 6900 pg/ml (0-1800); Sodium 137 mmol/L (136-145); Total Protein 7.4 gm/dl (6.4-8.2); Troponin I < 0.015 ng/ml (0-0.045)
[2021-04-29] MEDS ORDERED: NovoLIN-R INSULIN PER UNIT CHARGE SC STA (02:28)
[2021-04-29] MEDS ORDERED: FUROSEMIDE 40 MG/4 ML VIAL IV ONE (02:30)
[2021-04-29] MEDS ORDERED: MoRPHine SULFATE 2 MG/ML CARP IV STA (02:36)
[2021-04-29] MEDS ORDERED: carvediloL 12.5 MG TAB PO ONE ×2 (03:21→13:00)
[2021-04-29] MEDS ORDERED: NITROGLYCERIN 2% OINTMENT 30GM TUBE EXT ONE (03:21)
--- NOTE | 2021-04-29 03:24 | History & Physical Report ---
Date of Service April 29, 2021 Assessment & Plan (1) Chest pain: Plan: Marquis Salgado is an 85yo male with history of CAD, ischemic cardiomyopathy with EF of 35% per echo 12/02/20 s/p Bi-ventricular AICD placement, PAF on Apixaban anticoagulation as well as CKD presenting with chest pain that woke him from sleep this evening. Pain left sided with radiation across his chest to the right arm. No relief with Nitro. Improved with Morphine administered in the ER. Patient's EKG is difficult to interpret for acute ischemia as it is A- sensed, V-paced. Troponin is negative. Patient with underlying CAD with blockages non-amenable to stenting. He follows with Cardiology - Dr. Hermosillo, last seen on 04/19. -Observation with telemetry monitoring -Trend troponin -Nitro paste -Morphine PRN -Continue home medication regimen to include Plavix, Carvedilol 12.5mg po BID, Isosorbide mononitrate, Lisinopril and Ranolazine -Consider cardiology consultation in AM (2) CHF (congestive heart failure): Plan: Suspect some degree of acute on chronic CHF with volume overload at this time. Patient endorses some slight weight gain of 2# as well as slight LE edema. His BNP is elevated. CXR suggestive of pulmonary edema -Blood pressure control as below -Lasix 40mg IV given in ER -Continue diuresis with Bumex 2mg IV BID -Monitor strict I/Os and daily weights -BMP BID to monitor renal function with diuresis -Electrolyte repletion -Continue home cardiac meds - Metoprolol, Lisinopril, Isosorbide mononitrate. Angeliquenent follows with both Cardiology and Heart Failure as an outpatient. He is to be switched to Entresto for optimal medical management as renal function allows. (3) Diabetes mellitus with complication: Plan: Elevated blood sugar this evening. Last AIC in 03/2021 elevated at 9.1. Patient administered 6u SQ insulin in the ER. Will continue to watch blood sugars -Lantus 13u BID -ISS -Goal blood sugar 100 - 140 (4) Hypertension: Plan: Elevated blood pressure in ER -Nitro paste -Continue Carvedilol, Lisinopril, Isosorbide mononitrate -Continue to monitor (5) Paroxysmal atrial fibrillation: Plan: BiV AICD in place, EKG shows atrial-sensed, ventricular paced rhythm -Continue Amiodarone 200mg po daily -Continue Metoprolol -Continue Apixaban -Monitor (6) Chronic kidney disease (CKD): Plan: BUN and Cr near baseline -Closely monitor renal function with diuresis -Electrolyte repletion -Avoid nephrotoxic agents (7) CAD (coronary artery disease): Plan: Chronic. BMS placemetn in 2013. Patient had a cardiac catheterization on 11/30/20 which revealed severe CAD and normal intracardiac pressures. 80% distal LM extending into circumflex. 70% ostial circumflex. 99% late-mid RCA stenosis with faint collaterals. He was transferred to [facility] following that catheterization for possible revascularization. He ws seen by CT Surgery as well as Interventional Cardiology at that time - no plan for CABG -Continue medical therapy as above -Troponin -Telemetry monitoring (8) Anxiety: Plan: Chronic. Stable on Ssertraline -Continue [id number] 25mg po daily (9) GERD (gastroesophageal reflux disease): Plan: Chronic. Stable on Famotidine -Continue Famotidine 40mg po daily History of Present Illness Chief Complaint: chest pain Primary Care Provider: Kyle Lamb MD Patient is a pleasant 85yo male with complex cardiac history presenting to the ER this evening with his and daughter with complaint of chest pain. Patient was in his usual state of healthy throughout the day. Tonight around 23:00 he was sitting in his chair watching TV. He took a brief nap for about 30 minutes and was woken by pain in the left arm and chest. The pain radiated across his chest and into his right arm and shoulde, 7/10 in severityr. Patient took a SL Nitro x 1 and waited 15 minutes with no relief. He took a 2nd Nitro with no relief therefore called EMS. EMS found patient to be hypoxic at 87% on room air. They administered Nitro x 2 and ASA en route. Upon arrival to the ER patient afebrile, hypertensive, saturating 87% on room air. He was placed on NC 4L with improvement in saturation. Still with very minimal left sided chest discomfort. No additional complaints at this time. ER Course: Morphine, Nitro, Lasix 40mg IV Allergies Allergy/AdvReac Type Severity Reaction Status Date / Time pravastatin [From Pravachol] AdvReac Unknown Unknown Verified 04/29/21 02:45 rosuvastatin [From Crestor] AdvReac Unknown Unknown Verified 04/29/21 02:45 Home Medications Medication Instructions Recorded Confirmed Type multivitamin (Daily-Darryl) 1 tab PO QAM #30 tab 02/05/20 04/29/21 Rx trazodone 50 mg tablet 50 mg PO HS #30 tab 08/04/20 04/29/21 Rx famotidine 40 mg tablet 40 mg PO QAM 08/07/20 04/29/21 History fluticasone propionate 50 1 spray INTRANASAL DAILY PRN 08/07/20 04/29/21 History mcg/actuation nasal spray,suspension (Flonase Allergy Relief) clopidogrel 75 mg tablet 75 mg PO DAILY #90 tab 09/02/20 04/29/21 Rx potassium chloride 10 mEq 20 meq PO BID #180 tab 09/15/20 04/29/21 Rx tablet,extended release insulin glargine 100 unit/mL (3 27 unit SUBCUT HS #15 syr 10/23/20 04/29/21 Rx mL) subcutaneous pen (Lantus Solostar U-100 Insulin) lisinopril 40 mg tablet 40 mg PO QAM #90 tab 10/23/20 04/29/21 Rx montelukast 10 mg tablet 10 mg PO HS #90 tab 10/23/20 04/29/21 Rx sertraline 25 mg tablet 25 mg PO QAM #90 tab 10/23/20 04/29/21 Rx latanoprost 0.005 % eye drops 1 drp OPL HS 11/29/20 04/29/21 History insulin aspart U-100 100 unit/mL See Rx Instructions SUBCUT 12/08/20 04/29/21 Rx (3 mL) subcutaneous pen (Novolog .COMPLEX #15 ml Flexpen U-100 Insulin aspart) levocetirizine 5 mg tablet 5 mg PO DAILY #30 tab 12/08/20 04/29/21 Rx melatonin 3 mg capsule 3 mg PO HS PRN #90 cap 12/08/20 04/29/21 Rx omega-3 fatty acids 1,000 mg 1,000 mg PO DAILY #30 cap 12/08/20 04/29/21 Rx capsule (Fish Oil Concentrate) ranolazine 500 mg tablet,extended 500 mg PO BID #60 tab 01/20/21 04/29/21 Rx release,12 hr carvedilol 12.5 mg tablet 12.5 mg PO BID #180 tab 02/19/21 04/29/21 Rx nitroglycerin 0.4 mg sublingual 0.4 mg SUBLINGUAL Q5M PRN #14 tab 02/19/21 04/29/21 Rx tablet amiodarone 200 mg tablet 200 mg PO DAILY #90 tab 03/15/21 04/29/21 Rx isosorbide mononitrate 120 mg 120 mg PO DAILY #90 tab 03/23/21 04/29/21 Rx tablet,extended release 24 hr apixaban 2.5 mg tablet 2.5 mg PO BID #180 tab 04/05/21 04/29/21 Rx oxycodone-acetaminophen 5 mg-325 0.5 tab PO DAILY 04/29/21 04/29/21 History mg tablet prednisone 10 mg tablet 10 mg PO .UD 04/29/21 04/29/21 History tramadol 50 mg tablet 50 mg PO DAILY 04/29/21 04/29/21 History Past Med/Surg History Medical History Accidental fall Acquired bilateral foot drop Acute on chronic diastolic (congestive) heart failure Ataxia Biventricular ICD (implantable cardioverter-defibrillator) in place CAD (coronary artery disease) Cardiac defibrillator in place Chronic diastolic CHF (congestive heart failure) Closed head injury Diabetes mellitus with diabetic polyneuropathy Diarrhea Encounter for post surgical wound check Heart disease Hip pain, bilateral History of CVA (cerebrovascular accident) Hypercholesteremia Hypertension ICD (implantable cardioverter-defibrillator) battery depletion Intraabdominal mass Ischemic cardiomyopathy Non-ST elevation (NSTEMI) myocardial infarction Non-ST elevation TN (NSTEMI) (11/07/13) "PCI on 11/08/13; BMS in RCA" Paroxysmal atrial fibrillation Pericardial effusion Sensorineural hearing loss (SNHL) of right ear with restricted hearing of left ear Shoulder pain, bilateral SOB (shortness of breath) Surgical History History of back surgery S/P appendectomy S/P cholecystectomy S/P hernia repair Status post open reduction with internal fixation (ORIF) of fracture of ankle Family History Mother Breast cancer Cancer Father Hearing loss Other No significant family history Denies family history of Ovarian cancer Prostate cancer Myocardial infarction Colorectal cancer Social History Smoking Status: Never smoker Tobacco Type: Cigarettes Second Hand Exposure: No; Hx Alcohol Use: No Hx Substance Use: No Preferred Language: Latvian Communication Ability: Effective Visual Impairment: No Limitations Bad Work Gatherer Required: No Beliefs That Will Affect Care: None marital status: Current Living Situation: Spouse Current Living Situation Comment: lives at [facility] [place] current occupational status: retired How many Children do You have: 2 Feels Safe at Home: Yes Seatbelt Use: sometimes Assistive Devices: Denture - Upper, Glasses and Walker Review of Systems Review of Systems: All systems reviewed & are unremarkable except as noted in HPI & below Patient denies fever, palpitations, cough, abdominal pain, nausea, vomiting, diarrhea, constipation, diaphoresis Physical Exam Physical Exam: General: patient resting comfortably, NAD, non-toxic in appearance, AA&O x 4 Skin: warm, dry, intact, no rashes or lesions HEENT: NC/AT, PERRL, EOMI, anicteric sclera, conjunctiva without injection, external ear normal to inspection and nontender, nares patent, moist mucus membranes, dentition intact, no oropharyngeal lesions, neck supple, trachea midline, no LAD, no thyromegaly, no JVD Heart: +S1/S2, regular, no m/r/g Lungs: equal air entry bilaterally, +faint crackles in anterior lung zuñiga and bases with end-expiratory wheezing Abd: +BS, soft, NT/ND, no masses/organomegaly/ascites Ext: warm, 2+ pulses in UE/LE bilaterally, no clubbing/cyanosis, 1+ pitting edema at the sock line bilaterally, leg braces in place Neuro: nonfocal, patient AA&O x 4, speech intact, no facial droop, moving all extremities on command with equal strength 5/5 Results & Data Results & Data ([facility]) Vital Signs (Past 12 Hours) Vital Signs Pulse Resp BP Pulse Ox 04/29/21 02:30 72 16 190/105 H 96 04/29/21 02:00 75 17 188/107 H 93 04/29/21 01:30 88 20 185/104 H 92 04/29/21 01:05 87 L 11/04/21 00:45 85 22 169/100 H 92 Laboratory Results Laboratory Results WBC 9.18 K/uL (4.8-10.8) 04/29/21 01:00 RBC 3.71 M/uL (4.7-6.1) L 04/29/21 01:00 Hgb 10.5 g/dL (14.0-18.0) L 04/29/21 01:00 Hct 33.3 % (42-52) L 04/29/21 01:00 MCV 89.8 fL (80-100) 04/29/21 01:00 MCH 28.3 pg (25-34) 04/29/21 01:00 MCHC 31.5 g/dL (32-36) L 04/29/21 01:00 RDW Std Deviation 48.4 fL (36.4-46.3) H 04/29/21 01:00 RDW Coeff of [place] 14.9 % (11.5-14.5) H 04/29/21 01:00 Plt Count 413 K/uL (130-400) H 04/29/21 01:00 MPV 10.0 fL (7.4-10.4) 04/29/21 01:00 Immature Gran % (Auto) 0.2 % 04/29/21 01:00 Neut % (Auto) 74.4 % 04/29/21 01:00 Lymph % (Auto) 19.3 % 04/29/21 01:00 [place] % (Auto) 5.8 % 04/29/21 01:00 Eos % (Auto) 0.1 % 04/29/21 01:00 Baso % (Auto) 0.2 % 04/29/21 01:00 Neut # (Auto) 6.83 K/uL (1.4-6.5) H 04/29/21 01:00 Lymph # (Auto) 1.77 K/uL (1.2-3.4) 04/29/21 01:00 [place] # (Auto) 0.53 K/uL (0.11-0.59) 04/29/21 01:00 Eos # (Auto) 0.01 K/uL (0-0.5) 04/29/21 01:00 Baso # (Auto) 0.02 K/uL (0-0.2) 04/29/21 01:00 Immature Gran # (Auto) 0.02 K/uL (0.00-0.02) 04/29/21 01:00 Sodium 137 mmol/L (136-145) 04/29/21 01:00 Potassium 5.2 mmol/L (3.5-5.1) H 04/29/21 01:00 Chloride 106 mmol/L (98-107) 04/29/21 01:00 Carbon Dioxide 26 mmol/L (21-32) 04/29/21 01:00 Anion Gap 5.0 (3-11) 04/29/21 01:00 BUN 22 mg/dl (7-18) H 04/29/21 01:00 Creatinine 1.45 mg/dl (0.6-1.4) H 04/29/21 01:00 Est Cr Clr Drug Dosing 40.6 ml/min 04/29/21 01:00 Est GFR ( Amer) 50.9 ml/min 04/29/21 01:00 Est GFR (Non-Af Amer) 43.9 ml/min 04/29/21 01:00 BUN/Creatinine Ratio 14.9 (10-20) 04/29/21 01:00 Glucose 381 mg/dl (70-99) H* 04/29/21 01:00 Calcium 9.8 mg/dl (8.5-10.1) 04/29/21 01:00 Magnesium 2.4 mg/dl (1.8-2.4) 04/29/21 01:00 Total Bilirubin 0.3 mg/dl (0.2-1) 04/29/21 01:00 AST 17 U/L (15-37) 04/29/21 01:00 ALT 21 U/L (12-78) 04/29/21 01:00 Alkaline Phosphatase 130 U/L (45-117) H 04/29/21 01:00 Troponin I < 0.015 ng/ml (0-0.045) 04/29/21 01:00 NT-Pro-B Natriuret Pep 6900 pg/ml (0-1800) H 04/29/21 01:00 Total Protein 7.4 gm/dl (6.4-8.2) 04/29/21 01:00 Albumin 3.2 gm/dl (3.4-5.0) L 04/29/21 01:00 Globulin 4.2 gm/dl (2.5-4.0) H 04/29/21 01:00 Albumin/Globulin Ratio 0.8 (0.9-2) L 04/29/21 01:00 Lipase 113 U/L (73-393) 04/29/21 01:00 Beta-Hydroxybutyric Acd mg/dl (0.2-2.81) 04/29/21 01:00 Specimen Hemolysis 04/29/21 01:00 COVID-19 Eval Order Covid19 at [facility] 04/29/21 01:44 SARS-CoV-2 (PCR) NEGATIVE (Negative) 04/29/21 01:44 Diagnostic Findings CXR by my interpretation - bilateral airspace opacities, L > R, BiV AICD in place ECG Additional Comments: EKG is atrial sensed, ventricular paced at 89 bpm Code Status & VTE Plan VTE Prophylaxis Plan VTE Prophylaxis will be ordered: Yes PG Care Time/CCT Total # of Minutes Spent Total Time Spent with Patient: Total time spent is greater than 50% in coordination of care (as documented) at patient's floor/unit and/or counseling patient: Coding Level of Care Code INT OBSERVATION CARE 70M LVL 3 Diagnoses Chronic kidney disease (CKD) N18.9 CAD (coronary artery disease) I25.10 Coronary Disease-Associated Artery/Lesion type: [place] artery [place] vs. transplanted heart: [place] heart Associated angina: angina presence unspecified CHF (congestive heart failure) I50.43 Heart failure chronicity: acute on chronic Heart failure type: combined systolic and diastolic Diabetes mellitus with complication E11.8 Paroxysmal atrial fibrillation I48.0 Anxiety F41.9 GERD (gastroesophageal reflux disease) K21.9 Esophagitis presence: esophagitis presence not specified Hypertension I10 Hypertension type: essential hypertension Chest pain R07.9 (1) CAD (coronary artery disease) Coronary Disease-Associated Artery/Lesion type: [place] artery [place] vs. transplanted heart: [place] heart Associated angina: angina presence unspecified Qualified Code(s): I25.10 - Atherosclerotic heart disease of [place] coronary artery without angina pectoris (2) CHF (congestive heart failure) Heart failure chronicity: acute on chronic Heart failure type: combined systolic and diastolic Qualified Code(s): I50.43 - Acute on chronic combined systolic (congestive) and diastolic (congestive) heart failure (3) GERD (gastroesophageal reflux disease) Esophagitis presence: esophagitis presence not specified Qualified Code(s): K21.9 - Gastro-esophageal reflux disease without esophagitis (4) Hypertension Hypertension type: essential hypertension Qualified Code(s): I10 - Essential (primary) hypertension
[2021-04-29] MEDS ORDERED: CARBOHYDRATES FOR HYPOGLYCEMIA PO PRN (04:14)
[2021-04-29] MEDS ORDERED: MoRPHine SULFATE 2 MG/ML CARP IV PRN (04:14)
[2021-04-29] MEDS ORDERED: ACETAMINOPHEN 325 MG TAB PO PRN (04:14)
[2021-04-29] MEDS ORDERED: FLUTICASONE PROPIONATE NA SPR 16 GM BTL PRN (04:14)
[2021-04-29] MEDS ORDERED: GLUCOSE 40% GEL 15 GM TUBE PO PRN (04:14)
[2021-04-29] MEDS ORDERED: GLUCOSE 10 TABS/TUBE PO PRN (04:14)
[2021-04-29] MEDS ORDERED: DEXTROSE 50% 50 ML SYRINGE IV PRN (04:14)
[2021-04-29] MEDS ORDERED: GLUCAGON FOR INJ 1 MG VIAL SQ PRN (04:14)
[2021-04-29] MEDS: NITROGLYCERIN 2% OINTMENT 30GM TUBE EXT SCH ×4 (04:22→21:49)
--- NOTE | 2021-04-29 06:26 | XRay Report ---
XR chest 1V portable CLINICAL HISTORY: Chest pain. COMPARISON STUDY: Chest radiograph November 28, 2020. FINDINGS: Left subclavian biventricular pacer/AICD is in place. There is no pneumothorax or pleural e ffusion. Cardiomegaly is unchanged. Asymmetric left lung opacity and interstitial thickening is prese nt. Mild right basilar opacity is present. Osteoarthritis of the bilateral glenohumeral joints is inc identally noted. IMPRESSION: 1. Asymmetric left lung airspace opacity and interstitial thickening. This may reflect pneumonia or a symmetric pulmonary edema. Mild right basilar opacity. Radiographic follow-up is recommended to ensur e resolution. 2. Stable cardiomegaly. ACT 112: Negative or not required by law. Electronically signed by: Yonis Robles M.D. 04/29/2021 6:25 AM
[2021-04-29 07:36] LABS: BUN Creatinine Ratio 16.3 (10-20); Calcium 9.5 mg/dl (8.5-10.1); Creatinine Clr Calc Pharmacy 42.4 ml/min; Est GFR (African American) 53.6 ml/min; Est GFR (Non-African American) 46.2 ml/min; Potassium 4.6 mmol/L (3.5-5.1)
[2021-04-29 07:47] LABS: Troponin I 6.8 ng/ml (0-0.045)
[2021-04-29] MEDS: INSULIN ASPART 100 UNITS/ML 3 ML PEN SC SCH ×4 (08:27→20:39)
[2021-04-29] MEDS: lisinopril 40 MG TAB PO SCH (08:28)
[2021-04-29] MEDS: SERTRALINE HCL 50 MG TABLET PO SCH (08:28)
[2021-04-29] MEDS: BUMETANIDE 2 MG in SYRINGE 0 ML IV SCH ×2 (08:29→17:43)
[2021-04-29] MEDS: ISOSORBIDE MONO EXTENDED REL 60 MG TABCR PO SCH (08:29)
[2021-04-29] MEDS: AMIODARONE 200 MG TAB PO SCH (08:30)
[2021-04-29] MEDS: CLOPIDOGREL BISULFATE 75 MG TAB PO SCH (08:30)
[2021-04-29] MEDS: FAMOTIDINE 40 MG TABLET PO SCH (08:30)
[2021-04-29] MEDS: RANOLAZINE 500 MG ER TAB PO SCH ×2 (08:30→20:37)
[2021-04-29] MEDS: INSULIN GLARGINE SOLOSTAR 100 UNITS/ML 3 ML PEN SC SCH ×2 (08:30→20:39)
[2021-04-29] MEDS: carvediloL 12.5 MG TAB PO SCH ×2 (08:30→20:37)
[2021-04-29] MEDS: oxyCODONE/ACETAMINOPHEN 5mg/325mg TAB PO SCH (08:31)
[2021-04-29] MEDS: traMADol HCL 50 MG TABLET PO SCH (08:32)
[2021-04-29] MEDS ORDERED: APIXABAN 2.5 MG TAB PO SCH (09:00)
--- NOTE | 2021-04-29 10:52 | Electrocardiogram Report ---
Test Reason : Blood Pressure : / mmHG Vent. Rate : 089 BPM Atrial Rate : 089 BPM P-R Int : 120 ms QRS Dur : 202 ms QT Int : 492 ms P-R-T Axes : 076 -33 121 degrees QTc Int : 598 ms Atrial-sensed ventricular-paced rhythm Abnormal ECG When compared with ECG of 28-NOV-2020 22:33, Vent. rate has increased BY 3 BPM Confirmed by Kuldip Hay ([id number]) on 04/29/2021 10:51:54 AM Referred By: REFERRED SELF Confirmed By:Ashish Hay
--- NOTE | 2021-04-29 12:29 | Cardiology Consultation ---
Date of Consultation April 29, 2021 Assessment & Plan (1) NSTEMI (non-ST elevated myocardial infarction): (2) Ischemic cardiomyopathy: (3) Paroxysmal atrial fibrillation: (4) Mitral regurgitation: (5) CHF (congestive heart failure): 1. NSTEMI: It appears that his event was likely an acute coronary syndrome. He was somewhat hypoxic at the time of presentation, but given his known severe coronary disease, the symptoms described and rapid elevation in biomarkers this was likely a coronary event of some variety. Unfortunately, he does not appear to be a good candidate for any revascularization or invasive coronary procedures. Fortunately, he appears to have had resolution of his symptoms. While he does have an element of pulmonary congestion, he does not appear to be in marked heart failure nor were symptoms of significant dyspnea an element of his presentation. At this point I think we will need to continue monitoring him, continue anticoagulation and anti-platelet therapy. He takes a daily nitrate all ready. He is on carvedilol. Will continue good oxygenation and aggressive blood pressure control. 2. Congestive heart failure: He appears to have an element of pulmonary vascular congestion. He claims to weigh himself, but I doubt that his weight has been reliably obtained at home. He is not ambulatory currently. He did receive a dose of diuretic earlier today. He appears to have had some element of diuresis. He will likely require an additional dose of diuretic this evening. We will need to monitor his renal function and electrolytes closely. 3. Ischemic cardiomyopathy: He has been maintained on carvedilol and lisinopril. Diuretic had been used on a p.r.n. basis. No options for revascularization. 4. Coronary disease: Known to have severe coronary disease previously evaluated for both surgical and percutaneous revascularization. Neither was felt to be a safe option. Ask coronary angiography performed 11/30/2020 and revealed 80% distal left main with extension into the left circumflex, 70% ostial circumflex, subtotally occluded right coronary with InStent restenoses in RICK 1 flow. Patient continuing on high-dose nitrates, beta-blockade and ranolazine. Also on Plavix and apixaban. 5. Atrial fibrillation: Reportedly paroxysmal. Last interrogations suggested brief and rare episodes. Been maintained on systemic anticoagulation with reduced dose apixaban given his age and prior renal dysfunction. Current creatinine would qualify him for higher dose, but I think we need to monitor his renal function over time before making an adjustment. 6. Biventricular ICD History of Present Illness Reason for Consultation: Chest pain Requesting Physician: Naveed Attending Physician: Marquis Newman History of Present Illness The patient is an 85-year-old gentleman with an extensive cardiac history to i nclude severe coronary artery disease, and associated cardiomyopathy, congestive heart failure, paroxysmal atrial fibrillation and prior implantation of a biventricular ICD who presented to the emergency room with symptoms of chest pain. Recently the patient has been very sedentary. He has affectively nonambulatory and uses a motorized wheelchair to get around. Last evening he was relaxing when around midnight he began to have symptoms of left upper chest discomfort. This quickly generalized to include portions of the left arm and the entire precordium. He did take sublingual nitroglycerin on 2 occasions but this did not relieve his symptoms. EMS was activated and EN route he received additional sublingual nitroglycerin with improvement in his symptoms. He after a brief evaluation in the emergency room his chest pain appeared to resolve. He had some mild associated dyspnea. He was also noted to be hypoxic both at his residence and upon evaluation in the emergency room. He has not had recurrent symptoms since admission. He currently denies any breathing difficulty. He has been evaluated on an outpatient basis for obstructive sleep apnea and appears to be scheduled for a CPAP titration examination in the near future. He claims to monitor his weight at home and states that he has lost 14 lb. At 1st he did not report using pulse oximetry at home but later states that he checks his oxygen frequently. He has not been aware of any palpitations. He did not endorse symptoms of dizziness or presyncope. Allergies Allergy/AdvReac Type Severity Reaction Status Date / Time pravastatin [From Pravachol] AdvReac Unknown Unknown Verified 04/29/21 02:45 rosuvastatin [From Crestor] AdvReac Unknown Unknown Verified 04/29/21 02:45 Home Medications Medication Instructions Recorded Confirmed Type multivitamin (Daily-Darryl) 1 tab PO QAM #30 tab 02/05/20 04/29/21 Rx trazodone 50 mg tablet 50 mg PO HS #30 tab 08/04/20 04/29/21 Rx famotidine 40 mg tablet 40 mg PO QAM 08/07/20 04/29/21 History fluticasone propionate 50 1 spray INTRANASAL DAILY PRN 08/07/20 04/29/21 History mcg/actuation nasal spray,suspension (Flonase Allergy Relief) clopidogrel 75 mg tablet 75 mg PO DAILY #90 tab 09/02/20 04/29/21 Rx potassium chloride 10 mEq 20 meq PO BID #180 tab 09/15/20 04/29/21 Rx tablet,extended release insulin glargine 100 unit/mL (3 27 unit SUBCUT HS #15 syr 10/23/20 04/29/21 Rx mL) subcutaneous pen (Lantus Solostar U-100 Insulin) lisinopril 40 mg tablet 40 mg PO QAM #90 tab 10/23/20 04/29/21 Rx montelukast 10 mg tablet 10 mg PO HS #90 tab 10/23/20 04/29/21 Rx sertraline 25 mg tablet 25 mg PO QAM #90 tab 10/23/20 04/29/21 Rx latanoprost 0.005 % eye drops 1 drp OPL HS 11/29/20 04/29/21 History insulin aspart U-100 100 unit/mL See Rx Instructions SUBCUT 12/08/20 04/29/21 Rx (3 mL) subcutaneous pen (Novolog .COMPLEX #15 ml Flexpen U-100 Insulin aspart) levocetirizine 5 mg tablet 5 mg PO DAILY #30 tab 12/08/20 04/29/21 Rx melatonin 3 mg capsule 3 mg PO HS PRN #90 cap 12/08/20 04/29/21 Rx omega-3 fatty acids 1,000 mg 1,000 mg PO DAILY #30 cap 12/08/20 04/29/21 Rx capsule (Fish Oil Concentrate) ranolazine 500 mg tablet,extended 500 mg PO BID #60 tab 01/20/21 04/29/21 Rx release,12 hr carvedilol 12.5 mg tablet 12.5 mg PO BID #180 tab 02/19/21 04/29/21 Rx nitroglycerin 0.4 mg sublingual 0.4 mg SUBLINGUAL Q5M PRN #14 tab 02/19/21 04/29/21 Rx tablet amiodarone 200 mg tablet 200 mg PO DAILY #90 tab 03/15/21 04/29/21 Rx apixaban 2.5 mg tablet 2.5 mg PO BID #180 tab 04/05/21 04/29/21 Rx oxycodone-acetaminophen 5 mg-325 0.5 tab PO DAILY 04/29/21 04/29/21 History mg tablet prednisone 10 mg tablet 10 mg PO .UD 04/29/21 04/29/21 History tramadol 50 mg tablet 50 mg PO DAILY 04/29/21 04/29/21 History bumetanide 1 mg tablet 2 mg PO BID17 #60 tab 05/03/21 Rx insulin glargine 100 unit/mL (3 10 unit SC BID #1 ml 05/03/21 Rx mL) subcutaneous pen (Lantus Solostar U-100 Insulin) isosorbide mononitrate 60 mg 240 mg PO DAILY #30 tab 05/03/21 Rx tablet,extended release 24 hr Patient History Medical History Accidental fall Acquired bilateral foot drop Acute on chronic diastolic (congestive) heart failure Ataxia Biventricular ICD (implantable cardioverter-defibrillator) in place CAD (coronary artery disease) Cardiac defibrillator in place Chronic diastolic CHF (congestive heart failure) Closed head injury Diabetes mellitus with diabetic polyneuropathy Diarrhea Encounter for post surgical wound check Heart disease Hip pain, bilateral History of CVA (cerebrovascular accident) Hypercholesteremia Hypertension ICD (implantable cardioverter-defibrillator) battery depletion Intraabdominal mass Ischemic cardiomyopathy Non-ST elevation (NSTEMI) myocardial infarction Non-ST elevation NV (NSTEMI) (11/07/13) "PCI on 11/08/13; BMS in RCA" Paroxysmal atrial fibrillation Pericardial effusion Sensorineural hearing loss (SNHL) of right ear with restricted hearing of left ear Shoulder pain, bilateral SOB (shortness of breath) Surgical History History of back surgery S/P appendectomy S/P cholecystectomy S/P hernia repair Status post open reduction with internal fixation (ORIF) of fracture of ankle Family History Mother Breast cancer Cancer Father Hearing loss Other No significant family history Denies family history of Ovarian cancer Prostate cancer Myocardial infarction Colorectal cancer Social History Smoking Status: Former smoker Tobacco Type: Cigarettes Second Hand Exposure: No; Hx Alcohol Use: No Hx Substance Use: No Preferred Language: Cambodian Communication Ability: Effective Visual Impairment: No Limitations 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 Eating well. No gastrointestinal symptoms. No recent fevers or chills. No coughing. Physical Exam Physical Exam: The patient is alert and oriented. Mood and affect appeared normal. He answered all questions appropriately. HEENT: Pupils are equal and reactive to light and accommodation. Extraocular movements are intact. The sclerae are anicteric. Neuro: Cranial nerves intact Lungs: Coarse rhonchi and crackles throughout the left lung field. Occasional crackle at the right base. No expiratory wheezing. Normal respiratory effort. Cardiac: Heart demonstrates a regular rate and rhythm. Normal S1 and S2. No murmurs on examination. Pulses: The patient has palpable radial pulses bilaterally that are equal in intensity Extremities: There was no evidence of hypoperfusion. There is no cyanosis or clubbing. Mild lower extremity edema Skin: I did not appreciate any rashes on examination today. Results & Data ([facility]) Vital Signs (Past 12 Hours) Vital Signs Temp Pulse Pulse Resp BP BP Pulse Ox 04/29/21 10:10 36.5 C 60 21 160/89 H 92 04/29/21 08:00 36.5 C 60 20 160/89 H 92 04/29/21 06:30 61 12 94 04/29/21 06:00 60 16 93 04/29/21 05:30 61 16 93 04/29/21 05:00 76 17 92 04/29/21 04:30 69 14 171/86 H 95 04/29/21 04:00 72 16 148/103 H 94 04/29/21 03:30 72 18 185/100 H 94 04/29/21 03:00 73 17 195/103 H 94 04/29/21 02:30 72 16 190/105 H 96 04/29/21 02:00 75 17 188/107 H 93 04/29/21 01:30 88 20 185/104 H 92 04/29/21 01:05 87 L 04/29/21 00:45 85 22 169/100 H 92 Laboratory Results Abnormal Lab Results 04/29/21 04/29/21 04/29/21 01:00 01:00 01:44 WBC 9.18 RBC 3.71 L Hgb 10.5 L Hct 33.3 L MCV 89.8 MCH 28.3 MCHC 31.5 L RDW Std Deviation 48.4 H RDW Coeff of [place] 14.9 H Plt Count 413 H MPV 10.0 Immature Gran % (Auto) 0.2 Neut % (Auto) 74.4 Lymph % (Auto) 19.3 Titus % (Auto) 5.8 Eos % (Auto) 0.1 Baso % (Auto) 0.2 Neut # (Auto) 6.83 H Lymph # (Auto) 1.77 Titus # (Auto) 0.53 Eos # (Auto) 0.01 Baso # (Auto) 0.02 Immature Gran # (Auto) 0.02 Sodium 137 Potassium 5.2 H Chloride 106 Carbon Dioxide 26 Anion Gap 5.0 BUN 22 H Creatinine 1.45 H Est Cr Clr Drug Dosing 40.6 Est GFR ( Amer) 50.9 Est GFR (Non-Af Amer) 43.9 BUN/Creatinine Ratio 14.9 Glucose 381 H* POC Glucose Calcium 9.8 Magnesium 2.4 Total Bilirubin 0.3 AST 17 ALT 21 Alkaline Phosphatase 130 H Troponin I < 0.015 NT-Pro-B Natriuret Pep 6900 H Total Protein 7.4 Albumin 3.2 L Globulin 4.2 H Albumin/Globulin Ratio 0.8 L Lipase 113 Beta-Hydroxybutyric Acd Specimen Hemolysis COVID-19 Eval Order Covid19 at [facility] SARS-CoV-2 (PCR) 04/29/21 04/29/21 04/29/21 01:44 03:33 05:18 WBC RBC Hgb Hct MCV MCH MCHC RDW Std Deviation RDW Coeff of [place] Plt Count MPV Immature Gran % (Auto) Neut % (Auto) Lymph % (Auto) Titus % (Auto) Eos % (Auto) Baso % (Auto) Neut # (Auto) Lymph # (Auto) Titus # (Auto) Eos # (Auto) Baso # (Auto) Immature Gran # (Auto) Sodium Potassium Chloride Carbon Dioxide Anion Gap BUN Creatinine Est Cr Clr Drug Dosing Est GFR ( Amer) Est GFR (Non-Af Amer) BUN/Creatinine Ratio Glucose POC Glucose 363 H* 248 H Calcium Magnesium Total Bilirubin AST ALT Alkaline Phosphatase Troponin I NT-Pro-B Natriuret Pep Total Protein Albumin Globulin Albumin/Globulin Ratio Lipase Beta-Hydroxybutyric Acd Specimen Hemolysis COVID-19 Eval Order SARS-CoV-2 (PCR) NEGATIVE 04/29/21 04/29/21 04/29/21 06:42 07:28 11:35 WBC RBC Hgb Hct MCV MCH MCHC RDW Std Deviation RDW Coeff of [place] Plt Count MPV Immature Gran % (Auto) Neut % (Auto) Lymph % (Auto) Titus % (Auto) Eos % (Auto) Baso % (Auto) Neut # (Auto) Lymph # (Auto) Titus # (Auto) Eos # (Auto) Baso # (Auto) Immature Gran # (Auto) Sodium 139 Potassium 4.6 Chloride 107 Carbon Dioxide 32 Anion Gap 0 L BUN 23 H Creatinine 1.39 Est Cr Clr Drug Dosing 42.4 Est GFR ( Amer) 53.6 Est GFR (Non-Af Amer) 46.2 BUN/Creatinine Ratio 16.3 Glucose 194 H POC Glucose 190 H 107 H Calcium 9.5 Magnesium Total Bilirubin AST ALT Alkaline Phosphatase Troponin I 6.800 H* NT-Pro-B Natriuret Pep Total Protein Albumin Globulin Albumin/Globulin Ratio Lipase Beta-Hydroxybutyric Acd Specimen Hemolysis COVID-19 Eval Order SARS-CoV-2 (PCR) Diagnostic Findings Echocardiogram dated 08/08/2020: Ejection fraction 45-50%. Mild left atrial dilation. Moderate mitral regurgitation. Small pericardial effusion. Mild pulmonary hypertension. Chest x-ray obtained the time admission revealed interstitial thickening left greater than right. Pneumonia versus pulmonary edema. PG Care Time/CCT Total # of Minutes Spent Total Time Spent with Patient: Total time spent is greater than 50% in coordination of care (as documented) at patient's floor/unit and/or counseling patient: Coding Level of Care Code 90257 Initial Inpt Care Lvl 3 Diagnoses NSTEMI (non-ST elevated myocardial infarction) I21.4 Ischemic cardiomyopathy I25.5 Paroxysmal atrial fibrillation I48.0 Mitral regurgitation I34.0 Cardiac valve disease etiology: nonrheumatic CHF (congestive heart failure) I50.43 Heart failure chronicity: acute on chronic Heart failure type: combined systolic and diastolic (1) CHF (congestive heart failure) Heart failure chronicity: acute on chronic Heart failure type: combined systolic and diastolic Qualified Code(s): I50.43 - Acute on chronic combined systolic (congestive) and diastolic (congestive) heart failure (2) Mitral regurgitation Cardiac valve disease etiology: nonrheumatic Qualified Code(s): I34.0 - Nonrheumatic mitral (valve) insufficiency
[2021-04-29] MEDS ORDERED: Heparin IV Adult Wt-Based Standard *NO* Bolus Protocol IV SCH (12:40)
[2021-04-29] MEDS ORDERED: HEPARIN 25000 UNIT/500 ML D5W IV ONE (13:40)
[2021-04-29] MEDS: HEPARIN SODIUM/DEXTROSE 25,000 UNITS/500 ML BAG IV SCH (14:26)
[2021-04-29 14:48] LABS: BUN Creatinine Ratio 18.3 (10-20); Calcium 9.9 mg/dl (8.5-10.1); Creatinine Clr Calc Pharmacy 43.6 ml/min; Est GFR (African American) 55.5 ml/min; Est GFR (Non-African American) 47.9 ml/min
[2021-04-29 15:10] LABS: INR 1.1 (0.9-1.1); Partial Thromboplastin Ratio 0.9; Partial Thromboplastin Time 24.1 Seconds (21.0-31.0); Prothrombin Time 10.8 Seconds (9.0-12.0)
[2021-04-29] MEDS ORDERED: oxyCODONE/ACETAMINOPHEN 5mg/325mg TAB PO STA (17:14)
[2021-04-29] MEDS: MONTELUKAST SODIUM 10 MG TABLET PO SCH (20:37)
[2021-04-29] MEDS: traZODone HCL 50 MG TAB PO SCH (20:37)
[2021-04-29] MEDS: LATANOPROST 0.005% OP SOLN 2.5 ML BTL OPL SCH (20:39)
[2021-04-29 20:50] LABS: Partial Thromboplastin Ratio 2.3
[2021-04-29 21:03] LABS: Partial Thromboplastin Time 59.3 Seconds (21.0-31.0)
[2021-04-30] MEDS: NITROGLYCERIN 2% OINTMENT 30GM TUBE EXT SCH ×4 (03:49→21:48)
[2021-04-30] MEDS: SERTRALINE HCL 50 MG TABLET PO SCH (08:13)
[2021-04-30] MEDS: RANOLAZINE 500 MG ER TAB PO SCH ×2 (08:13→20:30)
[2021-04-30] MEDS: lisinopril 40 MG TAB PO SCH (08:13)
[2021-04-30] MEDS: ISOSORBIDE MONO EXTENDED REL 60 MG TABCR PO SCH (08:14)
[2021-04-30] MEDS: CLOPIDOGREL BISULFATE 75 MG TAB PO SCH (08:14)
[2021-04-30] MEDS: FAMOTIDINE 40 MG TABLET PO SCH (08:14)
[2021-04-30] MEDS: BUMETANIDE 2 MG in SYRINGE 0 ML IV SCH (08:16)
[2021-04-30] MEDS: carvediloL 12.5 MG TAB PO SCH ×2 (08:18→20:28)
[2021-04-30] MEDS: AMIODARONE 200 MG TAB PO SCH (08:18)
[2021-04-30] MEDS: HEPARIN SODIUM/DEXTROSE 25,000 UNITS/500 ML BAG IV SCH (08:20)
[2021-04-30] MEDS: INSULIN GLARGINE SOLOSTAR 100 UNITS/ML 3 ML PEN SC SCH ×2 (08:23→20:37)
[2021-04-30] MEDS: INSULIN ASPART 100 UNITS/ML 3 ML PEN SC SCH ×4 (08:24→20:34)
[2021-04-30 09:25] LABS: Partial Thromboplastin Time 78.6 Seconds (21.0-31.0)
[2021-04-30 09:33] LABS: BUN Creatinine Ratio 17.6 (10-20); Calcium 9.9 mg/dl (8.5-10.1); Creatinine Clr Calc Pharmacy 40.8 ml/min; Est GFR (African American) 51.8 ml/min; Est GFR (Non-African American) 44.7 ml/min
[2021-04-30] MEDS: traMADol HCL 50 MG TABLET PO SCH (11:09)
[2021-04-30] MEDS: oxyCODONE/ACETAMINOPHEN 5mg/325mg TAB PO SCH (11:09)
--- NOTE | 2021-04-30 14:13 | Cardiology Progress Note ---
Date of Service April 30, 2021 Assessment & Plan (1) NSTEMI (non-ST elevated myocardial infarction): (2) CAD (coronary artery disease): (3) Chronic systolic CHF (congestive heart failure): (4) Ischemic cardiomyopathy: (5) Paroxysmal atrial fibrillation: Plan: ASSESSMENT/PLAN: 1. NSTEMI: No further angina. Has severe multivessel CAD and was [place] CT surgery and [place] [facility] [place] was [place]. Troponin peaked at 6.8. Recommend increasing isosorbide mononitrate to 240 mg daily. Continue beta-maria isabel and Ranexa. Reportedly intolerant to statin therapy. 2. Chronic systolic CHF: He appears euvolemic. Can change Bumex to oral. He had been taking 40 mg in the morning and 2 mg in the afternoon but was felt to be hypovolemic in the outpatient setting leading up to hospitalization. Can resume 2 mg p.o. b.i.d. of Bumex. Low-sodium diet. Daily weights. Strict I&Os. Follows with heart failure program. 3. Ischemic cardiomyopathy: Continue beta-maria isabel and JT-inhibitor. Follow with heart failure program. Has biventricular ICD in place, followed by EP. 4. Paroxysmal atrial fibrillation: On anticoagulation therapy for stroke risk reduction. Continue beta-maria isabel. Also on amiodarone. 5. Disposition: Please call with any further questions or concerns. He should continue to follow with Janell Jordan in heart failure program on discharge as well as Dr. Hermosillo, primary local telephone operator. Admission and Anticipated Discharge Date Admission Date: April 30, 2021 Subjective Patient was seen late this morning. He denies chest pain. He denies shortness of breath and states that his breathing is back to baseline. He denied palpitations, syncope, near-syncope, or bleeding. He sleeps with his head elevated which is a chronic practice, and once again back to baseline. He was unaccompanied in his room. Review of systems: As above. Physical Exam Physical Exam: Gen.: No acute distress. Alert. HEENT: Anicteric sclera. Neck: No JVD. No hepatic jugular reflux. Cardiac: PMI was nonpalpable. No ventricular heave. Regular. Normal S1-S2. 2/6 early peaking systolic ejection murmur best heard at the right upper sternal border. No rubs or gallops. Pulmonary: Decreased breath sounds bilaterally. Abdomen: Soft, nontender, nondistended, with normoactive bowel sounds. No bruits noted. Extremities: 2+ radial pulses bilaterally. 1+ posterior tibialis pulses bilatera lly. Trace right lower extremity edema. No cyanosis. Psychiatric: Affect appears appropriate. Results & Data ([facility]) Vital Signs (Past 12 Hours) Vital Signs Temp Pulse Resp BP Pulse Ox 04/30/21 11:06 36.6 C 60 20 130/61 90 04/30/21 07:49 36.6 C 59 L 20 122/73 93 04/30/21 03:40 36.8 C 60 18 103/64 93 Intake & Output 04/28/21 04/29/21 04/30/21 05/01/21 06:59 06:59 06:59 06:59 Intake Total 484.05 / 484.05 328.95 / 328.95 Output Total 1100 / 1100 Balance -615.95 / -615.95 328.95 / 328.95 Weight 206 lb 5.643 oz 202 lb 2.622 oz 202 lb 2.622 oz Laboratory Results Laboratory Results - last 24 hr 04/29/21 04/29/21 04/29/21 14:22 14:22 16:34 PT 10.8 INR 1.1 APTT 24.1 PTT Ratio 0.9 Sodium 142 Potassium 4.0 Chloride 109 H Carbon Dioxide 28 Anion Gap 5.0 BUN 25 H Creatinine 1.35 Est Cr Clr Drug Dosing 43.6 Est GFR ( Amer) 55.5 Est GFR (Non-Af Amer) 47.9 BUN/Creatinine Ratio 18.3 Glucose 71 POC Glucose 56 L* Calcium 9.9 Troponin I 04/29/21 04/29/21 04/29/21 16:35 16:55 17:22 PT INR APTT PTT Ratio Sodium Potassium Chloride Carbon Dioxide Anion Gap BUN Creatinine Est Cr Clr Drug Dosing Est GFR ( Amer) Est GFR (Non-Af Amer) BUN/Creatinine Ratio Glucose POC Glucose 57 L* 59 L* 85 Calcium Troponin I 04/29/21 04/29/21 04/30/21 20:12 20:15 07:45 PT INR APTT 59.3 H* PTT Ratio 2.3 Sodium Potassium Chloride Carbon Dioxide Anion Gap BUN Creatinine Est Cr Clr Drug Dosing Est GFR ( Amer) Est GFR (Non-Af Amer) BUN/Creatinine Ratio Glucose POC Glucose 109 H 103 H Calcium Troponin I 04/30/21 04/30/21 04/30/21 08:22 08:22 08:22 PT INR APTT 78.6 H* PTT Ratio 3.0 Sodium 139 Potassium 4.0 Chloride 106 Carbon Dioxide 27 Anion Gap 6.0 BUN 25 H Creatinine 1.43 H Est Cr Clr Drug Dosing 40.8 Est GFR ( Amer) 51.8 Est GFR (Non-Af Amer) 44.7 BUN/Creatinine Ratio 17.6 Glucose 100 H POC Glucose Calcium 9.9 Troponin I 3.990 H* 04/30/21 04/30/21 04/30/21 11:27 13:40 13:44 PT INR APTT PTT Ratio Sodium Potassium Chloride Carbon Dioxide Anion Gap BUN Creatinine Est Cr Clr Drug Dosing Est GFR ( Amer) Est GFR (Non-Af Amer) BUN/Creatinine Ratio Glucose POC Glucose 173 H 237 H 188 H Calcium Troponin I Diagnostic Findings Telemetry personally reviewed: Paced. Echo report 12/02/2020: Moderately reduced LV systolic function. EF 35%. Diffuse hypokinesis with inferior wall akinesis. Cardiac catheterization report reviewed from 11/30/2020: LM -calcified, 80% distal stenosis extending into circumflex LAD -medium caliber, diffuse 50-60% mid segment disease, distal vessel without significant disease and wraps around apex. Large D1 without significant dis ease. Faint [id number]-[id number] collaterals to right PDA Circumflex -70% ostial. Mid vessel, medium caliber OM 3, left PLB without significant disease. RCA - Dominant, heavily calcified, mid RCA stent with mild in-stent restenosis, 99% latemid RCA stenosis with RICK I flow in distal segment/PDA. [id number] collaterals to PDA LVEDP -5 Arterial Closure: TR band Summary: 1. Severe multivessel coronary artery disease -80% distal left main extending into circumflex 70% ostial circumflex 99% latemid RCA stenosis with RICK I distal flow and faint gavq-cm-[id number] collaterals. 2. Normal intracardiac filling pressure Medications Administered Current Inpatient Medications Acetaminophen (Acetaminophen 325 Mg Tab) 650 mg PO Q4H PRN PRN Reason: pain/fever Stop: 05/29/21 04:13 Last Admin: 04/29/21 19:40 Dose: 650 mg Documented by: Amiodarone HCl (Amiodarone 200 Mg Tab) 200 mg PO DAILY KEVIN Stop: 05/29/21 08:59 Last Admin: 04/30/21 08:18 Dose: 200 mg Documented by: Carvedilol (Carvedilol 12.5 Mg Tab) 12.5 mg PO BID KEVIN Stop: 05/29/21 08:59 Last Admin: 04/30/21 08:18 Dose: 12.5 mg Documented by: Clopidogrel Bisulfate (Clopidogrel Bisulfate 75 Mg Tab) 75 mg PO DAILY KVEIN Stop: 05/29/21 08:59 Last Admin: 04/30/21 08:14 Dose: 75 mg Documented by: Dextrose (Dextrose 50% 50 Ml Syringe) 25 - 50 ml IV UD PRN; Protocol PRN Reason: Hypoglycemia Protocol Stop: 05/29/21 04:13 Famotidine (Famotidine 40 Mg Tablet) 40 mg PO QAM KEVIN Stop: 05/29/21 08:59 Last Admin: 04/30/21 08:14 Dose: 40 mg Documented by: Fluticasone Propionate (Fluticasone Propionate Na Spr 16 Gm Btl) 1 sprays NA DAILY PRN PRN Reason: Congestion Stop: 05/29/21 04:13 Glucagon (Glucagon For Inj 1 Mg Vial) 1 mg SQ UD PRN; Protocol PRN Reason: Hypoglycemia Protocol Stop: 05/29/21 04:13 Glucose (Glucose 10 Tabs/Tube) 4 - 8 tabs PO UD PRN; Protocol PRN Reason: Hypoglycemia Protocol Stop: 05/29/21 04:13 Glucose (Glucose 40% Gel 15 Gm Tube) 15 - 30 gm PO UD PRN; Protocol PRN Reason: Hypoglycemia Protocol Stop: 05/29/21 04:13 Bumetanide 2 mg/ Syringe 8 mls @ 4 mls/min IV BID@0900,1700 [facility] Stop: 05/29/21 08:59 Last Admin: 04/30/21 08:16 Dose: 4 mls/min Documented by: Heparin Sodium/Dextrose (Heparin Sodium/Dextrose) 25,000 units in 500 mls @ 25 mls/hr IV .Q20H KEVIN; Protocol Stop: 05/29/21 13:44 Last Titration: 04/30/21 09:26 Dose: 1,250 units/hr, 25 mls/hr Documented by: Insulin Aspart (Insulin Aspart 100 Units/Ml 3 Ml Pen) 0 units SC ACHS [facility] Stop: 05/29/21 07:29 Last Admin: 04/30/21 13:46 Dose: 4 units Documented by: Insulin Glargine (Insulin Glargine Solostar 100 Units/Ml 3 Ml Pen) 10 units SC BID [facility] Stop: 05/30/21 20:59 Isosorbide Mononitrate (Isosorbide [place] Extended Rel 60 Mg Tabcr) 120 mg PO DAILY [facility] Stop: 05/29/21 08:59 Last Admin: 04/30/21 08:14 Dose: 120 mg Documented by: Latanoprost (Latanoprost 0.005% Op Soln 2.5 Ml Btl) 1 drops OPL HS [facility] Stop: 05/29/21 20:59 Last Admin: 04/29/21 20:39 Dose: 1 drops Documented by: Lisinopril (Lisinopril 40 Mg Tab) 40 mg PO QAM [facility] Stop: 05/29/21 08:59 Last Admin: 04/30/21 08:13 Dose: 40 mg Documented by: Miscellaneous (Carbohydrates For Hypoglycemia ) 15 - 30 gm PO UD PRN PRN Reason: Hypoglycemia Protocol Stop: 05/29/21 04:13 Montelukast Sodium (Montelukast Sodium 10 Mg Tablet) 10 mg PO HS [facility] Stop: 05/29/21 20:59 Last Admin: 04/29/21 20:37 Dose: 10 mg Documented by: Morphine Sulfate (Morphine Sulfate 2 Mg/Ml Carp) 2 mg IV Q4H PRN PRN Reason: chest pain Stop: 05/13/21 04:13 Nitroglycerin (Nitroglycerin 2% Ointment 30gm Tube) 0.5 inch EXT Q6H [facility] Stop: 05/29/21 04:13 Last Admin: 04/30/21 11:41 Dose: 0.5 inch Documented by: Oxycodone/Acetaminophen (Oxycodone/Acetaminophen 5mg/325mg Tab) 0.5 tab PO DAILY [facility] Stop: 05/13/21 08:59 Last Admin: 04/30/21 11:09 Dose: Not Given Documented by: Ranolazine (Ranolazine 500 Mg Er Tab) 500 mg PO BID [facility] Stop: 05/29/21 08:59 Last Admin: 04/30/21 08:13 Dose: 500 mg Documented by: Sertraline HCl (Sertraline Hcl 50 Mg Tablet) 25 mg PO QAM [facility] Stop: 05/29/21 08:59 Last Admin: 04/30/21 08:13 Dose: 25 mg Documented by: Tramadol HCl (Tramadol Hcl 50 Mg Tablet) 50 mg PO DAILY KEVIN Stop: 05/29/21 08:59 Last Admin: 04/30/21 11:09 Dose: Not Given Documented by: Trazodone HCl (Trazodone Hcl 50 Mg Tab) 50 mg PO HS [facility] Stop: 05/29/21 20:59 Last Admin: 04/29/21 20:37 Dose: 50 mg Documented by: PG Care Time/CCT Total # of Minutes Spent Total Time Spent with Patient: Total time spent is greater than 50% in coordination of care (as documented) at patient's floor/unit and/or counseling patient: Coding Level of Care Code 66705 Subseq Hosp Care Lvl 3 Diagnoses NSTEMI (non-ST elevated myocardial infarction) I21.4 CAD (coronary artery disease) I25.10 Coronary Disease-Associated Artery/Lesion type: [place] artery [place] vs. transplanted heart: [place] heart Associated angina: angina presence unspecified Chronic systolic CHF (congestive heart failure) I50.22 Ischemic cardiomyopathy I25.5 Paroxysmal atrial fibrillation I48.0 (1) CAD (coronary artery disease) Coronary Disease-Associated Artery/Lesion type: [place] artery [place] vs. transplanted heart: [place] heart Associated angina: angina presence unspecified Qualified Code(s): I25.10 - Atherosclerotic heart disease of [place] coronary artery without angina pectoris
[2021-04-30 16:32] LABS: Partial Thromboplastin Ratio 2.9
[2021-04-30 16:36] LABS: BUN Creatinine Ratio 17.4 (10-20); Calcium 9.4 mg/dl (8.5-10.1); Creatinine Clr Calc Pharmacy 37.9 ml/min; Est GFR (African American) 47.3 ml/min; Est GFR (Non-African American) 40.8 ml/min; Potassium 4.1 mmol/L (3.5-5.1)
[2021-04-30 16:38] LABS: Partial Thromboplastin Time 75.2 Seconds (21.0-31.0)
[2021-04-30] MEDS: BUMETANIDE 1 MG TAB PO SCH (20:26)
[2021-04-30] MEDS: MONTELUKAST SODIUM 10 MG TABLET PO SCH (20:29)
[2021-04-30] MEDS: LATANOPROST 0.005% OP SOLN 2.5 ML BTL OPL SCH (20:29)
--- NOTE | 2021-04-30 21:25 | Hospitalist Progress Note ---
Date of Service April 30, 2021 Assessment & Plan (1) Chest pain: Plan: Marquis Salgado is an 85yo male with history of CAD, ischemic cardiomyopathy with EF of 35% per echo 12/02/20 s/p Bi-ventricular AICD placement, PAF on Apixaban anticoagulation as well as CKD presenting with chest pain that woke him from sleep this evening. Pain left sided with radiation across his chest to the right arm. No relief with Nitro. Improved with Morphine administered in the ER. Patient's EKG is difficult to interpret for acute ischemia as it is A- sensed, V-paced. Troponin is negative. Patient with underlying CAD with blockages non-amenable to stenting. He follows with Cardiology - Dr. Hermosillo, last seen on 04/19. -Admit for NSTEMI with telemetry monitoring -Trend troponin -Continue heparin IV drip. -Continue home medication regimen to include Plavix, Carvedilol 12.5mg po BID, Isosorbide mononitrate, Lisinopril and Ranolazine -Appreciate cardio input. (2) CHF (congestive heart failure): Plan: Suspect some degree of acute on chronic CHF with volume overload at this time. Patient endorses some slight weight gain of 2# as well as slight LE edema. His BNP is elevated. CXR suggestive of pulmonary edema -Blood pressure control as below -Lasix 40mg IV given in ER -Continue diuresis with Bumex 2mg IV BID -Monitor strict I/Os and daily weights -BMP BID to monitor renal function with diuresis -Electrolyte repletion -Continue home cardiac meds - Metoprolol, Lisinopril, Isosorbide mononitrate. Bryan follows with both Cardiology and Heart Failure as an outpatient. He is to be switched to Entresto for optimal medical management as renal function allows. (3) Diabetes mellitus with complication: Plan: Elevated blood sugar this evening. Last AIC in 03/2021 elevated at 9.1. Patient administered 6u SQ insulin in the ER. Will continue to watch blood sugars -Lantus 13u BID -ISS -Goal blood sugar 100 - 140 (4) Hypertension: Plan: Elevated blood pressure in ER -Nitro paste -Continue Carvedilol, Lisinopril, Isosorbide mononitrate -Continue to monitor (5) Paroxysmal atrial fibrillation: Plan: BiV AICD in place, EKG shows atrial-sensed, ventricular paced rhythm -Continue Amiodarone 200mg po daily -Continue Metoprolol -Continue Apixaban -Monitor (6) Chronic kidney disease (CKD): Plan: BUN and Cr near baseline -Closely monitor renal function with diuresis -Electrolyte repletion -Avoid nephrotoxic agents (7) CAD (coronary artery disease): Plan: Chronic. BMS placemetn in 2013. Patient had a cardiac catheterization on 11/30/20 which revealed severe CAD and normal intracardiac pressures. 80% distal LM extending into circumflex. 70% ostial circumflex. 99% late-mid RCA stenosis with faint collaterals. [place] [facility] [place] possible rev[place]. He ws seen by CT Surgery as well as Interventional Cardiology at that time - no plan for CABG -Continue medical therapy as above -Troponin -Telemetry monitoring (8) Anxiety: Plan: Chronic. Stable on Ssertraline -Continue [id number] 25mg po daily (9) GERD (gastroesophageal reflux disease): Plan: Chronic. Stable on Famotidine -Continue Famotidine 40mg po daily Admission and Anticipated Discharge Date Admission Date: April 30, 2021 Subjective 85 yo male reports feeling well and he has no chest pain. Review of Systems 2 Review of Systems: All systems reviewed & are unremarkable except as noted in HPI & below Physical Exam Physical Exam: General: patient resting comfortably, NAD, non-toxic in appearance, AA&O x 4 Skin: warm, dry, intact, no rashes or lesions HEENT: NC/AT, PERRL, EOMI, anicteric sclera, conjunctiva without injection, external ear normal to inspection and nontender, nares patent, moist mucus membranes, dentition intact, no oropharyngeal lesions, neck supple, trachea midline, no LAD, no thyromegaly, no JVD Heart: +S1/S2, regular, no m/r/g Lungs: equal air entry bilaterally, +faint crackles in anterior lung zuñiga and bases with end-expiratory wheezing Abd: +BS, soft, NT/ND, no masses/organomegaly/ascites Ext: warm, 2+ pulses in UE/LE bilaterally, no clubbing/cyanosis, 1+ pitting edema at the sock line bilaterally, leg braces in place Neuro: nonfocal, patient AA&O x 4, speech intact, no facial droop, moving all extremities on command with equal strength 5/5 Results & Data Results & Data ([facility]) Vital Signs (Past 12 Hours) Vital Signs Temp Pulse Pulse Pulse Resp BP BP 04/30/21 19:59 36.7 C 67 18 143/74 H 04/30/21 19:13 65 04/30/21 18:08 36.6 C 66 16 123/63 04/30/21 11:06 36.6 C 60 20 130/61 Pulse Ox 04/30/21 19:59 94 04/30/21 19:13 04/30/21 18:08 95 04/30/21 11:06 90 PG Care Time/CCT Total # of Minutes Spent Total Time Spent with Patient: Total time spent is greater than 50% in coordination of care (as documented) at patient's floor/unit and/or counseling patient: Coding Level of Care Code 46941 Subseq Hosp Care Lvl 2 Diagnoses Chest pain R07.9 CHF (congestive heart failure) I50.43 Heart failure chronicity: acute on chronic Heart failure type: combined systolic and diastolic Diabetes mellitus with complication E11.8 Hypertension I10 Hypertension type: essential hypertension Paroxysmal atrial fibrillation I48.0 Chronic kidney disease (CKD) N18.9 CAD (coronary artery disease) I25.10 Coronary Disease-Associated Artery/Lesion type: [place] artery [place] vs. transplanted heart: [place] heart Associated angina: angina presence unspecified Anxiety F41.9 GERD (gastroesophageal reflux disease) K21.9 Esophagitis presence: esophagitis presence not specified Time Spent (min) 25 (1) CHF (congestive heart failure) Heart failure chronicity: acute on chronic Heart failure type: combined systolic and diastolic Qualified Code(s): I50.43 - Acute on chronic combined systolic (congestive) and diastolic (congestive) heart failure (2) Hypertension Hypertension type: essential hypertension Qualified Code(s): I10 - Essential (primary) hypertension (3) CAD (coronary artery disease) Coronary Disease-Associated Artery/Lesion type: [place] artery [place] vs. transplanted heart: [place] heart Associated angina: angina presence unspecified Qualified Code(s): I25.10 - Atherosclerotic heart disease of [place] coronary artery without angina pectoris (4) GERD (gastroesophageal reflux disease) Esophagitis presence: esophagitis presence not specified Qualified Code(s): K21.9 - Gastro-esophageal reflux disease without esophagitis
[2021-04-30] MEDS: traZODone HCL 50 MG TAB PO SCH (21:48)
[2021-04-30 23:56] LABS: Partial Thromboplastin Ratio 2.4
[2021-04-30 23:59] LABS: Partial Thromboplastin Time 64.3 Seconds (21.0-31.0)
[2021-05-01] MEDS: NITROGLYCERIN 2% OINTMENT 30GM TUBE EXT SCH ×2 (03:54→12:00)
[2021-05-01] MEDS: HEPARIN SODIUM/DEXTROSE 25,000 UNITS/500 ML BAG IV SCH (04:48)
[2021-05-01 06:55] LABS: Hematocrit (blood only) 29.4 % (42-52); Hemoglobin 9.2 g/dL (14.0-18.0); Mean Corpuscular Hemoglobin 27.8 pg (25-34); Mean Corpuscular Hgb Conc 31.3 g/dL (32-36); Mean Corpuscular Volume 88.8 fL (80-100); Mean Platelet Volume 9.7 fL (7.4-10.4); Platelet Count 340 K/uL (130-400); RDW Coefficient of Variation 15.1 % (11.5-14.5); RDW Standard Deviation 48.8 fL (36.4-46.3); Red Blood Count 3.31 M/uL (4.7-6.1); White Blood Count 6.81 K/uL (4.8-10.8)
[2021-05-01 07:16] LABS: Partial Thromboplastin Ratio 2.3
[2021-05-01 07:17] LABS: Partial Thromboplastin Time 61.4 Seconds (21.0-31.0)
[2021-05-01 07:32] LABS: BUN Creatinine Ratio 17.8 (10-20); Calcium 9.2 mg/dl (8.5-10.1); Creatinine Clr Calc Pharmacy 39.6 ml/min; Est GFR (African American) 50.1 ml/min; Est GFR (Non-African American) 43.2 ml/min; Potassium 3.8 mmol/L (3.5-5.1)
[2021-05-01] MEDS: FAMOTIDINE 40 MG TABLET PO SCH (08:04)
[2021-05-01] MEDS: AMIODARONE 200 MG TAB PO SCH (08:04)
[2021-05-01] MEDS: ISOSORBIDE MONO EXTENDED REL 60 MG TABCR PO SCH (08:05)
[2021-05-01] MEDS: SERTRALINE HCL 50 MG TABLET PO SCH (08:05)
[2021-05-01] MEDS: CLOPIDOGREL BISULFATE 75 MG TAB PO SCH (08:07)
[2021-05-01] MEDS: carvediloL 12.5 MG TAB PO SCH ×2 (08:08→21:21)
[2021-05-01] MEDS: BUMETANIDE 1 MG TAB PO SCH ×2 (08:08→18:42)
[2021-05-01] MEDS: RANOLAZINE 500 MG ER TAB PO SCH ×2 (08:08→20:08)
[2021-05-01] MEDS: INSULIN GLARGINE SOLOSTAR 100 UNITS/ML 3 ML PEN SC SCH ×2 (08:10→20:11)
[2021-05-01] MEDS: lisinopril 40 MG TAB PO SCH (08:11)
[2021-05-01] MEDS: traMADol HCL 50 MG TABLET PO SCH (08:11)
[2021-05-01] MEDS: oxyCODONE/ACETAMINOPHEN 5mg/325mg TAB PO SCH (08:11)
[2021-05-01] MEDS: INSULIN ASPART 100 UNITS/ML 3 ML PEN SC SCH ×4 (08:17→20:09)
--- NOTE | 2021-05-01 10:14 | Cardiology Progress Note ---
Date of Service May 01, 2021 Assessment & Plan (1) NSTEMI (non-ST elevated myocardial infarction): (2) CAD (coronary artery disease): (3) Chronic systolic CHF (congestive heart failure): (4) Ischemic cardiomyopathy: (5) Paroxysmal atrial fibrillation: Plan: ASSESSMENT/PLAN: 1. NSTEMI: No further angina. Has severe multivessel CAD and was evaluated by CT surgery and Interventional Cardiology at [facility] for which medical therapy was recommended. Troponin peaked at 6.8. During this hospital stay, isosorbide mononitrate was titrated to 240 mg daily. Continue beta-maria isabel and Ranexa. Reportedly intolerant to statin therapy. 2. Chronic systolic CHF: He appears euvolemic. Bumex switched from intravenous to oral on 04/30/2021. He had been taking 40 mg in the morning and 2 mg in the afternoon but was felt to be hypovolemic in the outpatient setting leading up to hospitalization. Continue Bumex 2 mg p.o. b.i.d. for now. Adjustments can be made as necessary. Low-sodium diet. Daily weights. Strict I&Os. Follows with heart failure program. 3. Ischemic cardiomyopathy: Continue beta-maria isabel and JT-inhibitor. Follow with heart failure program. Has biventricular ICD in place, followed by EP. 4. Paroxysmal atrial fibrillation: On anticoagulation therapy for stroke risk reduction. Continue beta-maria isabel. Also on amiodarone. 5. Disposition: Cardiology will sign off for now. Dr. Rivrea will be available tomorrow for any questions or concerns. He should continue to follow with Janell Jordan in heart failure program on discharge as well as Dr. Hermosillo, primary dance hall hostess. Admission and Anticipated Discharge Date Admission Date: April 30, 2021 Subjective Patient denies chest pain, shortness of breath, syncope, near-syncope, palpitations, or edema. He states that he became confused overnight and for got that he was in the hospital but since has realized that he is in the hospital but is hoping to be discharged soon so that he can be with his . He was alone in his hospital room. Review of systems: As above. Physical Exam Physical Exam: Gen.: No acute distress. Alert. HEENT: Anicteric sclera. Neck: No JVD. No hepatic jugular reflux. Cardiac: PMI was nonpalpable. No ventricular heave. Regular. Normal S1-S2. 2/6 early peaking systolic ejection murmur best heard at the right upper sternal border. No rubs or gallops. Pulmonary: Decreased breath sounds bilaterally, most notable at the right base. Abdomen: Soft, nontender, nondistended, with normoactive bowel sounds. No bruits noted. Extremities: 2+ radial pulses bilaterally. 1+ posterior tibialis pulses bilaterally. No significant edema this morning. No cyanosis. Psychiatric: Affect appears appropriate. Results & Data ([facility]) Vital Signs (Past 12 Hours) Vital Signs Temp Pulse Pulse Resp BP BP Pulse Ox 05/01/21 06:54 36.5 C 80 18 155/81 H 92 05/01/21 03:17 36.5 C 68 16 153/72 H 93 04/30/21 23:14 36.7 C 78 16 126/65 96 04/30/21 22:23 78 Intake & Output 04/29/21 04/30/21 05/01/21 05/02/21 06:59 06:59 06:59 05:59 Intake Total 484.05 / 484.05 1679.250 / 1679.250 55.583 / 55.583 Output Total 1100 / 1100 1376 / 1376 Balance -615.95 / -615.95 303.250 / 303.250 55.583 / 55.583 Weight 206 lb 5.643 oz 202 lb 2.622 oz 201 lb 15.095 oz Laboratory Results Laboratory Results - last 24 hr 04/30/21 04/30/21 04/30/21 08:22 11:27 13:40 WBC RBC Hgb Hct MCV MCH MCHC RDW Std Deviation RDW Coeff of [place] Plt Count MPV APTT PTT Ratio Sodium Potassium Chloride Carbon Dioxide Anion Gap BUN Creatinine Est Cr Clr Drug Dosing Est GFR ( Amer) Est GFR (Non-Af Amer) BUN/Creatinine Ratio Glucose POC Glucose 173 H 237 H Calcium Troponin I 3.990 H* NT-Pro-B Natriuret Pep 04/30/21 04/30/21 04/30/21 13:44 16:00 16:00 WBC RBC Hgb Hct MCV MCH MCHC RDW Std Deviation RDW Coeff of [place] Plt Count MPV APTT 75.2 H* PTT Ratio 2.9 Sodium 139 Potassium 4.1 Chloride 105 Carbon Dioxide 29 Anion Gap 5.0 BUN 27 H Creatinine 1.54 H Est Cr Clr Drug Dosing 37.9 Est GFR ( Amer) 47.3 Est GFR (Non-Af Amer) 40.8 BUN/Creatinine Ratio 17.4 Glucose 122 H POC Glucose 188 H Calcium 9.4 Troponin I NT-Pro-B Natriuret Pep 04/30/21 04/30/21 04/30/21 16:04 20:29 22:55 WBC RBC Hgb Hct MCV MCH MCHC RDW Std Deviation RDW Coeff of [place] Plt Count MPV APTT 64.3 H* PTT Ratio 2.4 Sodium Potassium Chloride Carbon Dioxide Anion Gap BUN Creatinine Est Cr Clr Drug Dosing Est GFR ( Amer) Est GFR (Non-Af Amer) BUN/Creatinine Ratio Glucose POC Glucose 132 H 153 H Calcium Troponin I NT-Pro-B Natriuret Pep 05/01/21 05/01/21 05/01/21 06:20 06:20 06:20 WBC 6.81 RBC 3.31 L Hgb 9.2 L Hct 29.4 L MCV 88.8 MCH 27.8 MCHC 31.3 L RDW Std Deviation 48.8 H RDW Coeff of [place] 15.1 H Plt Count 340 MPV 9.7 APTT 61.4 H* PTT Ratio 2.3 Sodium 139 Potassium 3.8 Chloride 103 Carbon Dioxide 34 H Anion Gap 2.0 L BUN 26 H Creatinine 1.47 H Est Cr Clr Drug Dosing 39.6 Est GFR ( Amer) 50.1 Est GFR (Non-Af Amer) 43.2 BUN/Creatinine Ratio 17.8 Glucose 124 H POC Glucose Calcium 9.2 Troponin I NT-Pro-B Natriuret Pep 3178 H 05/01/21 07:11 WBC RBC Hgb Hct MCV MCH MCHC RDW Std Deviation RDW Coeff of [place] Plt Count MPV APTT PTT Ratio Sodium Potassium Chloride Carbon Dioxide Anion Gap BUN Creatinine Est Cr Clr Drug Dosing Est GFR ( Amer) Est GFR (Non-Af Amer) BUN/Creatinine Ratio Glucose POC Glucose 112 H Calcium Troponin I NT-Pro-B Natriuret Pep Diagnostic Findings Telemetry personally reviewed: Av pacing. Medications Administered Current Inpatient Medications Acetaminophen (Acetaminophen 325 Mg Tab) 650 mg PO Q4H PRN PRN Reason: pain/fever Stop: 05/29/21 04:13 Last Admin: 04/29/21 19:40 Dose: 650 mg Documented by: Amiodarone HCl (Amiodarone 200 Mg Tab) 200 mg PO DAILY [facility] Stop: 05/29/21 08:59 Last Admin: 05/01/21 08:04 Dose: 200 mg Documented by: Bumetanide (Bumetanide 1 Mg Tab) 2 mg PO [id number] KEVIN Stop: 05/30/21 20:59 Last Admin: 05/01/21 08:08 Dose: 2 mg Documented by: Carvedilol (Carvedilol 12.5 Mg Tab) 12.5 mg PO BID [facility] Stop: 05/29/21 08:59 Last Admin: 05/01/21 08:08 Dose: 12.5 mg Documented by: Clopidogrel Bisulfate (Clopidogrel Bisulfate 75 Mg Tab) 75 mg PO DAILY [facility] Stop: 05/29/21 08:59 Last Admin: 05/01/21 08:07 Dose: 75 mg Documented by: Dextrose (Dextrose 50% 50 Ml Syringe) 25 - 50 ml IV UD PRN; Protocol PRN Reason: Hypoglycemia Protocol Stop: 05/29/21 04:13 Famotidine (Famotidine 40 Mg Tablet) 40 mg PO QAM [facility] Stop: 05/29/21 08:59 Last Admin: 05/01/21 08:04 Dose: 40 mg Documented by: Fluticasone Propionate (Fluticasone Propionate Na Spr 16 Gm Btl) 1 sprays NA DAILY PRN PRN Reason: Congestion Stop: 05/29/21 04:13 Glucagon (Glucagon For Inj 1 Mg Vial) 1 mg SQ UD PRN; Protocol PRN Reason: Hypoglycemia Protocol Stop: 05/29/21 04:13 Glucose (Glucose 10 Tabs/Tube) 4 - 8 tabs PO UD PRN; Protocol PRN Reason: Hypoglycemia Protocol Stop: 05/29/21 04:13 Glucose (Glucose 40% Gel 15 Gm Tube) 15 - 30 gm PO UD PRN; Protocol PRN Reason: Hypoglycemia Protocol Stop: 05/29/21 04:13 Heparin Sodium/Dextrose (Heparin Sodium/Dextrose) 25,000 units in 500 mls @ 23 mls/hr IV .[id number] KEVIN; Protocol Stop: 05/29/21 13:44 Last Titration: 05/01/21 07:13 Dose: 1,150 units/hr, 23 mls/hr Documented by: Insulin Aspart (Insulin Aspart 100 Units/Ml 3 Ml Pen) 0 units SC ACHS [facility] Stop: 05/29/21 07:29 Last Admin: 05/01/21 08:17 Dose: 3 units Documented by: Insulin Glargine (Insulin Glargine Solostar 100 Units/Ml 3 Ml Pen) 10 units SC BID [facility] Stop: 05/30/21 20:59 Last Admin: 05/01/21 08:10 Dose: 10 units Documented by: Isosorbide Mononitrate (Isosorbide [place] Extended Rel 60 Mg Tabcr) 240 mg PO DAILY [facility] Stop: 05/31/21 08:59 Last Admin: 05/01/21 08:05 Dose: 240 mg Documented by: Latanoprost (Latanoprost 0.005% Op Soln 2.5 Ml Btl) 1 drops OPL HS [facility] Stop: 05/29/21 20:59 Last Admin: 04/30/21 20:29 Dose: 1 drops Documented by: Lisinopril (Lisinopril 40 Mg Tab) 40 mg PO QAM [facility] Stop: 05/29/21 08:59 Last Admin: 05/01/21 08:11 Dose: 40 mg Documented by: Miscellaneous (Carbohydrates For Hypoglycemia ) 15 - 30 gm PO UD PRN PRN Reason: Hypoglycemia Protocol Stop: 05/29/21 04:13 Montelukast Sodium (Montelukast Sodium 10 Mg Tablet) 10 mg PO HS [facility] Stop: 05/29/21 20:59 Last Admin: 04/30/21 20:29 Dose: 10 mg Documented by: Morphine Sulfate (Morphine Sulfate 2 Mg/Ml Carp) 2 mg IV Q4H PRN PRN Reason: chest pain Stop: 05/13/21 04:13 Nitroglycerin (Nitroglycerin 2% Ointment 30gm Tube) 0.5 inch EXT Q6H [facility] Stop: 05/29/21 04:13 Last Admin: 05/01/21 03:54 Dose: 0.5 inch Documented by: Oxycodone/Acetaminophen (Oxycodone/Acetaminophen 5mg/325mg Tab) 0.5 tab PO DAILY [facility] Stop: 05/13/21 08:59 Last Admin: 05/01/21 08:11 Dose: 0.5 tab Documented by: Ranolazine (Ranolazine 500 Mg Er Tab) 500 mg PO BID KEVIN Stop: 05/29/21 08:59 Last Admin: 05/01/21 08:08 Dose: 500 mg Documented by: Sertraline HCl (Sertraline Hcl 50 Mg Tablet) 25 mg PO QAM KEVIN Stop: 05/29/21 08:59 Last Admin: 05/01/21 08:05 Dose: 25 mg Documented by: Tramadol HCl (Tramadol Hcl 50 Mg Tablet) 50 mg PO DAILY KEVIN Stop: 05/29/21 08:59 Last Admin: 05/01/21 08:11 Dose: 50 mg Documented by: Trazodone HCl (Trazodone Hcl 50 Mg Tab) 50 mg PO HS KEVIN Stop: 05/29/21 20:59 Last Admin: 04/30/21 21:48 Dose: 50 mg Documented by: PG Care Time/CCT Total # of Minutes Spent Total Time Spent with Patient: Total time spent is greater than 50% in coordination of care (as documented) at patient's floor/unit and/or counseling patient: Coding Level of Care Code 75599 Subseq Hosp Care Lvl 3 Diagnoses NSTEMI (non-ST elevated myocardial infarction) I21.4 CAD (coronary artery disease) I25.10 Coronary Disease-Associated Artery/Lesion type: [place] artery [place] vs. transplanted heart: [place] heart Associated angina: angina presence unspecified Chronic systolic CHF (congestive heart failure) I50.22 Ischemic cardiomyopathy I25.5 Paroxysmal atrial fibrillation I48.0 (1) CAD (coronary artery disease) Coronary Disease-Associated Artery/Lesion type: [place] artery [place] vs. transplanted heart: [place] heart Associated angina: angina presence unspecified Qualified Code(s): I25.10 - Atherosclerotic heart disease of [place] coronary artery without angina pectoris
[2021-05-01] MEDS: LATANOPROST 0.005% OP SOLN 2.5 ML BTL OPL SCH (20:05)
[2021-05-01] MEDS: MONTELUKAST SODIUM 10 MG TABLET PO SCH (20:07)
[2021-05-01] MEDS: traZODone HCL 50 MG TAB PO SCH (20:07)
--- NOTE | 2021-05-01 21:20 | Hospitalist Progress Note ---
Date of Service May 01, 2021 Assessment & Plan (1) Chest pain: Plan: Marquis Salgado is an 85yo male with history of CAD, ischemic cardiomyopathy with EF of 35% per echo 12/02/20 s/p Bi-ventricular AICD placement, PAF on Apixaban anticoagulation as well as CKD presenting with chest pain that woke him from sleep this evening. Pain left sided with radiation across his chest to the right arm. No relief with Nitro. Improved with Morphine administered in the ER. Patient's EKG is difficult to interpret for acute ischemia as it is A- sensed, V-paced. Troponin is negative. Patient with underlying CAD with blockages non-amenable to stenting. He follows with Cardiology - Dr. Hermosillo, last seen on 04/19. -Admit for NSTEMI with telemetry monitoring -Trend troponin -Continue heparin IV drip. -Continue home medication regimen to include Plavix, Carvedilol 12.5mg po BID, Isosorbide mononitrate, Lisinopril and Ranolazine -Appreciate cardio input. Patient is drowsy, Likely from dose of oxycodone. will hold narcotics and monitor. continue IV heparin. (2) CHF (congestive heart failure): Plan: Suspect some degree of acute on chronic CHF with volume overload at this time. Patient endorses some slight weight gain of 2# as well as slight LE edema. His BNP is elevated. CXR suggestive of pulmonary edema -Blood pressure control as below -Lasix 40mg IV given in ER -Continue diuresis with Bumex 2mg IV BID -Monitor strict I/Os and daily weights -BMP BID to monitor renal function with diuresis -Electrolyte repletion -Continue home cardiac meds - Metoprolol, Lisinopril, Isosorbide mononitrate. Patinent follows with both Cardiology and Heart Failure as an outpatient. He is to be switched to Entresto for optimal medical management as renal function allows. (3) Diabetes mellitus with complication: Plan: Elevated blood sugar this evening. Last AIC in 03/2021 elevated at 9.1. Patient administered 6u SQ insulin in the ER. Will continue to watch blood sugars -Lantus 13u BID -ISS -Goal blood sugar 100 - 140 (4) Hypertension: Plan: Elevated blood pressure in ER -Nitro paste -Continue Carvedilol, Lisinopril, Isosorbide mononitrate -Continue to monitor (5) Paroxysmal atrial fibrillation: Plan: BiV AICD in place, EKG shows atrial-sensed, ventricular paced rhythm -Continue Amiodarone 200mg po daily -Continue Metoprolol -Continue Apixaban -Monitor (6) Chronic kidney disease (CKD): Plan: BUN and Cr near baseline -Closely monitor renal function with diuresis -Electrolyte repletion -Avoid nephrotoxic agents (7) CAD (coronary artery disease): Plan: Chronic. BMS placemetn in 2013. Patient had a cardiac catheterization on 11/30/20 which revealed severe CAD and normal intracardiac pressures. 80% distal LM extending into circumflex. 70% ostial circumflex. 99% late-mid RCA stenosis with faint collaterals. He was transferred to [facility] following that catheterization for possible revascularization. He ws seen by CT Surgery as well as Interventional Cardiology at that time - no plan for CABG -Continue medical therapy as above -Troponin -Telemetry monitoring (8) Anxiety: Plan: Chronic. Stable on Ssertraline -Continue [id number] 25mg po daily (9) GERD (gastroesophageal reflux disease): Plan: Chronic. Stable on Famotidine -Continue Famotidine 40mg po daily Admission and Anticipated Discharge Date Admission Date: April 30, 2021 Subjective Patient is drowsy. Review of Systems Review of Systems: All systems reviewed & are unremarkable except as noted in HPI & below Physical Exam Physical Exam: General: patient resting comfortably, NAD, non-toxic in appearance, AA&O x 4 Skin: warm, dry, intact, no rashes or lesions HEENT: NC/AT, PERRL, EOMI, anicteric sclera, conjunctiva without injection, external ear normal to inspection and nontender, nares patent, moist mucus membranes, dentition intact, no oropharyngeal lesions, neck supple, trachea midline, no LAD, no thyromegaly, no JVD Heart: +S1/S2, regular, no m/r/g Lungs: equal air entry bilaterally, +faint crackles in anterior lung zuñiga and bases with end-expiratory wheezing Abd: +BS, soft, NT/ND, no masses/organomegaly/ascites Ext: warm, 2+ pulses in UE/LE bilaterally, no clubbing/cyanosis, 1+ pitting edema at the sock line bilaterally, leg braces in place Neuro: nonfocal, patient AA&O x 4, speech intact, no facial droop, moving all extremities on command with equal strength 5/5 Results & Data Results & Data ([facility]) Vital Signs (Past 12 Hours) Vital Signs Temp Pulse Pulse Resp BP Pulse Ox 05/01/21 20:04 60 136/91 97 05/01/21 19:39 36.4 C L 60 16 125/61 93 05/01/21 15:31 36.3 C L 05/01/21 15:19 60 20 122/50 L 97 05/01/21 12:05 36.4 C L 61 20 88/51 L 92 PG Care Time/CCT Total # of Minutes Spent Total Time Spent with Patient: Total time spent is greater than 50% in coordination of care (as documented) at patient's floor/unit and/or counseling patient: Coding Level of Care Code 08774 Subseq Hosp Care Lvl 2 Diagnoses Chest pain R07.9 CHF (congestive heart failure) I50.43 Heart failure chronicity: acute on chronic Heart failure type: combined systolic and diastolic Diabetes mellitus with complication E11.8 Hypertension I10 Hypertension type: essential hypertension Paroxysmal atrial fibrillation I48.0 Chronic kidney disease (CKD) N18.9 CAD (coronary artery disease) I25.10 Coronary Disease-Associated Artery/Lesion type: [place] artery [place] vs. transplanted heart: [place] heart Associated angina: angina presence unspecified Anxiety F41.9 GERD (gastroesophageal reflux disease) K21.9 Esophagitis presence: esophagitis presence not specified (1) CHF (congestive heart failure) Heart failure chronicity: acute on chronic Heart failure type: combined systolic and diastolic Qualified Code(s): I50.43 - Acute on chronic combined systolic (congestive) and diastolic (congestive) heart failure (2) Hypertension Hypertension type: essential hypertension Qualified Code(s): I10 - Essential (primary) hypertension (3) CAD (coronary artery disease) Coronary Disease-Associated Artery/Lesion type: [place] artery [place] vs. transplanted heart: [place] heart Associated angina: angina presence unspecified Qualified Code(s): I25.10 - Atherosclerotic heart disease of [place] coronary artery without angina pectoris (4) GERD (gastroesophageal reflux disease) Esophagitis presence: esophagitis presence not specified Qualified Code(s): K21.9 - Gastro-esophageal reflux disease without esophagitis
[2021-05-02] MEDS: HEPARIN SODIUM/DEXTROSE 25,000 UNITS/500 ML BAG IV SCH (01:29)
[2021-05-02] MEDS: lisinopril 40 MG TAB PO SCH (08:02)
[2021-05-02] MEDS: SERTRALINE HCL 50 MG TABLET PO SCH (08:02)
[2021-05-02] MEDS: FAMOTIDINE 40 MG TABLET PO SCH (08:02)
[2021-05-02] MEDS: ISOSORBIDE MONO EXTENDED REL 60 MG TABCR PO SCH (08:02)
[2021-05-02] MEDS: RANOLAZINE 500 MG ER TAB PO SCH ×2 (08:02→20:20)
[2021-05-02] MEDS: BUMETANIDE 1 MG TAB PO SCH ×2 (08:02→17:32)
[2021-05-02] MEDS: AMIODARONE 200 MG TAB PO SCH (08:02)
[2021-05-02] MEDS: carvediloL 12.5 MG TAB PO SCH ×2 (08:03→20:21)
[2021-05-02] MEDS: CLOPIDOGREL BISULFATE 75 MG TAB PO SCH (08:03)
[2021-05-02] MEDS: INSULIN ASPART 100 UNITS/ML 3 ML PEN SC SCH ×4 (08:35→20:22)
[2021-05-02] MEDS: INSULIN GLARGINE SOLOSTAR 100 UNITS/ML 3 ML PEN SC SCH ×2 (08:36→20:21)
[2021-05-02 10:18] LABS: Partial Thromboplastin Ratio 2.4
[2021-05-02] MEDS: MONTELUKAST SODIUM 10 MG TABLET PO SCH (20:20)
[2021-05-02] MEDS: LATANOPROST 0.005% OP SOLN 2.5 ML BTL OPL SCH (20:21)
[2021-05-02] MEDS: traZODone HCL 50 MG TAB PO SCH (20:29)
--- NOTE | 2021-05-02 20:44 | Hospitalist Progress Note ---
Date of Service May 02, 2021 Assessment & Plan (1) Chest pain: Plan: Marquis Salgado is an 85yo male with history of CAD, ischemic cardiomyopathy with EF of 35% per echo 12/02/20 s/p Bi-ventricular AICD placement, PAF on Apixaban anticoagulation as well as CKD presenting with chest pain that woke him from sleep this evening. Pain left sided with radiation across his chest to the right arm. No relief with Nitro. Improved with Morphine administered in the ER. Patient's EKG is difficult to interpret for acute ischemia as it is A- sensed, V-paced. Troponin is negative. Patient with underlying CAD with blockages non-amenable to stenting. He follows with Cardiology - Dr. Hermosillo, last seen on 04/19. -Admit for NSTEMI with telemetry monitoring -Trend troponin -Coompleted over 48h heparin IV drip. -Continue home medication regimen to include Plavix, Carvedilol 12.5mg po BID, Isosorbide mononitrate, Lisinopril and Ranolazine -Appreciate cardio input. -patient is more awake, likely hospital acquired delirium. wait PT/OT eval. (2) CHF (congestive heart failure): Plan: Suspect some degree of acute on chronic CHF with volume overload at this time. Patient endorses some slight weight gain of 2# as well as slight LE edema. His BNP is elevated. CXR suggestive of pulmonary edema -Blood pressure control as below -Lasix 40mg IV given in ER -Continue diuresis with Bumex 2mg IV BID -Monitor strict I/Os and daily weights -BMP BID to monitor renal function with diuresis -Electrolyte repletion -Continue home cardiac meds - Metoprolol, Lisinopril, Isosorbide mononitrate. Patient follows with both Cardiology and Heart Failure as an outpatient. He is to be switched to Entresto for optimal medical management as renal function allows. On nasal cannula 1.5 L (3) Diabetes mellitus with complication: Plan: Elevated blood sugar this evening. Last AIC in 03/2021 elevated at 9.1. Patient administered 6u SQ insulin in the ER. Will continue to watch blood sugars -Lantus 13u BID -ISS -Goal blood sugar 100 - 140 (4) Hypertension: Plan: Elevated blood pressure in ER -Nitro paste -Continue Carvedilol, Lisinopril, Isosorbide mononitrate -Continue to monitor (5) Paroxysmal atrial fibrillation: Plan: BiV AICD in place, EKG shows atrial-sensed, ventricular paced rhythm -Continue Amiodarone 200mg po daily -Continue Metoprolol -Continue Apixaban -Monitor (6) Chronic kidney disease (CKD): Plan: BUN and Cr near baseline -Closely monitor renal function with diuresis -Electrolyte repletion -Avoid nephrotoxic agents (7) CAD (coronary artery disease): Plan: Chronic. BMS placemetn in 2013. Patient had a cardiac catheterization on 11/30/20 which revealed severe CAD and normal intracardiac pressures. 80% distal LM extending into circumflex. 70% ostial circumflex. 99% late-mid RCA stenosis with faint collaterals. He was transferred to [facility] following that catheterization for possible revascularization. He ws seen by CT Surgery as well as Interventional Cardiology at that time - no plan for CABG -Continue medical therapy as above -Troponin -Telemetry monitoring (8) Anxiety: Plan: Chronic. Stable on Ssertraline -Continue [id number] 25mg po daily (9) GERD (gastroesophageal reflux disease): Plan: Chronic. Stable on Famotidine -Continue Famotidine 40mg po daily Admission and Anticipated Discharge Date Admission Date: April 30, 2021 Subjective Patient reports feeling tired. Denies any chest pain. Updated family Review of Systems Review of Systems: All systems reviewed & are unremarkable except as noted in HPI & below Physical Exam Physical Exam: General: patient resting comfortably, NAD, non-toxic in appearance, AA&O x 4 Skin: warm, dry, intact, no rashes or lesions HEENT: NC/AT, PERRL, EOMI, anicteric sclera, conjunctiva without injection, external ear normal to inspection and nontender, nares patent, moist mucus membranes, dentition intact, no oropharyngeal lesions, neck supple, trachea midline, no LAD, no thyromegaly, no JVD Heart: +S1/S2, regular, no m/r/g Lungs: equal air entry bilaterally, +faint crackles in anterior lung zuñiga and bases with end-expiratory wheezing Abd: +BS, soft, NT/ND, no masses/organomegaly/ascites Ext: warm, 2+ pulses in UE/LE bilaterally, no clubbing/cyanosis, 1+ pitting edema at the sock line bilaterally, leg braces in place Neuro: nonfocal, patient AA&O x 4, speech intact, no facial droop, moving all extremities on command with equal strength 5/5 Results & Data Results & Data ([facility]) Vital Signs (Past 12 Hours) Vital Signs Temp Pulse Pulse Resp BP BP Pulse Ox 05/02/21 19:44 36.6 C 64 18 112/60 94 05/02/21 15:14 36.7 C 67 20 121/70 95 05/02/21 14:57 64 05/02/21 11:13 36.6 C 61 20 99/60 L 92 PG Care Time/CCT Total # of Minutes Spent Total Time Spent with Patient: Total time spent is greater than 50% in coordination of care (as documented) at patient's floor/unit and/or counseling patient: Coding Level of Care Code 28635 Subseq Hosp Care Lvl 2 Diagnoses Chest pain R07.9 CHF (congestive heart failure) I50.43 Heart failure chronicity: acute on chronic Heart failure type: combined systolic and diastolic Diabetes mellitus with complication E11.8 Hypertension I10 Hypertension type: essential hypertension Paroxysmal atrial fibrillation I48.0 Chronic kidney disease (CKD) N18.9 CAD (coronary artery disease) I25.10 Coronary Disease-Associated Artery/Lesion type: [place] artery [place] vs. transplanted heart: [place] heart Associated angina: angina presence unspecified Anxiety F41.9 GERD (gastroesophageal reflux disease) K21.9 Esophagitis presence: esophagitis presence not specified Time Spent (min) 25 (1) CHF (congestive heart failure) Heart failure chronicity: acute on chronic Heart failure type: combined systolic and diastolic Qualified Code(s): I50.43 - Acute on chronic combined systolic (congestive) and diastolic (congestive) heart failure (2) Hypertension Hypertension type: essential hypertension Qualified Code(s): I10 - Essential (primary) hypertension (3) CAD (coronary artery disease) Coronary Disease-Associated Artery/Lesion type: [place] artery [place] vs. transplanted heart: [place] heart Associated angina: angina presence unspecified Qualified Code(s): I25.10 - Atherosclerotic heart disease of [place] coronary artery without angina pectoris (4) GERD (gastroesophageal reflux disease) Esophagitis presence: esophagitis presence not specified Qualified Code(s): K21.9 - Gastro-esophageal reflux disease without esophagitis
[2021-05-03] MEDS: INSULIN ASPART 100 UNITS/ML 3 ML PEN SC SCH ×2 (08:38→12:36)
[2021-05-03] MEDS: CLOPIDOGREL BISULFATE 75 MG TAB PO SCH (08:39)
[2021-05-03] MEDS: AMIODARONE 200 MG TAB PO SCH (08:39)
[2021-05-03] MEDS: INSULIN GLARGINE SOLOSTAR 100 UNITS/ML 3 ML PEN SC SCH (08:39)
[2021-05-03] MEDS: ISOSORBIDE MONO EXTENDED REL 60 MG TABCR PO SCH (08:40)
[2021-05-03] MEDS: RANOLAZINE 500 MG ER TAB PO SCH (08:40)
[2021-05-03] MEDS: FAMOTIDINE 40 MG TABLET PO SCH (08:40)
[2021-05-03] MEDS: lisinopril 40 MG TAB PO SCH (08:40)
[2021-05-03] MEDS: SERTRALINE HCL 50 MG TABLET PO SCH (08:40)
[2021-05-03] MEDS: carvediloL 12.5 MG TAB PO SCH (08:40)
[2021-05-03] MEDS: BUMETANIDE 1 MG TAB PO SCH (08:40)
--- NOTE | 2021-05-03 09:55 | Discharge Summary ---
Date of Service May 03, 2021 Admission HPI Per Admitting Provider Patient is a pleasant 85yo male with complex cardiac history presenting to the ER this evening with his and daughter with complaint of chest pain. Patient was in his usual state of healthy throughout the day. Tonight around 23:00 he was sitting in his chair watching TV. He took a brief nap for about 30 minutes and was woken by pain in the left arm and chest. The pain radiated across his chest and into his right arm and shoulde, 7/10 in severityr. Patient took a SL Nitro x 1 and waited 15 minutes with no relief. He took a 2nd Nitro with no relief therefore called EMS. EMS found patient to be hypoxic at 87% on room air. They administered Nitro x 2 and ASA en route. Upon arrival to the ER patient afebrile, hypertensive, saturating 87% on room air. He was placed on NC 4L with improvement in saturation. Still with very minimal left sided chest discomfort. No additional complaints at this time. ER Course: Morphine, Nitro, Lasix 40mg IV Principal Diagnosis Non-ST segment elevation CT Discharge Exam Respiratory normal respiratory effort, lungs clear to auscultation Cardiovascular Rate/Rhythm: regular rate and regular rhythm Discharge Data Allergies Allergy/AdvReac Type Severity Reaction Status Date / Time pravastatin [From Pravachol] AdvReac Unknown Unknown Verified 04/29/21 02:45 rosuvastatin [From Crestor] AdvReac Unknown Unknown Verified 04/29/21 02:45 Consultations 04/29/21 02:36 ED Decision to Admit Stat 04/29/21 08:15 Consult Cardiology Routine Hospital Course (1) Chest pain: Marquis Salgado is an 85yo male with history of CAD, ischemic cardiomyopathy with EF of 35% per echo 12/02/20 s/p Bi-ventricular AICD placement, PAF on Apixaban anticoagulation as well as CKD presenting with chest pain that woke him from sleep this evening. Pain left sided with radiation across his chest to the right arm. No relief with Nitro. Improved with Morphine administered in the ER. Patient's EKG is difficult to interpret for acute ischemia as it is A- sensed, V-paced. Troponin is negative. Patient with underlying CAD with blockages non-amenable to stenting. He follows with Cardiology - Dr. Hermosillo, last seen on 04/19. -Admit for NSTEMI with telemetry monitoring -Trend troponin -Coompleted 48h heparin IV drip. -Continue home medication regimen to include Plavix, Carvedilol 12.5mg po BID, Isosorbide mononitrate, Lisinopril and Ranolazine -Appreciate cardio input. -patient is alert and oriented . (2) CHF (congestive heart failure): Suspect some degree of acute on chronic CHF with volume overload at this time. Patient endorses some slight weight gain of 2# as well as slight LE edema. His BNP is elevated. CXR suggestive of pulmonary edema -Blood pressure control as below -Lasix 40mg IV given in ER -Continue diuresis with Bumex 2mg BID -Monitor strict I/Os and daily weights -BMP BID to monitor renal function with diuresis -Electrolyte repletion -Continue home cardiac meds - Metoprolol, Lisinopril, Isosorbide mononitrate. Patient follows with both Cardiology and Heart Failure as an outpatient. He may be switched to Entresto for optimal medical management as renal function allows. On room air (3) Diabetes mellitus with complication: Last AIC in 03/2021 elevated at 9.1. Patient administered 6u SQ insulin in the ER. Will continue to watch blood sugars -Lantus therapy -ISS -Goal blood sugar 100 - 140 (4) Hypertension: Elevated blood pressure in ER -Treated with nitro paste -Continue Carvedilol, Lisinopril, Isosorbide mononitrate -Continue to monitor (5) Paroxysmal atrial fibrillation: BiV AICD in place, EKG shows atrial-sensed, ventricular paced rhythm -Continue Amiodarone 200mg po daily -Continue Metoprolol -Continue Apixaban -Monitor (6) Chronic kidney disease (CKD): BUN and Cr near baseline -Closely monitor renal function with diuresis -Electrolyte repletion -Avoid nephrotoxic agents (7) CAD (coronary artery disease): Chronic. BMS placemetn in 2013. Patient had a cardiac catheterization on 11/30/20 which revealed severe CAD and normal intracardiac pressures. 80% distal LM extending into circumflex. 70% ostial circumflex. 99% late-mid RCA stenosis with faint collaterals. He [place] [facility] [place] catheter[place] for possible revascularization. He ws seen by CT Surgery as well as Interventional Cardiology at that time - no plan for CABG -Continue medical therapy as above -Troponin elevated as expected but now downtrending -Telemetry monitoring (8) Anxiety: Chronic. Stable on Ssertraline -Continue [id number] 25mg po daily (9) GERD (gastroesophageal reflux disease): Chronic. Stable on Famotidine -Continue Famotidine 40mg po daily Home today on oral medications. 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 Total Time Total Time Spent Total Time Spent (In Minutes): 35 minutes Discharge Plan Discharge Items Patient Disposition: Home - Self-Care Reason For Visit: CHEST PAIN Discharge Diagnosis: Non-ST segment elevation CT Non-emergency contact: Primary Care Provider and [facility] Call non-emergency contact if: you have any medication questions Follow-up/Referrals: ProKyle MD [Primary Care Provider] - Diet: Carb Consistent or DM2 and Heart Healthy Addtl Attending Provider Instructions: Take medications as instructed. 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 Pending Studies at Discharge: No Stand-Alone Forms: My MOBITRAC, Smoking Cessation Medications and DC Order Prescriptions: New isosorbide mononitrate 60 mg Tablet Extended Release 24 Hr 240 mg PO DAILY Qty: 30 RF: 0 bumetanide 1 mg Tablet 2 mg PO BID17 Qty: 60 RF: 0 Lantus Solostar U-100 Insulin 100 unit/mL (3 mL) Insulin Pen 10 unit SC BID Qty: 1 RF: 0 Continued trazodone 50 mg tablet 50 mg PO HS Qty: 30 RF: 3 clopidogrel 75 mg tablet 75 mg PO DAILY Qty: 90 RF: 3 montelukast 10 mg tablet 10 mg PO HS Qty: 90 RF: 2 Lantus Solostar U-100 Insulin 100 unit/mL (3 mL) insulin pen 27 unit SUBCUT HS Qty: 15 RF: 3 lisinopril 40 mg tablet 40 mg PO QAM Qty: 90 RF: 3 sertraline 25 mg tablet 25 mg PO QAM Qty: 90 RF: 3 ranolazine 500 mg tablet extended release 12 hr 500 mg PO BID Qty: 60 RF: 2 carvedilol 12.5 mg tablet 12.5 mg PO BID Qty: 180 RF: 3 nitroglycerin 0.4 mg tablet, sublingual 0.4 mg sublingual Q5M PRN (Reason: chest pain) Qty: 14 RF: 0 amiodarone 200 mg tablet 200 mg PO DAILY Qty: 90 RF: 3 apixaban 2.5 mg tablet 2.5 mg PO BID Qty: 180 RF: 3 potassium chloride 10 mEq tablet extended release 20 meq PO BID Qty: 180 RF: 1 omega-3 fatty acids [Fish Oil Concentrate] 1,000 mg capsule 1,000 mg PO DAILY Qty: 30 RF: 0 insulin aspart U-100 [Novolog Flexpen U-100 Insulin] 100 unit/mL (3 mL) insulin pen See Rx Instructions subcut .COMPLEX Qty: 15 RF: 2 levocetirizine 5 mg tablet 5 mg PO DAILY Qty: 30 RF: 2 melatonin 3 mg capsule 3 mg PO HS PRN (Reason: sleep) Qty: 90 RF: 0 multivitamin [Daily-Darryl] Tablet 1 tab PO QAM Qty: 30 RF: 0 famotidine 40 mg tablet 40 mg PO QAM RF: 0 fluticasone propionate [Flonase Allergy Relief] 50 mcg/actuation spray,suspension 1 spray intranasal DAILY PRN (Reason: Congestion) RF: 0 latanoprost 0.005 % drops 1 drp OPL HS RF: 0 prednisone 10 mg tablet 10 mg PO .UD RF: 0 tramadol 50 mg tablet 50 mg PO DAILY RF: 0 oxycodone-acetaminophen 5-325 mg tablet 0.5 tab PO DAILY RF: 0 Discontinued isosorbide mononitrate 120 mg tablet extended release 24 hr 120 mg PO DAILY Qty: 90 RF: 3 Discharge Orders: Discharge Order (Routine); Ordered 05/03/21 Ordered By: Cam Barbosa/Other Patient Handouts: High Blood Sugar (Hyperglycemia), Managing Type 2 Diabetes Admission Data Admit Date/Time: 04/30/21 10:39 Attending Provider: Cam Ching Admit Provider: Amairani Lucio Primary Care Provider: Kyle Lamb Other Providers: Amairani Lucio ; Arvind Hay Coding Level of Care Code D/C DAY MANAGEMENT >30 MINS Diagnoses Chest pain R07.9 CHF (congestive heart failure) I50.43 Heart failure chronicity: acute on chronic Heart failure type: combined systolic and diastolic Diabetes mellitus with complication E11.8 Hypertension I10 Hypertension type: essential hypertension Paroxysmal atrial fibrillation I48.0 Chronic kidney disease (CKD) N18.9 CAD (coronary artery disease) I25.10 Coronary Disease-Associated Artery/Lesion type: grayling artery [place] vs. transplanted heart: grayling heart Associated angina: angina presence unspecified Anxiety F41.9 GERD (gastroesophageal reflux disease) K21.9 Esophagitis presence: esophagitis presence not specified Time Spent (min) 35
--- NOTE | 2021-05-03 10:21 | XRay Report ---
XR chest 1V portable CLINICAL HISTORY: Follow up left lung airspace opacity and possible pulmonary edema. COMPARISON STUDY: 04/29/2021 TECHNIQUE: 1 view of the chest FINDINGS: Single frontal view of the chest demonstrates the cardiomediastinal silhouette to be within normal li mits. Permanent cardiac pacer is in place. Compared to previous examination, there has been resolutio n of left lung airspace opacity which may have represented pleural fluid layering along the posterior gutter. Minimal linear atelectasis versus scarring is seen at the right lung base. There is no evide nce for pleural effusion. There is no evidence for vascular congestion. There is no acute osseous pat hology. IMPRESSION: Compared to previous examination, there has been resolution of left lung opacity with no evidence for vascular congestion. Follow-up PA and lateral radiographs would be helpful for further e valuation. ACT 112: Negative or not required by law. Electronically signed by: Balbir Douglas M.D. 05/03/2021 10:20 AM
[2021-05-03 10:55] VITALS: BP 128/70; TEMP 98.2
[2021-05-03 11:22] LABS: BUN Creatinine Ratio 15.4 (10-20); Calcium 10.1 mg/dl (8.5-10.1); Creatinine Clr Calc Pharmacy 32.9 ml/min; Est GFR (African American) 40.5 ml/min
[2021-05-03 12:20] VITALS: PULSE 83; O2SAT 92
--- NOTE | 2021-05-10 15:20 | Coding Query ---
CONGESTIVE HEART FAILURE To Promote full compliance with coding requirements relating to patient care, physician participation is requested in all cases of industrial engineering intern uncertainty. Please assist us with the following questions. A diagnosis of Congestive Heart Failure is documented in the patient's medical record. To accurately code this diagnosis and to compare patient severity, we ask that you specify the type of heart failure by placing an X within the parenthesis (x). SYSTOLIC HEART FAILURE ( ) Acute ( ) Chronic ( X) Acute on Chronic ( ) Rheumatic ( ) Unknown DIASTOLIC HEART FAILURE ( ) Acute ( ) Chronic ( ) Acute on Chronic ( ) Rheumatic ( ) Unknown COMBINED SYSTOLIC AND DIASTOLIC HEART FAILURE ( ) Acute ( ) Chronic ( ) Acute on Chronic ( ) Rheumatic ( ) Unknown Was the CHF Present On Admission? Please check the appropriate box: (X ) Present on Admission ( ) Not Present On Admission ( ) Clinically undetermined Thank you JOSE ANGEL Bower [facility] CENTERJosé Miguel
== END 2021-05-03 15:01 | disposition home or self-care (01) | DRG 280 ==
LOC: ED 00:53 → EDINP 00:53 → SUATTDRO 03:07 → 2N 04:10 → SUATTDRO 04-30 10:39

== ENCOUNTER 2021-07-29 15:28 | Inpatient (IN) ==
[2021-07-29] MEDS ORDERED: SODIUM CHLORIDE 0.9% 1000ML 1,000 ML IV ONE (15:58)
[2021-07-29 16:06] LABS: Basophils # (auto) 0.02 K/uL (0-0.2); Basophils % (auto) 0.2 %; Eosinophils % (auto) 1.1 %; Hematocrit (blood only) 28.9 % (42-52); Hemoglobin 9.5 g/dL (14.0-18.0); Immature Granulocytes # (auto) 0.02 K/uL (0.00-0.02); Immature Granulocytes % (auto) 0.2 %; Lymphocytes # (auto) 1.53 K/uL (1.2-3.4); Lymphocytes % (auto) 16.3 %; Mean Corpuscular Hemoglobin 26.9 pg (25-34); Mean Corpuscular Hgb Conc 32.9 g/dL (32-36); Mean Corpuscular Volume 81.9 fL (80-100); Mean Platelet Volume 10.7 fL (7.4-10.4); Monocytes # (auto) 0.44 K/uL (0.11-0.59); Monocytes % (auto) 4.7 %; Neutrophils # (auto) 7.28 K/uL (1.4-6.5); Neutrophils % (auto) 77.5 %; Platelet Count 332 K/uL (130-400); RDW Coefficient of Variation 15.5 % (11.5-14.5); Red Blood Count 3.53 M/uL (4.7-6.1); White Blood Count 9.39 K/uL (4.8-10.8)
--- NOTE | 2021-07-29 16:07 | Emergency Department Note ---
Impression & Plan JOSUE (acute kidney injury), Weakness, Diarrhea, Anemia, Acute hyponatremia ED Provider Note NAME: MARTELL LOPEZ JR AGE: 86 SEX: M : 1935 ARRIVES VIA: Walk-In INFORMANT: Patient ED PROVIDER(S): Tony Saez DO CHIEF COMPLAINT: weak HPI: Patient is an 86-year-old male who presents to the ER for weakness. He has not been feeling well for the past 7 days. He notes he feels very weak and rundown. He was having trouble with constipation and took some stool softeners. Following this he was having fair amount of diarrhea for the past 5 to 6 days. He vomited once yesterday and once today. He has been eating and drinking appropriately otherwise. He believes he is taking his meds which includes bumex. He saw his PCP and had blood work done and his creatinine was 7 and was referred in. He denies any headache or change in vision. No chest pain or shortness of breath. He denies any cough. No belly pain. No dysuria, urgency, or frequency. No other exacerbating or remitting factors. ROS: See above HPI for pertinent positives & negatives. A total of 10 systems reviewed and were otherwise negative. PAST MEDICAL HISTORY:See Below PAST SURGICAL HISTORY:See Below FAMILY HISTORY:See Below SOCIAL HISTORY:See Below HOME MEDICATIONS:See Below ALLERGIES:See Below VITALS:See Below PHYSICAL EXAMINATION: GENERAL: Sitting up in bed, alert, well appearing, well nourished, no distress, non-toxic EYE EXAM: normal conjunctiva. PERRL and EOM's grossly intact. OROPHARYNX: Dry mucous membranes NECK: supple, no nuchal rigidity, no adenopathy, non-tender LUNGS: Clear to auscultation. Normal chest wall mechanics HEART: no murmurs, S1 normal and S2 normal ABDOMEN: abdomen soft, non-tender, normo-active bowel sounds, no masses, no rebound or guarding. UPPER EXTREMITIES: upper extremities are grossly normal. LOWER EXTREMITIES: No pitting edema. NEURO EXAM: Normal sensorium, cranial nerves II-XII grossly intact, normal speech, no gross weakness of arms, no gross weakness of legs. MEDICAL DECISION MAKING: Patient is an 86-year-old male referred in by PCP for feeling weak. IV was established blood work was obtained. Labs show no significant leukocytosis with a chronic anemia at 9.5. BMP with a hyponatremia 126. BUN significantly elevated at 127 and a creatinine of 6.8 up from a baseline of 1. Glucose was elevated at 264. LFTs bilirubin was unremarkable. Troponin was negative. He denies all other complaints with the exception of feel weak and rundown. CT of the belly was unremarkable. UA was clean. Covid was negative. He was ordered IV fluids. There is no signs of retention on imaging. He was updated bedside. Discussed with hospitalist for further evaluation as he is still making urine. Triage Nursing notes reviewed. Limited review of prior medical records performed Vital Signs: reviewed and remarkable for hypotensive Differential diagnosis: Infection, dehydration, metabolic abnormality, hypo/hyperglycemia, electrolyte disturbance, anemia, hypoxia, cardiac sources, intracerebral event, toxicologic, neurologic, as well as other pathologies. ER treatment provided: See below Diagnostics interpreted by me: ECG: Dual paced rate of 60 QTC 584 Cardiac Monitoring: An order was placed for continuous cardiac monitoring. The monitor shows a rate of 62 with sinus rhythm. Laboratory studies: As stated above and show below. Imaging studies: CT abdomen pelvis is unremarkable Consultation(s): Discussed with Dr. Oc Hayward for further evaluation Procedures: none Critical Care: None Past Med/Surg History Medical History Accidental fall Acquired bilateral foot drop Acute on chronic diastolic (congestive) heart failure Ataxia Biventricular ICD (implantable cardioverter-defibrillator) in place CAD (coronary artery disease) Cardiac defibrillator in place Chronic diastolic CHF (congestive heart failure) Closed head injury Diabetes mellitus with diabetic polyneuropathy Diarrhea Encounter for post surgical wound check Heart disease Hip pain, bilateral History of CVA (cerebrovascular accident) Hypercholesteremia Hypertension ICD (implantable cardioverter-defibrillator) battery depletion Intraabdominal mass Ischemic cardiomyopathy Non-ST elevation (NSTEMI) myocardial infarction Non-ST elevation ID (NSTEMI) (11/07/13) NSTEMI (non-ST elevated myocardial infarction) Paroxysmal atrial fibrillation Pericardial effusion Sensorineural hearing loss (SNHL) of right ear with restricted hearing of left ear Shoulder pain, bilateral SOB (shortness of breath) Surgical History History of back surgery S/P appendectomy S/P cholecystectomy S/P hernia repair Status post open reduction with internal fixation (ORIF) of fracture of ankle Family History Mother Breast cancer Cancer Father Hearing loss Other No significant family history Denies family history of Ovarian cancer Prostate cancer Myocardial infarction Colorectal cancer Social History Smoking Status: Former smoker Tobacco Type: Cigarettes Second Hand Exposure: No; Hx Alcohol Use: No Hx Substance Use: No Preferred Language: Tristanian Communication Ability: Effective Visual Impairment: No Limitations Bench Hand Required: No Beliefs That Will Affect Care: None marital status: Current Living Situation: Parent Current Living Situation Comment: david current occupational status: retired How many Children do You have: 2 Feels Safe at Home: Yes Seatbelt Use: sometimes Assistive Devices: Glasses and Walker Allergies Allergies Allergy/AdvReac Type Severity Reaction Status Date / Time sertraline Allergy Intermediate Hives Verified 07/29/21 15:56 pravastatin [From Pravachol] AdvReac Unknown Unknown Verified 07/29/21 09:05 rosuvastatin [From Crestor] AdvReac Unknown Unknown Verified 07/29/21 09:05 Home Meds Home Medications Medication Instructions Recorded Confirmed latanoprost 0.005 % eye drops 1 drp OPL HS 11/29/20 07/29/21 amiodarone 200 mg tablet 200 mg PO QAM 07/29/21 07/29/21 bumetanide 2 mg tablet See Rx Instructions .ROUTE .COMPLEX 07/29/21 07/29/21 insulin glargine 100 unit/mL (3 0 unit SC HS 07/29/21 07/29/21 mL) subcutaneous pen (Lantus Solostar U-100 Insulin) isosorbide mononitrate 120 mg 240 mg PO QAM 07/29/21 07/29/21 tablet,extended release 24 hr metolazone 2.5 mg tablet 2.5 mg PO Q OTHER DAY PRN tab 07/29/21 07/29/21 potassium 99 mg tablet 99 mg PO BID 07/29/21 07/29/21 trazodone 50 mg tablet 50 mg PO HS 07/29/21 07/29/21 Previous Rx's Medication Instructions Recorded multivitamin (Daily-Darryl) 1 tab PO QAM #30 tab 02/05/20 clopidogrel 75 mg tablet 75 mg PO DAILY #90 tab 09/02/20 levocetirizine 5 mg tablet 5 mg PO DAILY #30 tab 12/08/20 omega-3 fatty acids 1,000 mg 1,000 mg PO DAILY #30 cap 12/08/20 capsule (Fish Oil Concentrate) nitroglycerin 0.4 mg sublingual 0.4 mg SUBLINGUAL Q5M PRN #14 tab 02/19/21 tablet famotidine 40 mg tablet 40 mg PO QAM #90 tab 05/12/21 montelukast 10 mg tablet 10 mg PO HS #90 tab 05/27/21 lisinopril 40 mg tablet 40 mg PO QAM #90 tab 06/09/21 carvedilol 25 mg tablet 25 mg PO BID #60 tab 06/24/21 apixaban 2.5 mg tablet 2.5 mg PO BID #180 tab 06/29/21 ranolazine 500 mg tablet,extended 500 mg PO BID #60 tab 06/29/21 release,12 hr nitroglycerin 400 mcg/spray 0.4 mg SUBLINGUAL Q5M PRN #4.9 g 07/08/21 translingual Results & Data (ED) Vital Signs Vital Signs - 24 hr 07/29/21 15:30 07/29/21 15:55 07/29/21 16:00 Temperature 36.6 C Temperature Source Temporal Artery Scan Pulse Rate 60 60 60 Pulse Rate [Finger] Pulse Rate from SpO2 Sensor 60 58 L Respiratory Rate 18 16 15 Respiratory Effort / Characteristics Non-Labored Spontaneous Respiratory Depth Normal Respiratory Pattern Regular Blood Pressure 104/57 L 125/62 Blood Pressure [Right Arm] Blood Pressure Mean 72 83 Blood Pressure Mean [Right Arm] Pulse Oximetry 96 93 94 Oxygen Delivery Method Room Air Sepsis Recent Fever Within 48 Hours No Sepsis New/Unexplained Change in Mental Status No Sepsis Action Taken by Nursing No Action Required 07/29/21 16:06 07/29/21 16:07 07/29/21 16:30 Temperature Temperature Source Pulse Rate 73 Pulse Rate [Finger] 60 Pulse Rate from SpO2 Sensor 58 L Respiratory Rate 18 14 Respiratory Effort / Characteristics Respiratory Depth Respiratory Pattern Blood Pressure Blood Pressure [Right Arm] 125/62 Blood Pressure Mean Blood Pressure Mean [Right Arm] 83 Pulse Oximetry 94 93 89 L Oxygen Delivery Method Room Air Room Air Sepsis Recent Fever Within 48 Hours Sepsis New/Unexplained Change in Mental Status Sepsis Action Taken by Nursing 07/29/21 16:31 07/29/21 17:02 07/29/21 17:30 Temperature Temperature Source Pulse Rate 60 76 64 Pulse Rate [Finger] Pulse Rate from SpO2 Sensor 60 Respiratory Rate 16 8 L 16 Respiratory Effort / Characteristics Respiratory Depth Respiratory Pattern Blood Pressure 127/55 L 136/77 Blood Pressure [Right Arm] Blood Pressure Mean 79 96 Blood Pressure Mean [Right Arm] Pulse Oximetry 93 Oxygen Delivery Method Sepsis Recent Fever Within 48 Hours Sepsis New/Unexplained Change in Mental Status Sepsis Action Taken by Nursing 07/29/21 18:00 07/29/21 18:30 Temperature Temperature Source Pulse Rate 64 63 Pulse Rate [Finger] Pulse Rate from SpO2 Sensor Respiratory Rate 17 17 Respiratory Effort / Characteristics Respiratory Depth Respiratory Pattern Blood Pressure 142/72 H 146/72 H Blood Pressure [Right Arm] Blood Pressure Mean 95 96 Blood Pressure Mean [Right Arm] Pulse Oximetry Oxygen Delivery Method Sepsis Recent Fever Within 48 Hours Sepsis New/Unexplained Change in Mental Status Sepsis Action Taken by Nursing Laboratory Data Result diagrams: 07/29/21 15:45 07/29/21 15:45 Lab Results 07/29/21 07/29/21 07/29/21 Range/Units 15:45 15:45 15:45 WBC 9.39 (4.8-10.8) K/uL RBC 3.53 L (4.7-6.1) M/uL Hgb 9.5 L (14.0-18.0) g/dL Hct 28.9 L (42-52) % MCV 81.9 (80-100) fL MCH 26.9 (25-34) pg MCHC 32.9 (32-36) g/dL RDW Std Deviation 46.0 (36.4-46.3) fL RDW Coeff of [place] 15.5 H (11.5-14.5) % Plt Count 332 (130-400) K/uL MPV 10.7 H (7.4-10.4) fL Immature Gran % (Auto) 0.2 % Neut % (Auto) 77.5 % Lymph % (Auto) 16.3 % [place] % (Auto) 4.7 % Eos % (Auto) 1.1 % Baso % (Auto) 0.2 % Neut # (Auto) 7.28 H (1.4-6.5) K/uL Lymph # (Auto) 1.53 (1.2-3.4) K/uL [place] # (Auto) 0.44 (0.11-0.59) K/uL Eos # (Auto) 0.10 (0-0.5) K/uL Baso # (Auto) 0.02 (0-0.2) K/uL Immature Gran # (Auto) 0.02 (0.00-0.02) K/uL VBG pH (7.36-7.41) Sodium 126 L (136-145) mmol/L Potassium 4.0 (3.5-5.1) mmol/L Chloride 82 L (98-107) mmol/L Carbon Dioxide 28 (21-32) mmol/L Anion Gap 16 H (3-11) BUN 127 H (6-23) mg/dl Creatinine 6.88 H* (0.6-1.4) mg/dl Est Cr Clr Drug Dosing 8.3 ml/min Est GFR ( Amer) 7.7 ml/min Est GFR (Non-Af Amer) 6.6 ml/min BUN/Creatinine Ratio 18.5 (10-20) Glucose 264 H (70-99(Fasting)) mg/dl Lactate (0.4-2.0) mmol/L Calcium 8.5 (8.5-10.1) mg/dl Total Bilirubin 0.4 (0.2-1.0) mg/dl AST 11 L (13-39) U/L ALT 14 (7-52) U/L Alkaline Phosphatase 86 (34-104) U/L Troponin I 0.04 (0-0.04) ng/ml Total Protein 6.8 (6.0-8.3) gm/dl Albumin 3.8 (3.4-5.0) gm/dl Globulin 3.0 (2.5-4.0) gm/dl Albumin/Globulin Ratio 1.3 (0.9-2) Urine Color Urine Appearance (Clear) Urine pH (4.5-7.5) Ur Specific [place] (1.000-1.030) Urine Protein (Negative) Urine Glucose (UA) (Negative) Urine Ketones (Negative) Urine Blood (Negative) Urine Nitrite (Negative) Urine Bilirubin (Negative) Urine Urobilinogen (Negative) Ur Leukocyte Esterase (Negative) Ur Random Creatinine mg/dl U Random Total Protein (0-11.9) mg/dl Protein/Creatinin Ratio (0-0.2) SARS-CoV-2, RNA, NAAT (NEGATIVE) 07/29/21 07/29/21 07/29/21 Range/Units 17:54 17:54 18:08 WBC (4.8-10.8) K/uL RBC (4.7-6.1) M/uL Hgb (14.0-18.0) g/dL Hct (42-52) % MCV (80-100) fL MCH (25-34) pg MCHC (32-36) g/dL RDW Std Deviation (36.4-46.3) fL RDW Coeff of [place] (11.5-14.5) % Plt Count (130-400) K/uL MPV (7.4-10.4) fL Immature Gran % (Auto) % Neut % (Auto) % Lymph % (Auto) % [place] % (Auto) % Eos % (Auto) % Baso % (Auto) % Neut # (Auto) (1.4-6.5) K/uL Lymph # (Auto) (1.2-3.4) K/uL [place] # (Auto) (0.11-0.59) K/uL Eos # (Auto) (0-0.5) K/uL Baso # (Auto) (0-0.2) K/uL Immature Gran # (Auto) (0.00-0.02) K/uL VBG pH 7.33 L (7.36-7.41) Sodium (136-145) mmol/L Potassium (3.5-5.1) mmol/L Chloride (98-107) mmol/L Carbon Dioxide (21-32) mmol/L Anion Gap (3-11) BUN (6-23) mg/dl Creatinine (0.6-1.4) mg/dl Est Cr Clr Drug Dosing ml/min Est GFR ( Amer) ml/min Est GFR (Non-Af Amer) ml/min BUN/Creatinine Ratio (10-20) Glucose (70-99(Fasting)) mg/dl Lactate 0.2 L (0.4-2.0) mmol/L Calcium (8.5-10.1) mg/dl Total Bilirubin (0.2-1.0) mg/dl AST (13-39) U/L ALT (7-52) U/L Alkaline Phosphatase (34-104) U/L Troponin I (0-0.04) ng/ml Total Protein (6.0-8.3) gm/dl Albumin (3.4-5.0) gm/dl Globulin (2.5-4.0) gm/dl Albumin/Globulin Ratio (0.9-2) Urine Color Yellow Urine Appearance Clear (Clear) Urine pH 5.0 (4.5-7.5) Ur Specific [place] 1.009 (1.000-1.030) Urine Protein Negative (Negative) Urine Glucose (UA) Trace H (Negative) Urine Ketones Negative (Negative) Urine Blood Negative (Negative) Urine Nitrite Negative (Negative) Urine Bilirubin Negative (Negative) Urine Urobilinogen Negative (Negative) Ur Leukocyte Esterase Negative (Negative) Ur Random Creatinine mg/dl U Random Total Protein (0-11.9) mg/dl Protein/Creatinin Ratio (0-0.2) SARS-CoV-2, RNA, NAAT (NEGATIVE) 07/29/21 07/29/21 Range/Units 18:08 Unknown WBC (4.8-10.8) K/uL RBC (4.7-6.1) M/uL Hgb (14.0-18.0) g/dL Hct (42-52) % MCV (80-100) fL MCH (25-34) pg MCHC (32-36) g/dL RDW Std Deviation (36.4-46.3) fL RDW Coeff of [place] (11.5-14.5) % Plt Count (130-400) K/uL MPV (7.4-10.4) fL Immature Gran % (Auto) % Neut % (Auto) % Lymph % (Auto) % [place] % (Auto) % Eos % (Auto) % Baso % (Auto) % Neut # (Auto) (1.4-6.5) K/uL Lymph # (Auto) (1.2-3.4) K/uL [place] # (Auto) (0.11-0.59) K/uL Eos # (Auto) (0-0.5) K/uL Baso # (Auto) (0-0.2) K/uL Immature Gran # (Auto) (0.00-0.02) K/uL VBG pH (7.36-7.41) Sodium (136-145) mmol/L Potassium (3.5-5.1) mmol/L Chloride (98-107) mmol/L Carbon Dioxide (21-32) mmol/L Anion Gap (3-11) BUN (6-23) mg/dl Creatinine (0.6-1.4) mg/dl Est Cr Clr Drug Dosing ml/min Est GFR ( Amer) ml/min Est GFR (Non-Af Amer) ml/min BUN/Creatinine Ratio (10-20) Glucose (70-99(Fasting)) mg/dl Lactate (0.4-2.0) mmol/L Calcium (8.5-10.1) mg/dl Total Bilirubin (0.2-1.0) mg/dl AST (13-39) U/L ALT (7-52) U/L Alkaline Phosphatase (34-104) U/L Troponin I (0-0.04) ng/ml Total Protein (6.0-8.3) gm/dl Albumin (3.4-5.0) gm/dl Globulin (2.5-4.0) gm/dl Albumin/Globulin Ratio (0.9-2) Urine Color Urine Appearance (Clear) Urine pH (4.5-7.5) Ur Specific [place] (1.000-1.030) Urine Protein (Negative) Urine Glucose (UA) (Negative) Urine Ketones (Negative) Urine Blood (Negative) Urine Nitrite (Negative) Urine Bilirubin (Negative) Urine Urobilinogen (Negative) Ur Leukocyte Esterase (Negative) Ur Random Creatinine 33.4 mg/dl U Random Total Protein 11.4 (0-11.9) mg/dl Protein/Creatinin Ratio 0.3 H (0-0.2) SARS-CoV-2, RNA, NAAT NEGATIVE (NEGATIVE) Administered Medications Discontinued Medications Sodium Chloride (Nss 1000ml) 1,000 mls @ 999 mls/hr IV .Q1H1M ONE Stop: 07/29/21 16:58 Last Infusion: 07/29/21 17:41 Dose: 0 mls/hr Documented by: [id number] Admin: 07/29/21 16:26 Dose: 999 mls/hr Documented by: [id number] Imaging Data Radiologist's Impression: Abdomen/Pelvis CT 07/29/21 16:[address] WITHOUT CONTRAST CT DOSE: 1466.83 mGy.cm HISTORY: Generalized pain. Acute kidney injury. TECHNIQUE: Multiaxial CT images of the abdomen and pelvis were performed without contrast. A dose lowering technique was utilized adhering to the principles of ALARA. COMPARISON STUDY: Abdomen and pelvis CT 06/22/2020. FINDINGS: Bibasilar linear densities favor subsegmental atelectasis. No pneumoperitoneum. No pneumatosis. No fractures within the visualized osseous structures. L3-S1 posterior decompression and fusion with pedicle screws and rods. Pacemaker wires are noted. Stable 1.4 cm hypodense cystic lesion at the coccyx. This favors a benign lesion given the long-term stability. Cholecystectomy. The unenhanced liver, spleen, and pancreas unremarkable. Mild bilateral adrenal gland thickening, unchanged. Bilateral renal cysts remain unchanged. Stable right-sided nephrolithiasis. No ureteral stones. No hydronephrosis. Calcified plaque within the normal caliber abdominal aorta. No retroperitoneal lymphadenopathy. The prostate gland remains enlarged. No pelvic free fluid. Suboptimal evaluation for bowel pathology due to the lack of intravenous and oral contrast. However, there is no definite bowel wall thickening or obstruction. Colonic diverticulosis. No evidence for acute diverticulitis. There is suggestion of a tiny supra umbilical hernia containing a knuckle small bowel best seen on image 271. IMPRESSION: 1. No bowel wall thickening or obstruction. 2. Stable right-sided nephrolithiasis. No ureteral stones. No hydronephrosis. 3. Prior cholecystectomy. 4. Prostatomegaly, unchanged. 5. Tiny supraumbilical hernia containing a knuckle small bowel. ACT 112: Negative or not required by law. Electronically signed by: Go Hall M.D. 07/29/2021 5:20 PM Discharge Plan Visit Data Chief Complaint: Abnormal Labs/Diagnostic Testing Stated Complaint: ABNORMAL LAB; DOC REF ED Provider: Tony Saez Discharge Problem: JOSUE (acute kidney injury), Weakness, Diarrhea, Anemia, Acute hyponatremia Forms Stand Alone Forms: My [employer] Prescriptions Prescriptions: No Action clopidogrel 75 mg tablet 75 mg PO DAILY Qty: 90 RF: 3 nitroglycerin 0.4 mg tablet, sublingual 0.4 mg sublingual Q5M PRN (Reason: chest pain) Qty: 14 RF: 0 montelukast 10 mg tablet 10 mg PO HS Qty: 90 RF: 3 lisinopril 40 mg tablet 40 mg PO QAM Qty: 90 RF: 3 apixaban 2.5 mg tablet 2.5 mg PO BID Qty: 180 RF: 3 ranolazine 500 mg tablet extended release 12 hr 500 mg PO BID Qty: 60 RF: 2 nitroglycerin 400 mcg/spray spray,non-aerosol 0.4 mg sublingual Q5M PRN (Reason: chest pain) Qty: 4.9 RF: 0 famotidine 40 mg tablet 40 mg PO QAM Qty: 90 RF: 1 omega-3 fatty acids [Fish Oil Concentrate] 1,000 mg capsule 1,000 mg PO DAILY Qty: 30 RF: 0 levocetirizine 5 mg tablet 5 mg PO DAILY Qty: 30 RF: 2 metolazone 2.5 mg tablet 2.5 mg PO Q OTHER DAY PRN (Reason: edema, shortness of breath, weight gain) RF: 0 carvedilol 25 mg tablet 25 mg PO BID Qty: 60 RF: 3 multivitamin [Daily-Darryl] Tablet 1 tab PO QAM Qty: 30 RF: 0 latanoprost 0.005 % drops 1 drp OPL HS RF: 0 amiodarone 200 mg tablet 200 mg PO QAM RF: 0 trazodone 50 mg tablet 50 mg PO HS RF: 0 Lantus Solostar U-100 Insulin 100 unit/mL (3 mL) insulin pen 0 unit SC HS RF: 0 isosorbide mononitrate 120 mg tablet extended release 24 hr 240 mg PO QAM RF: 0 bumetanide 2 mg tablet See Rx Instructions .ROUTE .COMPLEX RF: 0 potassium 99 mg Tablet 99 mg PO BID RF: 0 Referrals Referrals: Kyle Lamb MD [Primary Care Provider] - Discharge Problem: Diarrhea Qualifiers: Diarrhea type: unspecified type Qualified Code(s): R19.7 - Diarrhea, u nspecified Anemia Qualifiers: Anemia type: unspecified type Qualified Code(s): D64.9 - Anemia, unspecified
[2021-07-29 16:50] LABS: Albumin Globulin Ratio 1.3 (0.9-2); Albumin Level 3.8 gm/dl (3.4-5.0); BUN Creatinine Ratio 18.5 (10-20); Bilirubin,Total 0.4 mg/dl (0.2-1.0); Calcium 8.5 mg/dl (8.5-10.1); Creatinine Clr Calc Pharmacy 8.3 ml/min; Est GFR (African American) 7.7 ml/min; Est GFR (Non-African American) 6.6 ml/min; Total Protein 6.8 gm/dl (6.0-8.3)
--- NOTE | 2021-07-29 17:22 | CT Scan Report ---
ABDOMEN AND PELVIS CT WITHOUT CONTRAST CT DOSE: 1466.83 mGy.cm HISTORY: Generalized pain. Acute kidney injury. TECHNIQUE: Multiaxial CT images of the abdomen and pelvis were performed without contrast. A dose lo wering technique was utilized adhering to the principles of ALARA. COMPARISON STUDY: Abdomen and pelvis CT 06/22/2020. FINDINGS: Bibasilar linear densities favor subsegmental atelectasis. No pneumoperitoneum. No pneumato sis. No fractures within the visualized osseous structures. L3-S1 posterior decompression and fusion with pedicle screws and rods. Pacemaker wires are noted. Stable 1.4 cm hypodense cystic lesion at the coccyx. This favors a benign lesion given the long-term stability. Cholecystectomy. The unenhanced l iver, spleen, and pancreas unremarkable. Mild bilateral adrenal gland thickening, unchanged. Bilatera l renal cysts remain unchanged. Stable right-sided nephrolithiasis. No ureteral stones. No hydronephr osis. Calcified plaque within the normal caliber abdominal aorta. No retroperitoneal lymphadenopathy. The prostate gland remains enlarged. No pelvic free fluid. Suboptimal evaluation for bowel pathology due to the lack of intravenous and oral contrast. However, there is no definite bowel wall thickenin g or obstruction. Colonic diverticulosis. No evidence for acute diverticulitis. There is suggestion o f a tiny supra umbilical hernia containing a knuckle small bowel best seen on image 271. IMPRESSION: 1. No bowel wall thickening or obstruction. 2. Stable right-sided nephrolithiasis. No ureteral stones. No hydronephrosis. 3. Prior cholecystectomy. 4. Prostatomegaly, unchanged. 5. Tiny supraumbilical hernia containing a knuckle small bowel. ACT 112: Negative or not required by law. Electronically signed by: Go Hall M.D. 07/29/2021 5:20 PM
--- NOTE | 2021-07-29 17:38 | History & Physical Report ---
Date of Service July 29, 2021 Assessment & Plan (1) Acute kidney injury: Plan: Suspect secondary to hypotension and prerenal failure due to diuretics with dehydration from recent diarrhea Insert Serrano catheter -need for close monitoring of urine output in setting of known congestive heart failure but now prerenal JOSUE UA pending at this time NSS 1 hour bolus given in the ER. We will continue on lactated Ringer's as bicarb appears normal at a rate of 80 mL/hr careful monitoring of worsening shortness of breath suggestive of heart failure Hold diuretics -Bumex and metolazone Hold lisinopril Continue carvedilol (reduced dose to avoid hypotension) with hold parameters Daughter Felicia requests daily updates as her mother is currently in [facility] for rehabilitation (2) Chronic systolic CHF (congestive heart failure): Plan: Left ventricular ejection fraction 35% on echocardiogram in November 2020. Currently hypovolemic but likely to become hypervolemic with IV fluids eventually. Holding his usual diuresis of Bumex and metolazone. (3) Acute hyponatremia: Plan: Secondary to diuretic use and diarrhea. Monitor with IV fluids. (4) CAD (coronary artery disease): Plan: Severe - not a good surgical candidate. Continue apixaban 2.5mg PO BID and clopidogrel 75mg PO daily Continue carvedilol however will reduce dose to avoid hypotension but likely can be increased back to 25mg PO BID tomorrow pending BP measurements Continue ISMN with hold parameters for angina Reportedly intolerant to statins per prior cardiology notes (5) Ischemic cardiomyopathy: Plan: Continue carvedilol (reduce dose as above) Holding lisinopril in setting of JOSUE (6) Hypertension: Plan: Reduce carvedilol to 12.5mg PO BID due to concern for hypotension with pre-renal JOSUE - consider increasing back to 25mg PO BID tomorrow if BP able to take this given severe CAD Continue ISMN with hold parameters Holding lisinopril, Bumex and metolazone due to JOSUE (7) Moderate obstructive sleep apnea: Plan: Pending home sleep study test as home test was not valid Monitor for night time hypoxia (8) Paroxysmal atrial fibrillation: Plan: Monitor on telemetry - currently dual-paced rhythm Continue amiodarone 200mg PO daily Continue anticoagulation with Eliquis 2.5mg PO BID (9) Anemia: Plan: At baseline. Monitor wiht CBC in AM labs (10) GERD (gastroesophageal reflux disease): Plan: Continue famotidine but reduce dose due to renal function (11) Foot drop, bilateral: Plan: Uses braces to walk (12) Diabetes mellitus with complication: Plan: Will dose basal bolus regimen per last admission: HbA1C 9.9 Lantus 13 units BID Novolog: Goal BSG Range: Low 110 mg/dL, High 140 mg/dL Correction Factor: 25 mg/dL/unit Carbohydrate ratio = 9 g/unit BSGs ACHS if eating, q6h if npo Plan: VTE Prophylaxis - Eliquis Diet - dialysis renal, T2DM Disposition - admit to med/tele Admission and Anticipated Discharge Date Admission Date: July 29, 2021 History of Present Illness Chief Complaint: Generalized weakness Primary Care Provider: Kyle Lamb MD Marquis Salgado is an 86-year-old male who presents to the ER for generalized weakness. He reports progressive worsening symptoms over the year but much worse over the last 7 days. He was seen by his primary care physician who took outpatient labs showing a creatinine of 7.06 which improved to 6.88 on labs in the ER today. The patient is hard of hearing and difficult to get an accurate history as he tells me about prior admission symptoms when I try and ask him about his symptoms currently. He current denies any fever, chills, chest pain, shortness of breath, abdominal pain, nausea or vomiting. Per ER note he was constipated earlier in the week and therefore took lots of laxatives and has been having diarrhea since. He has a significant history of NSTEMI in April 2021 with known severe coronary artery disease and deemed not a good surgical candidate on prior occasions to this therefore he was treated medically. In the ER he received 1L NSS bolus for his JOSUE presumed pre-renal secondary to diarrhea and overdiuresis. He was referred to medicine for admission and ongoing management of JOSUE. Allergies Allergy/AdvReac Type Severity Reaction Status Date / Time sertraline Allergy Intermediate Hives Verified 07/29/21 15:56 pravastatin [From Pravachol] AdvReac Unknown Unknown Verified 07/29/21 09:05 rosuvastatin [From Crestor] AdvReac Unknown Unknown Verified 07/29/21 09:05 Home Medications Medication Instructions Recorded Confirmed Type multivitamin (Daily-Darryl) 1 tab PO QAM #30 tab 02/05/20 07/29/21 Rx clopidogrel 75 mg tablet 75 mg PO DAILY #90 tab 09/02/20 07/29/21 Rx latanoprost 0.005 % eye drops 1 drp OPL HS 11/29/20 07/29/21 History levocetirizine 5 mg tablet 5 mg PO DAILY #30 tab 12/08/20 07/29/21 Rx omega-3 fatty acids 1,000 mg 1,000 mg PO DAILY #30 cap 12/08/20 07/29/21 Rx capsule (Fish Oil Concentrate) nitroglycerin 0.4 mg sublingual 0.4 mg SUBLINGUAL Q5M PRN #14 tab 02/19/21 07/29/21 Rx tablet famotidine 40 mg tablet 40 mg PO QAM #90 tab 05/12/21 07/29/21 Rx montelukast 10 mg tablet 10 mg PO HS #90 tab 05/27/21 07/29/21 Rx lisinopril 40 mg tablet 40 mg PO QAM #90 tab 06/09/21 07/29/21 Rx carvedilol 25 mg tablet 25 mg PO BID #60 tab 06/24/21 07/29/21 Rx apixaban 2.5 mg tablet 2.5 mg PO BID #180 tab 06/29/21 07/29/21 Rx ranolazine 500 mg tablet,extended 500 mg PO BID #60 tab 06/29/21 07/29/21 Rx release,12 hr nitroglycerin 400 mcg/spray 0.4 mg SUBLINGUAL Q5M PRN #4.9 g 07/08/21 07/29/21 Rx translingual amiodarone 200 mg tablet 200 mg PO QAM 07/29/21 07/29/21 History bumetanide 2 mg tablet See Rx Instructions .ROUTE .COMPLEX 07/29/21 07/29/21 History insulin glargine 100 unit/mL (3 0 unit SC HS 07/29/21 07/29/21 History mL) subcutaneous pen (Lantus Solostar U-100 Insulin) isosorbide mononitrate 120 mg 240 mg PO QAM 07/29/21 07/29/21 History tablet,extended release 24 hr metolazone 2.5 mg tablet 2.5 mg PO Q OTHER DAY PRN tab 07/29/21 07/29/21 History potassium 99 mg tablet 99 mg PO BID 07/29/21 07/29/21 History trazodone 50 mg tablet 50 mg PO HS 07/29/21 07/29/21 History Past Med/Surg History Medical History Accidental fall Acquired bilateral foot drop Acute on chronic diastolic (congestive) heart failure Ataxia Biventricular ICD (implantable cardioverter-defibrillator) in place CAD (coronary artery disease) Cardiac defibrillator in place Chronic diastolic CHF (congestive heart failure) Closed head injury Diabetes mellitus with diabetic polyneuropathy Diarrhea Encounter for post surgical wound check Heart disease Hip pain, bilateral History of CVA (cerebrovascular accident) Hypercholesteremia Hypertension ICD (implantable cardioverter-defibrillator) battery depletion Intraabdominal mass Ischemic cardiomyopathy Non-ST elevation (NSTEMI) myocardial infarction Non-ST elevation NH (NSTEMI) (11/07/13) NSTEMI (non-ST elevated myocardial infarction) Paroxysmal atrial fibrillation Pericardial effusion Sensorineural hearing loss (SNHL) of right ear with restricted hearing of left ear Shoulder pain, bilateral SOB (shortness of breath) Surgical History History of back surgery S/P appendectomy S/P cholecystectomy S/P hernia repair Status post open reduction with internal fixation (ORIF) of fracture of ankle Family History Mother Breast cancer Cancer Father Hearing loss Other No significant family history Denies family history of Ovarian cancer Prostate cancer Myocardial infarction Colorectal cancer Social History Smoking Status: Former smoker Tobacco Type: Cigarettes Second Hand Exposure: No; Hx Alcohol Use: No Hx Substance Use: No Preferred Language: Croatian Communication Ability: Effective Visual Impairment: No Limitations Or Scrub Tech Required: No Beliefs That Will Affect Care: None marital status: Current Living Situation: Spouse and Family Current Living Situation Comment: david current occupational status: retired How many Children do You have: 2 Other Information That Helps Us Care for You: No Feels Safe at Home: Yes Safety Concerns: Feels Safe At This Time Seatbelt Use: sometimes Assistive Devices: Brace/Splint/Immobilizer, Glasses and Special Shoe Review of Systems Review of Systems: All systems reviewed & are unremarkable except as noted in HPI & below Physical Exam Constitutional: WD/WN, vitals as above no acute distress Eyes: PERRL, conjunctivae normal, anicteric sclerae ENMT: Mouth: + dry oral mucous membranes (very) Neck: trachea midline, no thyromegaly Respiratory: normal respiratory effort; no respiratory distress Cardiovascular: Rate/Rhythm: regular rate and regular rhythm Heart Sounds: no murmur Vessels: posterior tibial pulses present, dorsalis pedis pulses present and radial pulses present; no JVD Extremities: normal capillary refill; no calf tenderness and no pedal edema Gastrointestinal (Abdomen): Inspection/Auscultation: normal bowel sounds Percussion/Palpation: abdomen soft; abdomen nontender, no guarding and abdomen not rigid Musculoskeletal: no cyanosis or clubbing, extremities motor strength 5/5 Skin: no rashes, warm and dry Neurologic: moves all extremities and awake; no focal motor deficits (no lateralizing deficit) and not confused Motor/Sensory: no tremor and no pronator drift Psychiatric: A+Ox3, euthymic affect Genitourinary: no CVA tenderness Results & Data Results & Data ([facility]) Vital Signs (Past 12 Hours) Vital Signs Temp Pulse Pulse Resp BP BP Pulse Ox 07/29/21 16:07 60 18 125/62 93 07/29/21 16:06 94 07/29/21 15:30 36.6 C 60 18 104/57 L 96 Laboratory Results Abnormal lab results 07/29/21 07/29/21 Range/Units 15:45 15:45 RBC 3.53 L (4.7-6.1) M/uL Hgb 9.5 L (14.0-18.0) g/dL Hct 28.9 L (42-52) % RDW Coeff of Apolonia 15.5 H (11.5-14.5) % MPV 10.7 H (7.4-10.4) fL Neut # (Auto) 7.28 H (1.4-6.5) K/uL Sodium 126 L (136-145) mmol/L Chloride 82 L (98-107) mmol/L Anion Gap 16 H (3-11) BUN 127 H (6-23) mg/dl Creatinine 6.88 H* (0.6-1.4) mg/dl Glucose 264 H (70-99(Fasting)) mg/dl AST 11 L (13-39) U/L Diagnostic Findings XR chest 2V PA/lateral CLINICAL HISTORY: I50.22 - Chronic systolic (congestive) heart failure. COMPARISON STUDY: 05/03/2021 TECHNIQUE: 2 views of the chest FINDINGS: Frontal and lateral radiographs of the chest the heart to again be at the upper limits of normal in size with an ICD pacer in place. There is a decreased inspiratory effort with elevation of the hemidiaphragms and crowding of the bronchovascular markings at the lung bases and centrally. The lungs are clear of alveolar opacities. There is no evidence for effusion bilaterally. There is no evidence for vascular congestion. There is no acute osseous pathology. IMPRESSION: There is a decreased inspiratory effort with otherwise no acute chest disease. ABDOMEN AND PELVIS CT WITHOUT CONTRAST CT DOSE: 1466.83 mGy.cm HISTORY: Generalized pain. Acute kidney injury. TECHNIQUE: Multiaxial CT images of the abdomen and pelvis were performed without contrast. A dose lowering technique was utilized adhering to the principles of ALARA. COMPARISON STUDY: Abdomen and pelvis CT 06/22/2020. FINDINGS: Bibasilar linear densities favor subsegmental atelectasis. No pneumoperitoneum. No pneumatosis. No fractures within the visualized osseous structures. L3-S1 posterior decompression and fusion with pedicle screws and rods. Pacemaker wires are noted. Stable 1.4 cm hypodense cystic lesion at the coccyx. This favors a benign lesion given the long-term stability. Cho lecystectomy. The unenhanced liver, spleen, and pancreas unremarkable. Mild bilateral adrenal gland thickening, unchanged. Bilateral renal cysts remain unchanged. Stable right-sided nephrolithiasis. No ureteral stones. No hydronephrosis. Calcified plaque within the normal caliber abdominal aorta. No retroperitoneal lymphadenopathy. The prostate gland remains enlarged. No pelvic free fluid. Suboptimal evaluation for bowel pathology due to the lack of intravenous and oral contrast. However, there is no definite bowel wall thickening or obstruction. Colonic diverticulosis. No evidence for acute d iverticulitis. There is suggestion of a tiny supra umbilical hernia containing a knuckle small bowel best seen on image 271. IMPRESSION: 1. No bowel wall thickening or obstruction. 2. Stable right-sided nephrolithiasis. No ureteral stones. No hydronephrosis. 3. Prior cholecystectomy. 4. Prostatomegaly, unchanged. 5. Tiny supraumbilical hernia containing a knuckle small bowel. Medications Administered ER medications given: NSS 1 hour bolus ECG Indication: other (JOSUE) Rate (beats per minute): 60 Findings: + paced rhythm (AV dual-paced rhythm) Comparison ECG Date: from (April 29, 2021) Change: no significant change Code Status & VTE Plan Code Status Full per patient wishes VTE Prophylaxis Plan VTE Prophylaxis will be ordered: Yes PG Care Time/CCT Total # of Minutes Spent Total Time Spent with Patient: Total time spent is greater than 50% in coordination of care (as documented) at patient's floor/unit and/or counseling patient: Coding Level of Care Code 28643 Initial Inpt Care Lvl 3 Diagnoses Chronic systolic CHF (congestive heart failure) I50.22 Acute kidney injury N17.9 Acute hyponatremia E87.1 CAD (coronary artery disease) I25.10 Coronary Disease-Associated Artery/Lesion type: [place] artery [place] vs. transplanted heart: [place] heart Associated angina: angina presence unspecified Ischemic cardiomyopathy I25.5 Moderate obstructive sleep apnea G47.33 Paroxysmal atrial fibrillation I48.0 Anemia D64.9 Anemia type: unspecified type GERD (gastroesophageal reflux disease) K21.9 Esophagitis presence: esophagitis presence not specified Foot drop, bilateral M21.371; M21.372 Hypertension I10 Hypertension type: essential hypertension Diabetes mellitus with complication E11.8 (1) CAD (coronary artery disease) Coronary Disease-Associated Artery/Lesion type: [place] artery [place] vs. transplanted heart: [place] heart Associated angina: angina presence unspecified Qualified Code(s): I25.10 - Atherosclerotic heart disease of [place] coronary artery without angina pectoris (2) Anemia Anemia type: unspecified type Qualified Code(s): D64.9 - Anemia, unspecified (3) GERD (gastroesophageal reflux disease) Esophagitis presence: esophagitis presence not specified Qualified Code(s): K21.9 - Gastro-esophageal reflux disease without esophagitis (4) Hypertension Hypertension type: essential hypertension Qualified Code(s): I10 - Essential (primary) hypertension
[2021-07-29 18:20] LABS: Appearance Urine Clear (Clear); Bilirubin Urine Negative (Negative); Blood Urine Negative (Negative); Color Urine Yellow; Glucose Urine UA Trace (Negative); Ketones Urine Negative (Negative); Leukocyte Esterase Urine Negative (Negative); Nitrite Urine Negative (Negative); Protein Urine Negative (Negative); Specific Gravity Urine 1.009 (1.000-1.030); Urobilinogen Urine Negative (Negative)
[2021-07-29 18:44] LABS: Creatinine Urine Random 33.4 mg/dl; Protein Creatinine Ratio Urine 0.3 (0-0.2); Total Protein Urine Random 11.4 mg/dl (0-11.9)
[2021-07-29] MEDS ORDERED: GLUCOSE 10 TABS/TUBE PO PRN (21:06)
[2021-07-29] MEDS ORDERED: DEXTROSE 50% 50 ML SYRINGE IV PRN (21:06)
[2021-07-29] MEDS ORDERED: GLUCOSE 40% GEL 15 GM TUBE PO PRN (21:06)
[2021-07-29] MEDS ORDERED: GLUCAGON FOR INJ 1 MG VIAL SQ PRN (21:06)
[2021-07-29] MEDS ORDERED: INSULIN ASPART PER UNIT SC ONE (22:30)
[2021-07-29] MEDS: LACTATED RINGER'S 1,000 ML IV SCH (22:32)
[2021-07-29] MEDS: carvediloL 12.5 MG TAB PO SCH (22:35)
[2021-07-29] MEDS: APIXABAN 2.5 MG TAB PO SCH (22:35)
[2021-07-29] MEDS: MONTELUKAST SODIUM 10 MG TABLET PO SCH (22:35)
[2021-07-29] MEDS: RANOLAZINE 500 MG ER TAB PO SCH (22:36)
[2021-07-29] MEDS: traZODone HCL 50 MG TAB PO SCH (22:36)
[2021-07-29] MEDS: INSULIN GLARGINE SOLOSTAR 100 UNITS/ML 3 ML PEN SC SCH (22:43)
[2021-07-29] MEDS: LATANOPROST 0.005% OP SOLN 2.5 ML BTL OPL SCH (23:28)
[2021-07-30 06:51] LABS: Basophils # (auto) 0.02 K/uL (0-0.2); Basophils % (auto) 0.2 %; Eosinophils # (auto) 0.24 K/uL (0-0.5); Eosinophils % (auto) 2.5 %; Hemoglobin 8.9 g/dL (14.0-18.0); Immature Granulocytes # (auto) 0.01 K/uL (0.00-0.02); Immature Granulocytes % (auto) 0.1 %; Lymphocytes # (auto) 1.69 K/uL (1.2-3.4); Lymphocytes % (auto) 17.8 %; Mean Corpuscular Hemoglobin 26.8 pg (25-34); Mean Corpuscular Volume 81.3 fL (80-100); Mean Platelet Volume 10.3 fL (7.4-10.4); Monocytes # (auto) 0.59 K/uL (0.11-0.59); Monocytes % (auto) 6.2 %; Neutrophils # (auto) 6.94 K/uL (1.4-6.5); Neutrophils % (auto) 73.2 %; Platelet Count 303 K/uL (130-400); RDW Coefficient of Variation 15.3 % (11.5-14.5); RDW Standard Deviation 45.3 fL (36.4-46.3); Red Blood Count 3.32 M/uL (4.7-6.1); White Blood Count 9.49 K/uL (4.8-10.8)
[2021-07-30 07:05] LABS: BUN Creatinine Ratio 20.1 (10-20); Calcium 8.1 mg/dl (8.5-10.1); Creatinine Clr Calc Pharmacy 9.6 ml/min; Est GFR (African American) 9.1 ml/min; Est GFR (Non-African American) 7.9 ml/min; Potassium 3.3 mmol/L (3.5-5.1)
--- NOTE | 2021-07-30 07:20 | Electrocardiogram Report ---
Test Reason : Blood Pressure : / mmHG Vent. Rate : 060 BPM Atrial Rate : 060 BPM P-R Int : 126 ms QRS Dur : 220 ms QT Int : 584 ms P-R-T Axes : 092 053 097 degrees QTc Int : 584 ms AV dual-paced rhythm Biventricular pacemaker detected Abnormal ECG When compared with ECG of 29-APR-2021 01:03, Vent. rate has decreased BY 29 BPM Confirmed by Travis Alcantara ([id number]) on 07/30/2021 7:20:14 AM Referred By: Confirmed By:Travis Alcantara
[2021-07-30] MEDS: carvediloL 12.5 MG TAB PO SCH ×2 (07:47→21:28)
[2021-07-30] MEDS: CLOPIDOGREL BISULFATE 75 MG TAB PO SCH (07:47)
[2021-07-30] MEDS: AMIODARONE 200 MG TAB PO SCH (07:47)
[2021-07-30] MEDS: OMEGA-3 (PURIFIED FISH OIL) 1 GM CAP PO SCH (07:47)
[2021-07-30] MEDS: MULTIVITAMIN TAB PO SCH (07:47)
[2021-07-30] MEDS: CETIRIZINE HCL 10 MG TABLET PO SCH (07:48)
[2021-07-30] MEDS: APIXABAN 2.5 MG TAB PO SCH ×2 (07:48→21:28)
[2021-07-30] MEDS: FAMOTIDINE 20 MG TAB PO SCH (07:48)
[2021-07-30] MEDS: ISOSORBIDE MONO EXTENDED REL 60 MG TABCR PO SCH (07:48)
[2021-07-30] MEDS: RANOLAZINE 500 MG ER TAB PO SCH ×2 (07:48→21:28)
[2021-07-30] MEDS ORDERED: POTASSIUM CHLORIDE CRTAB 20 MEQ TABCR PO STA (07:59)
[2021-07-30] MEDS: INSULIN GLARGINE SOLOSTAR 100 UNITS/ML 3 ML PEN SC SCH ×2 (08:02→21:32)
[2021-07-30] MEDS: INSULIN ASPART PER UNIT SC SCH ×4 (08:02→21:28)
[2021-07-30] MEDS: LACTATED RINGER'S 1,000 ML IV SCH ×2 (08:09→21:31)
--- NOTE | 2021-07-30 09:24 | Medical Student Progress Note ---
Date of Service July 30, 2021 Assessment & Plan (1) Acute renal failure: Plan: This is an 86 year old gentleman with a complex medical history that includes CHF, T2DM, and CAD who was admitted to the hospital on 2 for acute renal failure likely prerenal secondary to dehydration and diuretic use. 1. Acute renal failure: - sent by PCP for Cr of ~7 - Likely secondary to dehydration 2/2 diarrhea, vomiting, diuretic - Cr 5.96, downtrending - BUN:Cr 20.1, suggests prerenal - cont. LR at 80 mL/hr, monitor for fluid overload, h/o CHF - Monitor I&Os - Hold home bumex, metolazone, and lisinopril - cont. reduced carvedilol dose to avoid hypotension - consider nephro consult if creatinine does not decrease - recheck BMP am 2. Chronic HFrEF: - LVEF 35% (11/2020) - Holding Bumex and metolazone - Monitor closely, see above 3. Acute hypokalemia: - K 3.3 - repleted with 40 mEq BIANCA - recheck BMP am 4. Acute hyponatremia: - improving, 130 - recheck am 5. CAD with history of AR and ischemic cardiomyopathy: - Cont. apixaban 2.5mg PO BID and clopidogrel 75mg PO daily - Cont. carvedilol at reduced dose to avoid hypotension - Reportedly intolerant to statins per prior cardiology notes 6. Hypertension: - Cont. carvedilol at reduced dose to avoid hypotension - Holding lisinopril, Bumex, and metolazone due to ARF 7. Type 2 diabetes: - Will dose basal bolus regimen per last admission: - Lantus 13 units BID - Novolog: Goal BSG Range: Low 110 mg/dL, High 140 mg/dL Correction Factor: 25 mg/dL/unit Carbohydrate ratio = 9 g/unit BSGs ACHS if eating, q6h if npo 8. Paroxysmal atrial fibrillation: - Monitor on tele, currently dual-paced rhythm - Cont. amiodarone 200mg PO daily - Cont. anticoagulation with Eliquis 2.5mg PO BID 9. Chronic anemia: - Hgb 9.49, at baseline - monitor with CBC am 10. GERD: - Cont. famotidine at reduced dose DVT Prophylaxis: Eliquis Code status: Full FEN/GI: IV LR; dialysis renal, DM2 Dispo: med/surg w/ tele (2) Anemia: Anemia type: unspecified type Qualified Code(s): D64.9 - Anemia, unspecified (3) Acute hyponatremia: (4) Chronic systolic CHF (congestive heart failure): Admission and Anticipated Discharge Date Admission Date: July 29, 2021 Supervising Attestation I personally examined the patient and verified all darby points of history and exam, discussed case, and agree with decision making with Ant Mcelroy MS4 No meaningful HPI review of systems. When asking how he feels, he notes something like "young people have to do what they need to" Vitals noted, in general he is awake but disoriented no distress. HEENT normocephalic atraumatic mucous membranes moist. Breathing unlabored no accessory muscle use good effort. Skin shows no rashes no pallor or icterus. Neuro shows no focal deficits. Acute renal failurealmost certainly prerenalprobably diuretics/polypharmacy, possibly poor p.o. intake. Give IV fluids. Fortunately no acute indications for dialysis. Continue to follow. Delirium/metabolic encephalopathylikely due to above. Chronically anticoagulated with apixaban Subjective Mr. Salgado says he feels "ok" today. He denies fevers/chills, pain, SOB, chest pain, cough. He says that he is urinating well and having normal bowel movements (no diarrhea or constipation). Daughter Felicia requests daily updates as her mother is currently in [facility] for rehabilitation. Review of Systems Review of Systems: per HPI Physical Exam Constitutional: WD/WN, vitals as above Eyes: PERRL, conjunctivae normal, anicteric sclerae ENMT: external ear and nose normal, oropharynx normal mucous membranes pink and moist Neck: trachea midline, no thyromegaly Respiratory: normal respiratory effort, lungs clear to auscultation Auscultation: no crackles Cardiovascular: RRR, no murmur, no edema Gastrointestinal (Abdomen): normal bowel sounds, soft, nontender, no hepatosplenomegaly Psychiatric: Alert and oriented to person and time, not oriented to place or situation. Answered questions cooperatively but seemed to have trouble understanding. Results & Data ([facility]) Vital Signs (Past 12 Hours) Vital Signs Temp Pulse Pulse Resp BP Pulse Ox 07/30/21 07:07 36.7 C 61 20 125/69 90 07/30/21 03:30 36.7 C 63 20 153/76 H 92 07/29/21 23:41 61 07/29/21 21:45 36.6 C 104 H 18 153/75 H 94
--- NOTE | 2021-07-30 18:35 | Billing Data ---
Date of Service July 30, 2021 Coding Level of Care Code 94309 Subseq Hosp Care Lvl 3
[2021-07-30] MEDS: MONTELUKAST SODIUM 10 MG TABLET PO SCH (21:28)
[2021-07-30] MEDS: traZODone HCL 50 MG TAB PO SCH (21:31)
[2021-07-30] MEDS: LATANOPROST 0.005% OP SOLN 2.5 ML BTL OPL SCH (21:31)
[2021-07-31 08:03] LABS: Creatinine Clr Calc Pharmacy 10.3 ml/min; Est GFR (Non-African American) 8.6 ml/min
[2021-07-31 08:05] LABS: BUN Creatinine Ratio 20.4 (10-20); Calcium 8.7 mg/dl (8.5-10.1); Potassium 3.3 mmol/L (3.5-5.1)
[2021-07-31] MEDS: CLOPIDOGREL BISULFATE 75 MG TAB PO SCH (08:07)
[2021-07-31] MEDS: AMIODARONE 200 MG TAB PO SCH (08:07)
[2021-07-31] MEDS: APIXABAN 2.5 MG TAB PO SCH ×2 (08:07→20:58)
[2021-07-31] MEDS: MULTIVITAMIN TAB PO SCH (08:07)
[2021-07-31] MEDS: carvediloL 12.5 MG TAB PO SCH ×2 (08:07→20:57)
[2021-07-31] MEDS: ISOSORBIDE MONO EXTENDED REL 60 MG TABCR PO SCH ×2 (08:07→08:15)
[2021-07-31] MEDS: FAMOTIDINE 20 MG TAB PO SCH (08:07)
[2021-07-31] MEDS: OMEGA-3 (PURIFIED FISH OIL) 1 GM CAP PO SCH (08:07)
[2021-07-31] MEDS: RANOLAZINE 500 MG ER TAB PO SCH ×2 (08:07→20:57)
[2021-07-31] MEDS: CETIRIZINE HCL 10 MG TABLET PO SCH (08:07)
[2021-07-31] MEDS: INSULIN GLARGINE SOLOSTAR 100 UNITS/ML 3 ML PEN SC SCH ×2 (08:09→20:59)
[2021-07-31] MEDS: INSULIN ASPART PER UNIT SC SCH ×4 (08:09→20:58)
[2021-07-31] MEDS: CARBOHYDRATES FOR HYPOGLYCEMIA PO PRN ×2 (08:10→08:30)
[2021-07-31] MEDS ORDERED: POTASSIUM CHLORIDE CRTAB 20 MEQ TABCR PO STA (08:17)
--- NOTE | 2021-07-31 10:29 | Hospitalist Progress Note ---
Date of Service July 31, 2021 Assessment & Plan (1) Acute renal failure: Plan: This is an 86 year old gentleman with a complex medical history that includes CHF, T2DM, and CAD who was admitted to the hospital on 07/29 for acute renal failure likely prerenal secondary to dehydration and diuretic use. 1. Acute renal failure: - sent by PCP for Cr of ~7 - Likely secondary to dehydration 2/2 diarrhea, vomiting, diuretic - Cr 5.53, downtrending mildly - BUN:Cr 20.4, suggests prerenal - cont. LR at 80 mL/hr, monitor for fluid overload, h/o CHF - Monitor I&Os - Hold home bumex, metolazone, and lisinopril - cont. reduced carvedilol dose to avoid hypotension - consider nephro consult if creatinine does not decrease - recheck BMP am 2. Chronic HFrEF: - LVEF 35% (11/2020) - Holding Bumex and metolazone - Monitor closely, see above 3. Acute hypokalemia: - K 3.3 - repleted with 20 mEq BIANCA - recheck BMP am 4. Acute hyponatremia: - improving, 133 - recheck am 5. CAD with history of [place] and ischemic cardiomyopathy: - Cont. apixaban 2.5mg PO BID and clopidogrel 75mg PO daily - Cont. carvedilol at reduced dose to avoid hypotension - Reportedly intolerant to statins per prior cardiology notes 6. Hypertension: - Cont. carvedilol at reduced dose to avoid hypotension - Holding lisinopril, Bumex, and metolazone due to ARF 7. Type 2 diabetes: - Will dose basal bolus regimen per last admission: - Lantus 13 units BID - Novolog: Goal BSG Range: Low 110 mg/dL, High 140 mg/dL Correction Factor: 25 mg/dL/unit Carbohydrate ratio = 9 g/unit BSGs ACHS if eating, q6h if npo - found hypoglycemic this morning but AAOx3, given OJ, glucose improved 8. Paroxysmal atrial fibrillation: - Monitor on tele, currently dual-paced rhythm - Cont. amiodarone 200mg PO daily - Cont. anticoagulation with Eliquis 2.5mg PO BID 9. Chronic anemia: - Hgb 9.49, at baseline 10. GERD: - Cont. famotidine at reduced dose DVT Prophylaxis: Eliquis Code status: Full FEN/GI: IV LR; dialysis renal, DM2 Dispo: med/surg with tele (2) Anemia: (3) Acute hyponatremia: (4) Chronic systolic CHF (congestive heart failure): Admission and Anticipated Discharge Date Admission Date: July 29, 2021 Supervising Physician Co-Signing Physician Notes I personally examined the patient and verified all darby points of history and exam, discussed case, and agree with decision making with Dr Lee Still confused but more awake. Daughter presentnotes that he is definitely not his baseline mentation. Corroborates that she absolutely believes that he was not getting enough to eat and drink at home and was almost certainly messing up his meds. Notes that they were trying to provide additional help to him and her motherbut they refused. With that the family was keeping a close eye on him, knowing that something like this would happen, but knowing that because he was of sound mind he could make his own decisions even if they disagreed. Vitals noted, in general he is still disoriented but more talkative. No distress. HEENT normocephalic atraumatic mucous membranes moist. Breathing unlabored no accessory muscle use good effort. Skin shows no rashes no pallor or icterus. Neuro without focal deficits. Acute renal failuredue to dehydration and Lasixfortunately no acute indications for dialysis. Continue gentle IV fluids (cannot go faster due to baseline CHFhe is dry/compensatedchronic systolic CHF with no acuity) Delirium/metabolic encephalopathyreassurance/reorientation/supportive care DVT prophylaxison apixaban Subjective Laying in bed comfortably, more alert and able to speak in complete sentences with good understanding. Says his is in rehab and has been living at home by himself. But does get help with medications from his son and daughter and states he is very compliant with his medications. Review of Systems Review of Systems: Constitutional: denies fevers, chills, fatigue CV: denies chest pain Resp: denies shortness of breath, cough GI: denies abdominal pain, nausea, vomiting, constipation, diarrhea Physical Exam Constitutional: WD/WN, vitals as above ENMT: Mouth: + dry oral mucous membranes (mild) Respiratory: normal respiratory effort, lungs clear to auscultation Cardiovascular: RRR, no murmur, no edema Gastrointestinal (Abdomen): normal bowel sounds, soft, nontender, no hepatosplenomegaly Psychiatric: A+Ox3, euthymic affect Results & Data Results & Data ([facility]) Vital Signs (Past 12 Hours) Vital Signs Temp Pulse Pulse Resp BP BP Pulse Ox 07/31/21 08:23 36.5 C 85 18 119/67 90 07/31/21 07:51 69 07/31/21 04:01 36.6 C 63 18 142/63 H 91 07/30/21 23:41 60 07/30/21 23:07 36.6 C 63 20 127/84 91 Resident Activity Tracking Resident Involvement: Resident Care Provided Care Provided: Adult Hospital Medicine (1) Anemia Anemia type: unspecified type Qualified Code(s): D64.9 - Anemia, unspecified
[2021-07-31] MEDS: LACTATED RINGER'S 1,000 ML IV SCH ×2 (10:39→23:15)
--- NOTE | 2021-07-31 15:51 | Billing Data ---
Date of Service July 31, 2021 Coding Level of Care Code 75171 Subseq Hosp Care Lvl 3
[2021-07-31] MEDS: LATANOPROST 0.005% OP SOLN 2.5 ML BTL OPL SCH (20:56)
[2021-07-31] MEDS: MONTELUKAST SODIUM 10 MG TABLET PO SCH (20:57)
[2021-07-31] MEDS: traZODone HCL 50 MG TAB PO SCH (22:21)
--- NOTE | 2021-08-01 02:11 | Communication Note ---
Date of Service: August 01, 2021 I was called to the bedside by RN for increased agitation by patient. Upon my arrival, patient was found to be trying to get out of bed and stated that he wanted to leave. Attempted reorientation on multiple attempts; RN had also attempted this prior to reaching out to me. He was alert and oriented only to person but did not know where he was or why he was in the hospital. He thought he was at a friend's house. We did obtain a blood sugar, which was 145. I reviewed his daytime notes and his medications; delirium/encephalopathy/trazodone HS is noted in setting of JOSUE. On exam, VSS; he was well-appearing from the perspective of perfusion. Did not appear toxic. He had a normal rate and regular rhythm. Respiratory status was stable. Abdomen was nontender to palpation. He was moving all limbs equally and did not have facial droop. Because patient was continuously trying to get out of bed, was becoming agitated more significantly, and reorientation had failed on multiple attempts, did opt to proceed with one-time low dose of Zyprexa 1.25mg IM for agitated delirium likely compounded by significant prerenal azotemia. ECG reviewed prior. Continue mIVF. I communicated this plan to his RN, who will contact me with any changes.
[2021-08-01] MEDS ORDERED: OLANZapine 10 MG/2.1 ML SDV IM STA (02:34)
[2021-08-01 05:32] LABS: Basophils # (auto) 0.01 K/uL (0-0.2); Basophils % (auto) 0.1 %; Eosinophils # (auto) 0.08 K/uL (0-0.5); Eosinophils % (auto) 0.6 %; Hematocrit (blood only) 29.2 % (42-52); Hemoglobin 9.4 g/dL (14.0-18.0); Immature Granulocytes # (auto) 0.03 K/uL (0.00-0.02); Immature Granulocytes % (auto) 0.2 %; Lymphocytes # (auto) 1.52 K/uL (1.2-3.4); Lymphocytes % (auto) 11.8 %; Mean Corpuscular Hemoglobin 26.6 pg (25-34); Mean Corpuscular Hgb Conc 32.2 g/dL (32-36); Mean Corpuscular Volume 82.7 fL (80-100); Mean Platelet Volume 10.1 fL (7.4-10.4); Monocytes # (auto) 0.49 K/uL (0.11-0.59); Monocytes % (auto) 3.8 %; Neutrophils % (auto) 83.5 %; Platelet Count 304 K/uL (130-400); RDW Coefficient of Variation 15.7 % (11.5-14.5); RDW Standard Deviation 47.3 fL (36.4-46.3); Red Blood Count 3.53 M/uL (4.7-6.1); White Blood Count 12.93 K/uL (4.8-10.8)
[2021-08-01 05:56] LABS: BUN Creatinine Ratio 22.8 (10-20); Calcium 8.7 mg/dl (8.5-10.1); Creatinine Clr Calc Pharmacy 13.1 ml/min; Est GFR (African American) 13.4 ml/min; Est GFR (Non-African American) 11.6 ml/min; Potassium 4.1 mmol/L (3.5-5.1)
--- NOTE | 2021-08-01 08:00 | Hospitalist Progress Note ---
Date of Service August 01, 2021 Assessment & Plan (1) Acute renal failure: Plan: This is an 86 year old gentleman with a complex medical history that includes CHF, T2DM, and CAD who was admitted to the hospital on 07/29 for acute renal failure likely prerenal secondary to dehydration and diuretic use. 1. Acute renal failure: - sent by PCP for Cr of ~7 - Likely secondary to dehydration 2/2 diarrhea, vomiting, diuretic - Cr 4.35, downtrending mildly with slow diuresis - BUN:Cr 22.8, suggests prerenal - cont. LR at 80 mL/hr, monitor for fluid overload, h/o CHF - Monitor I&Os - Hold home bumex, metolazone, and lisinopril - cont. reduced carvedilol dose to avoid hypotension - cont. PT/OT: recommends acute rehab - consider nephro consult if creatinine does not decrease - recheck BMP am 2. Chronic HFrEF: - LVEF 35% (11/2020) - Holding Bumex and metolazone - Monitor closely, see above 3. Acute hypokalemia, resolved - K 4.1 - recheck BMP am 4. Acute hyponatremia: - improving, 135 - recheck BMP am 5. CAD with history of [place] and ischemic cardiomyopathy: - Cont. apixaban 2.5mg PO BID and clopidogrel 75mg PO daily - Cont. carvedilol at reduced dose to avoid hypotension - Reportedly intolerant to statins per prior cardiology notes 6. Hypertension: - Cont. carvedilol at reduced dose to avoid hypotension - Holding lisinopril, Bumex, and metolazone due to ARF 7. Type 2 diabetes: - found hypoglycemic (2/5) resolved with OJ; bolus dec. to Lantus 7 units BID - Novolog: Goal BSG Range: Low 110 mg/dL, High 140 mg/dL Correction Factor: 25 mg/dL/unit Carbohydrate ratio = 9 g/unit BSGs ACHS if eating, q6h if npo 8. Paroxysmal atrial fibrillation: - Monitor on tele, currently dual-paced rhythm - Cont. amiodarone 200mg PO daily - Cont. anticoagulation with Eliquis 2.5mg PO BID 9. Chronic anemia: - Hgb 9.4, at baseline 10. GERD: - Cont. famotidine at reduced dose DVT Prophylaxis: Eliquis Code status: Full FEN/GI: IV LR; dialysis renal, DM2 Dispo: med/surg with tele (2) Anemia: (3) Acute hyponatremia: (4) Chronic systolic CHF (congestive heart failure): Admission and Anticipated Discharge Date Admission Date: July 29, 2021 Supervising Physician Co-Signing Physician Notes I personally examined the patient and verified all darby points of history and exam, discussed case, and agree with decision making with Dr Lee No meaningful HPI or review of systems todaywhen I enter the room he is talking through the closed curtain to his roommate who does not seem to be paying attention to him, while he is also eating sherbet with a fork and having it dropped onto his cut up turkey. He essentially pays me as the examiner very little mind. Vitals noted, in general he is still disoriented and talkative. No distress. HEENT normocephalic atraumatic mucous membranes moist. Breathing unlabored no accessory muscle use good effort, and lungs are clear to auscultation bilaterallyhe does give me at least a moderate to good deep breath on request and I hear no rales rhonchi or wheezes Skin shows no rashes no pallor or icterus. Neuro without focal deficits. Acute renal failuredue to dehydration and Lasixpoor self-care and med adherence at homefamily notes that just about anything could have been possible with what he was doing with his medicines). Fortunately no acute indications for dialysis. Continue gentle IV fluids (cannot go faster due to baseline CHFhe is dry/compensatedchronic systolic CHF with no acuity) Mild hypoxiaclear lungs no appearance of distresscertainly we need to be vigilant for any decompensation of his chronic combined CHFbut right now I suspect his mild hypoxia is atelectasis. With that, safe to continue gentle fluids for now. Delirium/metabolic encephalopathyreassurance/reorientation/supportive carealmost certainly will need SNF at least as a rehab after discharge DVT prophylaxison apixaban Subjective Zyprexa 1.5mg IM given overnight for agitation, which did seem to help. Lying comfortable in bed this morning. Alert, able to answer yes and no questions but not able to hold conversation. May still be mildly delirious. Review of Systems Review of Systems: Constitutional: denies fevers, chills, fatigue CV: denies chest pain Resp: denies shortness of breath, cough GI: denies abdominal pain, nausea, vomiting, constipation, diarrhea Physical Exam Constitutional: WD/WN, vitals as above ENMT: Mouth: + dry oral mucous membranes (mild) Respiratory: normal respiratory effort, lungs clear to auscultation Cardiovascular: RRR, no murmur, no edema Gastrointestinal (Abdomen): normal bowel sounds, soft, nontender, no hepatosplenomegaly Psychiatric: Alert, oriented to person and time. Not oriented to place. Results & Data Results & Data ([facility]) Vital Signs (Past 12 Hours) Vital Signs Temp Pulse Pulse Resp BP Pulse Ox 08/01/21 07:09 36.5 C 75 18 130/73 90 08/01/21 03:34 36.8 C 96 H 18 135/88 90 07/31/21 22:30 66 07/31/21 22:25 36.7 C 64 18 165/76 H 90 Resident Activity Tracking Resident Involvement: Resident Care Provided Care Provided: Adult Hospital Medicine (1) Anemia Anemia type: unspecified type Qualified Code(s): D64.9 - Anemia, unspecified
[2021-08-01] MEDS: INSULIN GLARGINE SOLOSTAR 100 UNITS/ML 3 ML PEN SC SCH ×2 (08:14→20:29)
[2021-08-01] MEDS: CLOPIDOGREL BISULFATE 75 MG TAB PO SCH (08:15)
[2021-08-01] MEDS: carvediloL 12.5 MG TAB PO SCH ×2 (08:15→20:26)
[2021-08-01] MEDS: APIXABAN 2.5 MG TAB PO SCH ×2 (08:15→20:26)
[2021-08-01] MEDS: ISOSORBIDE MONO EXTENDED REL 60 MG TABCR PO SCH (08:15)
[2021-08-01] MEDS: MULTIVITAMIN TAB PO SCH (08:15)
[2021-08-01] MEDS: FAMOTIDINE 20 MG TAB PO SCH (08:15)
[2021-08-01] MEDS: RANOLAZINE 500 MG ER TAB PO SCH ×2 (08:15→20:27)
[2021-08-01] MEDS: AMIODARONE 200 MG TAB PO SCH (08:16)
[2021-08-01] MEDS: CETIRIZINE HCL 10 MG TABLET PO SCH (08:16)
[2021-08-01] MEDS: OMEGA-3 (PURIFIED FISH OIL) 1 GM CAP PO SCH (08:16)
[2021-08-01] MEDS: INSULIN ASPART PER UNIT SC SCH ×4 (08:18→20:28)
[2021-08-01] MEDS: LACTATED RINGER'S 1,000 ML IV SCH (11:05)
--- NOTE | 2021-08-01 15:39 | Billing Data ---
Date of Service August 01, 2021 Coding Level of Care Code 13138 Subseq Hosp Care Lvl 3
[2021-08-01] MEDS: MONTELUKAST SODIUM 10 MG TABLET PO SCH (20:26)
[2021-08-01] MEDS: LATANOPROST 0.005% OP SOLN 2.5 ML BTL OPL SCH (20:26)
[2021-08-01] MEDS: traZODone HCL 50 MG TAB PO SCH (20:28)
[2021-08-02] MEDS: LACTATED RINGER'S 1,000 ML IV SCH (00:38)
[2021-08-02] MEDS ORDERED: NITROGLYCERIN SL 0.4 MG/TAB TAB SL PRN ×2 (02:20→04:41)
--- NOTE | 2021-08-02 02:46 | Communication Note ---
Date of Service: August 02, 2021 Called to bedside as patient was reporting chest pain. Patient reportedly woke up out of his sleep with this and, shortly after his pulse oximetry was taken, was revealing of saturations in the mid-80s. He was placed on supplemental oxygen. When I arrived to bedside, patient was able to tell me -- while intermittently falling asleep, not in any acute distress -- that he was having chest pain "across my chest and into my L arm." When I asked him if he has had this pain before / usually has it, he says "yes" - but then corrected himself no "no." He continues to be encephalopathic (as reviewed in his dayteam notes, and as I noticed when I met him last night). He said the pain was mild. He denied shortness of breath. Medications reviewed - he is on Eliquis 2.5., Coreg 25 b.i.d., Plavix 75 daily, alongside other antiHTNs/cardioprotective medications. On exam, VSS 140/80, HR 76, RR ~16, SpO2 90-95% on RA (off NC). He appears relaxed and is arousable. He has no JVD. Cardiac-NRRR/S1+S2 present w/o m/r/g. Respiratory-CTAB w/o crackles or wheezes. No abdominal TTP. Chest Pain: Patient has been, and currently is, encephalopathic at baseline, w hich makes him a difficult historian for this particular complaint. He has an appreciable CAD history noted in his cardiology notes. ECG obtained does not appear to show any major conduction/repolarization changes compared to prior. He does not appear to meet Sgarbossa's criteria for STEMI. Telemetry did not reveal changes in rate, rhythm, or conduction. Will give nitro 0.4mg SL x 1 now and reassess. Will obtain troponin and set for a repeat troponin at 0800. In close contact with
[2021-08-02 03:43] LABS: Basophils # (auto) 0.02 K/uL (0-0.2); Basophils % (auto) 0.2 %; Eosinophils # (auto) 0.12 K/uL (0-0.5); Eosinophils % (auto) 1.1 %; Hematocrit (blood only) 29.4 % (42-52); Hemoglobin 9.3 g/dL (14.0-18.0); Immature Granulocytes # (auto) 0.04 K/uL (0.00-0.02); Immature Granulocytes % (auto) 0.4 %; Lymphocytes # (auto) 1.25 K/uL (1.2-3.4); Lymphocytes % (auto) 11.1 %; Mean Corpuscular Hemoglobin 26.8 pg (25-34); Mean Corpuscular Hgb Conc 31.6 g/dL (32-36); Mean Corpuscular Volume 84.7 fL (80-100); Mean Platelet Volume 10.3 fL (7.4-10.4); Monocytes # (auto) 0.82 K/uL (0.11-0.59); Monocytes % (auto) 7.3 %; Neutrophils # (auto) 9.01 K/uL (1.4-6.5); Neutrophils % (auto) 79.9 %; Platelet Count 313 K/uL (130-400); RDW Coefficient of Variation 15.9 % (11.5-14.5); RDW Standard Deviation 49.1 fL (36.4-46.3); Red Blood Count 3.47 M/uL (4.7-6.1); White Blood Count 11.26 K/uL (4.8-10.8)
[2021-08-02 04:07] LABS: BUN Creatinine Ratio 23.7 (10-20); Calcium 8.9 mg/dl (8.5-10.1); Creatinine Clr Calc Pharmacy 14.7 ml/min; Est GFR (African American) 15.3 ml/min; Est GFR (Non-African American) 13.2 ml/min; Potassium 3.7 mmol/L (3.5-5.1)
[2021-08-02 04:15] LABS: Troponin I 10.4 ng/ml (0-0.04)
[2021-08-02] MEDS ORDERED: Heparin IV Adult Wt-Based Low-Dose *NO* Bolus Protocol IV SCH (04:45)
--- NOTE | 2021-08-02 06:34 | Electrocardiogram Report ---
Test Reason : Blood Pressure : / mmHG Vent. Rate : 077 BPM Atrial Rate : 000 BPM P-R Int : 000 ms QRS Dur : 130 ms QT Int : 126 ms P-R-T Axes : 132 107 000 degrees QTc Int : 143 ms Ventricular-paced rhythm Abnormal ECG When compared with ECG of 29-JUL-2021 15:40, Atrial pacing is no longer seen Reconfirmed by Travis Alcantara ([id number]) on 08/02/2021 7:02:09 AM Also confirmed by Travis Alcantara ([id number]) on 08/02/2021 12:29:23 PM Referred By: Kyle Lamb Confirmed By:Travis Alcantara
[2021-08-02 07:49] LABS: Basophils # (auto) 0.02 K/uL (0-0.2); Basophils % (auto) 0.2 %; Eosinophils # (auto) 0.13 K/uL (0-0.5); Hematocrit (blood only) 29.6 % (42-52); Hemoglobin 9.3 g/dL (14.0-18.0); Immature Granulocytes # (auto) 0.03 K/uL (0.00-0.02); Immature Granulocytes % (auto) 0.2 %; Lymphocytes # (auto) 1.24 K/uL (1.2-3.4); Mean Corpuscular Volume 85.8 fL (80-100); Mean Platelet Volume 10.4 fL (7.4-10.4); Monocytes % (auto) 6.5 %; Neutrophils # (auto) 10.17 K/uL (1.4-6.5); Neutrophils % (auto) 82.1 %; Platelet Count 311 K/uL (130-400); RDW Standard Deviation 50.6 fL (36.4-46.3); Red Blood Count 3.45 M/uL (4.7-6.1); White Blood Count 12.39 K/uL (4.8-10.8)
--- NOTE | 2021-08-02 07:58 | XRay Report ---
XR chest 1V portable HISTORY: Shortness of breath. COMPARISON: Chest 07/29/2021. FINDINGS: The heart remains mildly enlarged. Left-sided pacemaker/defibrillator. Progressive intersti tial/vascular thickening likely representing pulmonary edema. There are patchy bibasilar densities mathias ve also progressed. Trace bilateral pleural effusions are noted. Degenerative changes within the left shoulder. IMPRESSION: 1. Cardiomegaly with trace bilateral pleural effusions and mild interstitial pulmonary edema. This mathias s progressed in the interval. 2. Patchy bibasilar densities favor atelectasis. A pneumonia could also have a similar appearance. ACT 112: Negative or not required by law. Electronically signed by: Go Hall M.D. 08/02/2021 7:57 AM
[2021-08-02 07:59] LABS: Mean Corpuscular Hgb Conc 31.4 g/dL (32-36)
[2021-08-02 08:01] LABS: Partial Thromboplastin Ratio 1.3; Partial Thromboplastin Time 34.2 Seconds (21.0-31.0)
[2021-08-02] MEDS: INSULIN GLARGINE SOLOSTAR 100 UNITS/ML 3 ML PEN SC SCH ×2 (08:21→20:58)
[2021-08-02] MEDS: INSULIN ASPART PER UNIT SC SCH ×4 (08:22→20:58)
[2021-08-02] MEDS: HEPARIN SODIUM/DEXTROSE 25,000 UNITS/500 ML BAG IV SCH (08:39)
--- NOTE | 2021-08-02 09:13 | Cardiology Consultation ---
Date of Consultation August 02, 2021 Assessment & Plan (1) Non-ST elevation (NSTEMI) myocardial infarction: (2) CAD (coronary artery disease): (3) Paroxysmal atrial fibrillation: (4) Mitral regurgitation: (5) Ischemic cardiomyopathy: (6) Pulmonary hypertension: (7) Chronic systolic CHF (congestive heart failure): ASSESSMENT/PLAN: 1. NSTEMI: Reportedly had chest discomfort overnight but with current mental status, does not recall. Has severe multivessel CAD which has been deemed not amenable to CT surgery or PCI. Currently pain free. Troponin already trending downward, which would suggest that infarction occurred prior to last evening. Continue anti-platelet therapy. On heparin drip per primary service. Continue beta-maria isabel. Reportedly intolerant to statin therapy. Recommend medical therapy. 2. Multivessel CAD: Plan as above. Ranexa was initiated in the past but renal function was much better at that time. Would recommend discontinuation of Ranexa given significantly reduced renal function. Otherwise, continue anti- platelet therapy, beta-maria isabel, nitrate therapy. Intolerant to statin therapy. 3. Chronic systolic CHF/heart failure with reduced EF: He appears euvolemic. Per admitting notes, there was concern for hypovolemia. Was prescribed Bumex 2 mg twice daily. At some point, will likely require diuretic therapy. Follows in Heart failure program. Low-sodium diet. Daily weights. Strict I&Os. 4. Ischemic cardiomyopathy: Biventricular ICD in place and followed by EP. Continue carvedilol. Had been on lisinopril as an outpatient 40 mg daily but given renal function, JT-inhibitor was held during this hospital stay. There has been discussion of Entresto as an outpatient and if renal function allows, could consider Entresto if no contraindications in the future. 5. Pulmonary hypertension: Has been reported in the past as well. Overall, appears to be stable. 6. Mitral regurgitation: Non severe. Can be followed as an outpatient. 7. Paroxysmal atrial fibrillation: On anticoagulation therapy in the form of Eliquis but currently on heparin drip per hospitalist service. Continue beta- maria isabel. Follows with EP. On amiodarone. 8. Acute kidney injury: As per hospitalist service. Renal function has improved. 9. Disposition: Medical therapy recommended as above. Patient care communicated with Dr. Joya of the primary hospitalist service. On discharge, should follow-up with Janell Illig of Heart failure program, and Dr. Hermosillo his primary director multiple sclerosis center. Thank you for allowing me to participate in the care of your patient. Please call for any other questions or concerns. Sincerely, Jay Alcantara M.D. History of Present Illness Reason for Consultation: NSTEMI Requesting Physician: Tony Osei Attending Physician: Lindsay Joya MD History of Present Illness Mr. Salgado is a very pleasant 86-year-old gentleman with history significant for CAD s/p RCA PCI 11/08/2013, cardiomyopathy, diastolic CHF, biventricular ICD, paroxysmal AFib, LBBB, hypertension, dyslipidemia, and type 2 diabetes. His primary director multiple sclerosis center is Dr. Hermosillo, and fuel assembler, Dr. Palma. He also follows in the Heart failure program. He has had the following studies/procedures: 1. [place] [facility] Moderately reduced LV systolic function. EF 35%. Diffuse hypokinesis with akinesis of the inferior wall. No significant valvular abnormalities reported. 2. Cardiac catheterization 11/30/2020 [facility]: Distal LM 80%, extending into the circumflex. Diffuse mid LAD 50-60%. Ostial circumflex 70%. Dominant and heavily calcified RCA. Mid RCA stent with mild in stent restenosis. Late mid RCA 99% with RICK 1 flow. [id number] collaterals to PDA. CT surgical evaluation recommend. He was hospitalized in April of 2021 with NSTEMI after presenting with chest discomfort but had episodes of confusion during hospital stay. His peak troponin at that time was 6.8. He had been referred [place] [facility] [place] for evaluation of CABG. Per records, medical therapy was recommended. He was not f elt to be a suitable candidate for CABG or PCI at [facility] He was last seen by Dr. Hermosillo on 06/01/2021, at which time a referral was placed for [facility] for a second opinion. He was admitted on 07/29/2021 with acute kidney injury after presenting with generalized weakness that had been chronic but with acute worsening in the preceding 7 days. Outpatient labs demonstrated a creatinine of 7.06. He reportedly had been having diarrhea following the use of laxatives just preceding his hospitalization. During this hospital stay, his creatinine has improved to 3.89 this morning. Per records, he has been experiencing delirium/metabolic encephalopathy. Overnight, he reportedly experience chest discomfort. He was seen by covering hospitalist and was noted to not be in any acute distress. Troponin on 07/29/2021 was 0.04 but when checked this morning at 3:27 a.m., troponin was 10.4 which has since trended to 8.9 at 7:24 a.m.. When asked about this this morning, he does not recall any chest discomfort. He denies shortness of breath, abdominal pain, nausea, vomiting. He was quite somnolent but would open his eyes and answer questions before closing his eyes and appearing to fall back to sleep. According to nursing staff he does have baseline dementia and has been having issues like this through the hospital stay. He had no complaints at the time of this morning's visit. Review of systems: As above and otherwise unremarkable or unobtainable due to patient's memory/somnolence. Family history:No known premature CAD. Social history: Denies tobacco, alcohol, or drug abuse. Lives with his at the [facility]. He has a son and a daughter. He was unaccompanied. Allergies Allergy/AdvReac Type Severity Reaction Status Date / Time sertraline Allergy Intermediate Hives Verified 07/29/21 15:56 pravastatin [From Pravachol] AdvReac Unknown Unknown Verified 07/29/21 09:05 rosuvastatin [From Crestor] AdvReac Unknown Unknown Verified 07/29/21 09:05 Home Medications Medication Instructions Recorded Confirmed Type multivitamin (Daily-Darryl) 1 tab PO QAM #30 tab 02/05/20 07/29/21 Rx clopidogrel 75 mg tablet 75 mg PO DAILY #90 tab 09/02/20 07/29/21 Rx latanoprost 0.005 % eye drops 1 drp OPL HS 11/29/20 07/29/21 History levocetirizine 5 mg tablet 5 mg PO DAILY #30 tab 12/08/20 07/29/21 Rx omega-3 fatty acids 1,000 mg 1,000 mg PO DAILY #30 cap 12/08/20 07/29/21 Rx capsule (Fish Oil Concentrate) nitroglycerin 0.4 mg sublingual 0.4 mg SUBLINGUAL Q5M PRN #14 tab 02/19/21 07/29/21 Rx tablet famotidine 40 mg tablet 40 mg PO QAM #90 tab 05/12/21 07/29/21 Rx montelukast 10 mg tablet 10 mg PO HS #90 tab 05/27/21 07/29/21 Rx lisinopril 40 mg tablet 40 mg PO QAM #90 tab 06/09/21 07/29/21 Rx carvedilol 25 mg tablet 25 mg PO BID #60 tab 06/24/21 07/29/21 Rx apixaban 2.5 mg tablet 2.5 mg PO BID #180 tab 06/29/21 07/29/21 Rx ranolazine 500 mg tablet,extended 500 mg PO BID #60 tab 06/29/21 07/29/21 Rx release,12 hr nitroglycerin 400 mcg/spray 0.4 mg SUBLINGUAL Q5M PRN #4.9 g 07/08/21 07/29/21 Rx translingual amiodarone 200 mg tablet 200 mg PO QAM 07/29/21 07/29/21 History bumetanide 2 mg tablet See Rx Instructions .ROUTE .COMPLEX 07/29/21 07/29/21 History insulin glargine 100 unit/mL (3 0 unit SC HS 07/29/21 07/29/21 History mL) subcutaneous pen (Lantus Solostar U-100 Insulin) isosorbide mononitrate 120 mg 240 mg PO QAM 07/29/21 07/29/21 History tablet,extended release 24 hr metolazone 2.5 mg tablet 2.5 mg PO Q OTHER DAY PRN tab 07/29/21 07/29/21 History trazodone 50 mg tablet 50 mg PO HS 07/29/21 07/29/21 History Patient History Medical History Accidental fall Acquired bilateral foot drop Acute on chronic diastolic (congestive) heart failure Ataxia Biventricular ICD (implantable cardioverter-defibrillator) in place CAD (coronary artery disease) Cardiac defibrillator in place Chronic diastolic CHF (congestive heart failure) Closed head injury Diabetes mellitus with diabetic polyneuropathy Diarrhea Encounter for post surgical wound check Heart disease Hip pain, bilateral History of CVA (cerebrovascular accident) Hypercholesteremia Hypertension ICD (implantable cardioverter-defibrillator) battery depletion Intraabdominal mass Ischemic cardiomyopathy Non-ST elevation (NSTEMI) myocardial infarction Non-ST elevation [place] (NSTEMI) (11/07/13) "PCI on 11/08/13; BMS in RCA" NSTEMI (non-ST elevated myocardial infarction) Paroxysmal atrial fibrillation Pericardial effusion Sensorineural hearing loss (SNHL) of right ear with restricted hearing of left ear Shoulder pain, bilateral SOB (shortness of breath) Surgical History History of back surgery S/P appendectomy S/P cholecystectomy S/P hernia repair Status post open reduction with internal fixation (ORIF) of fracture of ankle Family History Mother Breast cancer Cancer Father Hearing loss Other No significant family history Denies family history of Ovarian cancer Prostate cancer Myocardial infarction Colorectal cancer Social History Smoking Status: Former smoker Tobacco Type: Cigarettes Second Hand Exposure: No; Hx Alcohol Use: No Hx Substance Use: No Preferred Language: Latvian Communication Ability: Effective Visual Impairment: No Limitations Teacher Asst Required: No Beliefs That Will Affect Care: None marital status: Current Living Situation: Spouse and Family Current Living Situation Comment: david current occupational status: retired How many Children do You have: 2 Other Information That Helps Us Care for You: No Feels Safe at Home: Yes Safety Concerns: Feels Safe At This Time Seatbelt Use: sometimes Assistive Devices: Oxygen - Continuous Physical Exam Physical Exam: Gen.: No acute distress. Somnolent but would open his eyes and respond to verbal stimuli. HEENT: Anicteric sclera. Neck: Thick neck but no appreciable JVD. Normal carotid upstrokes bilaterally. Cardiac: PMI was nonpalpable. No ventricular heave. Regular. Normal S1-S2. 2/6 early peaking systolic ejection murmur best heard at the right upper sternal border. No rubs or gallops. Pulmonary: Clear to auscultation bilaterally on anterior auscultation. Abdomen: Soft, nontender, nondistended, with normoactive bowel sounds. No bruits noted. Extremities: 2+ radial pulses bilaterally. 1+ posterior tibialis pulses bilaterally. No significant edema. No cyanosis. Results & Data ([facility]) Vital Signs (Past 12 Hours) Vital Signs Temp Pulse Pulse Pulse Resp BP Pulse Ox 08/02/21 07:50 36.3 C L 84 22 115/68 92 08/02/21 07:44 80 08/02/21 03:58 36.3 C L 63 18 117/69 96 08/02/21 00:00 73 08/01/21 22:12 36.9 C 76 18 120/67 95 Laboratory Results Laboratory Results - last 24 hr 08/01/21 08/01/21 08/02/21 16:38 20:05 03:27 WBC 11.26 H RBC 3.47 L Hgb 9.3 L Hct 29.4 L MCV 84.7 MCH 26.8 MCHC 31.6 L RDW Std Deviation 49.1 H RDW Coeff of [place] 15.9 H Plt Count 313 MPV 10.3 Immature Gran % (Auto) 0.4 Neut % (Auto) 79.9 Lymph % (Auto) 11.1 [place] % (Auto) 7.3 Eos % (Auto) 1.1 Baso % (Auto) 0.2 Neut # (Auto) 9.01 H Lymph # (Auto) 1.25 [place] # (Auto) 0.82 H Eos # (Auto) 0.12 Baso # (Auto) 0.02 Immature Gran # (Auto) 0.04 H APTT PTT Ratio Sodium Potassium Chloride Carbon Dioxide Anion Gap BUN Creatinine Est Cr Clr Drug Dosing Est GFR ( Amer) Est GFR (Non-Af Amer) BUN/Creatinine Ratio Glucose POC Glucose 119 H 152 H Calcium Troponin I 08/02/21 08/02/21 08/02/21 03:27 07:24 07:24 WBC RBC Hgb Hct MCV MCH MCHC RDW Std Deviation RDW Coeff of [place] Plt Count MPV Immature Gran % (Auto) Neut % (Auto) Lymph % (Auto) [place] % (Auto) Eos % (Auto) Baso % (Auto) Neut # (Auto) Lymph # (Auto) [place] # (Auto) Eos # (Auto) Baso # (Auto) Immature Gran # (Auto) APTT 34.2 H PTT Ratio 1.3 Sodium 139 Potassium 3.7 Chloride 96 L Carbon Dioxide 33 H Anion Gap 10 BUN 92 H Creatinine 3.89 H D Est Cr Clr Drug Dosing 14.7 Est GFR ( Amer) 15.3 Est GFR (Non-Af Amer) 13.2 BUN/Creatinine Ratio 23.7 H Glucose 78 POC Glucose Calcium 8.9 Troponin I 10.40 H* 8.94 H* 08/02/21 08/02/21 08/02/21 07:24 07:34 11:43 WBC 12.39 H RBC 3.45 L Hgb 9.3 L Hct 29.6 L MCV 85.8 MCH 27.0 MCHC 31.4 L RDW Std Deviation 50.6 H RDW Coeff of [place] 16.0 H Plt Count 311 MPV 10.4 Immature Gran % (Auto) 0.2 Neut % (Auto) 82.1 Lymph % (Auto) 10.0 [place] % (Auto) 6.5 Eos % (Auto) 1.0 Baso % (Auto) 0.2 Neut # (Auto) 10.17 H Lymph # (Auto) 1.24 [place] # (Auto) 0.80 H Eos # (Auto) 0.13 Baso # (Auto) 0.02 Immature Gran # (Auto) 0.03 H APTT PTT Ratio Sodium Potassium Chloride Carbon Dioxide Anion Gap BUN Creatinine Est Cr Clr Drug Dosing Est GFR ( Amer) Est GFR (Non-Af Amer) BUN/Creatinine Ratio Glucose POC Glucose 99 85 Calcium Troponin I Diagnostic Findings Ventricular paced. ECG personally reviewed from 08/02/2021 at 2:21 a.m.: V paced. Echo 08/02/2021: Mildly dilated LV with moderately reduced systolic function. EF 35-40%. Akinesis of the apex and inferior base. Severe hypokinesis of the inferolateral wall, otherwise mild global hypokinesis. Severe left atrial dilation. Mild to moderate MR. RVSP 49. Small pericardial effusion (appear smaller than 08/08/2020). Chest x-ray 08/02/2021: Mild interstitial pulmonary edema per Radiology. Patchy bibasilar densities, favoring atelectasis as per Radiology Cardiac catheterization report reviewed as noted above in HPI. Medications Administered Current Inpatient Medications Acetaminophen (Acetaminophen 325 Mg Tab) 650 mg PO Q4H PRN PRN Reason: Pain or Fever Stop: 08/28/21 20:56 Last Admin: 08/02/21 11:57 Dose: 650 mg Documented by: Amiodarone HCl (Amiodarone 200 Mg Tab) [facility] Stop: 08/29/21 08:59 Last Admin: 08/02/21 10:30 Dose: 200 mg Documented by: Apixaban (Apixaban 2.5 Mg Tab) 2.5 mg PO BID [facility] Stop: 08/28/21 20:59 Last Admin: 08/01/21 20:26 Dose: 2.5 mg Documented by: Carvedilol (Carvedilol 12.5 Mg Tab) 12.5 mg PO BID KEVIN Stop: 08/28/21 20:59 Last Admin: 08/02/21 11:48 Dose: 12.5 mg Documented by: Cetirizine HCl (Cetirizine Hcl 10 Mg Tablet) 10 mg PO DAILY [facility] Stop: 08/29/21 08:59 Last Admin: 08/02/21 10:31 Dose: 10 mg Documented by: Clopidogrel Bisulfate (Clopidogrel Bisulfate 75 Mg Tab) 75 mg PO DAILY [facility] Stop: 08/29/21 08:59 Last Admin: 08/02/21 10:31 Dose: 75 mg Documented by: Dextrose (Dextrose 50% 50 Ml Syringe) 25 - 50 ml IV UD PRN; Protocol PRN Reason: Hypoglycemia Protocol Stop: 08/28/21 21:05 Last Admin: 07/30/21 20:25 Dose: 25 ml Documented by: Famotidine (Famotidine 20 Mg Tab) 20 mg PO QAM [facility] Stop: 08/29/21 08:59 Last Admin: 08/02/21 10:31 Dose: 20 mg Documented by: Fish Oil ([place]-3 (Purified Fish Oil) 1 Gm Cap) 1 gm PO DAILY [facility] Stop: 08/29/21 08:59 Last Admin: 08/02/21 11:52 Dose: Not Given Documented by: Glucagon (Glucagon For Inj 1 Mg Vial) 1 mg SQ UD PRN; Protocol PRN Reason: Hypoglycemia Protocol Stop: 08/28/21 21:05 Glucose (Glucose 10 Tabs/Tube) 4 - 8 tabs PO UD PRN; Protocol PRN Reason: Hypoglycemia Protocol Stop: 08/28/21 21:05 Glucose (Glucose 40% Gel 15 Gm Tube) 15 - 30 gm PO UD PRN; Protocol PRN Reason: Hypoglycemia Protocol Stop: 08/28/21 21:05 Lactated Ringer's (Lr) 1,000 mls @ 80 mls/hr IV .[id number] [facility] Stop: 08/28/21 20:56 Last Admin: 08/02/21 00:38 Dose: 80 mls/hr Documented by: Heparin Sodium/Dextrose (Heparin Sodium/Dextrose) 25,000 units in 500 mls @ 18 mls/hr IV .Q24H [facility]; Protocol Stop: 09/01/21 08:29 Last Admin: 08/02/21 08:39 Dose: 900 units/hr, 18 mls/hr Documented by: Insulin Aspart (Insulin Aspart Per Unit) 0 units SC ACHS [facility] Stop: 08/29/21 07:29 Last Admin: 08/02/21 11:57 Dose: 1 units Documented by: Insulin Glargine (Insulin Glargine Solostar 100 Units/Ml 3 Ml Pen) 7 units SC BID [facility] Stop: 08/30/21 20:59 Last Admin: 08/02/21 08:21 Dose: 7 units Documented by: Isosorbide Mononitrate (Isosorbide [place] Extended Rel 60 Mg Tabcr) 240 mg PO [facility] Stop: 08/29/21 08:59 Last Admin: 08/02/21 10:31 Dose: Not Given Documented by: Latanoprost (Latanoprost 0.005% Op Soln 2.5 Ml Btl) [address] [facility] Stop: 08/28/21 20:59 Last Admin: 08/01/21 20:26 Dose: 1 drops Documented by: Miscellaneous (Carbohydrates For Hypoglycemia ) 15 - 30 gm PO UD PRN PRN Reason: Hypoglycemia Protocol Stop: 08/28/21 21:05 Last Admin: 07/31/21 08:30 Dose: 30 gm Documented by: Montelukast Sodium (Montelukast Sodium 10 Mg Tablet) [address] [facility] Stop: 08/28/21 20:59 Last Admin: 08/01/21 20:26 Dose: 10 mg Documented by: Multivitamins (Multivitamin Tab) 1 tab PO [facility] Stop: 08/29/21 08:59 Last Admin: 08/02/21 10:32 Dose: 1 tab Documented by: Nitroglycerin (Nitroglycerin Sl 0.4 Mg/Tab Tab) 0.4 mg SL PRN PRN PRN Reason: chest pain Stop: 09/01/21 02:19 Last Admin: 08/02/21 02:33 Dose: 0.4 mg Documented by: Ranolazine (Ranolazine 500 Mg Er Tab) 500 mg PO BID [facility] Stop: 08/28/21 20:59 Last Admin: 08/02/21 11:49 Dose: 500 mg Documented by: Trazodone HCl (Trazodone Hcl 50 Mg Tab) 50 mg PO HS [facility] Stop: 08/28/21 20:59 Last Admin: 08/01/21 20:28 Dose: 50 mg Documented by: PG Care Time/CCT Total # of Minutes Spent Total Time Spent with Patient: Total time spent is greater than 50% in coordination of care (as documented) at patient's floor/unit and/or counseling patient: Coding Level of Care Code 68517 Initial Inpt Care Lvl 3 Diagnoses Non-ST elevation (NSTEMI) myocardial infarction I21.4 CAD (coronary artery disease) I25.10 Coronary Disease-Associated Artery/Lesion type: [place]ona artery [place] vs. transplanted heart: ramona heart Associated angina: angina presence unspecified Paroxysmal atrial fibrillation I48.0 Mitral regurgitation I34.0 Cardiac valve disease etiology: nonrheumatic Ischemic cardiomyopathy I25.5 Pulmonary hypertension I27.20 Chronic systolic CHF (congestive heart failure) I50.22 (1) CAD (coronary artery disease) Coronary Disease-Associated Artery/Lesion type: [place] artery [place] vs. transplanted heart: ramona heart Associated angina: angina presence unspecified Qualified Code(s): I25.10 - Atherosclerotic heart disease of ramona coronary artery without angina pectoris (2) Mitral regurgitation Cardiac valve disease etiology: nonrheumatic Qualified Code(s): I34.0 - Nonrheumatic mitral (valve) insufficiency
[2021-08-02] MEDS: AMIODARONE 200 MG TAB PO SCH (10:30)
[2021-08-02] MEDS: ISOSORBIDE MONO EXTENDED REL 60 MG TABCR PO SCH (10:31)
[2021-08-02] MEDS: CLOPIDOGREL BISULFATE 75 MG TAB PO SCH (10:31)
[2021-08-02] MEDS: FAMOTIDINE 20 MG TAB PO SCH (10:31)
[2021-08-02] MEDS: CETIRIZINE HCL 10 MG TABLET PO SCH (10:31)
[2021-08-02] MEDS: MULTIVITAMIN TAB PO SCH (10:32)
[2021-08-02] MEDS: carvediloL 12.5 MG TAB PO SCH ×2 (11:48→19:41)
[2021-08-02] MEDS: RANOLAZINE 500 MG ER TAB PO SCH (11:49)
[2021-08-02] MEDS: OMEGA-3 (PURIFIED FISH OIL) 1 GM CAP PO SCH (11:52)
[2021-08-02] MEDS: ACETAMINOPHEN 325 MG TAB PO PRN (11:57)
--- NOTE | 2021-08-02 11:58 | XCELERA ---
[id number] [id number]
[2021-08-02 13:37] LABS: Base Excess ABG 4.7 mEq/L (-9-1.8); HCO3 ABG 31 mmol/L (19-24); Oxygen Saturation ABG 90.1 % (90-95); PCO2 ABG 54 mmHg (35-46); PO2 ABG 60 mmHg (80-95); pH ABG 7.37 (7.35-7.45)
[2021-08-02 13:54] LABS: Allen Test Pos (Pos)
--- NOTE | 2021-08-02 14:24 | Hospitalist Progress Note ---
Date of Service August 02, 2021 Assessment & Plan (1) Acute renal failure: Plan: This is an 86 year old gentleman with a complex medical history that includes CHF, T2DM, and CAD who was admitted to the hospital on 2 for acute renal failure likely prerenal secondary to dehydration and diuretic use. 1. NSTEMI -chest and left arm pain, SOB overnight; placed on 5L oxymask overnight -h/o multivessel CAD but deemed not a surgical candidate for CAGB or PCI as of last year -trops 10.4 downtrended to 8.9 -EKG: ventricularly paced rhythm w/o ST abnormalities -chest XR: cardiomegaly w/ trace bilateral pleural effusions, patchy bibasilar densities favoring atelectasis -Echo (08/02): EF: 35-40%, mildly dilated LV, mild global akinesis w/ severe hypokinesis of inferolateral wall -Cardio consult: recommends medical therapy 2/2 nonsurgical candidate -started on heparin drip, Eliquis held; check PTT am -cont. plavix, carvedilol (reduced carvedilol dose to avoid hypotension), nitrate; intolerant to statins -cont. holding lisinopril due to JOSUE, -dc ranexa 2/2 renal function 2. Acute renal failure - sent by PCP for Cr of ~7 - Likely secondary to dehydration 2/2 diarrhea, vomiting, diuretic - Cr 3.89, slowly downtrending - BUN:Cr 23.7, suggests prerenal - IV fluids held to avoid fluid overload - Monitor I&Os - Hold home bumex, metolazone, and lisinopril - recheck BMP am Hypoxia -IV LRs held 2/2 pleural effusions and inc. O2 requirement, will hold off on diu resis -cont. oxygen supplementation as needed 2. Chronic HFrEF - LVEF 35% (11/2020) - Echo (08/02): EF: 35-40%, mildly dilated LV, mild global akinesis w/ severe hypokinesis of inferolateral wall - Holding home Bumex and metolazone - New hypoxia - follow - appears euvolemic, monitor closely, see above 3. Acute hypokalemia, resolved - K 3.7 - recheck BMP am 4. Acute hyponatremia, resolved - Na 139 - recheck BMP am 5. CAD with history of DE and ischemic cardiomyopathy -see #1 -may consider starting Entresto if renal function allows 6. Hypertension - Cont. carvedilol at reduced dose to avoid hypotension - Holding lisinopril, Bumex, and metolazone due to ARF 7. DM2 - Lantus 7 units BID + SSI - Novolog: Goal BSG Range: Low 110 mg/dL, High 160 mg/dL Correction Factor: 35 mg/dL/unit Carbohydrate ratio = 12 g/unit BSGs ACHS if eating, q6h if npo 8. Paroxysmal atrial fibrillation: - ventricularly dual-paced rhythm, on tele - Cont. amiodarone 200mg PO daily - started on heparin drip, Eliquis held 9. Chronic anemia: - Hgb 9.4, at baseline 10. GERD: - Cont. famotidine at reduced dose DVT Prophylaxis: Heparin drip Code status: Full FEN/GI: dialysis renal, DM2 Dispo: med/surg with tele; - cont. PT/OT: recommends acute rehab (2) Anemia: (3) Acute hyponatremia: (4) Chronic systolic CHF (congestive heart failure): Admission and Anticipated Discharge Date Admission Date: July 29, 2021 Supervising Physician Co-Signing Physician Notes Resident Physician Supervision Note: I independently interviewed and examined the patient and verified the darby history and physical, reviewed labs and image studies and agree with resident Dr. Lee findings and care plan. Subjective Overnight, patient continued to be encephalopathic and complained of chest pain radiating to left arm. Chest pain workup was initiated, trops obtained at 10.4. Patient required increased oxygen demand and was placed on 5L oxymask. This morning, patient was mildly encephalopathic, however, able to respond to simple questions. He denied chest pains this morning but did endorse some pain in his left arm. Although family states that he has chronic bilateral shoulder pain. He appeared comfortable without use of oxymask and denied SOB. Review of Systems Review of Systems: All systems reviewed & are unremarkable except as noted in HPI & below Constitutional: denies fevers, chills, fatigue CV: denies chest pain Resp: denies shortness of breath, cough GI: denies abdominal pain, nausea, vomiting Physical Exam Constitutional: WD/WN, vitals as above ENMT: Mouth: + dry oral mucous membranes (mild) Respiratory: normal respiratory effort; does not use accessory muscles Auscultation: + rales (mild bibasilar) Cardiovascular: Rate/Rhythm: regular rate and regular rhythm Vessels: no JVD Extremities: no pedal edema and no edema Gastrointestinal (Abdomen): normal bowel sounds, soft, nontender, no hepatosplenomegaly Psychiatric: A+Ox3, euthymic affect Results & Data Results & Data ([facility]) Vital Signs (Past 12 Hours) Vital Signs Temp Pulse Pulse Pulse Resp BP Pulse Ox 08/02/21 12:22 97 08/02/21 11:09 36.8 C 76 16 117/63 96 08/02/21 07:50 36.3 C L 84 22 115/68 92 08/02/21 07:44 80 08/02/21 03:58 36.3 C L 63 18 117/69 96 Resident Activity Tracking Resident Involvement: Resident Care Provided Care Provided: Adult Hospital Medicine (1) Anemia Anemia type: unspecified type Qualified Code(s): D64.9 - Anemia, unspecified
[2021-08-02 15:12] LABS: Partial Thromboplastin Ratio 1.8
[2021-08-02 15:20] LABS: Partial Thromboplastin Time 47.2 Seconds (21.0-31.0)
[2021-08-02] MEDS: MONTELUKAST SODIUM 10 MG TABLET PO SCH (19:41)
[2021-08-02] MEDS: LATANOPROST 0.005% OP SOLN 2.5 ML BTL OPL SCH (19:44)
[2021-08-02] MEDS: traZODone HCL 50 MG TAB PO SCH (20:37)
[2021-08-02] MEDS ORDERED: LACTATED RINGER'S 250 ML IV ONE (22:57)
[2021-08-02] MEDS ORDERED: AMIODARONE 200 MG TAB PO ONE (22:59)
[2021-08-03] MEDS ORDERED: POTASSIUM CHLORIDE 20 MEQ/15 ML UDC PO STA (01:54)
[2021-08-03] MEDS ORDERED: MAGNESIUM SULFATE / D5W 1 GM/100 ML BAG IV ONE (02:15)
--- NOTE | 2021-08-03 04:16 | Communication Note ---
Date of Service: August 03, 2021 Around 2230, notified by patient's RN that patient had entered into a tachyarrhythmia in the low 100 range. At that time, pressures were in the high 90s/50s. ECG was obtained and telemetry were reviewed, which seemed to demonstrate a ventricularly-paced tachyarrhythmia that was regular in its appearance. At the time of my initial assessment, patient denied any chest pain or discomfort. His had a strong pulse in his carotid in the L radial. As the night progressed, he did note that he felt mildly short of breath but still denied pain. Rates continued in the ~100 range, BPs tended more towards 100-110/70s. He remained asymptomatic on multiple rechecks. He was given a 250cc bolus of LR, 1mg of MgSO4m and KCl 40mEq, and an additional dose of his PO amiodarone. Will discuss with patient's daytime team. Suspect supraventricular in origin resulting in the paced rhythm, especially with patient's known history of flutter and HFrEF. Discussed with my attending throughout the work-up. Resident Activity Tracking Resident Involvement: Resident Care Provided Care Provided: Adult [facility] Medicine
[2021-08-03 07:36] LABS: BUN Creatinine Ratio 24.6 (10-20); Calcium 8.7 mg/dl (8.5-10.1); Creatinine Clr Calc Pharmacy 17.3 ml/min; Est GFR (African American) 18.5 ml/min; Potassium 3.8 mmol/L (3.5-5.1)
[2021-08-03 07:41] LABS: Partial Thromboplastin Time 51.7 Seconds (21.0-31.0)
[2021-08-03] MEDS: FAMOTIDINE 20 MG TAB PO SCH (09:07)
[2021-08-03] MEDS: AMIODARONE 200 MG TAB PO SCH (09:08)
[2021-08-03] MEDS: carvediloL 12.5 MG TAB PO SCH (09:08)
[2021-08-03] MEDS: MULTIVITAMIN TAB PO SCH (09:08)
[2021-08-03] MEDS: OMEGA-3 (PURIFIED FISH OIL) 1 GM CAP PO SCH (09:08)
[2021-08-03] MEDS: CETIRIZINE HCL 10 MG TABLET PO SCH (09:08)
[2021-08-03] MEDS: CLOPIDOGREL BISULFATE 75 MG TAB PO SCH (09:09)
[2021-08-03] MEDS: INSULIN GLARGINE SOLOSTAR 100 UNITS/ML 3 ML PEN SC SCH ×2 (09:09→21:08)
[2021-08-03] MEDS: ISOSORBIDE MONO EXTENDED REL 60 MG TABCR PO SCH (09:09)
[2021-08-03] MEDS: INSULIN ASPART PER UNIT SC SCH ×4 (09:15→21:09)
[2021-08-03] MEDS: ACETAMINOPHEN 325 MG TAB PO PRN (09:19)
[2021-08-03] MEDS: HEPARIN SODIUM/DEXTROSE 25,000 UNITS/500 ML BAG IV SCH (12:49)
--- NOTE | 2021-08-03 14:20 | Hospitalist Progress Note ---
Date of Service August 03, 2021 Assessment & Plan (1) Non-ST elevation (NSTEMI) myocardial infarction: Plan: This is an 86 year old gentleman with a complex medical history that includes CHF, T2DM, and CAD who was admitted to the hospital on 07/29 for acute renal fail ure likely prerenal secondary to dehydration and diuretic use. This morning, he was the most alert and oriented I have seen him since coming onto service. He is able to relay his cardiac history and actively listening to my explanation of why he is in the hospital and how his status has progressed. Follows commands appropriately. 1. NSTEMI -chest and left arm pain, SOB (08/02) -h/o multivessel CAD but deemed not a surgical candidate for CAGB or PCI as of last year -trops 10.4 downtrended to 8.9; repeat (08/03) sec to chest pain, 14.3 -EKG (08/02): ventricularly paced rhythm w/o ST abnormalities -chest XR (08/02): cardiomegaly w/ trace bilateral pleural effusions, patchy bibasilar densities favoring atelectasis -Echo (08/02): EF: 35-40%, mildly dilated LV, mild global akinesis w/ severe hypokinesis of inferolateral wall -Cardio consult: recommends medical therapy 2/2 nonsurgical candidate -cont. heparin drip, Eliquis held; check PTT am -cont. plavix, nitrate; intolerant to statins -d/c carvedilol 2/2 low BP; started on metoprolol succinate 50mg BID -cont. holding lisinopril due to JOSUE -d/c ranexa 2/2 renal function -discussed case with Dr. Armendariz: patient is on appropriate medical therapy the circumstances will allow; to discuss future plans and potential palliative/hospice with family. 2. Acute renal failure - sent by PCP for Cr of ~7 - Likely secondary to dehydration 2/2 diarrhea, vomiting, diuretic - Cr 3.33, slowly downtrending - BUN:Cr 24.6, suggests prerenal - Hold home bumex, metolazone, and lisinopril - Received IVF for hypotension last night. - recheck BMP am 3. Hypoxia -IV LRs held 2/2 pleural effusions and inc. O2 requirement, will hold off on diuresis -cont. oxygen supplementation as needed 4. Tachyarrhythmia with Hypotension - biventricular ICD in place, on tele, asymptomatic - arrhythmia found on EKG and tele overnight with HRs in low 100s and systolic BP <100 - cardio consult: d/c carvedilol; started on metoprolol succinate 50mg BID - Pacer interrogation 11. Paroxysmal atrial fibrillation: - ventricularly dual-paced rhythm, on tele - Cont. amiodarone 200mg PO daily - cont. heparin drip, Eliquis held 5. Chronic HFrEF - LVEF 35% (11/2020) - Echo (08/02): EF: 35-40%, mildly dilated LV, mild global akinesis w/ severe hypokinesis of inferolateral wall - Holding home Bumex and metolazone - New hypoxia - follow - appears euvolemic, monitor closely, see above 6. Acute hypokalemia, resolved - K 3.8 - recheck BMP am 7. Acute hyponatremia, resolved - Na 137 - recheck BMP am 8. CAD with history of NM and ischemic cardiomyopathy -see #1 -may consider starting Entresto if renal function allows 9. Hypertension - d/c carvedilol; started on metoprolol succinate 50mg BID - Holding lisinopril, Bumex, and metolazone due to ARF 10. DM2 - Lantus 7 units BID + SSI - Novolog: Goal BSG Range: Low 110 mg/dL, High 160 mg/dL Correction Factor: 35 mg/dL/unit Carbohydrate ratio = 12 g/unit BSGs ACHS if eating, q6h if npo 12. Chronic anemia: - Hgb 9.4, at baseline 13. GERD: - Cont. famotidine at reduced dose DVT Prophylaxis: Heparin drip Code status: Full FEN/GI: dialysis renal, DM2 Dispo: med/surg with tele; - cont. PT/OT: recommends acute rehab (2) Acute renal failure: (3) Anemia: (4) Acute hyponatremia: (5) Chronic systolic CHF (congestive heart failure): Admission and Anticipated Discharge Date Admission Date: July 29, 2021 Supervising Physician Co-Signing Physician Notes Resident Physician Supervision Note: I independently interviewed and examined the patient and verified the darby history and physical, reviewed labs and image studies and agree with resident Dr. Lee findings and care plan. Subjective Overnight around 0, patient had entered into a tachyarrhythmia in the low 100 range. Pressures were in the high 90s/50s. ECG was obtained and telemetry demonstrated a ventricularly-paced tachyarrhythmia that was regular in its appearance. At that time, he was without chest pain with very mild SOB. He was given a 250cc bolus of LR, 1mg of MgSO4m and KCl 40mEq, and an additional dose of his PO amiodarone. This morning, he was back to his baseline mental status. He was the most alert he has been since being admitted. He was able to explain his cardiac history to me and was aware he had a bad heart. Denied any chest pain or SOB. But did have some upper left arm pain. Also complained of urethral meatus pain due to don insertion, otherwise felt good and was able to intake oral fluids without complaints. Review of Systems Review of Systems: Constitutional: denies fevers, chills, fatigue CV: denies chest pain Resp: denies shortness of breath, cough GI: denies abdominal pain, nausea, vomiting Physical Exam Constitutional: WD/WN, vitals as above cooperative and comfortable ENMT: Mouth: + dry oral mucous membranes (mild) Respiratory: normal respiratory effort; does not use accessory muscles Auscultation: + diminished lung sounds (right lower lobe) Cardiovascular: Rate/Rhythm: regular rate and regular rhythm Vessels: no JVD Extremities: no pedal edema and no edema Gastrointestinal (Abdomen): normal bowel sounds, soft, nontender, no hepatosplenomegaly Skin: +scattered ecchymosis especially on left forearm Psychiatric: Orientation: alert, oriented to person, oriented to place and oriented to time (month and year) Results & Data Results & Data ([facility]) Vital Signs (Past 12 Hours) Vital Signs Temp Pulse Pulse Pulse Resp BP BP 08/03/21 10:59 37.3 C 71 18 85/41 L 96/58 L 08/03/21 07:40 36.7 C 106 H 92/59 L 08/03/21 03:45 36.6 C 105 H 20 94/61 L 08/03/21 03:42 65 Pulse Ox 08/03/21 10:59 94 08/03/21 07:40 97 08/03/21 03:45 97 08/03/21 03:42 Resident Activity Tracking Resident Involvement: Resident Care Provided Care Provided: Adult Hospital Medicine (1) Anemia Anemia type: unspecified type Qualified Code(s): D64.9 - Anemia, unspecified
--- NOTE | 2021-08-03 14:24 | Cardiology Progress Note ---
Date of Service August 03, 2021 Assessment & Plan (1) Non-ST elevation (NSTEMI) myocardial infarction: (2) CAD (coronary artery disease): (3) Paroxysmal atrial fibrillation: (4) Mitral regurgitation: (5) Ischemic cardiomyopathy: (6) Pulmonary hypertension: (7) Chronic systolic CHF (congestive heart failure): Plan: ASSESSMENT/PLAN: 1. NSTEMI: Has had episodes of chest discomfort that are not well defined. Reported chest discomfort today. Repeat another troponin this afternoon to see if it is trending upward. Continue anti-platelet therapy. On heparin drip per primary service. Continue beta-maria isabel as tolerated. Continue nitrate therapy. Reportedly intolerant to statin therapy. Recommend medical therapy. 2. Multivessel CAD: Plan as above. Ranexa discontinued during this hospital stay due to renal function. Has been deemed to be not a candidate for CABG or PCI [facility] for multivessel CAD. Medical therapy was recommended. Continue anti- platelet therapy, beta-maria isabel, nitrate therapy. Intolerant to statin therapy. 3. Chronic systolic CHF/heart failure with reduced EF: He appears euvolemic. Per admitting notes, there was concern for hypovolemia on presentation. Presented with acute on chronic renal failure with significantly elevated creatinine compared to baseline. Renal function improving. Was prescribed Bumex 2 mg twice daily. At some point, will likely require diuretic therapy. Follows in Heart failure program. Low-sodium diet. Daily weights. Strict I&Os. 4. Ischemic cardiomyopathy: Biventricular ICD in place and followed by EP. Continue carvedilol. Had been on lisinopril as an outpatient 40 mg daily but g iven renal function, JT-inhibitor was held during this hospital stay. There has been discussion of Entresto as an outpatient and if renal function allows, could consider Entresto if no contraindications in the future. 5. Pulmonary hypertension: Has been reported in the past as well. Overall, appears to be stable. 6. Mitral regurgitation: Non severe. Can be followed as an outpatient. 7. Paroxysmal atrial fibrillation: On anticoagulation therapy in the form of Eliquis but currently on heparin drip per hospitalist service. Continue beta- maria isabel. Follows with EP. On amiodarone. Dr. Palma has arranged for interrogation of his biventricular ICD given overnight issue. 8. Acute kidney injury: As per hospitalist service. Renal function has improved. Consider Nephrology consultation. 9. Hypotension: Etiology not certain. Defer to hospitalist service. is on less antihypertensive agents now than compared to home regimen. Carvedilol discontinued by hospitalist service due to hypotension. Blood pressure is mildly hypotensive and he appears to be asymptomatic. Recommended metoprolol succinate in place of carvedilol. Given arrhythmia overnight in the setting of severe multivessel CAD and deemed to be unsuitable for CABG or PCI, would recommend reasonable dose of beta-maria isabel as tolerated. Suggest a total of 100 mg daily of metoprolol succinate. Can use divided doses to monitor closely for worsening hypotension. 10. Disposition: Medical therapy recommended as above. Patient care communicated with Dr. Joya of the primary hospitalist service. On discharge, should follow-up with Janell Jordan of Heart failure program, Dr. Hermosillo his primary supervisor hand workers, and electrophysiology for continued device management. His daughter, Felicia, was contacted via telephone and she was updated in regards to his cardiac issues. We discussed the fact that he has multi organ system issues and that treatment may prove difficult. She expressed understanding. Admission and Anticipated Discharge Date Admission Date: July 29, 2021 Subjective Patient seen late this morning. He states that he has been having intermittent chest discomfort but is mild. His daughter was contacted via telephone and she states that he also has shoulder pain that sometimes is reported as chest pain. He was unable to give more of a description of his discomfort other than saying that it was mild and not bothersome to him. He denies shortness of breath at the time but states he has shortness of breath at times. He denies syncope, near-syncope, palpitations, bleeding, or edema. His biggest concern was having issues using the restroom, presumably bowel movements, but he once again would not go into much detail. Overnight, he did become tachycardic from approximately 2229- 0853 this morning. Ventricular pacing was noted on telemetry and on ECG. He was unaccompanied. Physical Exam Physical Exam: Gen.: No acute distress. Alert. HEENT: Anicteric sclera. Neck: Thick neck but no appreciable JVD. Cardiac: PMI was nonpalpable. No ventricular heave. Regular. Normal S1-S2. 2/6 early peaking systolic ejection murmur best heard at the right upper sternal border. No rubs or gallops. Pulmonary: Clear to auscultation bilaterally on anterior auscultation. Abdomen: Soft, nontender, nondistended, with normoactive bowel sounds. No bruits noted. Extremities: 2+ radial pulses bilaterally. 1+ posterior tibialis pulses bilaterally. Trace bilateral lower extremity edema. No cyanosis. Results & Data ([facility]) Vital Signs (Past 12 Hours) Vital Signs Temp Pulse Pulse Pulse Resp BP BP 08/03/21 10:59 37.3 C 71 18 85/41 L 96/58 L 08/03/21 07:40 36.7 C 106 H 92/59 L 08/03/21 03:45 36.6 C 105 H 20 94/61 L 08/03/21 03:42 65 Pulse Ox 08/03/21 10:59 94 08/03/21 07:40 97 08/03/21 03:45 97 08/03/21 03:42 Intake & Output 08/01/21 08/02/21 08/03/21 08/04/21 06:59 06:59 06:59 06:59 Intake Total 3000 / 3000 2021.667 / 2021.667 1236.1 / 1236.1 421.9 / 421.9 Output Total 2225 / 2225 1350 / 1350 900 / 900 100 / 100 Balance 775 / 775 671.667 / 671.667 336.1 / 336.1 321.9 / 321.9 Weight 202 lb 9.677 oz 200 lb 9.93 oz 203 lb 14.841 oz Laboratory Results Laboratory Results - last 24 hr 08/02/21 08/02/21 08/02/21 14:30 16:38 20:57 APTT 47.2 H* PTT Ratio 1.8 Sodium Potassium Chloride Carbon Dioxide Anion Gap BUN Creatinine Est Cr Clr Drug Dosing Est GFR ( Amer) Est GFR (Non-Af Amer) BUN/Creatinine Ratio Glucose POC Glucose 134 H 143 H Calcium 08/03/21 08/03/21 08/03/21 06:38 06:38 07:23 APTT 51.7 H* PTT Ratio 2.0 Sodium 137 Potassium 3.8 Chloride 95 L Carbon Dioxide 31 Anion Gap 11 BUN 82 H Creatinine 3.33 H D Est Cr Clr Drug Dosing 17.3 Est GFR ( Amer) 18.5 Est GFR (Non-Af Amer) 16.0 BUN/Creatinine Ratio 24.6 H Glucose 176 H POC Glucose 209 H Calcium 8.7 08/03/21 11:14 APTT PTT Ratio Sodium Potassium Chloride Carbon Dioxide Anion Gap BUN Creatinine Est Cr Clr Drug Dosing Est GFR ( Amer) Est GFR (Non-Af Amer) BUN/Creatinine Ratio Glucose POC Glucose 224 H Calcium Diagnostic Findings Telemetry personally reviewed: Became tachycardic overnight from approximately 10:29 p.m. to 8:53 a.m.. Ventricular pacing was still occurring but irregular and occasionally had wide complex tachycardia that was nonsustained which could represent aberrant conduction versus ventricular tachycardia. Underlying rhythm presumed to be atrial fibrillation or atrial tachycardia, but not well defined on telemetry. ECG personally reviewed from 08/02/2021 10:45 p.m.: Ventricular paced 100 beats per minute. Underlying rhythm possibly AFib. Medications Administered Current Inpatient Medications Acetaminophen (Acetaminophen 325 Mg Tab) 650 mg PO Q4H PRN PRN Reason: Pain or Fever Stop: 08/28/21 20:56 Last Admin: 08/03/21 09:19 Dose: 650 mg Documented by: Amiodarone HCl (Amiodarone 200 Mg Tab) 200 mg PO QAM [facility] Stop: 08/29/21 08:59 Last Admin: 08/03/21 09:08 Dose: 200 mg Documented by: Apixaban (Apixaban 2.5 Mg Tab) 2.5 mg PO BID [facility] Stop: 08/28/21 20:59 Last Admin: 08/01/21 20:26 Dose: 2.5 mg Documented by: Cetirizine HCl (Cetirizine Hcl 10 Mg Tablet) 10 mg PO DAILY [facility] Stop: 08/29/21 08:59 Last Admin: 08/03/21 09:08 Dose: 10 mg Documented by: Clopidogrel Bisulfate (Clopidogrel Bisulfate 75 Mg Tab) 75 mg PO DAILY [facility] Stop: 08/29/21 08:59 Last Admin: 08/03/21 09:09 Dose: 75 mg Documented by: Dextrose (Dextrose 50% 50 Ml Syringe) 25 - 50 ml IV UD PRN; Protocol PRN Reason: Hypoglycemia Protocol Stop: 08/28/21 21:05 Last Admin: 07/30/21 20:25 Dose: 25 ml Documented by: Famotidine (Famotidine 20 Mg Tab) 20 mg PO QAM [facility] Stop: 08/29/21 08:59 Last Admin: 08/03/21 09:07 Dose: 20 mg Documented by: Fish Oil ([place]-3 (Purified Fish Oil) 1 Gm Cap) 1 gm PO DAILY [facility] Stop: 08/29/21 08:59 Last Admin: 08/03/21 09:08 Dose: 1 gm Documented by: Glucagon (Glucagon For Inj 1 Mg Vial) 1 mg SQ UD PRN; Protocol PRN Reason: Hypoglycemia Protocol Stop: 08/28/21 21:05 Glucose (Glucose 10 Tabs/Tube) 4 - 8 tabs PO UD PRN; Protocol PRN Reason: Hypoglycemia Protocol Stop: 08/28/21 21:05 Glucose (Glucose 40% Gel 15 Gm Tube) 15 - 30 gm PO UD PRN; Protocol PRN Reason: Hypoglycemia Protocol Stop: 08/28/21 21:05 Lactated Ringer's (Lr) 1,000 mls @ 80 mls/hr IV .[id number] [facility] Stop: 08/28/21 20:56 Last Infusion: 08/02/21 07:29 Dose: Infused Documented by: Heparin Sodium/Dextrose (Heparin Sodium/Dextrose) 25,000 units in 500 mls @ 18 mls/hr IV .Q24H [facility]; Protocol Stop: 09/01/21 08:29 Last Admin: 08/03/21 12:49 Dose: 900 units/hr, 18 mls/hr Documented by: Insulin Aspart (Insulin Aspart Per Unit) 0 units SC ACHS [facility] Stop: 08/29/21 07:29 Last Admin: 08/03/21 12:51 Dose: 5 units Documented by: Insulin Glargine (Insulin Glargine Solostar 100 Units/Ml 3 Ml Pen) 7 units SC BID [facility] Stop: 08/30/21 20:59 Last Admin: 08/03/21 09:09 Dose: 7 units Documented by: Isosorbide Mononitrate (Isosorbide Dolores Extended Rel 60 Mg Tabcr) 240 mg PO QAM [facility] Stop: 08/29/21 08:59 Last Admin: 08/03/21 09:09 Dose: 240 mg Documented by: Latanoprost (Latanoprost 0.005% Op Soln 2.5 Ml Btl) 1 drops OPL HS [facility] Stop: 08/28/21 20:59 Last Admin: 08/02/21 19:44 Dose: 1 drops Documented by: Metoprolol Succinate (Metoprolol Succ 50mg Ext Rel Tab) 50 mg PO BID [facility] Stop: 09/02/21 20:59 Miscellaneous (Carbohydrates For Hypoglycemia ) 15 - 30 gm PO UD PRN PRN Reason: Hypoglycemia Protocol Stop: 08/28/21 21:05 Last Admin: 07/31/21 08:30 Dose: 30 gm Documented by: Montelukast Sodium (Montelukast Sodium 10 Mg Tablet) 10 mg PO HS [facility] Stop: 08/28/21 20:59 Last Admin: 08/02/21 19:41 Dose: 10 mg Documented by: Multivitamins (Multivitamin Tab) 1 tab PO QAM [facility] Stop: 08/29/21 08:59 Last Admin: 08/03/21 09:08 Dose: 1 tab Documented by: Nitroglycerin (Nitroglycerin Sl 0.4 Mg/Tab Tab) 0.4 mg SL PRN PRN PRN Reason: chest pain Stop: 09/01/21 02:19 Last Admin: 08/02/21 02:33 Dose: 0.4 mg Documented by: Trazodone HCl (Trazodone Hcl 50 Mg Tab) 50 mg PO [facility] Stop: 08/28/21 20:59 Last Admin: 08/02/21 20:37 Dose: 50 mg Documented by: PG Care Time/CCT Total # of Minutes Spent Total Time Spent with Patient: Total time spent is greater than 50% in coordination of care (as documented) at patient's floor/unit and/or counseling patient: Coding Level of Care Code 00679 Subseq Hosp Care Lvl 3 Diagnoses Non-ST elevation (NSTEMI) myocardial infarction I21.4 CAD (coronary artery disease) I25.10 Coronary Disease-Associated Artery/Lesion type: [place] artery [place] vs. transplanted heart: [place] heart Associated angina: angina presence unspecified Paroxysmal atrial fibrillation I48.0 Mitral regurgitation I34.0 Cardiac valve disease etiology: nonrheumatic Ischemic cardiomyopathy I25.5 Pulmonary hypertension I27.20 Chronic systolic CHF (congestive heart failure) I50.22 (1) CAD (coronary artery disease) Coronary Disease-Associated Artery/Lesion type: [place] artery [place] vs. transplanted heart: [place] heart Associated angina: angina presence unspecified Qualified Code(s): I25.10 - Atherosclerotic heart disease of [place] coronary artery without angina pectoris (2) Mitral regurgitation Cardiac valve disease etiology: nonrheumatic Qualified Code(s): I34.0 - Nonrheumatic mitral (valve) insufficiency
--- NOTE | 2021-08-03 20:02 | Communication Note ---
Date of Service: August 03, 2021 Extensive conversation with patient's family (including , daughter, and son), regarding the continued management and care of the patient. Explained the extent of his current medical conditions, and the difficulty in continuing to manage them going forward in a way that would be able to extend or afford the patient an improved quality of life. Given this conversation, and with the family's recognition that his heart disease and likely also his kidney disease continue to decline in the face of his current medical management, family expressed desire for him to be transitioned from FULL CODE to DNR/DNI in the event of cardiac arrest as they understand that this would likely not be a survive-able injury if it were to happen. They are going to continue to ponder the potential transition to Palliative/Hospice care at this point, but would aim to keep his current medical management until they have been able to further discuss. They expressed that they would not want him to undergo any heroic measures as his quality of life currently has deteriorated to the point that they do not believe he would want this. Code status updated. Will re-visit this conversation on a continued basis going forward. Maintain current medical management.
[2021-08-03] MEDS ORDERED: carvediloL 6.25 MG TAB PO SCH (21:00)
[2021-08-03] MEDS: LATANOPROST 0.005% OP SOLN 2.5 ML BTL OPL SCH (21:10)
[2021-08-03] MEDS: METOPROLOL SUCC 50MG EXT REL TAB PO SCH (21:10)
[2021-08-03] MEDS: MONTELUKAST SODIUM 10 MG TABLET PO SCH (21:11)
[2021-08-03] MEDS: traZODone HCL 50 MG TAB PO SCH (21:19)
--- NOTE | 2021-08-03 22:56 | Electrocardiogram Report ---
Test Reason : Blood Pressure : / mmHG Vent. Rate : 100 BPM Atrial Rate : 234 BPM P-R Int : 000 ms QRS Dur : 166 ms QT Int : 434 ms P-R-T Axes : 000 009 160 degrees QTc Int : 559 ms Poor data quality, interpretation may be adversely affected Ventricular-paced rhythm Biventricular pacemaker detected Abnormal ECG When compared with ECG of 02-AUG-2021 02:21, Vent. rate has increased BY 23 BPM Confirmed by Travis Alcantara ([id number]) on 08/03/2021 10:55:32 PM Referred By: Kyle Lamb Confirmed By:Travis Alcantara
[2021-08-04 07:53] LABS: Basophils # (auto) 0.01 K/uL (0-0.2); Basophils % (auto) 0.1 %; Eosinophils # (auto) 0.16 K/uL (0-0.5); Hematocrit (blood only) 25.9 % (42-52); Immature Granulocytes # (auto) 0.01 K/uL (0.00-0.02); Immature Granulocytes % (auto) 0.1 %; Lymphocytes # (auto) 1.62 K/uL (1.2-3.4); Lymphocytes % (auto) 19.8 %; Mean Corpuscular Hemoglobin 26.7 pg (25-34); Mean Corpuscular Hgb Conc 30.9 g/dL (32-36); Mean Corpuscular Volume 86.3 fL (80-100); Mean Platelet Volume 10.5 fL (7.4-10.4); Monocytes # (auto) 0.52 K/uL (0.11-0.59); Monocytes % (auto) 6.3 %; Neutrophils # (auto) 5.88 K/uL (1.4-6.5); Neutrophils % (auto) 71.7 %; Platelet Count 291 K/uL (130-400); RDW Coefficient of Variation 16.3 % (11.5-14.5); RDW Standard Deviation 51.6 fL (36.4-46.3)
[2021-08-04] MEDS: CLOPIDOGREL BISULFATE 75 MG TAB PO SCH (07:53)
[2021-08-04] MEDS: AMIODARONE 200 MG TAB PO SCH (07:53)
[2021-08-04] MEDS: OMEGA-3 (PURIFIED FISH OIL) 1 GM CAP PO SCH (07:53)
[2021-08-04] MEDS: CETIRIZINE HCL 10 MG TABLET PO SCH (07:53)
[2021-08-04] MEDS: FAMOTIDINE 20 MG TAB PO SCH (07:54)
[2021-08-04] MEDS: ISOSORBIDE MONO EXTENDED REL 60 MG TABCR PO SCH (07:54)
[2021-08-04] MEDS: INSULIN ASPART PER UNIT SC SCH ×4 (07:57→22:28)
[2021-08-04] MEDS: INSULIN GLARGINE SOLOSTAR 100 UNITS/ML 3 ML PEN SC SCH ×2 (07:59→21:59)
[2021-08-04 08:22] LABS: Troponin I 7.12 ng/ml (0-0.04)
[2021-08-04 08:28] LABS: Partial Thromboplastin Ratio 1.9
[2021-08-04 08:29] LABS: Partial Thromboplastin Time 50.7 Seconds (21.0-31.0)
[2021-08-04 08:33] LABS: Albumin Globulin Ratio 1.1 (0.9-2); Albumin Level 3.1 gm/dl (3.4-5.0); BUN Creatinine Ratio 23.4 (10-20); Bilirubin,Total 0.4 mg/dl (0.2-1.0); Calcium 8.7 mg/dl (8.5-10.1); Creatinine Clr Calc Pharmacy 15.1 ml/min; Est GFR (African American) 15.8 ml/min; Est GFR (Non-African American) 13.6 ml/min; Globulin 2.7 gm/dl (2.5-4.0); Potassium 3.4 mmol/L (3.5-5.1); Total Protein 5.8 gm/dl (6.0-8.3)
[2021-08-04] MEDS: MULTIVITAMIN TAB PO SCH (08:53)
[2021-08-04] MEDS: METOPROLOL SUCC 50MG EXT REL TAB PO SCH ×2 (08:53→22:48)
[2021-08-04] MEDS ORDERED: METOPROLOL SUCC 25MG EXT REL TAB PO SCH (09:00)
[2021-08-04 10:41] LABS: Hematocrit (blood only) 24.9 % (42-52); Hemoglobin 7.9 g/dL (14.0-18.0)
--- NOTE | 2021-08-04 11:43 | Hospitalist Progress Note ---
Date of Service August 04, 2021 Assessment & Plan (1) Non-ST elevation (NSTEMI) myocardial infarction: Plan: This is an 86 year old gentleman with a complex medical history that includes CHF, T2DM, and CAD who was admitted to the hospital on 07/29 for acute renal fail ure likely prerenal secondary to dehydration and diuretic use. This morning, he was the most alert and oriented I have seen him since coming onto service. He is able to relay his cardiac history and actively listening to my explanation of why he is in the hospital and how his status has progressed. Follows commands appropriately. Discussed management of care bedside with family including who is POA. It was decided that patient be placed on HOSPICE STATUS with comfort measures. [facility] where he will be able to room with his . 1. NSTEMI -chest and left arm pain, SOB (08/02) -h/o multivessel CAD but deemed not a surgical candidate for CAGB or PCI as of last year -trops 10.4 (08/02) downtrended to 8.9; repeat (08/03) sec to chest pain, 14.3 down to 7.1 -EKG (08/02): ventricularly paced rhythm w/o ST abnormalities -chest XR (08/02): cardiomegaly w/ trace bilateral pleural effusions, patchy bibasilar densities favoring atelectasis -Echo (08/02): EF: 35-40%, mildly dilated LV, mild global akinesis w/ severe hypokinesis of inferolateral wall -Cardio consult: recommends medical therapy 2/2 nonsurgical candidate -heparin drip d/c -cont. plavix, nitrate; intolerant to statins -d/c carvedilol 2/2 low BP; cont. metoprolol succinate 50mg BID -cont. holding lisinopril due to ARF -d/c ranexa 2/2 renal function 2. Acute renal failure - sent by PCP for Cr of ~7 - Likely secondary to dehydration 2/2 diarrhea, vomiting, diuretic - Cr 3.8, moderate increase - BUN:Cr 23.4, suggests prerenal - Hold home bumex, metolazone, and lisinopril 3. Hypoxia -cont. oxygen supplementation as needed 4. Tachyarrhythmia with Hypotension - biventricular ICD in place, on tele, asymptomatic - arrhythmia found on EKG and tele (08/03) with HRs in low 100s and systolic BP <100 - cardio consult: d/c carvedilol; cont. metoprolol succinate 50mg BID - HR, BP improved - Pacer interrogation 11. Paroxysmal atrial fibrillation: - ventricularly dual-paced rhythm, on tele - Cont. amiodarone 200mg PO daily - d/c heparin drip 5. Chronic HFrEF - LVEF 35% (11/2020) - Echo (08/02): EF: 35-40%, mildly dilated LV, mild global akinesis w/ severe hypokinesis of inferolateral wall - New hypoxia - home Bumex and metolazone were on hold - Considering hypoxia and crackles on exam - consider resuming bumex. reassess in am. 6. Acute hypokalemia, resolved - K 3.4, repleted 7. Acute hyponatremia, resolved - Na 137, stable 8. CAD with history of AK and ischemic cardiomyopathy -see #1 9. Hypertension - d/c carvedilol; cont, metoprolol succinate 50mg BID - Holding lisinopril due to ARF 10. DM2 - Lantus 7 units BID + SSI - Novolog: Goal BSG Range: Low 110 mg/dL, High 160 mg/dL Correction Factor: 35 mg/dL/unit Carbohydrate ratio = 12 g/unit BSGs ACHS if eating, q6h if npo 12. Chronic anemia: - Hgb 9.4, at baseline 13. GERD: - Cont. famotidine at reduced dose DVT Prophylaxis: none 2/2 [employer] Code status: DNR/DNI FEN/GI: dialysis renal, DM2 Dispo: transfer to med/surg; (2) Acute renal failure: (3) Anemia: (4) Acute hyponatremia: (5) Chronic systolic CHF (congestive heart failure): Admission and Anticipated Discharge Date Admission Date: July 29, 2021 Supervising Physician Co-Signing Physician Notes Resident Physician Supervision Note: I independently interviewed and examined the patient and verified the darby history and physical, reviewed labs and image studies and agree with resident Dr. Lee findings and care plan. Subjective Completing PT when walking into room this morning. He is in good spirits. Seems like he understands his situation and knows that may be imminent. His only request is to try to get his in today as she is in acute rehab. Review of Systems Review of Systems: Constitutional: denies fevers, chills, fatigue CV: denies chest pain Resp: denies shortness of breath, cough GI: denies abdominal pain, nausea, vomiting Physical Exam Constitutional: WD/WN, vitals as above cooperative and comfortable ENMT: Mouth: + dry oral mucous membranes (mild) Respiratory: normal respiratory effort; does not use accessory muscles crackles on base Cardiovascular: Rate/Rhythm: regular rate and regular rhythm Vessels: no JVD Extremities: + edema (+1 lower extremity ) Gastrointestinal (Abdomen): normal bowel sounds, soft, nontender, no hepatosplenomegaly Psychiatric: Orientation: alert, oriented to person, oriented to place and oriented to time (month and year) Results & Data Results & Data ([facility]) Vital Signs (Past 12 Hours) Vital Signs Temp Pulse Pulse Pulse Resp BP Pulse Ox 08/04/21 07:11 36.7 C 76 20 130/69 97 08/04/21 04:26 36.7 C 111 H 20 104/66 97 08/03/21 23:43 107 H Resident Activity Tracking Resident Involvement: Resident Care Provided Care Provided: Adult Hospital Medicine (1) Anemia Anemia type: unspecified type Qualified Code(s): D64.9 - Anemia, unspecified
[2021-08-04] MEDS ORDERED: POTASSIUM CHLORIDE CRTAB 20 MEQ TABCR PO STA (11:51)
--- NOTE | 2021-08-04 13:49 | Cardiology Progress Note ---
Date of Service August 04, 2021 Assessment & Plan (1) Non-ST elevation (NSTEMI) myocardial infarction: (2) CAD (coronary artery disease): (3) Paroxysmal atrial fibrillation: (4) Mitral regurgitation: (5) Ischemic cardiomyopathy: (6) Pulmonary hypertension: (7) Chronic systolic CHF (congestive heart failure): Plan: ASSESSMENT/PLAN: 1. NSTEMI: Has had episodes of chest discomfort that are not well defined. Troponin peaked at 14.31 following another episode of chest pain on 08/03/2020 after previously peaking at 10.4 on 08/02/2021. No current chest pain today. Continue anti-platelet therapy. On heparin drip. Continue beta-maria isabel as tolerated. Continue nitrate therapy. Reportedly intolerant to statin therapy. Recommend medical therapy. 2. Multivessel CAD: Plan as above. Ranexa discontinued during this hospital stay due to renal function. Has been deemed to be not a candidate for CABG or PCI [facility] for multivessel CAD. Medical therapy was recommended. Continue anti- platelet therapy, beta-maria isabel, nitrate therapy. Intolerant to statin therapy. 3. Chronic systolic CHF/heart failure with reduced EF: Now has crackles/rales on exam and mention shortness of breath a bit more than previous days. On exam, he does not appear to be significantly hypervolemic. Has been without diuretic for several days. Will likely need to resume at least partial dose of his outpatient regimen soon. Consider Bumex 2 mg p.o. daily. Renal function had been improving however creatinine today once again trended upward. Presented with acute on chronic renal failure with significantly elevated creatinine compared to baseline.Was prescribed Bumex 2 mg twice daily as an outpatient. Follows in Heart failure program. Low-sodium diet. Daily weights. Strict I&Os. 4. Ischemic cardiomyopathy: Biventricular ICD in place and followed by EP. Continue beta-maria isabel. Presented with carvedilol but now on metoprolol succinate. Had been on lisinopril as an outpatient 40 mg daily but given renal function, JT-inhibitor was held during this hospital stay. With poor renal function, JT-inhibitor/ARNI not an option at this point. 5. Pulmonary hypertension: Has been reported in the past as well. Overall, appears to be stable. 6. Mitral regurgitation: Non severe. Can be followed as an outpatient. 7. Paroxysmal atrial fibrillation: On anticoagulation therapy in the form of Eliquis but currently on heparin drip per hospitalist service. Continue beta- maria isabel. Follows with EP. On amiodarone. Dr. Palma plans on once again interrogating his device due to tachycardia overnight. This will likely occur tomorrow. He also did not receive evening dose of metoprolol succinate. Hold parameters adjusted. Continue beta-maria isabel. 8. Acute kidney injury: As per hospitalist service. Renal function initially improved but creatinine trended upward today. Consider Nephrology consultation. 9. Hypotension: Blood pressure overall stable today. Has mild hypotension at times but appears to be asymptomatic. Continue beta-maria isabel as above given heart failure and recurrent angina/OR. No longer on JT-inhibitor. Has not been receiving usual diuretic. 10. Disposition: Plan of care [facility]. Poor prognosis. Consider palliative care and hospice due to severe multivessel CAD, with recurrent OR, and significant renal failure. Family meeting is pending later today with the hospitalist service, which may help define goals and future care. Admission and Anticipated Discharge Date Admission Date: July 29, 2021 Subjective He was seen this morning. He was chest pain-free at that time but has had recurrent chest pain per his recollection. He also has intermittent shortness of breath. Without prompting, he acknowledged that his heart is weak and that his time on earth may be limited. He repeated that he is looking forward to his family coming to the bedside today, specifically his . He wants to see his family. He denies syncope and palpitations. Was tachycardic overnight. He did not receive metoprolol succinate last evening due to hold parameters. He was alone in his hospital room. Physical Exam Physical Exam: Gen.: No acute distress. Alert. HEENT: Anicteric sclera. Neck: Thick neck but no appreciable JVD. Cardiac: PMI was nonpalpable. No ventricular heave. Regular. Normal S1-S2. 2/6 early peaking systolic ejection murmur best heard at the right upper sternal border. No rubs or gallops. Pulmonary: Crackles at the bases, otherwise clear to auscultation bilaterally. Abdomen: Soft, nontender, nondistended, with normoactive bowel sounds. No bruits noted. Extremities: 2+ radial pulses bilaterally. 1+ posterior tibialis pulses bilaterally. Trace bilateral lower extremity edema. No cyanosis. Results & Data ([facility]) Vital Signs (Past 12 Hours) Vital Signs Temp Pulse Pulse Resp BP Pulse Ox 08/04/21 11:51 36.5 C 71 16 91/51 L 96 08/04/21 07:11 36.7 C 76 20 130/69 97 08/04/21 04:26 36.7 C 111 H 20 104/66 97 Intake & Output 08/02/21 08/03/21 08/04/21 08/05/21 06:59 06:59 06:59 06:59 Intake Total 2021.667 / 2021.667 1236.1 / 1236.1 877.1 / 877.1 300 / 300 Output Total 1350 / 1350 900 / 900 400 / 400 200 / 200 Balance 671.667 / 671.667 336.1 / 336.1 477.1 / 477.1 100 / 100 Weight 200 lb 9.93 oz 203 lb 14.841 oz 203 lb 14.841 oz Laboratory Results Laboratory Results - last 24 hr 08/03/21 08/03/21 08/03/21 14:27 16:29 20:28 WBC RBC Hgb Hct MCV MCH MCHC RDW Std Deviation RDW Coeff of [place] Plt Count MPV Immature Gran % (Auto) Neut % (Auto) Lymph % (Auto) [place] % (Auto) Eos % (Auto) Baso % (Auto) Neut # (Auto) Lymph # (Auto) [place] # (Auto) Eos # (Auto) Baso # (Auto) Immature Gran # (Auto) APTT PTT Ratio Sodium Potassium Chloride Carbon Dioxide Anion Gap BUN Creatinine Est Cr Clr Drug Dosing Est GFR ( Amer) Est GFR (Non-Af Amer) BUN/Creatinine Ratio Glucose POC Glucose 78 147 H Calcium Total Bilirubin AST ALT Alkaline Phosphatase Troponin I 14.31 H* Total Protein Albumin Globulin Albumin/Globulin Ratio 08/04/21 08/04/21 08/04/21 07:17 07:17 07:17 WBC 8.20 RBC 3.00 L Hgb 8.0 L Hct 25.9 L MCV 86.3 MCH 26.7 MCHC 30.9 L RDW Std Deviation 51.6 H RDW Coeff of [place] 16.3 H Plt Count 291 MPV 10.5 H Immature Gran % (Auto) 0.1 Neut % (Auto) 71.7 Lymph % (Auto) 19.8 Henderson % (Auto) 6.3 Eos % (Auto) 2.0 Baso % (Auto) 0.1 Neut # (Auto) 5.88 Lymph # (Auto) 1.62 Henderson # (Auto) 0.52 Eos # (Auto) 0.16 Baso # (Auto) 0.01 Immature Gran # (Auto) 0.01 APTT 50.7 H* PTT Ratio 1.9 Sodium 137 Potassium 3.4 L Chloride 94 L Carbon Dioxide 32 Anion Gap 11 BUN 89 H Creatinine 3.80 H D Est Cr Clr Drug Dosing 15.1 Est GFR ( Amer) 15.8 Est GFR (Non-Af Amer) 13.6 BUN/Creatinine Ratio 23.4 H Glucose 112 H POC Glucose Calcium 8.7 Total Bilirubin 0.4 AST 39 ALT 17 Alkaline Phosphatase 58 Troponin I 7.12 H* Total Protein 5.8 L Albumin 3.1 L Globulin 2.7 Albumin/Globulin Ratio 1.1 08/04/21 08/04/21 08/04/21 07:39 10:32 11:27 WBC RBC Hgb 7.9 L Hct 24.9 L MCV MCH MCHC RDW Std Deviation RDW Coeff of [place] Plt Count MPV Immature Gran % (Auto) Neut % (Auto) Lymph % (Auto) [place] % (Auto) Eos % (Auto) Baso % (Auto) Neut # (Auto) Lymph # (Auto) [place] # (Auto) Eos # (Auto) Baso # (Auto) Immature Gran # (Auto) APTT PTT Ratio Sodium Potassium Chloride Carbon Dioxide Anion Gap BUN Creatinine Est Cr Clr Drug Dosing Est GFR ( Amer) Est GFR (Non-Af Amer) BUN/Creatinine Ratio Glucose POC Glucose 138 H 189 H Calcium Total Bilirubin AST ALT Alkaline Phosphatase Troponin I Total Protein Albumin Globulin Albumin/Globulin Ratio Diagnostic Findings Telemetry personally reviewed: Once again tachycardic overnight from approximately late evening to approximately 5:11 a.m.. Was intermittently pacing at that time but also concern for underlying atrial fibrillation or atrial tachycardia, difficult to ascertain on telemetry. Medications Administered Current Inpatient Medications Acetaminophen (Acetaminophen 325 Mg Tab) 650 mg PO Q4H PRN PRN Reason: Pain or Fever Stop: 08/28/21 20:56 Last Admin: 08/03/21 09:19 Dose: 650 mg Documented by: Amiodarone HCl (Amiodarone 200 Mg Tab) 200 mg PO QAM [facility] Stop: 08/29/21 08:59 Last Admin: 08/04/21 07:53 Dose: 200 mg Documented by: Apixaban (Apixaban 2.5 Mg Tab) 2.5 mg PO BID KEVIN Stop: 08/28/21 20:59 Last Admin: 08/01/21 20:26 Dose: 2.5 mg Documented by: Cetirizine HCl (Cetirizine Hcl 10 Mg Tablet) 10 mg PO DAILY KEVIN Stop: 08/29/21 08:59 Last Admin: 08/04/21 07:53 Dose: 10 mg Documented by: Clopidogrel Bisulfate (Clopidogrel Bisulfate 75 Mg Tab) 75 mg PO DAILY KEVIN Stop: 08/29/21 08:59 Last Admin: 08/04/21 07:53 Dose: 75 mg Documented by: Dextrose (Dextrose 50% 50 Ml Syringe) 25 - 50 ml IV UD PRN; Protocol PRN Reason: Hypoglycemia Protocol Stop: 08/28/21 21:05 Last Admin: 07/30/21 20:25 Dose: 25 ml Documented by: Famotidine (Famotidine 20 Mg Tab) 20 mg PO QAM KEVIN Stop: 08/29/21 08:59 Last Admin: 08/04/21 07:54 Dose: 20 mg Documented by: Fish Oil ([place]-3 (Purified Fish Oil) 1 Gm Cap) 1 gm PO DAILY KEVIN Stop: 08/29/21 08:59 Last Admin: 08/04/21 07:53 Dose: 1 gm Documented by: Glucagon (Glucagon For Inj 1 Mg Vial) 1 mg SQ UD PRN; Protocol PRN Reason: Hypoglycemia Protocol Stop: 08/28/21 21:05 Glucose (Glucose 10 Tabs/Tube) 4 - 8 tabs PO UD PRN; Protocol PRN Reason: Hypoglycemia Protocol Stop: 08/28/21 21:05 Glucose (Glucose 40% Gel 15 Gm Tube) 15 - 30 gm PO UD PRN; Protocol PRN Reason: Hypoglycemia Protocol Stop: 08/28/21 21:05 Lactated Ringer's (Lr) 1,000 mls @ 80 mls/hr IV .[id number] KEVIN Stop: 08/28/21 20:56 Last Infusion: 08/02/21 07:29 Dose: Infused Documented by: Heparin Sodium/Dextrose (Heparin Sodium/Dextrose) 25,000 units in 500 mls @ 18 mls/hr IV .Q24H [facility]; Protocol Stop: 09/01/21 08:29 Last Titration: 08/03/21 19:13 Dose: 900 units/hr, 18 mls/hr Documented by: Insulin Aspart (Insulin Aspart Per Unit) 0 units SC ACHS [facility] Stop: 08/29/21 07:29 Last Admin: 08/04/21 12:42 Dose: 4 units Documented by: Insulin Glargine (Insulin Glargine Solostar 100 Units/Ml 3 Ml Pen) 7 units SC BID [facility] Stop: 08/30/21 20:59 Last Admin: 08/04/21 07:59 Dose: 7 units Documented by: Isosorbide Mononitrate (Isosorbide [place] Extended Rel 60 Mg Tabcr) [facility] Stop: 08/29/21 08:59 Last Admin: 08/04/21 07:54 Dose: 240 mg Documented by: Latanoprost (Latanoprost 0.005% Op Soln 2.5 Ml Btl) 1 drops [facility] Stop: 08/28/21 20:59 Last Admin: 08/03/21 21:10 Dose: 1 drops Documented by: Metoprolol Succinate (Metoprolol Succ 50mg Ext Rel Tab) 50 mg PO BID [facility] Stop: 09/02/21 20:59 Last Admin: 08/04/21 08:53 Dose: 50 mg Documented by: Miscellaneous (Carbohydrates For Hypoglycemia ) 15 - 30 gm PO UD PRN PRN Reason: Hypoglycemia Protocol Stop: 08/28/21 21:05 Last Admin: 07/31/21 08:30 Dose: 30 gm Documented by: Montelukast Sodium (Montelukast Sodium 10 Mg Tablet) 10 mg PO [facility] Stop: 08/28/21 20:59 Last Admin: 08/03/21 21:11 Dose: 10 mg Documented by: Multivitamins (Multivitamin Tab) 1 tab PO QAM [facility] Stop: 08/29/21 08:59 Last Admin: 08/04/21 08:53 Dose: 1 tab Documented by: Nitroglycerin (Nitroglycerin Sl 0.4 Mg/Tab Tab) 0.4 mg SL PRN PRN PRN Reason: chest pain Stop: 09/01/21 02:19 Last Admin: 08/02/21 02:33 Dose: 0.4 mg Documented by: Trazodone HCl (Trazodone Hcl 50 Mg Tab) 50 mg PO HS KEVIN Stop: 08/28/21 20:59 Last Admin: 08/03/21 21:19 Dose: 50 mg Documented by: PG Care Time/CCT Total # of Minutes Spent Total Time Spent with Patient: Total time spent is greater than 50% in coordination of care (as documented) at patient's floor/unit and/or counseling patient: Coding Level of Care Code 72881 Subseq Hosp Care Lvl 3 Diagnoses Non-ST elevation (NSTEMI) myocardial infarction I21.4 CAD (coronary artery disease) I25.10 Coronary Disease-Associated Artery/Lesion type: pala artery [place] vs. transplanted heart: pala heart Associated angina: angina presence unspecified Paroxysmal atrial fibrillation I48.0 Mitral regurgitation I34.0 Cardiac valve disease etiology: nonrheumatic Ischemic cardiomyopathy I25.5 Pulmonary hypertension I27.20 Chronic systolic CHF (congestive heart failure) I50.22 (1) CAD (coronary artery disease) Coronary Disease-Associated Artery/Lesion type: pala artery [place] vs. transplanted heart: pala heart Associated angina: angina presence unspecified Qualified Code(s): I25.10 - Atherosclerotic heart disease of pala coronary artery without angina pectoris (2) Mitral regurgitation Cardiac valve disease etiology: nonrheumatic Qualified Code(s): I34.0 - Nonrheumatic mitral (valve) insufficiency
[2021-08-04] MEDS ORDERED: ONDANSETRON INJ 2 MG/ML 2 ML VIAL IV PRN (14:43)
[2021-08-04] MEDS ORDERED: ONDANSETRON 4 MG OD TAB SL PRN (14:43)
[2021-08-04] MEDS ORDERED: MoRPHine SULFATE 2 MG/ML CARP IV PRN (14:43)
[2021-08-04] MEDS ORDERED: LORazepam 0.5 MG TAB PO PRN (14:43)
[2021-08-04] MEDS ORDERED: MoRPHine SULFATE 5 MG/0.25 ML UDP PO PRN (14:43)
[2021-08-04] MEDS ORDERED: LORazepam 0.5 MG/1 ML VIAL IV PRN (14:43)
[2021-08-04] MEDS: HEPARIN SODIUM/DEXTROSE 25,000 UNITS/500 ML BAG IV SCH (14:48)
[2021-08-04] MEDS: MONTELUKAST SODIUM 10 MG TABLET PO SCH (21:50)
[2021-08-04] MEDS: LATANOPROST 0.005% OP SOLN 2.5 ML BTL OPL SCH (21:59)
[2021-08-04] MEDS: traZODone HCL 50 MG TAB PO SCH (22:46)
--- NOTE | 2021-08-05 05:34 | Communication Note ---
Date of Service: August 05, 2021 I was called to pronounce the of Mr. Marquis Salgado ( 1935) by his nurse early this morning on 08/05/2021. Upon entering the room, patient was found to be in a terminal state. He was unresponsive to, and did not withdrawal from, verbal or tactile stimuli. He was unresponsive to corneal, pupillary, or oculocephalic reflexes. On cardiop ulmonary exam, he was found to be without detectable carotid pulses, and without spontaneous heart tones or respirations. Time of : 08/05/2021 at 0500. Attending physician was notified. Next of kin by patient's nurse. Signed: Tony Osei MD
--- NOTE | 2021-08-05 06:30 | Death Pronouncement Note ---
Date of Service August 05, 2021 Pronouncement Note Admission Date July 29, 2021 Date and Time of Date of : 08/05/21 Time of : 05:00 Summary I was called to pronounce the of Mr. Marquis Salgado ( 1935) by his nurse early this morning on 08/05/2021. Upon entering the room, patient was found to be in a terminal state. He was unresponsive to, and did not withdrawal from, verbal or tactile stimuli. He was unresponsive to corneal, pupillary, or oculocephalic reflexes. On cardiopulmonary exam, he was found to be without detectable carotid pulses, and without spontaneous heart tones or respirations. Time of : 08/05/2021 at 0500. Attending physician was notified. Next of kin by patient's nurse. Signed: Tony Osei MD Additional Data Confirmation of : no pulse, no respirations, no heart sounds and pupils fixed and dilated Pronouncement Performed By: Resident Physician Family: contacted Attending/PCP notified?: Yes Attending physician: Lindsay Joya MD Was code activated?: No Advance directives: Yes Resident Activity Tracking Resident Involvement: Resident Care Provided Care Provided: Adult Hospital Medicine
--- NOTE | 2021-08-05 06:45 | Discharge Summary ---
Date of Service August 05, 2021 Admission HPI Per Admitting Provider Marquis Salgado is an 86-year-old male who presents to the ER for generalized weakness. He reports progressive worsening symptoms over the year but much worse over the last 7 days. He was seen by his primary care physician who took outpatient labs showing a creatinine of 7.06 which improved to 6.88 on labs in the ER today. The patient is hard of hearing and difficult to get an accurate history as he tells me about prior admission symptoms when I try and ask him about his symptoms currently. He current denies any fever, chills, chest pain, shortness of breath, abdominal pain, nausea or vomiting. Per ER note he was constipated earlier in the week and therefore took lots of laxatives and has been having diarrhea since. He has a significant history of NSTEMI in April 2021 with known severe coronary artery disease and deemed not a good surgical candidate on prior occasions to this therefore he was treated medically. In the ER he received 1L NSS bolus for his JOSUE presumed pre-renal secondary to diarrhea and overdiuresis. He was referred to medicine for admission and ongoing management of JOSUE. Principal Diagnosis congestive heart failure Discharge Exam Patient overnight Discharge Data Allergies Allergy/AdvReac Type Severity Reaction Status Date / Time sertraline Allergy Intermediate Hives Verified 07/29/21 15:56 pravastatin [From Pravachol] AdvReac Unknown Unknown Verified 07/29/21 09:05 rosuvastatin [From Crestor] AdvReac Unknown Unknown Verified 07/29/21 09:05 Consultations 07/29/21 16:07 ED Decision to Admit Stat 08/02/21 04:43 Consult Cardiology Routine Ordered Studies 07/29/21 16:43 CT abd pelvis wo con Stat Hospital Course (1) Non-ST elevation (NSTEMI) myocardial infarction: This is an 86 year old gentleman with a complex medical history that includes CHF, T2DM, and CAD who was admitted to the hospital on 07/29 for acute renal failure likely prerenal secondary to dehydration and diuretic use. ARF NSTEMI Acute on chronic HFrEF He was given IVF with improvement in renal function. He developed chest pain and had NSTEMI. Echo showed decreased EF and severe hypokinesis in inferolateral wall. He developed hypotension. With his rise in creatinine, he could not be diuresed. Discussed management of care bedside with family including who is POA. It was decided that patient be placed on HOSPICE STATUS with comfort measures. Comfort measures: - patient transitioned to comfort measures in the setting of multi-system organ dysfunction with no available interventions to correct his extensive coronary artery disease in the setting of worsening kidney failure He was pronounced on 08/05/2021 (2) Acute renal failure: (3) Anemia: (4) Chronic systolic CHF (congestive heart failure): Total Time Total Time Spent Total Time Spent (In Minutes): 30 Discharge Plan Discharge Items Patient Disposition: Other Date/Time: 08/05/21 05:00 Resident Activity Tracking Resident Involvement: Resident Care Provided Care Provided: Adult Hospital Medicine
== END 2021-08-05 10:38 | disposition expired | DRG 682 ==
LOC: ED 15:28 → EDINP 17:58 → SUATTDRO 17:58 → 2N 20:53 → 3W 08-04 18:18